=== PATIENT | female | born 1965 ===

== ENCOUNTER 2017-06-08 11:16 | Inpatient (IN) | payer OTHER ==
[2017-06-08 11:28] VITALS: BMI 42.2
[2017-06-08] MEDS ORDERED: Iohexol 240 (50 ml) PO STA ×2 (12:00→16:20)
[2017-06-08] MEDS ORDERED: Sodium Chloride 0.9% 1,000 ML IV STA (12:00)
--- NOTE | 2017-06-08 12:25 | C.PDOC ---
History Of Present Illness 51 year old female presents to the ED for evaluation of fever and left lower quadrant abdominal pain which began 5 days ago. Patient reports having one episode of vomiting and two episodes of diarrhea. Patient also has a history of pilonidal cyst and underwent repair by Dr. May. Patient states the area has not been healing well and reports discharge. Patient was advised by Dr. Sparrow to present to the ED for evaluation, admission under his service for surgical debridement to her saccral area and a workup for her abdominal pain. Patient denies back pain and dysuria at this time. Chief Complaint (Nursing): Abdominal Pain History Per: Patient History/Exam Limitations: no limitations Onset/Duration Of Symptoms: Days (5) Current Symptoms Are (Timing): Still Present Location Of Pain/Discomfort: LLQ Radiation Of Pain To:: None Quality Of Discomfort: "Pain" Associated Symptoms: Fever, Vomiting, Diarrhea. denies: Back Pain, Urinary Symptoms Additional History Per: Patient Abnormal Vaginal Bleeding: No Past Medical History Reviewed: Historical Data, Nursing Documentation, Vital Signs Vital Signs: Last Vital Signs Temp 98.6 F 06/08/17 13:05 Pulse 69 06/08/17 13:05 Resp 20 06/08/17 13:05 BP 152/87 H 06/08/17 13:05 Pulse Ox 95 06/08/17 13:18 - Medical History PMH: HTN Denies: Chronic Kidney Disease Surgical History: No Surg Hx - [facility] Procedures EXCISION OF BUTTOCK SKIN, EXTERNAL APPROACH (09/27/16) TRANSFER BACK SKIN, EXTERNAL APPROACH (09/27/16) Family History: States: Unknown Family Hx - Social History Hx Tobacco Use: No Hx Alcohol Use: No Hx Substance Use: No - Immunization History Hx Tetanus Toxoid Vaccination: No Hx Influenza Vaccination: Yes Hx Pneumococcal Vaccination: No Review Of Systems Constitutional: Positive for: Fever Gastrointestinal: Positive for: Vomiting, Abdominal Pain (left lower quadrant ) , Diarrhea Genitourinary: Negative for: Dysuria Musculoskeletal: Negative for: Back Pain Skin: Positive for: Other (nonhealing pilonidal cyst with discharge) Physical Exam - Physical Exam Appears: Non-toxic, No Acute Distress Skin: Normal Color, Warm, Dry Oral Mucosa: Moist Neck: Supple Chest: Symmetrical, No Deformity, No Tenderness Cardiovascular: Rhythm Regular, No Murmur Respiratory: Normal Breath Sounds, No Rales, No Rhonchi, No Wheezing Gastrointestinal/Abdominal: Soft, Tenderness (to left lower quadrant ), No Guarding, No Rebound Extremity: Normal ROM, Capillary Refill (less than 2 seconds ) Neurological/Psych: Oriented x3, Normal Speech, Normal Cognition Gait: Steady ED Course And Treatment - Laboratory Results Result Diagrams: 06/08/17 12:33 06/08/17 12:33 O2 Sat by Pulse Oximetry: 95 (on RA) Pulse Ox Interpretation: Normal Progress Note: Bloodwork, urinalysis, and CT A/P ordered. Toradol IVP, Zofran IVP, Cirpo IV, Flagyl IV, and IV Fluids administered. Case discussed with Dr. Sparrow who states he wishes for patient to go to operating room at this time and does not want CT A/P to be ordered. Dr. Sparrow states he will put in an order for CT after patient is seen in operating room. Also advises to order consult with Dr. Bustillos and Dr. Batista. Disposition - Disposition Disposition: HOSPITALIZED Disposition Time: 13:10 Condition: FAIR - Clinical Impression Clinical Impression: Abdominal pain, Pilonidal abscess - PA / DRAWING TRACER / Resident Statement MD/DO has reviewed & agrees with the documentation as recorded. - Scribe Statement The provider has reviewed the documentation as recorded by the Scribe (Chantelle Nolasco) All medical record entries made by the Scribe were at my direction and personally dictated by me. I have reviewed the chart and agree that the record accurately reflects my personal performance of the history, physical exam, medical decision making, and the department course for this patient. I have also personally directed, reviewed, and agree with the discharge instructions and disposition. Decision To Admit - Pt Status Changed To: Hospital Disposition Of: Inpatient - Admit Certification Admit to Inpatient:: After my assessment, the patient will require hospitalization for at least two midnights. This is because of the severity of symptoms shown, intensity of services needed, and/or the medical risk in this patient being treated as an outpatient. - InPatient: Physician Admission Certification:: Pt will neeed surgical treatment plus she needs to be worked up for abdominal pain. - . Bed Request Type: Regular Patient Diagnosis: Abdominal pain, Pilonidal abscess
[2017-06-08] MEDS ORDERED: Sodium Chloride 0.9% 1,000 ML ONE (12:35)
[2017-06-08 12:38] LABS: BASO # 0.1 K/uL (0.0-0.2); BASO % 0.8 % (0.0-2.0); EOS % 0.3 % (0.0-4.0); HEMOGLOBIN 10.8 g/dL (11.0-16.0); LYMPH # 1.7 K/uL (1.0-4.3); LYMPH % 11.5 % (20.0-40.0); MEAN CELL VOLUME 85.8 fL (81.0-99.0); MEAN CORPUSCULAR HEMOGLOBIN 30.2 pg (27.0-31.0); MEAN CORPUSCULAR HGB CONC 35.2 g/dL (33.0-37.0); MEAN PLATELET VOLUME 9.5 fL (7.2-11.7); MONO # 1.4 K/uL (0.0-0.8); MONO % 9.5 % (0.0-10.0); NEUT # 11.7 K/uL (1.8-7.0); NEUT % 77.9 % (50.0-75.0); RBC 3.57 Mil/uL (3.80-5.20); RED CELL DISTRIBUTION WIDTH 14.6 % (11.5-14.5)
[2017-06-08 12:45] LABS: INR 1.4; PROTHROMBIN TIME 15.6 SECONDS (9.7-12.2)
[2017-06-08 13:09] LABS: ALBUMIN 3.4 g/dL (3.5-5.0); ALT/SGPT 43 U/L (9-52); AST/SGOT 26 U/L (14-36); BLOOD UREA NITROGEN 13 mg/dL (7-17); CALCIUM 8.4 mg/dl (8.6-10.4); GFR AFRICAN-AMERICAN > 60; GFR NON-AFRICAN AMERICAN > 60; LIPASE 66 U/L (23-300)
[2017-06-08] MEDS ORDERED: Ciprofloxacin 400mg/200ml D5W 400 MG/200 ML BAG IV STA (13:10)
[2017-06-08] MEDS ORDERED: metroNIDAZOLE IV 500 mg/100 ml 500 MG/100 ML BAG IV STA (13:10)
[2017-06-08 13:20] LABS: SQUAMOUS EPITHIAL 7 /hpf (0-5); URINE BACTERIA RARE (<OCC); URINE BILIRUBIN NEGATIVE (NEGATIVE); URINE BLOOD 1+ (NEGATIVE); URINE CLARITY Clear (Clear); URINE COLOR Amber (YELLOW); URINE GLUCOSE (UA) NORMAL (Normal); URINE LEUKOCYTE ESTERASE TRACE Leu/uL (Negative); URINE NITRATE NEGATIVE (NEGATIVE); URINE PROTEIN 1+ mg/dL (NEGATIVE)
[2017-06-08 13:32] LABS: ALB/GLOB RATIO 0.9 (1.0-2.1)
[2017-06-08] MEDS ORDERED: Propofol 10 mg/ml Inj (20 ML) ONE (13:55)
[2017-06-08] MEDS ORDERED: Midazolam 2 MG/2 ML VIAL ONE (13:55)
[2017-06-08] MEDS ORDERED: metroNIDAZOLE IV 500 mg/100 ml 500 MG/100 ML BAG ONE (13:57)
[2017-06-08] MEDS ORDERED: Succinylcholine Chloride 20 mg/ml Syr (5 ml) IV ONE (13:57)
[2017-06-08] MEDS ORDERED: Bupivacaine HCl 0.5% PF (10 ml) Inj ONE ×2 (13:58)
[2017-06-08] MEDS ORDERED: Lidocaine 2% w Epi 1:100,000 Inj IJ ONE (13:58)
[2017-06-08] MEDS ORDERED: Lactated Ringer's 1,000 ML IV ONE (14:02)
[2017-06-08] MEDS ORDERED: Bupivacaine HCl 0.25% PF (10 ml) Inj ONE (14:16)
[2017-06-08] MEDS ORDERED: Lidocaine 1% Inj (20ml) ONE (14:16)
[2017-06-08] MEDS ORDERED: Ciprofloxacin 400mg/200ml D5W 400 MG/200 ML BAG IVPB ONE (14:23)
--- NOTE | 2017-06-08 17:03 | CP.PCM.CON ---
History of Present Illness - History of Present Illness History of Present Illness: 51 year old female presents to the ED for evaluation of fever and left lower quadrant abdominal pain which began 5 days ago. Patient reports having one episode of vomiting and two episodes of diarrhea. Patient also has a history of pilonidal cyst and underwent repair by Dr. May. Patient states the area has not been healing well and reports discharge. admitted for sacral wound/ r/o abscess and possible diverticultis cultures up and started antibiotics - Medical History PMH: HTN Denies: Chronic Kidney Disease Surgical History: No Surg Hx - [facility] Procedures EXCISION OF BUTTOCK SKIN, EXTERNAL APPROACH (09/27/16) TRANSFER BACK SKIN, EXTERNAL APPROACH (09/27/16) Review of Systems - Constitutional Constitutional: As Per HPI - EENT Eyes: absent: As Per HPI, Blind Spots, Blurred Vision, Change in Vision, Decreased Night Vision, Diplopia, Discharge, Dry Eye, Exophthalmos, Floaters, Irritation, Itchy Eyes, Loss of Peripheral Vision, Pain, Photophobia, Requires Corrective Lenses, Sees Flashes, Spots in Vision, Tunnel Vision, Other Visual Disturbances, Loss of Vision, Other Ears: absent: As Per HPI, Decreased Hearing, Ear Discharge, Ear Pain, Tinnitus, Abnormal Hearing, Disequilibrium, Dizziness, Other Nose/Mouth/Throat: absent: As Per HPI, Epistaxis, Nasal Congestion, Nasal Discharge, Nasal Obstruction, Nasal Trauma, Nose Pain, Post Nasal Drip, Sinus Pain, Sinus Pressure, Bleeding Gums, Change in Voice, Dental Pain, Dry Mouth, Dysphagia, Halitosis, Hoarsness, Lip Swelling, Mouth Lesions, Mouth Pain, Odynophagia, Sore Throat, Throat Swelling, Tongue Swelling, Facial Pain, Neck Pain, Neck Mass, Other - Breasts Breasts: absent: As Per HPI, Change in Shape, Mass, Pain, Nipple Discharge, Nipple Inversion, Skin Changes, Swelling, Other - Cardiovascular Cardiovascular: absent: As Per HPI, Acrocyanosis, Chest Pain, Chest Pain at Rest , Chest Pain with Activity, Claudication, Diaphoresis, Dyspnea, Dyspnea on Exertion, Edema, Irregular Heart Rhythm, Pain Radiating to Arm/Neck/Jaw, Leg Edema, Leg Ulcers, Lightheadedness, Orthopnea, Palpitations, Paroxysmal Nocturnal Dyspnea, Pedal Edema, Radiating Pain, Rapid Heart Rate, Slow Heart Rate, Syncope, Other - Respiratory Respiratory: absent: As Per HPI, Cough, Dyspnea, Hemoptysis, Dyspnea on Exertion , Wheezing, Snoring, Stridor, Pain on Inspiration, Chest Congestion, Excessive Mucous Production, Change in Mucous Color, Pain with Coughing, Other - Gastrointestinal Gastrointestinal: As Per HPI - Genitourinary Genitourinary: absent: As Per HPI, Change in Urinary Stream, Difficulty Urinating, Dysuria, Flank Pain, Hematuria, Pyuria, Nocturia, Urinary Incontinence, Urinary Frequency, Urinary Hesitance, Urinary Urgency, Voiding Freq/Small Amts, Freq UTI, Hx Renal/Bladder Calculi, Hx /Renal Surgery, Bladder Distension, Other - Reproductive: Female Reproductive:Female: absent: As Per HPI, Amenorrhea, Amenorrhea/ Control, Currently Menstual, Cycle <21 Days, Cycle >35 Days, Cycle Variable, Menses 1-7 Days, Menses >/= 8 Days, Menses Variable, Cycle > 4 Weeks Between, No Menses for 6 Months, Heavy Menses, Light Menses, Normal Menses, Spotting Between Cycles , S/P Hysterectomy, Menopausal, Post Menopausal, Premenarche, Abnormal Vaginal Bleeding, Dysmenorrhea, Dyspareunia, Genital Lesions, Genital Pruritis, Pelvic Pain, Prolapse Symptoms, Sexual Dysfunction, Vaginal Discharge, Vaginal Dryness , Vaginal Odor, Vaginal Pruritis, Other - Menstruation Menstruation: absent: As Per HPI, Amenorrhea, Amenorrhea/ Control, Currently Menstual, Cycle <21 Days, Cycle >35 Days, Cycle Variable, Menses 1-7 Days, Menses >/= 8 Days, Menses Variable, Cycle > 4 Weeks Between, No Menses for 6 Months, Heavy Menses, Light Menses, Normal Menses, Spotting Between Cycles , S/P Hysterectomy, Menopausal, Post Menopausal, Premenarche, Abnormal Vaginal Bleeding, Dysmenorrhea, Other - Musculoskeletal Musculoskeletal: As Per HPI - Integumentary Integumentary: As Per HPI, Skin Pain, Wounds - Neurological Neurological: absent: As Per HPI, Abnormal Gait, Abnormal Hearing, Abnormal Movements, Abnormal Speech, Behavioral Changes, Burning Sensations, Confusion, Convulsions, Disequilibrium, Dizziness, Numbness, Focal Weakness, Frequent Falls , Headaches, Lack of Coordination, Loss of Vision, Memory Loss, Paresthesias, Radicular Pain, Restless Legs, Sensory Deficit, Syncope, Tingling, Tremor, Vertigo, Weakness, Other Visual Disturbances, Other - Psychiatric Psychiatric: absent: As Per HPI, Abnormal Sleep Pattern, Anhedonia, Anxiety, Auditory Hallucinations, Behavioral Changes, Change in Appetite, Change in Libido, Confusion, Depression, Difficulty Concentrating, Hallucinations, Homicidal Ideation, Hopelessness, Irritability, Memory Loss, Mood Swings, Panic Attacks, Paranoia, Suicidal Ideation, Visual Hallucinations, Tactile Hallucinations, Other - Endocrine Endocrine: absent: As Per HPI, Change in Body Appearance, Change in Libido, Cold Intolorance, Deepening of Voice, Excessive Sweating, Fatigue, Flushing, Heat Intolorance, Increase in Ring/Shoe/Hat Size, Palpitations, Polydipsia, Polyphagia, Polyuria, Other - Hematologic/Lymphatic Hematologic: absent: As Per HPI, Easy Bleeding, Easy Bruising, Lymphadenopathy, Other Past Patient History - Past Medical History & Family History Past Medical History?: Yes - Past Social History Smoking Status: Never Smoked - CARDIAC Hx Hypertension: Yes - PULMONARY Hx Respiratory Disorders: No - NEUROLOGICAL Hx Neurological Disorder: No - HEENT Hx HEENT Problems: No - RENAL Hx Chronic Kidney Disease: No - ENDOCRINE/METABOLIC Hx Endocrine Disorders: No - MUSCULOSKELETAL/RHEUMATOLOGICAL Hx Falls: No - PSYCHIATRIC Hx Substance Use: No - SURGICAL HISTORY Hx Surgeries: Yes Hx Gastric Bypass Surgery: Yes (2011) Hx Hysterectomy: Yes (1998) Other/Comment: gallbladder Sx 4 -5 yrs ago - ANESTHESIA Hx Anesthesia: Yes Hx Anesthesia Reactions: No Hx Malignant Hyperthermia: No Meds Allergies/Adverse Reactions: Allergies Allergy/AdvReac Type Severity Reaction Status Date / Time No Known Allergies Allergy Verified 06/08/17 11:50 - Medications Medications: Current Medications Enoxaparin Sodium (Lovenox) 30 mg SC DAILY MICHELLE Oxycodone/Acetaminophen (Percocet 5/325 Mg Tab) 2 tab PO Q4H PRN PRN Reason: pain 5-10 Stop: 06/11/17 14:48 Physical Exam - Constitutional Appears: Chronically Ill - Head Exam Head Exam: NORMOCEPHALIC - Eye Exam Eye Exam: PERRL - ENT Exam ENT Exam: Mucous Membranes Dry - Neck Exam Neck exam: Negative for: Lymphadenopathy - Respiratory Exam Respiratory Exam: Decreased Breath Sounds, Clear to Auscultation Bilateral - Cardiovascular Exam Cardiovascular Exam: REGULAR RHYTHM - GI/Abdominal Exam GI & Abdominal Exam: Diminished Bowel Sounds, Soft. absent: Tenderness - Rectal Exam Rectal Exam: Deferred - Exam Exam: NORMAL INSPECTION - Extremities Exam Extremities exam: Negative for: pedal edema - Back Exam Back exam: absent: CVA tenderness (L), CVA tenderness (R) - Neurological Exam Neurological exam: Alert, CN II-XII Intact, Oriented x3 - Psychiatric Exam Psychiatric exam: Normal Mood - Skin Skin Exam: Dry Results - Vital Signs Recent Vital Signs: Last Vital Signs Temp 97.6 F 06/08/17 14:16 Pulse 57 L 06/08/17 15:15 Resp 14 06/08/17 15:15 BP 150/80 06/08/17 15:15 Pulse Ox 99 06/08/17 15:15 - Labs Result Diagrams: 06/08/17 12:33 06/08/17 12:33 Labs: Laboratory Results - last 24 hr 06/08/17 06/08/17 06/08/17 12:33 12:33 12:33 WBC 15.0 H D RBC 3.57 L Hgb 10.8 L Hct 30.6 L MCV 85.8 MCH 30.2 MCHC 35.2 RDW 14.6 H Plt Count 286 MPV 9.5 Neut % (Auto) 77.9 H Lymph % (Auto) 11.5 L [place] % (Auto) 9.5 Eos % (Auto) 0.3 Baso % (Auto) 0.8 Neut # 11.7 H Lymph # 1.7 [place] # 1.4 H Eos # 0.0 Baso # 0.1 PT INR APTT Sodium 137 Potassium 3.4 L Chloride 99 Carbon Dioxide 30 Anion Gap 13 BUN 13 Creatinine 0.7 Est GFR ( Amer) > 60 Est GFR (Non-Af Amer) > 60 Random Glucose 96 Calcium 8.4 L Total Bilirubin 1.2 AST 26 ALT 43 Alkaline Phosphatase 105 Total Protein 7.3 Albumin 3.4 L Globulin 3.8 Albumin/Globulin Ratio 0.9 L Lipase 66 Urine Color Nallely Urine Clarity Clear Urine pH 7.0 Ur Specific [place] 1.014 Urine Protein 1+ H Urine Glucose (UA) Normal Urine Ketones Trace Urine Blood 1+ H Urine Nitrate Negative Urine Bilirubin Negative Urine Urobilinogen 4.0 H Ur Leukocyte Esterase Trace Urine WBC (Auto) 3 Urine RBC (Auto) 1 Ur Squamous Epith Cells 7 H Urine Bacteria Rare Urine HCG, Qual 06/08/17 06/08/17 12:33 12:33 WBC RBC Hgb Hct MCV MCH MCHC RDW Plt Count MPV Neut % (Auto) Lymph % (Auto) [place] % (Auto) Eos % (Auto) Baso % (Auto) Neut # Lymph # [place] # Eos # Baso # PT 15.6 H INR 1.4 APTT 31 Sodium Potassium Chloride Carbon Dioxide Anion Gap BUN Creatinine Est GFR ( Amer) Est GFR (Non-Af Amer) Random Glucose Calcium Total Bilirubin AST ALT Alkaline Phosphatase Total Protein Albumin Globulin Albumin/Globulin Ratio Lipase Urine Color Urine Clarity Urine pH Ur Specific [place] Urine Protein Urine Glucose (UA) Urine Ketones Urine Blood Urine Nitrate Urine Bilirubin Urine Urobilinogen Ur Leukocyte Esterase Urine WBC (Auto) Urine RBC (Auto) Ur Squamous Epith Cells Urine Bacteria Urine HCG, Qual Negative Assessment & Plan (1) Abdominal pain Status: Acute (2) Pilonidal abscess Status: Acute - Assessment and Plan (Free Text) Assessment: r/o diverticulitis infected wound cultures IV antibiotics
[2017-06-08] MEDS ORDERED: Iohexol 240 (50 ml) ONE (17:18)
[2017-06-08] MEDS: Piperacill/Tazo 3.375gm in Dex 3.375 GM/50 ML BAG IVPB SCH (17:49)
[2017-06-08] MEDS ORDERED: Piperacill/Tazo 3.375gm in Dex 3.375 GM/50 ML BAG IVPB SCH (19:00)
[2017-06-08] MEDS ORDERED: Iodixanol 320 MG/ML 100 ML BOTTLE IV ONE (19:09)
--- NOTE | 2017-06-08 22:47 | OP ---
PROCEDURE DATE: 06/08/2017 PREOPERATIVE DIAGNOSIS: Infected sacral mass. POSTOPERATIVE DIAGNOSIS: Infected sacral mass with abscess. PROCEDURE PERFORMED: Excision of infected sacral mass with drainage of abscess and partial tissue transfer closure. SURGEON: Dr. Sparrow. ANESTHESIA: General. BLOOD LOSS: 40 mL. POSTOPERATIVE CONDITION: Stable. INDICATIONS FOR SURGERY: This is a 51-year-old female, presented with basically 2 problem, she has left lower quadrant pain consistent with diverticulitis. She also has infected sacral mass from a previous surgery 6 months ago. She now will undergo surgery for the sacral mass and a workup of a diverticulitis. DESCRIPTION OF PROCEDURE: The patient was taken to the operating room. IV sedation was administered. She was placed in a prone position. Local anesthesia was administered. An elliptical incision was made surrounding the mass in the sacral area, was dissected into the sacral fascia. Some inflammatory fluids or pus was drained and cultured. The wound was aggressively debrided and irrigated. Bleeding was controlled using the Bovie. Parasacral blood vessel was repaired. The wound was irrigated with saline and a partial tissue transfer closure was performed. The central portion of the wound was packed with saline gauze. The patient tolerated the procedure well. Returned to recovered room in stable condition. Andrey Sparrow MD
--- NOTE | 2017-06-08 23:53 | CP.PCM.HP ---
History of Present Illness - History of Present Illness History of Present Illness: CC: sacral wound/ perianal abscess HPI: 51 year old female with PMH of HTN, obesity denies any h/o diabetes presents to the ED for evaluation of fever and left lower quadrant abdominal pain which began 5 days ago. Patient reports having one episode of vomiting and two episodes of diarrhea. Patient also has a history of pilonidal cyst and underwent repair by Dr. May. Patient states the area has not been healing well and reports discharge. pt is post operative anesthesia unit, denies any chest pain, dizzniness, weakness admitted for sacral wound/ r/o abscess and possible diverticultis cultures up and started antibiotics Present on Admission - Present on Admission Any Indicators Present on Admission: Yes Review of Systems - Review of Systems Systems not reviewed;Unavailable: Acuity of Condition - Constitutional Constitutional: absent: As Per HPI, Anorexia, Chills, Daytime Sleepiness, Excessive Sweating, Fatigue, Fever, Frequent Falls, Headache, Increased Appetite , Lethargy, Malaise, Night Sweats, Snoring, Sleep Apnea, Weight Gain, Weight Loss, Weakness, Other - EENT Eyes: absent: As Per HPI, Blind Spots, Blurred Vision, Change in Vision, Decreased Night Vision, Diplopia, Discharge, Dry Eye, Exophthalmos, Floaters, Irritation, Itchy Eyes, Loss of Peripheral Vision, Pain, Photophobia, Requires Corrective Lenses, Sees Flashes, Spots in Vision, Tunnel Vision, Other Visual Disturbances, Loss of Vision, Other Nose/Mouth/Throat: absent: As Per HPI, Epistaxis, Nasal Congestion, Nasal Discharge, Nasal Obstruction, Nasal Trauma, Nose Pain, Post Nasal Drip, Sinus Pain, Sinus Pressure, Bleeding Gums, Change in Voice, Dental Pain, Dry Mouth, Dysphagia, Halitosis, Hoarsness, Lip Swelling, Mouth Lesions, Mouth Pain, Odynophagia, Sore Throat, Throat Swelling, Tongue Swelling, Facial Pain, Neck Pain, Neck Mass, Other - Cardiovascular Cardiovascular: absent: As Per HPI, Acrocyanosis, Chest Pain, Chest Pain at Rest , Chest Pain with Activity, Claudication, Diaphoresis, Dyspnea, Dyspnea on Exertion, Edema, Irregular Heart Rhythm, Pain Radiating to Arm/Neck/Jaw, Leg Edema, Leg Ulcers, Lightheadedness, Orthopnea, Palpitations, Paroxysmal Nocturnal Dyspnea, Pedal Edema, Radiating Pain, Rapid Heart Rate, Slow Heart Rate, Syncope, Other - Gastrointestinal Gastrointestinal: absent: As Per HPI, Abdominal Pain, Belching, Bloating, Change in Bowel Habits, Change in Stool Character, Coffee Ground Emesis, Constipation, Cramping, Diarrhea, Dyspepsia, Dysphagia, Early Satiety, Excessive Flatus, Fecal Incontinence, Heartburn, Hematemesis, Hematochezia, Loose Stools, Melena, Nausea, Odynophagia, Temesmus, Vomiting, Other Past Patient History - Past Medical History & Family History Past Medical History?: Yes - Past Social History Smoking Status: Never Smoked - CARDIAC Hx Hypertension: Yes - PULMONARY Hx Respiratory Disorders: No - NEUROLOGICAL Hx Neurological Disorder: No - HEENT Hx HEENT Problems: No - RENAL Hx Chronic Kidney Disease: No - ENDOCRINE/METABOLIC Hx Endocrine Disorders: No - MUSCULOSKELETAL/RHEUMATOLOGICAL Hx Falls: No - PSYCHIATRIC Hx Substance Use: No - SURGICAL HISTORY Hx Surgeries: Yes Hx Gastric Bypass Surgery: Yes (2011) Hx Hysterectomy: Yes (1998) Other/Comment: gallbladder Sx 4 -5 yrs ago - ANESTHESIA Hx Anesthesia: Yes Hx Anesthesia Reactions: No Hx Malignant Hyperthermia: No Meds Allergies/Adverse Reactions: Allergies Allergy/AdvReac Type Severity Reaction Status Date / Time No Known Allergies Allergy Verified 06/08/17 11:50 Physical Exam - Constitutional Appears: No Acute Distress - Head Exam Head Exam: ATRAUMATIC, NORMAL INSPECTION, NORMOCEPHALIC - Eye Exam Eye Exam: EOMI, Normal appearance, PERRL Pupil Exam: NORMAL ACCOMODATION, PERRL - Respiratory Exam Respiratory Exam: Clear to Auscultation Bilateral, NORMAL BREATHING PATTERN - GI/Abdominal Exam GI & Abdominal Exam: Normal Bowel Sounds, Soft. absent: Tenderness - Rectal Exam Additional comments: post op wound on sacral area dressing done Results - Vital Signs Recent Vital Signs: Last Vital Signs Temp 98.0 F 06/08/17 19:06 Pulse 67 06/08/17 19:06 Resp 20 06/08/17 19:06 BP 157/89 H 06/08/17 19:06 Pulse Ox 97 06/08/17 19:06 - Labs Result Diagrams: 06/08/17 12:33 06/08/17 12:33 Labs: Laboratory Results - last 24 hr 06/08/17 06/08/17 06/08/17 12:33 12:33 12:33 WBC 15.0 H D RBC 3.57 L Hgb 10.8 L Hct 30.6 L MCV 85.8 MCH 30.2 MCHC 35.2 RDW 14.6 H Plt Count 286 MPV 9.5 Neut % (Auto) 77.9 H Lymph % (Auto) 11.5 L [place] % (Auto) 9.5 Eos % (Auto) 0.3 Baso % (Auto) 0.8 Neut # 11.7 H Lymph # 1.7 [place] # 1.4 H Eos # 0.0 Baso # 0.1 PT INR APTT Sodium 137 Potassium 3.4 L Chloride 99 Carbon Dioxide 30 Anion Gap 13 BUN 13 Creatinine 0.7 Est GFR ( Amer) > 60 Est GFR (Non-Af Amer) > 60 Random Glucose 96 Calcium 8.4 L Total Bilirubin 1.2 AST 26 ALT 43 Alkaline Phosphatase 105 Total Protein 7.3 Albumin 3.4 L Globulin 3.8 Albumin/Globulin Ratio 0.9 L Lipase 66 Urine Color Nallely Urine Clarity Clear Urine pH 7.0 Ur Specific [place] 1.014 Urine Protein 1+ H Urine Glucose (UA) Normal Urine Ketones Trace Urine Blood 1+ H Urine Nitrate Negative Urine Bilirubin Negative Urine Urobilinogen 4.0 H Ur Leukocyte Esterase Trace Urine WBC (Auto) 3 Urine RBC (Auto) 1 Ur Squamous Epith Cells 7 H Urine Bacteria Rare Urine HCG, Qual 06/08/17 06/08/17 12:33 12:33 WBC RBC Hgb Hct MCV MCH MCHC RDW Plt Count MPV Neut % (Auto) Lymph % (Auto) [place] % (Auto) Eos % (Auto) Baso % (Auto) Neut # Lymph # [place] # Eos # Baso # PT 15.6 H INR 1.4 APTT 31 Sodium Potassium Chloride Carbon Dioxide Anion Gap BUN Creatinine Est GFR ( Amer) Est GFR (Non-Af Amer) Random Glucose Calcium Total Bilirubin AST ALT Alkaline Phosphatase Total Protein Albumin Globulin Albumin/Globulin Ratio Lipase Urine Color Urine Clarity Urine pH Ur Specific [place] Urine Protein Urine Glucose (UA) Urine Ketones Urine Blood Urine Nitrate Urine Bilirubin Urine Urobilinogen Ur Leukocyte Esterase Urine WBC (Auto) Urine RBC (Auto) Ur Squamous Epith Cells Urine Bacteria Urine HCG, Qual Negative Assessment & Plan (1) Morbid obesity Assessment and Plan: counseling for weight loss Status: Acute (2) Pilonidal abscess Status: Acute (3) Hypertension Assessment and Plan: resume B.P edicatuon less then 2gm sodium diet Status: Acute
[2017-06-09] MEDS: Piperacill/Tazo 3.375gm in Dex 3.375 GM/50 ML BAG IVPB SCH ×3 (01:09→18:50)
[2017-06-09] MEDS: Oxycodone/Acetaminophen 5/325 mg Tab PO PRN ×2 (05:22→20:46)
--- NOTE | 2017-06-09 08:21 | CT ---
PROCEDURE: CT Abdomen and Pelvis with contrast HISTORY: LLQ pain RO Diverticulitis COMPARISON: 01/07/2014 TECHNIQUE: Contrast dose: 100 cc Visipaque 320 Radiation dose: Total exam DLP = 1096.66 mGy-cm. This CT exam was performed using one or more of the following dose reduction techniques: Automated exposure control, adjustment of the mA and/or kV according to patient size, and/or use of iterative reconstruction technique. FINDINGS: LOWER THORAX: Unremarkable. LIVER: Unremarkable. No gross lesion or ductal dilatation. GALLBLADDER AND BILE DUCTS: Status post cholecystectomy. No abnormality is seen in the gallbladder fossa. PANCREAS: Unremarkable. No gross lesion or ductal dilatation. SPLEEN: Unremarkable. ADRENALS: Unremarkable. No mass. KIDNEYS AND URETERS: Unremarkable. No hydronephrosis. No solid mass. VASCULATURE: Unremarkable. No aortic aneurysm. BOWEL: Inflammatory changes adjacent to the sigmoid colon consistent with acute diverticulitis, it diverticular abscess. This multiloculated collection measures 4.1 x 7.1 cm. Air within the collection identified. Stable postoperative findings stomach likely gastric bypass. APPENDIX: Normal appendix. PERITONEUM: Unremarkable. No free fluid. No free air. LYMPH NODES: Unremarkable. No enlarged lymph nodes. BLADDER: Unremarkable. REPRODUCTIVE: Unremarkable. BONES: No acute fracture. OTHER FINDINGS: Cystic fluid collection interposed between the urinary bladder and sigmoid colon mean Hounsfield unit values 3.9 measuring 6.2 x 8.1 cm. This appears along mesenteric border of the sigmoid. IMPRESSION: Acute sigmoid diverticulitis with fluid collection/abscess anti mesenteric border. Cystic fluid collection interposed between the mesenteric aspect of the sigmoid and the urinary bladder. Additional benign and/or incidental findings described above. Concordant results (preliminary interpretation) provided by [employer]. Procedure Completed: 20:15 Preliminary ([facility]) Report: Dictated and Authenticated: 20:48 Final Interpretation: 08:19 .
[2017-06-09] MEDS: Enoxaparin 30 mg Syringe SC SCH (09:19)
[2017-06-09] MEDS ORDERED: Propofol 10 mg/ml Inj (20 ML) ONE (11:58)
[2017-06-09] MEDS ORDERED: Midazolam 2 MG/2 ML VIAL ONE (11:58)
[2017-06-09] MEDS ORDERED: Bupivacaine HCl 0.25% PF (10 ml) Inj ONE (11:58)
[2017-06-09] MEDS ORDERED: Lidocaine 1% Inj (20ml) ONE (11:58)
[2017-06-09] MEDS ORDERED: Lactated Ringer's 1,000 ML IV ONE (12:00)
[2017-06-09] MEDS: Potassium Ch 20mEq in D5W 1,000 ML IV SCH ×2 (14:40→23:45)
--- NOTE | 2017-06-09 21:58 | OP ---
PROCEDURE DATE: 06/09/2017 PREOPERATIVE DIAGNOSES: Infected sacral mass and abscess. POSTOPERATIVE DIAGNOSES: Infected sacral mass and abscess. PROCEDURE PERFORMED: Redrainage of sacral abscess with debridement, pulse irrigation, partial tissue flap closure. SURGEON: Andrey Sparrow MD. ANESTHESIA: General. ESTIMATED BLOOD LOSS: Less than 30 mL. POSTOPERATIVE CONDITION: Stable. DESCRIPTION OF PROCEDURE: The patient was taken back to the operating room today, placed in the prone position, IV sedation was administered. Local anesthesia was administered. The packing was removed and the wound was prepped and draped. The wound was again aggressively debrided, any remaining collections were drained and cultures were taken. Bleeding was controlled using the Bovie. Parasacral blood vessel was again repaired. Partial tissue flap closure was performed and the central portion of wound was packed open with saline gauze. The patient tolerated the procedure well. Returned to recovery room in stable condition. Andrey Sparrow MD
--- NOTE | 2017-06-09 23:05 | CP.PCM.PN ---
Subjective - Date & Time of Evaluation Date of Evaluation: 06/09/17 Time of Evaluation: 19:00 - Subjective Subjective: Pt seen and examined, is post op, sacral wound is being monitored,pt is afebrile , repeat labs tomorrow Objective - Vital Signs/Intake and Output Vital Signs (last 24 hours): Temp Pulse Resp BP Pulse Ox 99.8 F H 73 20 172/99 H 95 06/09/17 15:30 06/09/17 15:30 06/09/17 15:30 06/09/17 15:30 06/09/17 15:30 Intake and Output: 06/09/17 06/10/17 18:59 06:59 Intake Total 185 1100 Output Total 1000 Balance 185 100 - Medications Medications: Current Medications Enoxaparin Sodium (Lovenox) 30 mg SC DAILY [facility] Last Admin: 06/09/17 09:19 Dose: Not Given Piperacillin Sod/Tazobactam Sod (Zosyn 3.375 Gm Iv Premix) 3.375 gm in 50 mls @ 100 mls/hr IVPB Q8H [facility] Last Admin: 06/09/17 18:50 Dose: 100 mls/hr Potassium Chloride/Dextrose (Potassium Chl 20 Meq In D5w) 1,000 mls @ 100 mls/ hr IV .Q10H [facility] Last Admin: 06/09/17 14:40 Dose: 100 mls/hr Labetalol HCl (Trandate) 200 mg PO BID [facility] Last Admin: 06/09/17 18:20 Dose: 200 mg Oxycodone/Acetaminophen (Percocet 5/325 Mg Tab) 2 tab PO Q4H PRN PRN Reason: pain 5-10 Stop: 06/11/17 14:48 Last Admin: 06/09/17 20:46 Dose: 2 tab Pneumococcal Polyvalent Vaccine (Pneumovax 23 Vaccine) 0.5 ml IM .ONCE ONE Stop: 06/10/17 10:01 - Labs Labs: 06/08/17 12:33 06/08/17 12:33 PT 15.6 SECONDS (9.7-12.2) H 06/08/17 12:33 INR 1.4 06/08/17 12:33 APTT 31 SECONDS (21-34) 06/08/17 12:33 - Constitutional Appears: No Acute Distress - Head Exam Head Exam: ATRAUMATIC, NORMAL INSPECTION, NORMOCEPHALIC - Eye Exam Eye Exam: EOMI, Normal appearance, PERRL Pupil Exam: NORMAL ACCOMODATION, PERRL - Respiratory Exam Respiratory Exam: Clear to Ausculation Bilateral, NORMAL BREATHING PATTERN - Cardiovascular Exam Cardiovascular Exam: REGULAR RHYTHM - GI/Abdominal Exam GI & Abdominal Exam: Soft, Normal Bowel Sounds. absent: Tenderness Assessment and Plan (1) Morbid obesity Status: Acute (2) Pilonidal abscess Status: Acute (3) Hypertension Status: Acute
[2017-06-10] MEDS: Piperacill/Tazo 3.375gm in Dex 3.375 GM/50 ML BAG IVPB SCH ×3 (02:00→17:11)
[2017-06-10] MEDS: Oxycodone/Acetaminophen 5/325 mg Tab PO PRN ×2 (05:53→22:14)
--- NOTE | 2017-06-10 09:42 | PCM.IRP ---
Chief Complaint: IR consulted to evaluate for percutaneous drainage of reported sigmoid diverticular abscess. In careful review of the CT images, the left ovary is not discretely visualized, but based on anatomy (ascending gonadal vessels) and comparison CT, should be in the location of the reported multiloculated collection. While the collection may represent a diverticular abscess, ovarian pathology cannot be entirely excluded and as distinction cannot be reliably made between the collection and left ovarian tissue, safe percutaneous drainage cannot be performed at this time. Recommend empiric antibiotic treatment. Please call IR with any questions. Objective - Vital Signs/Intake and Output Vital Signs (last 24 hours): Vital Signs - 24 hr 06/09/17 06/09/17 06/09/17 11:21 12:26 12:45 Temperature 97.2 F L Pulse Rate 80 63 66 Respiratory 18 20 Rate Blood Pressure 149/76 143/90 149/76 O2 Sat by Pulse 94 L 99 99 Oximetry 06/09/17 06/09/17 06/09/17 13:00 13:15 13:30 Temperature Pulse Rate 62 62 59 L Respiratory 17 16 16 Rate Blood Pressure 153/74 H 151/85 H 156/74 H O2 Sat by Pulse 97 96 96 Oximetry 06/09/17 06/09/17 06/10/17 13:45 15:30 00:00 Temperature 97.5 F L 99.8 F H 98.9 F Pulse Rate 60 73 69 Respiratory 17 20 20 Rate Blood Pressure 143/71 172/99 H 149/84 O2 Sat by Pulse 95 95 94 L Oximetry 06/10/17 08:00 Temperature 98.4 F Pulse Rate 62 Respiratory 20 Rate Blood Pressure 137/83 O2 Sat by Pulse 94 L Oximetry Intake and Output (last 12 hours): Intake & Output 06/09/17 06/10/17 06/10/17 18:59 06:59 18:59 Intake Total 185 1920 Output Total 1000 Balance 185 920 Intake: Intake, IV Amount 100 1600 Right Hand 100 1600 Oral 85 320 Output: Urine 1000 Urine, Voided 1000 Other: # Voids Urine, Voided 2 2 # Bowel Movements 0 - Medications Medications: Current Medications Enoxaparin Sodium (Lovenox) 30 mg SC DAILY [facility] Last Admin: 06/09/17 09:19 Dose: Not Given Piperacillin Sod/Tazobactam Sod (Zosyn 3.375 Gm Iv Premix) 3.375 gm in 50 mls @ 100 mls/hr IVPB Q8H [facility] Last Admin: 06/10/17 02:00 Dose: 100 mls/hr Potassium Chloride/Dextrose (Potassium Chl 20 Meq In D5w) 1,000 mls @ 100 mls/ hr IV .Q10H [facility] Last Admin: 06/09/17 23:45 Dose: 100 mls/hr Labetalol HCl (Trandate) 200 mg PO BID [facility] Last Admin: 06/09/17 18:20 Dose: 200 mg Oxycodone/Acetaminophen (Percocet 5/325 Mg Tab) 2 tab PO Q4H PRN PRN Reason: pain 5-10 Stop: 06/11/17 14:48 Last Admin: 06/10/17 05:53 Dose: 2 tab Pneumococcal Polyvalent Vaccine (Pneumovax 23 Vaccine) 0.5 ml IM .ONCE ONE Stop: 06/10/17 10:01
[2017-06-10] MEDS ORDERED: Pneumococcal 23-Valent Vaccine IM ONE (10:00)
[2017-06-10] MEDS ORDERED: Influenza Vaccine 60 mcg/0.5 mL SYR (4YR UP) IM ONE (10:00)
[2017-06-10] MEDS: Potassium Ch 20mEq in D5W 1,000 ML IV SCH ×3 (10:19→22:12)
[2017-06-10] MEDS: Enoxaparin 30 mg Syringe SC SCH (10:19)
[2017-06-10] MEDS ORDERED: Lidocaine 1% Inj (20ml) ONE (13:22)
[2017-06-10] MEDS ORDERED: Bupivacaine HCl 0.25% PF (10 ml) Inj ONE (13:22)
[2017-06-10] MEDS ORDERED: Lactated Ringer's 1,000 ML IV ONE ×2 (13:36)
[2017-06-10] MEDS ORDERED: Propofol 10 mg/ml Inj (20 ML) ONE (13:57)
[2017-06-10] MEDS ORDERED: Midazolam 2 MG/2 ML VIAL ONE (13:57)
--- NOTE | 2017-06-10 18:22 | CP.PCM.PN ---
Subjective - Date & Time of Evaluation Date of Evaluation: 06/10/17 Time of Evaluation: 10:00 - Subjective Subjective: feels ok awaiting cultures Objective - Vital Signs/Intake and Output Vital Signs (last 24 hours): Temp Pulse Resp BP Pulse Ox 99.4 F 69 18 139/79 97 06/10/17 15:01 06/10/17 15:30 06/10/17 15:30 06/10/17 16:24 06/10/17 15:30 Intake and Output: 06/10/17 06/10/17 06:59 18:59 Intake Total 1920 Output Total 1000 200 Balance 920 -200 - Medications Medications: Current Medications Enoxaparin Sodium (Lovenox) 30 mg SC DAILY [facility] Last Admin: 06/10/17 10:19 Dose: 30 mg Piperacillin Sod/Tazobactam Sod (Zosyn 3.375 Gm Iv Premix) 3.375 gm in 50 mls @ 100 mls/hr IVPB Q8H [facility] Last Admin: 06/10/17 17:11 Dose: 100 mls/hr Potassium Chloride/Dextrose (Potassium Chl 20 Meq In D5w) 1,000 mls @ 100 mls/ hr IV .Q10H [facility] Last Admin: 06/10/17 10:19 Dose: 100 mls/hr Labetalol HCl (Trandate) 200 mg PO BID [facility] Last Admin: 06/10/17 17:11 Dose: 200 mg Oxycodone/Acetaminophen (Percocet 5/325 Mg Tab) 2 tab PO Q4H PRN PRN Reason: pain 5-10 Stop: 06/11/17 14:48 Last Admin: 06/10/17 05:53 Dose: 2 tab - Labs Labs: 06/08/17 12:33 06/08/17 12:33 PT 15.6 SECONDS (9.7-12.2) H 06/08/17 12:33 INR 1.4 06/08/17 12:33 APTT 31 SECONDS (21-34) 06/08/17 12:33 - Constitutional Appears: Non-toxic, Chronically Ill - Head Exam Head Exam: NORMOCEPHALIC - Eye Exam Eye Exam: PERRL - ENT Exam ENT Exam: Mucous Membranes Dry - Neck Exam Neck Exam: absent: Lymphadenopathy - Respiratory Exam Respiratory Exam: Decreased Breath Sounds - Cardiovascular Exam Cardiovascular Exam: REGULAR RHYTHM - GI/Abdominal Exam GI & Abdominal Exam: Distended, Soft - Rectal Exam Rectal Exam: Deferred - Exam Exam: NORMAL INSPECTION - Extremities Exam Extremities Exam: absent: Pedal Edema - Back Exam Back Exam: absent: CVA tenderness (L), CVA tenderness (R) - Neurological Exam Neurological Exam: Alert, Awake, Oriented x3 - Psychiatric Exam Psychiatric exam: Normal Affect, Normal Mood - Skin Skin Exam: Dry Assessment and Plan (1) Abdominal pain Status: Acute (2) Pilonidal abscess Status: Acute - Assessment and Plan (Free Text) Assessment: wound care in progress cultures noted possible PO rx upon discharge
--- NOTE | 2017-06-10 22:40 | CP.PCM.PN ---
Subjective - Date & Time of Evaluation Date of Evaluation: 06/10/17 Time of Evaluation: 18:50 - Subjective Subjective: pt is been seen by ID and she is on antibiotics, B.P is now under controll Objective - Vital Signs/Intake and Output Vital Signs (last 24 hours): Temp Pulse Resp BP Pulse Ox 99.4 F 69 18 139/79 97 06/10/17 15:01 06/10/17 15:30 06/10/17 15:30 06/10/17 16:24 06/10/17 15:30 Intake and Output: 06/10/17 06/11/17 18:59 06:59 Output Total 200 Balance -200 - Medications Medications: Current Medications Enoxaparin Sodium (Lovenox) 30 mg SC DAILY [facility] Last Admin: 06/10/17 10:19 Dose: 30 mg Piperacillin Sod/Tazobactam Sod (Zosyn 3.375 Gm Iv Premix) 3.375 gm in 50 mls @ 100 mls/hr IVPB Q8H [facility] Last Admin: 06/10/17 17:11 Dose: 100 mls/hr Potassium Chloride/Dextrose (Potassium Chl 20 Meq In D5w) 1,000 mls @ 100 mls/ hr IV .Q10H [facility] Last Admin: 06/10/17 22:12 Dose: 100 mls/hr Labetalol HCl (Trandate) 200 mg PO BID [facility] Last Admin: 06/10/17 17:11 Dose: 200 mg Oxycodone/Acetaminophen (Percocet 5/325 Mg Tab) 2 tab PO Q4H PRN PRN Reason: pain 5-10 Stop: 06/11/17 14:48 Last Admin: 06/10/17 22:14 Dose: 2 tab - Labs Labs: 06/08/17 12:33 06/08/17 12:33 PT 15.6 SECONDS (9.7-12.2) H 06/08/17 12:33 INR 1.4 06/08/17 12:33 APTT 31 SECONDS (21-34) 06/08/17 12:33 - Constitutional Appears: No Acute Distress - Head Exam Head Exam: ATRAUMATIC, NORMAL INSPECTION, NORMOCEPHALIC - Eye Exam Eye Exam: EOMI, Normal appearance, PERRL Pupil Exam: NORMAL ACCOMODATION, PERRL - Respiratory Exam Respiratory Exam: Clear to Ausculation Bilateral, NORMAL BREATHING PATTERN - Cardiovascular Exam Cardiovascular Exam: REGULAR RHYTHM, +S1, +S2. absent: Murmur - GI/Abdominal Exam GI & Abdominal Exam: Soft, Normal Bowel Sounds. absent: Tenderness Assessment and Plan (1) Morbid obesity Status: Acute (2) Pilonidal abscess Status: Acute (3) Hypertension Status: Acute
--- NOTE | 2017-06-11 00:37 | OP ---
PROCEDURE DATE: 06/10/2017 PREOPERATIVE DIAGNOSIS: Sacral abscess and open wound. POSTOPERATIVE DIAGNOSIS: Sacral abscess and open wound. PROCEDURE PERFORMED: Re-debridement of sacral wound with drainage of abscess and closure. SURGEON: Andrey Sparrow MD. ANESTHESIA: General. ESTIMATED BLOOD LOSS: 40 mL. POSTOPERATIVE CONDITION: Stable. INDICATIONS FOR SURGERY: This is a 51-year-old female with a history of a sacral abscess with status post I&D and debridement. She will now undergo debridement and closure. DESCRIPTION OF PROCEDURE: The patient was taken to the operating room, placed in the prone position, IV sedation was administered. The sacral area was prepped and draped. Local anesthesia was infiltrated. The wound was debrided and pulse irrigated. Bleeding was controlled using the Bovie. Parasacral bleeders were repaired. The wound was washed and partial tissue transfer closure was performed. The remainder of the wound was marsupialized using interrupted 0 Monocryl suture. The wound was packed and dressed sterilely. The patient tolerated the procedure well and returned to recovery in stable condition. Andrey Sparrow MD
[2017-06-11] MEDS: Piperacill/Tazo 3.375gm in Dex 3.375 GM/50 ML BAG IVPB SCH ×3 (01:31→17:46)
[2017-06-11] MEDS: Potassium Ch 20mEq in D5W 1,000 ML IV SCH ×3 (05:49→17:47)
[2017-06-11 07:21] LABS: BASO # 0.1 K/uL (0.0-0.2); BASO % 0.6 % (0.0-2.0); EOS # 0.1 K/uL (0.0-0.7); EOS % 0.6 % (0.0-4.0); HEMOGLOBIN 10.7 g/dL (11.0-16.0); LYMPH # 1.4 K/uL (1.0-4.3); LYMPH % 9.5 % (20.0-40.0); MEAN CELL VOLUME 85.8 fL (81.0-99.0); MEAN CORPUSCULAR HEMOGLOBIN 30.7 pg (27.0-31.0); MEAN CORPUSCULAR HGB CONC 35.8 g/dL (33.0-37.0); MEAN PLATELET VOLUME 9.4 fL (7.2-11.7); MONO # 1.4 K/uL (0.0-0.8); MONO % 9.3 % (0.0-10.0); NEUT # 11.8 K/uL (1.8-7.0); PLATELET COUNT 320 K/uL (130-400); RBC 3.48 Mil/uL (3.80-5.20); RED CELL DISTRIBUTION WIDTH 14.5 % (11.5-14.5); WHITE BLOOD COUNT 14.7 K/uL (4.8-10.8)
[2017-06-11 07:52] LABS: ALB/GLOB RATIO 0.9 (1.0-2.1); ALBUMIN 3.3 g/dL (3.5-5.0); ALT/SGPT 35 U/L (9-52); AST/SGOT 20 U/L (14-36); BLOOD UREA NITROGEN 8 mg/dL (7-17); CALCIUM 8.1 mg/dl (8.6-10.4); GFR AFRICAN-AMERICAN > 60; GFR NON-AFRICAN AMERICAN > 60
[2017-06-11 09:13] LABS: BANDS 2 % (0-2); LYMPHOCYTE 9 % (20-40); MONOCYTE 8 % (0-10); NEUTROPHIL 80 % (50-75); PLATELET ESTIMATE NORMAL (NORMAL); REACTIVE LYMPHOCYTES 1 % (0-0); TOTAL CELLS COUNTED 100
[2017-06-11 09:14] LABS: ANISOCYTOSIS SLIGHT; TARGET CELLS SLIGHT
[2017-06-11 09:15] LABS: MICROCYTOSIS SLIGHT
[2017-06-11 09:16] LABS: OVALOCYTES SLIGHT; SPHEROCYTES SLIGHT
[2017-06-11 09:17] LABS: LARGE PLATELETS PRESENT
[2017-06-11] MEDS: Enoxaparin 30 mg Syringe SC SCH (09:58)
[2017-06-11] MEDS: Oxycodone/Acetaminophen 5/325 mg Tab PO PRN (14:34)
--- NOTE | 2017-06-11 22:01 | CP.PCM.PN ---
Subjective - Date & Time of Evaluation Date of Evaluation: 06/11/17 Time of Evaluation: 19:00 - Subjective Subjective: pt is been seen by ID and she is on antibiotics, B.P is now under controll Objective - Vital Signs/Intake and Output Vital Signs (last 24 hours): Temp Pulse Resp BP Pulse Ox 99 F 69 20 148/87 96 06/11/17 15:00 06/11/17 15:00 06/11/17 15:00 06/11/17 15:00 06/11/17 15:00 Intake and Output: 06/11/17 06/12/17 18:59 06:59 Intake Total 1200 Balance 1200 - Medications Medications: Current Medications Enoxaparin Sodium (Lovenox) 30 mg SC DAILY [facility] Last Admin: 06/11/17 09:58 Dose: 30 mg Piperacillin Sod/Tazobactam Sod (Zosyn 3.375 Gm Iv Premix) 3.375 gm in 50 mls @ 100 mls/hr IVPB Q8H [facility] Last Admin: 06/11/17 17:46 Dose: 100 mls/hr Potassium Chloride/Dextrose (Potassium Chl 20 Meq In D5w) 1,000 mls @ 100 mls/ hr IV .Q10H [facility] Last Admin: 06/11/17 17:47 Dose: 100 mls/hr Labetalol HCl (Trandate) 200 mg PO BID [facility] Last Admin: 06/11/17 17:55 Dose: 200 mg - Labs Labs: 06/11/17 07:13 06/11/17 07:13 PT 15.6 SECONDS (9.7-12.2) H 06/08/17 12:33 INR 1.4 06/08/17 12:33 APTT 31 SECONDS (21-34) 06/08/17 12:33 - Constitutional Appears: No Acute Distress - Head Exam Head Exam: ATRAUMATIC, NORMAL INSPECTION, NORMOCEPHALIC - Eye Exam Eye Exam: EOMI, Normal appearance, PERRL Pupil Exam: NORMAL ACCOMODATION, PERRL - Respiratory Exam Respiratory Exam: Clear to Ausculation Bilateral, NORMAL BREATHING PATTERN - Cardiovascular Exam Cardiovascular Exam: REGULAR RHYTHM, +S1, +S2. absent: Murmur - GI/Abdominal Exam GI & Abdominal Exam: Soft, Normal Bowel Sounds. absent: Tenderness Assessment and Plan (1) Morbid obesity Status: Acute (2) Pilonidal abscess Status: Acute (3) Hypertension Status: Acute
[2017-06-12] MEDS ORDERED: Oxycodone/Acetaminophen 5/325 mg Tab PO ONE (00:50)
[2017-06-12] MEDS: Piperacill/Tazo 3.375gm in Dex 3.375 GM/50 ML BAG IVPB SCH ×3 (01:15→17:14)
[2017-06-12] MEDS: Potassium Ch 20mEq in D5W 1,000 ML IV SCH ×3 (01:45→12:35)
[2017-06-12] MEDS: Enoxaparin 30 mg Syringe SC SCH ×2 (10:30→10:34)
--- NOTE | 2017-06-12 13:20 | CP.PCM.PN ---
Subjective - Date & Time of Evaluation Date of Evaluation: 06/12/17 Time of Evaluation: 12:00 - Subjective Subjective: see dictated note Objective - Vital Signs/Intake and Output Vital Signs (last 24 hours): Temp Pulse Resp BP Pulse Ox 98.6 F 65 20 150/72 96 06/12/17 08:00 06/12/17 08:00 06/12/17 08:00 06/12/17 08:00 06/12/17 08:00 Intake and Output: 06/12/17 06/12/17 06:59 18:59 Intake Total 300 1100 Balance 300 1100 - Medications Medications: Current Medications Enoxaparin Sodium (Lovenox) 30 mg SC DAILY [facility] Last Admin: 06/12/17 10:34 Dose: Not Given Piperacillin Sod/Tazobactam Sod (Zosyn 3.375 Gm Iv Premix) 3.375 gm in 50 mls @ 100 mls/hr IVPB Q8H [facility] Last Admin: 06/12/17 10:30 Dose: 100 mls/hr Potassium Chloride/Dextrose (Potassium Chl 20 Meq In D5w) 1,000 mls @ 100 mls/ hr IV .Q10H [facility] Last Admin: 06/12/17 12:35 Dose: Not Given Labetalol HCl (Trandate) 200 mg PO BID [facility] Last Admin: 06/12/17 10:30 Dose: 200 mg - Labs Labs: 06/11/17 07:13 06/11/17 07:13 PT 15.6 SECONDS (9.7-12.2) H 06/08/17 12:33 INR 1.4 06/08/17 12:33 APTT 31 SECONDS (21-34) 06/08/17 12:33
[2017-06-12] MEDS ORDERED: Oxycodone/Acetaminophen 5/325 mg Tab PO PRN (13:56)
--- NOTE | 2017-06-12 16:00 | PN ---
DATE: 06/12/2017 SUBJECTIVE: The patient is seen resting comfortably in bed. She did not have an interventional radiology procedure despite this has been discussed with the interventional radiologist 3 days ago. I got a call yesterday stating that there was not appropriate consultation placed in the computer, but I had done this right after her last procedure. She is resting comfortably in bed today and says that her left lower quadrant pain is less. PHYSICAL EXAMINATION: VITAL SIGNS: The temperature is 99 and vital signs are stable. Pertinent physical findings include mild left lower quadrant tenderness, decreased in amount since last examination. Examination of her sacrum revealed the wound. The wound was re-opened, debrided, re-packed, and drained. IMPRESSION: 1. Acute diverticulitis, patient will undergo an interventional radiology, although delayed, tomorrow. 2. Status post excision of infected sacral wound with sacral abscess. The wound is healing and beginning to granulate. Andrey Sparrow MD Joanand Sparrow MD13:29:51
--- NOTE | 2017-06-12 17:46 | CP.PCM.PN ---
Subjective - Date & Time of Evaluation Date of Evaluation: 06/12/17 Time of Evaluation: 07:00 - Subjective Subjective: seen by dr marte cultures noted iv rx in progress Objective - Vital Signs/Intake and Output Vital Signs (last 24 hours): Temp Pulse Resp BP Pulse Ox 98.5 F 66 20 165/81 H 98 06/12/17 15:15 06/12/17 15:15 06/12/17 15:15 06/12/17 15:15 06/12/17 15:15 Intake and Output: 06/12/17 06/12/17 06:59 18:59 Intake Total 300 2250 Balance 300 2250 - Medications Medications: Current Medications Enoxaparin Sodium (Lovenox) 30 mg SC DAILY [facility] Last Admin: 06/12/17 10:34 Dose: Not Given Piperacillin Sod/Tazobactam Sod (Zosyn 3.375 Gm Iv Premix) 3.375 gm in 50 mls @ 100 mls/hr IVPB Q8H [facility] Last Admin: 06/12/17 17:14 Dose: 100 mls/hr Labetalol HCl (Trandate) 200 mg PO BID [facility] Last Admin: 06/12/17 17:13 Dose: 200 mg Oxycodone/Acetaminophen (Percocet 5/325 Mg Tab) 2 tab PO Q4H PRN PRN Reason: Pain 5-10 Stop: 06/15/17 13:57 - Labs Labs: 06/11/17 07:13 06/11/17 07:13 PT 15.6 SECONDS (9.7-12.2) H 06/08/17 12:33 INR 1.4 06/08/17 12:33 APTT 31 SECONDS (21-34) 06/08/17 12:33 - Constitutional Appears: Non-toxic, Chronically Ill - Head Exam Head Exam: NORMOCEPHALIC - Eye Exam Eye Exam: PERRL - ENT Exam ENT Exam: Mucous Membranes Dry - Neck Exam Neck Exam: absent: Lymphadenopathy - Respiratory Exam Respiratory Exam: Decreased Breath Sounds, Rhonchi - Cardiovascular Exam Cardiovascular Exam: REGULAR RHYTHM - GI/Abdominal Exam GI & Abdominal Exam: Distended Assessment and Plan (1) Abdominal pain Status: Acute (2) Pilonidal abscess Status: Acute
--- NOTE | 2017-06-12 22:51 | CP.PCM.PN ---
Subjective - Date & Time of Evaluation Date of Evaluation: 06/12/17 Time of Evaluation: 16:00 - Subjective Subjective: Pt seen and evalauted, she c/o pain in her right leg, ulcer present on right leg , she is on antibiotics, afebrile, denies any chest pain, nausea, vomittiing Objective - Vital Signs/Intake and Output Vital Signs (last 24 hours): Temp Pulse Resp BP Pulse Ox 98.5 F 66 20 165/81 H 98 06/12/17 15:15 06/12/17 15:15 06/12/17 15:15 06/12/17 15:15 06/12/17 15:15 Intake and Output: 06/12/17 06/13/17 18:59 06:59 Intake Total 2250 Balance 2250 - Medications Medications: Current Medications Enoxaparin Sodium (Lovenox) 30 mg SC DAILY [facility] Last Admin: 06/12/17 10:34 Dose: Not Given Piperacillin Sod/Tazobactam Sod (Zosyn 3.375 Gm Iv Premix) 3.375 gm in 50 mls @ 100 mls/hr IVPB Q8H [facility] Last Admin: 06/12/17 17:14 Dose: 100 mls/hr Labetalol HCl (Trandate) 200 mg PO BID [facility] Last Admin: 06/12/17 17:13 Dose: 200 mg Oxycodone/Acetaminophen (Percocet 5/325 Mg Tab) 2 tab PO Q4H PRN PRN Reason: Pain 5-10 Stop: 06/15/17 13:57 - Labs Labs: 06/11/17 07:13 06/11/17 07:13 PT 15.6 SECONDS (9.7-12.2) H 06/08/17 12:33 INR 1.4 06/08/17 12:33 APTT 31 SECONDS (21-34) 06/08/17 12:33 - Constitutional Appears: No Acute Distress - Head Exam Head Exam: ATRAUMATIC, NORMAL INSPECTION, NORMOCEPHALIC - Eye Exam Eye Exam: EOMI, Normal appearance, PERRL Pupil Exam: NORMAL ACCOMODATION, PERRL - Respiratory Exam Respiratory Exam: Clear to Ausculation Bilateral, NORMAL BREATHING PATTERN - Cardiovascular Exam Cardiovascular Exam: REGULAR RHYTHM, +S1, +S2. absent: Murmur - GI/Abdominal Exam GI & Abdominal Exam: Soft, Normal Bowel Sounds. absent: Tenderness Assessment and Plan (1) Morbid obesity Status: Acute (2) Pilonidal abscess Status: Acute (3) Hypertension Status: Acute
[2017-06-13] MEDS: Oxycodone/Acetaminophen 5/325 mg Tab PO PRN (00:05)
[2017-06-13] MEDS: Piperacill/Tazo 3.375gm in Dex 3.375 GM/50 ML BAG IVPB SCH ×3 (01:00→18:13)
[2017-06-13] MEDS: Enoxaparin 30 mg Syringe SC SCH (10:53)
--- NOTE | 2017-06-13 22:55 | CP.PCM.PN ---
Subjective - Date & Time of Evaluation Date of Evaluation: 06/13/17 Time of Evaluation: 19:00 - Subjective Subjective: Pt seen and evaluated at bedside, he is on antibiotics, she is afebrile, no SOB , for wound care and surgical follow up Objective - Vital Signs/Intake and Output Vital Signs (last 24 hours): Temp Pulse Resp BP Pulse Ox 97.7 F 60 20 156/84 H 97 06/13/17 07:45 06/13/17 15:58 06/13/17 07:45 06/13/17 15:58 06/13/17 15:58 Intake and Output: 06/13/17 06/14/17 18:59 06:59 Intake Total 1100 Balance 1100 - Medications Medications: Current Medications Enoxaparin Sodium (Lovenox) 30 mg SC DAILY [facility] Last Admin: 06/13/17 10:53 Dose: 30 mg Piperacillin Sod/Tazobactam Sod (Zosyn 3.375 Gm Iv Premix) 3.375 gm in 50 mls @ 100 mls/hr IVPB Q8H [facility] Last Admin: 06/13/17 18:13 Dose: 100 mls/hr Labetalol HCl (Trandate) 200 mg PO BID [facility] Last Admin: 06/13/17 18:13 Dose: 200 mg Oxycodone/Acetaminophen (Percocet 5/325 Mg Tab) 2 tab PO Q4H PRN PRN Reason: Pain, severe (8-10) Stop: 06/15/17 23:59 Last Admin: 06/13/17 00:05 Dose: 2 tab - Labs Labs: 06/11/17 07:13 06/11/17 07:13 PT 15.6 SECONDS (9.7-12.2) H 06/08/17 12:33 INR 1.4 06/08/17 12:33 APTT 31 SECONDS (21-34) 06/08/17 12:33 - Constitutional Appears: No Acute Distress - Head Exam Head Exam: ATRAUMATIC, NORMAL INSPECTION, NORMOCEPHALIC - Eye Exam Eye Exam: EOMI, Normal appearance, PERRL Pupil Exam: NORMAL ACCOMODATION, PERRL - Respiratory Exam Respiratory Exam: Clear to Ausculation Bilateral, NORMAL BREATHING PATTERN - Cardiovascular Exam Cardiovascular Exam: REGULAR RHYTHM, +S1, +S2. absent: Murmur - GI/Abdominal Exam GI & Abdominal Exam: Soft, Normal Bowel Sounds. absent: Tenderness Assessment and Plan (1) Morbid obesity Status: Acute (2) Pilonidal abscess Assessment & Plan: wound care and surgical follow up Status: Acute (3) Hypertension Status: Acute
[2017-06-14] MEDS: Piperacill/Tazo 3.375gm in Dex 3.375 GM/50 ML BAG IVPB SCH ×3 (02:17→17:14)
[2017-06-14] MEDS ORDERED: Iohexol 240 (50 ml) PO ONE (08:15)
[2017-06-14] MEDS: Enoxaparin 30 mg Syringe SC SCH (10:01)
[2017-06-14] MEDS ORDERED: Iodixanol 320 mg/ml 150 ml Bottle IV ONE (13:31)
[2017-06-14] MEDS: Oxycodone/Acetaminophen 5/325 mg Tab PO PRN (15:05)
[2017-06-14] MEDS: Labetalol Hydrochloride 300 mg Tab PO SCH (17:15)
--- NOTE | 2017-06-14 21:09 | CP.PCM.PN ---
Subjective - Date & Time of Evaluation Date of Evaluation: 06/14/17 Time of Evaluation: 18:00 - Subjective Subjective: Pt seen and evaluated at bedside, he is on antibiotics, she is afebrile, no SOB , for wound care and surgical follow up Objective - Vital Signs/Intake and Output Vital Signs (last 24 hours): Temp Pulse Resp BP Pulse Ox 98.3 F 61 20 182/89 H 95 06/14/17 16:00 06/14/17 16:00 06/14/17 16:00 06/14/17 16:00 06/14/17 16:00 Intake and Output: 06/14/17 06/15/17 18:59 06:59 Intake Total 52 Balance 52 - Medications Medications: Current Medications Enoxaparin Sodium (Lovenox) 30 mg SC DAILY [facility] Last Admin: 06/14/17 10:01 Dose: Not Given Piperacillin Sod/Tazobactam Sod (Zosyn 3.375 Gm Iv Premix) 3.375 gm in 50 mls @ 100 mls/hr IVPB Q8H [facility] Last Admin: 06/14/17 17:14 Dose: 100 mls/hr Labetalol HCl (Normodyne) 300 mg PO BID [facility] Last Admin: 06/14/17 17:15 Dose: 300 mg Oxycodone/Acetaminophen (Percocet 5/325 Mg Tab) 2 tab PO Q4H PRN PRN Reason: Pain, severe (8-10) Stop: 06/15/17 23:59 Last Admin: 06/14/17 15:05 Dose: 2 tab - Labs Labs: 06/11/17 07:13 06/11/17 07:13 PT 15.6 SECONDS (9.7-12.2) H 06/08/17 12:33 INR 1.4 06/08/17 12:33 APTT 31 SECONDS (21-34) 06/08/17 12:33 Assessment and Plan (1) Morbid obesity Status: Acute (2) Pilonidal abscess Status: Acute (3) Hypertension Status: Acute
[2017-06-15] MEDS: Piperacill/Tazo 3.375gm in Dex 3.375 GM/50 ML BAG IVPB SCH ×3 (01:44→18:17)
[2017-06-15] MEDS: Enoxaparin 30 mg Syringe SC SCH (09:08)
[2017-06-15] MEDS: Labetalol Hydrochloride 300 mg Tab PO SCH ×2 (09:08→18:16)
--- NOTE | 2017-06-15 10:48 | PN ---
DATE: LOCATION: [facility], bed A. SUBJECTIVE: This is a 51-year-old female seen and examined for GI consultation initially on 06/14/2017 as requested by the admitting medical team and by mainly Dr. Batista. Case was discussed at that time with the staff on the floor and the entire chart is reviewed including but not limited to the most recent lab and radiology study results, current and the previous medication list, current and the previous medical events, allergies to medication list as well as all the available current and the previous medical record and the most recent lab results done about 4 days ago showed leukocytosis of 14.7 with hemoglobin 10.7, hematocrit 29.9 with normal platelet count with blood glucose level 119, calcium 8.1 and albumin 3.3. The most recent CAT scan done on 06/14/2017, still pending report. The patient still has complaint of abdominal pain in the midepigastric and left lower quadrant area with less diarrhea as per her statement and through a retanner. No reported chest pain, palpitation or significant shortness of breath or reported active bleeding. PHYSICAL EXAMINATION: GENERAL: A 51-year-old female. VITAL SIGNS: Afebrile with pulse of 62, blood pressure 150/80 with respiratory rate 20 to 22. HEENT: Showed pale dry mucous membrane. Nonicteric sclerae. LUNGS: Scattered mild crepitation with decreased air entry bilaterally. LYMPH NODES: No lymphadenitis or lymphadenopathy. HEART: Positive S1 and S2. ABDOMEN: Soft with mild distention. Mildly obese with midepigastric as well as left lower quadrant tenderness. No mass or organomegaly. No rebound tenderness or guarding could be appreciated. RECTAL: The patient refused. EXTREMITIES: Without significant clubbing, cyanosis or edema. NEUROLOGIC: No reported new neurological deficits, sensory or motor. The patient still complains of pain at the sacral area postsurgically. IMPRESSION: 1. Infected sacral mass and abscess formation by recent history, treated surgically by Dr. Sparrow. 2. Reported acute diverticulitis by recent CAT scan of the abdomen and pelvis done on 06/08/2017, mainly at the sigmoid colon. 3. Anemia, most likely secondary to above. 4. Leukocytosis, most likely secondary to above. 5. Known history of hypertension as well as peptic ulcer disease. SUGGESTION: 1. Agree with your plan. 2. Add vancomycin p.o. 3. Complete stool workup including C. diff, ova and parasite. 4. No aggressive GI workup as the patient still has leukocytosis with left lower abdominal pain and tenderness indicative of ongoing diverticulitis. 5. It has to be mentioned that the patient never had endoscopic evaluation of the GI tract and the colonoscopy to be kept in mind only when the patient is more stable clinically. 6. Cancer markers. 7. Further evaluation to follow. Thank you for letting me participate in your patient's case management. Andrew Koroma MD
[2017-06-15] MEDS ORDERED: Influenza Vaccine 60 mcg/0.5 mL SYR (4YR UP) IM ONE (13:00)
[2017-06-15] MEDS: Vancomycin 125 MG/5 ML SOLN (ORAL/RECTAL) PO SCH ×2 (14:13→18:17)
--- NOTE | 2017-06-15 14:18 | CT ---
PROCEDURE: CT scan abdomen and pelvis dated 06/14/2017 HISTORY: Surveillance of diverticular abscess. COMPARISON: Comparison made with prior study 06/08/2017. TECHNIQUE: Contrast dose: 100 cc Visipaque 320 Radiation dose: Total exam DLP = 1113.94 mGy-cm. This CT exam was performed using one or more of the following dose reduction techniques: Automated exposure control, adjustment of the mA and/or kV according to patient size, and/or use of iterative reconstruction technique. . FINDINGS: LOWER THORAX: Small bilateral effusions left larger than right with associated minimal associated bibasilar atelectasis. Probable mild scarring changes in the left lingular region. There is a coarse cluster of calcifications seen in the right posterior breast that may represent a large calcified fibroadenoma. Tiny calcifications left breast present. Consider followup mammography if further evaluation is required. LIVER: Liver is enlarged measuring just over 20 cm in CC dimension. No obvious hepatic mass or collection. GALLBLADDER AND BILE DUCTS: Post cholecystectomy changes again seen. PANCREAS: The pancreas remains somewhat atrophic and fatty replaced. SPLEEN: The spleen exhibits normal size and attenuation pattern. ADRENALS: No adrenal lesions. KIDNEYS AND URETERS: punctate calcification anterior aspect mid to lower pole right kidney. No evidence of obstructive hydronephrosis. VASCULATURE: Unremarkable. No aortic aneurysm. BOWEL: Diverticulitis involving short segment of the distance attending/sigmoid colon junction again noted APPENDIX: Appendix not seen with complete certainty. PERITONEUM: Re- demonstrated is an elliptical shaped heterogeneous abscess collection in the left aspect of the pelvis located adjacent to the posterolateral border of the distal descending/sigmoid colon junction and psoas musculature. This collection measures approximately 8.2 cm trans x 4.9 cm AP x 6.1 cm cc. Small bubble of air is present within this abscess. Surrounding infiltration and stranding and probably a small amount of free fluid as well. Wall thickening of the adjacent distal descending/ sigmoid colon junction consistent with inflammatory process likely related to acute diverticulitis. Additionally, there is a somewhat bilobed shaped hypodense presumed fluid collection nonspecific which is slightly more inferior and anteriorly located abutting the left superolateral margin of the urinary bladder and sigmoid colon measures approximately 7 cm trans x 3.0 cm AP x 3.4 cm cc. . This focus is of uncertain etiology however was not present CT scan dated 09/23/2013. While this could represent a left-sided adnexal cystic lesion (provided that the ovaries have not been resected), the possibility of another loculated component of the aforementioned abscess cannot be completely excluded. Clinical correlation recommended. Small to medium-sized fat containing umbilical hernia. LYMPH NODES: Unremarkable. No enlarged lymph nodes. BLADDER: Urinary bladder is physiologically distended. No evidence of intraluminal urinary bladder calculi. REPRODUCTIVE: Apparent hysterectomy. BONES: Minor multilevel degenerative spondylosis of the lower thoracic and to a lesser degree lumbar spine. OTHER FINDINGS: None. IMPRESSION: Heterogeneous multiloculated diverticular abscess collection adjacent to the sigmoid colon/that measures approximately 8.2 x 4.9 x 6.1 cm with increased size of a internal air collection. Persistent wall thickening of the adjacent distal descending/sigmoid colon junction consistent with diverticulitis though the possibility of a perforated colon carcinoma cannot be excluded. There is an additional hypodense fluid collection located slightly more inferior and anterior with respect to the at aforementioned abscess this focus is of uncertain etiology however was not present CT scan dated 09/23/2013. While this could represent a left-sided adnexal cystic lesion (provided that the ovaries have not been resected), the possibility of another loculated component of the aforementioned abscess cannot be completely excluded. Clinical correlation recommended. Note these findings were discussed with Dr. Sparrow at approximately 2:10 p.m. with written down and read back verification.
[2017-06-15 14:32] LABS: BASO # 0.1 K/uL (0.0-0.2); BASO % 0.8 % (0.0-2.0); EOS # 0.1 K/uL (0.0-0.7); EOS % 0.8 % (0.0-4.0); HEMOGLOBIN 11.3 g/dL (11.0-16.0); LYMPH # 1.3 K/uL (1.0-4.3); LYMPH % 15.8 % (20.0-40.0); MEAN CELL VOLUME 85.5 fL (81.0-99.0); MEAN CORPUSCULAR HEMOGLOBIN 29.9 pg (27.0-31.0); MONO # 0.6 K/uL (0.0-0.8); MONO % 7.5 % (0.0-10.0); NEUT # 6.3 K/uL (1.8-7.0); NEUT % 75.1 % (50.0-75.0); NRBC % 0.1 % (0.0-2.0); RBC 3.78 Mil/uL (3.80-5.20); RED CELL DISTRIBUTION WIDTH 14.5 % (11.5-14.5); WHITE BLOOD COUNT 8.4 K/uL (4.8-10.8)
[2017-06-15 14:59] LABS: ALB/GLOB RATIO 0.8 (1.0-2.1); ALBUMIN 3.8 g/dL (3.5-5.0); ALT/SGPT 32 U/L (9-52); AST/SGOT 39 U/L (14-36); BLOOD UREA NITROGEN 10 mg/dL (7-17); CALCIUM 8.9 mg/dl (8.6-10.4); GFR AFRICAN-AMERICAN > 60; GFR NON-AFRICAN AMERICAN > 60
--- NOTE | 2017-06-15 16:25 | CP.PCM.PN ---
Subjective - Date & Time of Evaluation Date of Evaluation: 06/15/17 Time of Evaluation: 07:00 - Subjective Subjective: still has LLQ tend and CT shows abscess LLQ Objective - Vital Signs/Intake and Output Vital Signs (last 24 hours): Temp Pulse Resp BP Pulse Ox 97.7 F 60 20 153/85 H 95 06/15/17 07:43 06/15/17 07:43 06/15/17 07:43 06/15/17 07:43 06/15/17 07:43 Intake and Output: 06/15/17 06/15/17 06:59 18:59 Intake Total 690 650 Balance 690 650 - Medications Medications: Current Medications Enoxaparin Sodium (Lovenox) 30 mg SC DAILY ON LICENSE OF [facility] Last Admin: 06/15/17 09:08 Dose: 30 mg Piperacillin Sod/Tazobactam Sod (Zosyn 3.375 Gm Iv Premix) 3.375 gm in 50 mls @ 100 mls/hr IVPB Q8H ON LICENSE OF [facility] Last Admin: 06/15/17 11:20 Dose: 100 mls/hr Labetalol HCl (Normodyne) 300 mg PO BID ON LICENSE OF [facility] Last Admin: 06/15/17 09:08 Dose: 300 mg Oxycodone/Acetaminophen (Percocet 5/325 Mg Tab) 2 tab PO Q4H PRN PRN Reason: Pain, severe (8-10) Stop: 06/15/17 23:59 Last Admin: 06/14/17 15:05 Dose: 2 tab Vancomycin HCl (Vancocin (Oral Or Rectal Use)) 500 mg PO TID ON LICENSE OF [facility] Last Admin: 06/15/17 14:13 Dose: 500 mg - Labs Labs: 06/15/17 14:27 06/15/17 14:27 PT 15.6 SECONDS (9.7-12.2) H 06/08/17 12:33 INR 1.4 06/08/17 12:33 APTT 31 SECONDS (21-34) 06/08/17 12:33 - Constitutional Appears: Non-toxic, Chronically Ill - Head Exam Head Exam: NORMOCEPHALIC - Eye Exam Eye Exam: PERRL - ENT Exam ENT Exam: Mucous Membranes Dry - Neck Exam Neck Exam: absent: Lymphadenopathy - Respiratory Exam Respiratory Exam: Decreased Breath Sounds - Cardiovascular Exam Cardiovascular Exam: REGULAR RHYTHM - GI/Abdominal Exam GI & Abdominal Exam: Distended, Guarding, Tenderness - Rectal Exam Rectal Exam: Deferred - Exam Exam: NORMAL INSPECTION - Extremities Exam Extremities Exam: absent: Pedal Edema - Back Exam Back Exam: absent: CVA tenderness (L), CVA tenderness (R) Assessment and Plan (1) Abdominal pain Status: Acute (2) Pilonidal abscess Status: Acute (3) Diverticular disease of intestine with perforation and abscess Status: Acute (4) Diverticular disease of intestine with perforation and abscess Status: Acute (5) Colonic diverticular abscess Status: Acute (6) Colonic diverticular abscess Status: Acute - Assessment and Plan (Free Text) Assessment: for OR in am as per Dr Sparrow
[2017-06-16] MEDS ORDERED: DiphenhydrAMINE 50 mg/ml Inj IVP STA (00:22)
[2017-06-16] MEDS: Piperacill/Tazo 3.375gm in Dex 3.375 GM/50 ML BAG IVPB SCH (02:00)
[2017-06-16] MEDS: Enoxaparin 30 mg Syringe SC SCH (09:45)
[2017-06-16] MEDS: Aztreonam 1 GM in Sodium Chloride 0.9% 100 ML IVPB SCH ×2 (10:34→18:40)
[2017-06-16] MEDS: Labetalol Hydrochloride 300 mg Tab PO SCH (10:45)
[2017-06-16 10:53] LABS: BASO % 0.4 % (0.0-2.0); EOS # 0.1 K/uL (0.0-0.7); EOS % 1.2 % (0.0-4.0); HEMOGLOBIN 11.5 g/dL (11.0-16.0); LYMPH # 1.3 K/uL (1.0-4.3); MEAN CELL VOLUME 86.1 fL (81.0-99.0); MEAN CORPUSCULAR HEMOGLOBIN 29.4 pg (27.0-31.0); MEAN CORPUSCULAR HGB CONC 34.1 g/dL (33.0-37.0); MEAN PLATELET VOLUME 8.6 fL (7.2-11.7); MONO # 0.5 K/uL (0.0-0.8); NEUT # 6.9 K/uL (1.8-7.0); NEUT % 77.4 % (50.0-75.0); RBC 3.91 Mil/uL (3.80-5.20); RED CELL DISTRIBUTION WIDTH 14.7 % (11.5-14.5)
[2017-06-16 12:09] LABS: ALB/GLOB RATIO 0.8 (1.0-2.1); ALBUMIN 3.8 g/dL (3.5-5.0); ALT/SGPT 41 U/L (9-52); AST/SGOT 44 U/L (14-36); BLOOD UREA NITROGEN 12 mg/dL (7-17); CALCIUM 8.9 mg/dl (8.6-10.4); GFR AFRICAN-AMERICAN > 60; GFR NON-AFRICAN AMERICAN > 60
[2017-06-16] MEDS ORDERED: Propofol 10 mg/ml Inj (20 ML) ONE (12:44)
[2017-06-16] MEDS ORDERED: Midazolam 2 MG/2 ML VIAL ONE (12:44)
[2017-06-16] MEDS ORDERED: metroNIDAZOLE IV 500 mg/100 ml 500 MG/100 ML BAG ONE (13:29)
[2017-06-16] MEDS ORDERED: Lactated Ringer's 1,000 ML IV ONE ×6 (13:31→16:30)
[2017-06-16] MEDS: metroNIDAZOLE IV 500 mg/100 ml 500 MG/100 ML BAG IVPB SCH ×2 (13:55→21:00)
--- NOTE | 2017-06-16 14:53 | PN ---
DATE: LOCATION: [facility], bed A. SUBJECTIVE: This is a 52-year-old female seen and examined early at rounds today with a complaint of some generalized body rash with itching on and off, which could be anyhow drug induced, but still with slight left-sided abdominal pain. The entire chart is reviewed including, but not limited to most recent lab and radiology study results, current and the previous medication list, current and the previous medical events as well as allergies to medication list. Case discussed with the staff at length. Today's lab shows normal white blood cells of 9.0, with low hematocrit of 33.7, with thrombocytosis of 517. Rest of the lab results still pending and the patient's cancer marker results reported to be normal. Repeat abdominal and pelvic CAT scan done 2 days ago, her report seen with multi-lobulated diverticular abscess collection adjacent to the sigmoid colon with acute diverticulitis with questionable perforated colon. CA cannot be excluded. Rest of the reports as in the official sheet. PHYSICAL EXAMINATION: GENERAL: A 52-year-old female, awake, alert, oriented. VITAL SIGNS: Afebrile with pulse of 64, respiratory rate 20 to 22, blood pressure 150/72. HEENT: Showed mildly pale dry oral mucous membrane. Nonicteric sclerae. LUNGS: A few scattered crepitation, with decreased air entry at bases. HEART: Positive S1 and S2. ABDOMEN: Soft with mild generalized tenderness. No mass or organomegaly. No rebound tenderness or guarding. Left-sided tenderness still positive. EXTREMITIES: Without significant clubbing, cyanosis, but mild lower extremity edematous changes. SKIN: Body rash is noted. NEUROLOGIC: No reported new neurological deficits, sensory or motor. IMPRESSION: 1. Diverticulosis with acute diverticulitis with possible perforated viscus versus, as per the radiology study results, colon cancer. The patient's CEA level is normal, doubted if the patient has carcinoma of the colon based on the radiology study results only. 2. Infected sacral mass treated surgically and was drained. 3. Anemia, secondary to above, slightly improving. 4. Known history of peptic ulcer disease and hypertension. SUGGESTION: 1. Continue current management. 2. IV antibiotics in the meantime. 3. Surgical re-evaluation if there is no response to the above medical treatment. This case discussed with Dr. Bustillos at length, to be discussed with Dr. Keven Batista. Andrew Koroma MD
[2017-06-16] MEDS ORDERED: Neostigmine Methylsulfate 3mg/3ml Syringe IV ONE (15:27)
--- NOTE | 2017-06-16 17:33 | CP.PCM.CON ---
<TyrellNikki - Last Filed: 06/16/17 17:40> History of Present Illness - History of Present Illness History of Present Illness: Critical Care Consult note for Dr. Ramesh Nolasco CC: sacral wound/perianal abscess and possible diverticulitis. f/u cultures and antibiotics Patient came in for non-healing pilonidal cyst repair by Dr. Sparrow. HPI: 51 year old female with PMH of HTN, obesity denies any h/o diabetes presents to the ED for evaluation of fever and left lower quadrant abdominal pain x 5 days. Patient admitted to one episode of vomiting and two episodes of diarrhea. Patient admits to discharge from the incision. Patient brought to ICU for further care. PMH of HTN, obesity, pilonidal cyst underwent repair by Dr. Sparrow and has been reporting discharge. PSH: pilonidal cyst repair. Past Patient History - Past Medical History & Family History Past Medical History?: Yes - Past Social History Smoking Status: Never Smoked - CARDIAC Hx Hypertension: Yes - PULMONARY Hx Respiratory Disorders: No - NEUROLOGICAL Hx Neurological Disorder: No - HEENT Hx HEENT Problems: No - RENAL Hx Chronic Kidney Disease: No - ENDOCRINE/METABOLIC Hx Endocrine Disorders: No - MUSCULOSKELETAL/RHEUMATOLOGICAL Hx Falls: No - PSYCHIATRIC Hx Substance Use: No - SURGICAL HISTORY Hx Surgeries: Yes Hx Gastric Bypass Surgery: Yes (2011) Hx Hysterectomy: Yes (1998) Other/Comment: gallbladder Sx 4 -5 yrs ago - ANESTHESIA Hx Anesthesia: Yes Hx Anesthesia Reactions: No Hx Malignant Hyperthermia: No Meds Allergies/Adverse Reactions: Allergies Allergy/AdvReac Type Severity Reaction Status Date / Time piperacillin [From Zosyn] AdvReac RASH, Verified 06/16/17 12:36 ITCHINESS tazobactam [From Zosyn] AdvReac RASH, Verified 06/16/17 12:36 ITCHINESS vancomycin AdvReac RASH, Verified 06/16/17 12:37 ITCHINESS - Medications Medications: Current Medications Hydromorphone HCl (Dilaudid) 0.5 mg IVP Q10M PRN PRN Reason: Pain, moderate (4-7) Stop: 06/16/17 17:59 Hydromorphone HCl (Dilaudid) 0.5 mg IVP Q5M PRN PRN Reason: Pain, severe (8-10) Stop: 06/16/17 18:07 Last Admin: 06/16/17 16:16 Dose: 0.5 mg Aztreonam 1 gm/ Sodium (Chloride) 100 mls @ 200 mls/hr IVPB Q8H [facility] Last Admin: 06/16/17 10:34 Dose: 200 mls/hr Metronidazole (Flagyl) 500 mg in 100 mls @ 100 mls/hr IVPB Q8 [facility] Last Admin: 06/16/17 13:55 Dose: 100 mls Ketorolac Tromethamine (Toradol) 30 mg IVP Q6 PRN PRN Reason: pain Stop: 06/21/17 17:01 Labetalol HCl (Normodyne) 300 mg PO BID [facility] Last Admin: 06/16/17 10:45 Dose: 300 mg Losartan Potassium (Cozaar) 50 mg PO DAILY [facility] Last Admin: 06/16/17 12:33 Dose: 50 mg Pantoprazole Sodium (Protonix Inj) 40 mg IVP Q12H [facility] Physical Exam - Constitutional Appears: Well, Non-toxic - Head Exam Head Exam: ATRAUMATIC, NORMAL INSPECTION - Eye Exam Eye Exam: EOMI, Normal appearance - ENT Exam ENT Exam: Mucous Membranes Moist - Neck Exam Neck exam: Positive for: Full Rom. Negative for: Lymphadenopathy, Tenderness, Thyromegaly - Respiratory Exam Respiratory Exam: Clear to Auscultation Bilateral, NORMAL BREATHING PATTERN. absent: Accessory Muscle Use - Cardiovascular Exam Cardiovascular Exam: REGULAR RHYTHM, +S1, +S2. absent: Bradycardia, Tachycardia - GI/Abdominal Exam GI & Abdominal Exam: absent: Tenderness Additional comments: patient's bandages c/d/i ostomy bag in place Results - Vital Signs Recent Vital Signs: Last Vital Signs Temp 98.1 F 06/16/17 07:24 Pulse 62 06/16/17 10:15 Resp 20 06/16/17 07:24 BP 155/75 H 06/16/17 10:15 Pulse Ox 95 06/16/17 10:15 - Labs Result Diagrams: 06/16/17 10:49 06/16/17 10:49 Labs: Laboratory Results - last 24 hr 06/16/17 06/16/17 06/16/17 10:49 10:49 14:07 WBC 9.0 RBC 3.91 Hgb 11.5 Hct 33.7 L MCV 86.1 MCH 29.4 MCHC 34.1 RDW 14.7 H Plt Count 517 H MPV 8.6 Neut % (Auto) 77.4 H Lymph % (Auto) 15.0 L Talbot % (Auto) 6.0 Eos % (Auto) 1.2 Baso % (Auto) 0.4 Neut # 6.9 Lymph # 1.3 Talbot # 0.5 Eos # 0.1 Baso # 0.0 Sodium 137 Potassium 3.9 Chloride 99 Carbon Dioxide 30 Anion Gap 12 BUN 12 Creatinine 0.9 Est GFR ( Amer) > 60 Est GFR (Non-Af Amer) > 60 Random Glucose 97 Calcium 8.9 Total Bilirubin 0.9 AST 44 H ALT 41 Alkaline Phosphatase 113 Total Protein 8.7 H Albumin 3.8 Globulin 5.0 H Albumin/Globulin Ratio 0.8 L Blood Type A POSITIVE Antibody Screen Negative Assessment & Plan - Assessment and Plan (Free Text) Assessment: 52F presents with LLQ abdominal pain which began 5 days ago. She was found to have a diverticular abscess. s/p Woody Procedure 06/16/17 POD#0 Neuro: pain:Toradol 30mg IVP Q6H PRN Cardio: HTN monitor vitals Labetatol 300mg PO BID Losartan 50mg PO QD Nephro: monitor I/Os ID sigmoid diverticulitis with abscess s/p Woody procedure POD #0 06/16/2017 WBC leukocytosis, resolved f/u cultures and antibiotics 06/08 CT Abdomen/Pelvis PO & IV contrast: acute sigmoid diverticulitis with fluid collection/abscess anti-mesenteric border 06/14 CT Abdomen/pelvis PO & IV contrast: 8.2 x 4.9x 6.1 cm with increased size of an internal air collection. Persistent wall thickening of adjacent distal descending/sigmoid colon junction. consistent with diverticulitis. possible perforation. Aztreonam IVPB Q8H Prophylaxis: Protonix 40mg Q12H discussed with Dr. Ramesh Santillan DO PGY1 - Date & Time Date: 06/16/17 Time: 17:40 <Ramesh Nolasco - Last Filed: 06/17/17 13:24> Meds - Medications Medications: Current Medications Heparin Sodium (Porcine) (Heparin) 5,000 units SC Q8 [facility] Hydralazine HCl (Apresoline) 10 mg IVP Q6H [facility] Last Admin: 06/17/17 09:50 Dose: 10 mg Multivitamins/Vitamin C 10 ml/Amino Acids/Electrolytes/Dextrose 1,010 mls @ 40 mls/hr IV .Q24H ONE Stop: 06/18/17 17:59 Aztreonam 2 gm/ Sodium (Chloride) 100 mls @ 200 mls/hr IVPB Q8H [facility] Metronidazole (Flagyl) 500 mg in 100 mls @ 100 mls/hr IVPB Q8 [facility] Vancomycin HCl 1,000 mg/ (Sodium Chloride) 200 mls @ 166.6 mls/hr IVPB Q12H [facility] Ketorolac Tromethamine (Toradol) 30 mg IVP Q6 PRN PRN Reason: pain Stop: 06/21/17 17:01 Last Admin: 06/17/17 07:50 Dose: 30 mg Labetalol HCl (Trandate) 10 mg IV Q6H [facility] Last Admin: 06/17/17 12:40 Dose: 10 mg Losartan Potassium (Cozaar) 50 mg PO DAILY [facility] Last Admin: 06/17/17 09:44 Dose: Not Given Pantoprazole Sodium (Protonix Inj) 40 mg IVP Q12H [facility] Last Admin: 06/17/17 05:04 Dose: 40 mg Results - Vital Signs Recent Vital Signs: Last Vital Signs Temp 98.6 F 06/17/17 12:00 Pulse 70 06/17/17 12:00 Resp 16 06/17/17 12:00 BP 130/69 06/17/17 11:09 Pulse Ox 97 06/17/17 12:00 - Labs Result Diagrams: 06/17/17 06:11 06/17/17 06:11 Labs: Laboratory Results - last 24 hr 06/16/17 06/17/17 06/17/17 14:07 06:11 06:11 WBC 21.8 H D RBC 3.63 L Hgb 10.6 L Hct 30.8 L MCV 85.0 MCH 29.2 MCHC 34.3 RDW 14.6 H Plt Count 519 H MPV 8.7 Neut % (Auto) 91.0 H Lymph % (Auto) 4.0 L Talbot % (Auto) 4.9 Eos % (Auto) 0.0 Baso % (Auto) 0.1 Neut # 19.8 H Lymph # 0.9 L Talbot # 1.1 H Eos # 0.0 Baso # 0.0 Neutrophils % (Manual) 88 H Band Neutrophils % 1 Lymphocytes % (Manual) 5 L Monocytes % (Manual) 6 Platelet Estimate Increased H Polychromasia Slight Hypochromasia (manual) Slight Target Cells Moderate Sodium 134 Potassium 3.9 Chloride 102 Carbon Dioxide 25 Anion Gap 12 BUN 16 Creatinine 0.8 Est GFR ( Amer) > 60 Est GFR (Non-Af Amer) > 60 Random Glucose 121 H Calcium 8.3 L Phosphorus 3.8 Magnesium 1.9 Total Bilirubin 1.0 AST 32 ALT 42 Alkaline Phosphatase 85 Total Protein 7.3 Albumin 3.3 L Globulin 4.0 H Albumin/Globulin Ratio 0.8 L Blood Type A POSITIVE Antibody Screen Negative Assessment & Plan - Assessment and Plan (Free Text) Plan: Patient seen and examined at bedside. Patient remains hemodynamically stable.
[2017-06-16] MEDS ORDERED: Labetalol 300 MG in Sodium Chloride 0.9% 240 ML IV ONE ×2 (17:45→18:30)
[2017-06-16] MEDS ORDERED: Sodium Chloride 0.9% 1,000 ML IV ONE (18:30)
--- NOTE | 2017-06-16 19:19 | CP.PCM.PN ---
Subjective - Date & Time of Evaluation Date of Evaluation: 06/16/17 Time of Evaluation: 07:00 - Subjective Subjective: seen in PACU had reaction this am to ? Vanco switched to flagyl / azactam s/p Haartmans and debridement of sacral wound OR cultures pending awake/ alert c/o pain NAD BP 105 diastolic Objective - Vital Signs/Intake and Output Vital Signs (last 24 hours): Temp Pulse Resp BP Pulse Ox 97.7 F 74 16 155/85 H 100 06/16/17 16:01 06/16/17 16:01 06/16/17 16:01 06/16/17 16:01 06/16/17 16:01 Intake and Output: 06/16/17 06/17/17 18:59 06:59 Intake Total 125 Output Total 100 Balance 25 - Medications Medications: Current Medications Aztreonam 1 gm/ Sodium (Chloride) 100 mls @ 200 mls/hr IVPB Q8H REPLACED BY [facility] Last Admin: 06/16/17 10:34 Dose: 200 mls/hr Metronidazole (Flagyl) 500 mg in 100 mls @ 100 mls/hr IVPB Q8 REPLACED BY [facility] Last Admin: 06/16/17 13:55 Dose: 100 mls Labetalol HCl 300 mg/ Sodium (Chloride) 300 mls @ 120 mls/hr IV .Q2H30M ONE; 2 MG/MIN PRN Reason: Protocol Stop: 06/16/17 20:59 Ketorolac Tromethamine (Toradol) 30 mg IVP Q6 PRN PRN Reason: pain Stop: 06/21/17 17:01 Losartan Potassium (Cozaar) 50 mg PO DAILY REPLACED BY [facility] Last Admin: 06/16/17 12:33 Dose: 50 mg Pantoprazole Sodium (Protonix Inj) 40 mg IVP Q12H REPLACED BY [facility] - Labs Labs: 06/16/17 10:49 06/16/17 10:49 PT 15.6 SECONDS (9.7-12.2) H 06/08/17 12:33 INR 1.4 06/08/17 12:33 APTT 31 SECONDS (21-34) 06/08/17 12:33 - Constitutional Appears: Non-toxic, Chronically Ill - Head Exam Head Exam: NORMOCEPHALIC - Eye Exam Eye Exam: PERRL - ENT Exam ENT Exam: Mucous Membranes Dry - Neck Exam Neck Exam: absent: Lymphadenopathy - Respiratory Exam Respiratory Exam: Decreased Breath Sounds - Cardiovascular Exam Cardiovascular Exam: REGULAR RHYTHM - GI/Abdominal Exam GI & Abdominal Exam: Distended, Soft - Rectal Exam Rectal Exam: Deferred - Exam Exam: NORMAL INSPECTION - Extremities Exam Extremities Exam: absent: Pedal Edema - Back Exam Back Exam: absent: CVA tenderness (L), CVA tenderness (R) Assessment and Plan (1) Abdominal pain Status: Acute (2) Pilonidal abscess Status: Acute (3) Diverticular disease of intestine with perforation and abscess Status: Acute (4) Diverticular disease of intestine with perforation and abscess Status: Acute (5) Colonic diverticular abscess Status: Acute (6) Colonic diverticular abscess Status: Acute
--- NOTE | 2017-06-16 22:27 | OP ---
PROCEDURE DATE: 06/16/2017 PREOPERATIVE DIAGNOSIS: Acute diverticulitis with abscess. POSTOPERATIVE DIAGNOSIS: Acute diverticulitis with abscess. PROCEDURE PERFORMED: Woody procedure. SURGEON: Andrey Sparrow MD. ANESTHESIA: General. ESTIMATED BLOOD LOSS: 150 mL. POSTOPERATIVE CONDITION: Stable. INDICATIONS FOR SURGERY: This is a 51-year-old female admitted with diverticulitis and a sacral abscess 10 days ago. She has since undergone treatment of a sacral abscess in the operating room, which is healing; however, diverticulitis was treated with antibiotics. She underwent a CAT scan, which revealed an abscess see, it could not be drained via a CT-guided drainage and she underwent a repeat CT, which revealed a new abscess. It was felt that she was best treated with a Woody procedure given that she had not improved with IV antibiotic therapy. DESCRIPTION OF PROCEDURE: The patient was taken to the operating room, general anesthesia was administered. The abdomen was prepped and draped. A midline incision was made. The abdomen was entered through the midline and there were multiple adhesions noted. The patient had apparently undergone a previous hysterectomy. The adhesions were taken down sharply using Metzenbaum scissors. Serosal tears of both the small bowel and the transverse colon were repaired with silk. Next, the bowel was packed into the upper quadrants and the pelvis was exposed for dissection. The indurated bowel was noted and careful blunt and sharp dissection was carried out in order to mobilize the sigmoid colon. It was inflamed from the peritoneal reflection to nearly the descending colon. It involved all the sigmoid colon. There was no pus pockets noted, however, just inflammatory fluid. The collection in the pelvis was noted to be more cystic than infectious in nature. Once the sigmoid had been carefully mobilized, the proximal margin of resection was carried out using a ARMANI stapler. The mesentery was scored and it was divided using the LigaSure and also larger vessels between clamps with Vicryl ties. After it had been completely divided down to the peritoneal reflection, the uninvolved distal colon was cleansed of investing fat and divided using a TA-30 stapler and the specimen was delivered . A bleeding blood vessel was repaired. The wound was irrigated with copious amounts of saline solution and a colostomy was created through a colostomy incision in the left middle quadrant. The proximal colon was mobilized into the splenic flexure. Once this had been taken down, enough colon was noted because this woman was very large and had a large pannus to create a colostomy. It was brought through a colostomy incision to the skin and then the abdomen was re-irrigated with 8-10 liters of warm saline solution. All inflammatory fluid material was removed from the abdomen. The pelvis was cleaned and noted to be clean and at this point, a closure was done using a running PDS suture in the fascial layer. There was a large space due to the patient's size and the subcutaneous tissue was mobilized and advancement flap closure was performed in multiple layers to close the space. The skin was closed with clips. The colostomy was then matured using 3-0 Monocryl suture. The patient tolerated procedure well and returned to the recovery room in stable condition. Andrey Sparrow MD
--- NOTE | 2017-06-16 23:33 | CP.PCM.PN ---
Subjective - Date & Time of Evaluation Date of Evaluation: 06/15/17 Time of Evaluation: 19:00 - Subjective Subjective: pt seen and examined, still has LLQ tend and CT shows abscess LLQ Objective - Vital Signs/Intake and Output Vital Signs (last 24 hours): Temp Pulse Resp BP Pulse Ox 98.2 F 67 12 178/98 H 98 06/16/17 21:00 06/16/17 21:20 06/16/17 21:20 06/16/17 21:10 06/16/17 21:20 Intake and Output: 06/16/17 06/17/17 18:59 06:59 Intake Total 125 Output Total 900 600 Balance -775 -600 - Medications Medications: Current Medications Aztreonam 1 gm/ Sodium (Chloride) 100 mls @ 200 mls/hr IVPB Q8H [facility] Last Admin: 06/16/17 18:40 Dose: 100 mls Metronidazole (Flagyl) 500 mg in 100 mls @ 100 mls/hr IVPB Q8 [facility] Last Admin: 06/16/17 21:00 Dose: 100 mls/hr Ketorolac Tromethamine (Toradol) 30 mg IVP Q6 PRN PRN Reason: pain Stop: 06/21/17 17:01 Losartan Potassium (Cozaar) 50 mg PO DAILY [facility] Last Admin: 06/16/17 12:33 Dose: 50 mg Pantoprazole Sodium (Protonix Inj) 40 mg IVP Q12H [facility] - Labs Labs: 06/16/17 10:49 06/16/17 10:49 PT 15.6 SECONDS (9.7-12.2) H 06/08/17 12:33 INR 1.4 06/08/17 12:33 APTT 31 SECONDS (21-34) 06/08/17 12:33 Assessment and Plan (1) Morbid obesity Status: Acute (2) Pilonidal abscess Status: Acute (3) Hypertension Status: Acute
--- NOTE | 2017-06-16 23:34 | CP.PCM.PN ---
Subjective - Date & Time of Evaluation Date of Evaluation: 06/16/17 Time of Evaluation: 20:00 - Subjective Subjective: seen in PACU had reaction this am to ? Vanco switched to flagyl / azactam s/p Haartmans and debridement of sacral wound OR cultures pending awake/ alert c/o pain NAD BP 105 diastolic Objective - Vital Signs/Intake and Output Vital Signs (last 24 hours): Temp Pulse Resp BP Pulse Ox 98.2 F 67 12 178/98 H 98 06/16/17 21:00 06/16/17 21:20 06/16/17 21:20 06/16/17 21:10 06/16/17 21:20 Intake and Output: 06/16/17 06/17/17 18:59 06:59 Intake Total 125 Output Total 900 600 Balance -775 -600 - Medications Medications: Current Medications Aztreonam 1 gm/ Sodium (Chloride) 100 mls @ 200 mls/hr IVPB Q8H [facility] Last Admin: 06/16/17 18:40 Dose: 100 mls Metronidazole (Flagyl) 500 mg in 100 mls @ 100 mls/hr IVPB Q8 [facility] Last Admin: 06/16/17 21:00 Dose: 100 mls/hr Ketorolac Tromethamine (Toradol) 30 mg IVP Q6 PRN PRN Reason: pain Stop: 06/21/17 17:01 Losartan Potassium (Cozaar) 50 mg PO DAILY [facility] Last Admin: 06/16/17 12:33 Dose: 50 mg Pantoprazole Sodium (Protonix Inj) 40 mg IVP Q12H [facility] - Labs Labs: 06/16/17 10:49 06/16/17 10:49 PT 15.6 SECONDS (9.7-12.2) H 06/08/17 12:33 INR 1.4 06/08/17 12:33 APTT 31 SECONDS (21-34) 06/08/17 12:33 Assessment and Plan (1) Morbid obesity Status: Acute (2) Pilonidal abscess Status: Acute (3) Hypertension Status: Acute
[2017-06-17] MEDS: Aztreonam 1 GM in Sodium Chloride 0.9% 100 ML IVPB SCH (00:59)
[2017-06-17] MEDS: metroNIDAZOLE IV 500 mg/100 ml 500 MG/100 ML BAG IVPB SCH ×3 (05:00→21:00)
[2017-06-17 06:30] LABS: BASO % 0.1 % (0.0-2.0); HEMOGLOBIN 10.6 g/dL (11.0-16.0); LYMPH # 0.9 K/uL (1.0-4.3); MEAN CORPUSCULAR HEMOGLOBIN 29.2 pg (27.0-31.0); MEAN CORPUSCULAR HGB CONC 34.3 g/dL (33.0-37.0); MEAN PLATELET VOLUME 8.7 fL (7.2-11.7); MONO # 1.1 K/uL (0.0-0.8); MONO % 4.9 % (0.0-10.0); NEUT # 19.8 K/uL (1.8-7.0); PLATELET COUNT 519 K/uL (130-400); RBC 3.63 Mil/uL (3.80-5.20); RED CELL DISTRIBUTION WIDTH 14.6 % (11.5-14.5)
[2017-06-17 06:37] LABS: WHITE BLOOD COUNT 21.8 K/uL (4.8-10.8)
[2017-06-17 06:46] LABS: ALB/GLOB RATIO 0.8 (1.0-2.1); ALBUMIN 3.3 g/dL (3.5-5.0); ALT/SGPT 42 U/L (9-52); AST/SGOT 32 U/L (14-36); BLOOD UREA NITROGEN 16 mg/dL (7-17); CALCIUM 8.3 mg/dl (8.6-10.4); GFR AFRICAN-AMERICAN > 60; GFR NON-AFRICAN AMERICAN > 60; MAGNESIUM 1.9 mg/dL (1.6-2.3)
[2017-06-17 09:19] LABS: BANDS 1 % (0-2); HYPOCHROMIC SLIGHT; LYMPHOCYTE 5 % (20-40); MONOCYTE 6 % (0-10); NEUTROPHIL 88 % (50-75); PLATELET ESTIMATE INCREASED (NORMAL); POLYCHROMIC SLIGHT; TOTAL CELLS COUNTED 100
[2017-06-17 09:20] LABS: TARGET CELLS MODERATE
[2017-06-17] MEDS ORDERED: Labetalol 300 MG in Sodium Chloride 0.9% 240 ML IV SCH (09:30)
[2017-06-17] MEDS: Labetalol 25mg/5ml Syringe IV SCH ×2 (12:40→17:39)
--- NOTE | 2017-06-17 12:58 | RAD ---
HISTORY: verify right PICC COMPARISON: Comparison chest made with prior radiograph dated 09/27/2016. FINDINGS: Interval placement right-sided PICC line with tip in the SVC/RA junction. LUNGS: Mild bibasilar atelectasis. Tiny bilateral effusions left larger than right less well seen on this study as compared to high-resolution CT scan PLEURA: As above. No apparent Pneumothorax apparent. CARDIOVASCULAR: Heart remains enlarged. OSSEOUS STRUCTURES: Mild multilevel degenerative spondylosis of the thoracic. VISUALIZED UPPER ABDOMEN: Normal. OTHER FINDINGS: Granular on elliptical shaped calcification right breast likely representing a calcified fibroadenoma. IMPRESSION: In situ PICC line as above. Mild bibasilar atelectasis. . Tiny bilateral effusions left larger than right less well seen on this study as compared to high-resolution CT scan Cardiomegaly.
[2017-06-17] MEDS: Aztreonam 2 GM in Sodium Chloride 0.9% 100 ML IVPB SCH ×2 (13:33→20:30)
--- NOTE | 2017-06-17 14:48 | CP.CCUPN ---
<Viviana Robledo - Last Filed: 06/17/17 14:57> CCU Subjective - Physician Review Subjective (Free Text): 06/17/17 14:47 Patient seen and examined at bedside. No acute events overnight. Patient resting comfortably in bed with no new complaints at this time, other than 6/10 abdominal pain that is improved with the pain regimen she is on. Patient denies having a BM or passing flatus but says she is using her incentive spirometer. CCU Objective - Vital Signs / Intake & Output Vital Signs (Last 4 hours): Vital Signs Temp Pulse Resp BP Pulse Ox 06/17/17 14:10 70 25 H 141/73 97 06/17/17 14:00 79 15 95 06/17/17 13:10 64 22 144/74 97 06/17/17 13:00 69 18 97 06/17/17 12:10 66 17 139/75 97 06/17/17 12:00 98.6 F 70 16 97 06/17/17 11:09 72 16 130/69 97 06/17/17 11:00 79 20 97 Intake and Output (Last 8hrs): Intake & Output 06/16/17 06/17/17 06/17/17 22:59 06:59 14:59 Intake Total 100 200 100 Output Total 1628 512 289 Balance -1528 -312 -189 Intake: Intake, IV Amount 100 200 100 Left Hand 100 200 0 Right Proximal Port PICC 100 Oral 0 0 0 Output: Urine 1628 512 289 Urine, Voided 128 512 289 Stool 0 - Physical Exam Head: Positive for: Atraumatic, Normocephalic Pupils: Positive for: PERRL Extroacular Muscles: Positive for: EOMI Mouth: Positive for: Moist Mucous Membranes Respiratory/Chest: Positive for: Clear to Auscultation, Good Air Exchange. Negative for: Respiratory Distress, Accessory Muscle Use Cardiovascular: Positive for: Regular Rate and Rhythm, Normal S1, S2 Abdomen: Positive for: Tenderness (appropriate post-op tenderness). Negative for: Distention, Normal Bowel Sounds (hypoactive bowel sounds ), Peritoneal Signs Upper Extremity: Positive for: Normal Inspection Lower Extremity: Positive for: Normal Inspection Neurological: Positive for: GCS=15 Skin: Positive for: Warm, Dry, Normal Color Psychiatric: Positive for: Alert, Oriented x 3 - Medications Active Medications: Active Medications Generic Name Dose Route Start Last Admin Trade Name Rancho PRN Reason Stop Dose Admin Heparin Sodium (Porcine) 5,000 units 06/17/17 14:00 06/17/17 13:41 Heparin SC 5,000 units Q8 [facility] Administration Hydralazine HCl 10 mg 06/17/17 10:00 06/17/17 09:50 Apresoline IVP 10 mg Q6H [facility] Administration Multivitamins/Vitamin C 10 ml/ 1,010 mls @ 40 mls/hr 06/17/17 18:00 Amino Acids/Electrolytes/ IV 06/18/17 17:59 Dextrose .Q24H ONE Aztreonam 2 gm/ Sodium 100 mls @ 200 mls/hr 06/17/17 13:30 06/17/17 13:33 Chloride IVPB 200 mls/hr Q8H [facility] Administration Metronidazole 500 mg in 100 mls @ 100 mls/hr 06/17/17 14:00 06/17/17 14:36 Flagyl IVPB 100 mls/hr Q8 [facility] Administration Vancomycin HCl 1,000 mg/ 200 mls @ 166.6 mls/hr 06/17/17 16:00 Sodium Chloride IVPB Q12H [facility] Ketorolac Tromethamine 30 mg 06/16/17 17:00 06/17/17 14:40 Toradol IVP 06/21/17 17:01 30 mg Q6 PRN Administration pain Labetalol HCl 10 mg 06/17/17 12:00 06/17/17 12:40 Trandate IV 10 mg Q6H [facility] Administration Losartan Potassium 50 mg 06/16/17 12:15 06/17/17 09:44 Cozaar PO Not Given DAILY [facility] Pantoprazole Sodium 40 mg 06/16/17 17:30 06/17/17 05:04 Protonix Inj IVP 40 mg Q12H [facility] Administration Vitamin A 0.5 ea 06/17/17 14:10 Vitamin A & D Oint Ud Foilpak TOP Q4 PRN Dry lips - Patient Studies Lab Studies: Microbiology Studies 06/16/17 10:24 Gram Stain - Final Abscess - Diverticulum Lab Studies 06/17/17 06/17/17 06/16/17 Range/Units 06:11 06:11 14:07 WBC 21.8 H D (4.8-10.8) K/uL RBC 3.63 L (3.80-5.20) Mil/uL Hgb 10.6 L (11.0-16.0) g/dL Hct 30.8 L (34.0-47.0) % MCV 85.0 (81.0-99.0) fL MCH 29.2 (27.0-31.0) pg MCHC 34.3 (33.0-37.0) g/dL RDW 14.6 H (11.5-14.5) % Plt Count 519 H (130-400) K/uL MPV 8.7 (7.2-11.7) fL Neut % (Auto) 91.0 H (50.0-75.0) % Lymph % (Auto) 4.0 L (20.0-40.0) % Hardin % (Auto) 4.9 (0.0-10.0) % Eos % (Auto) 0.0 (0.0-4.0) % Baso % (Auto) 0.1 (0.0-2.0) % Neut # 19.8 H (1.8-7.0) K/uL Lymph # 0.9 L (1.0-4.3) K/uL Hardin # 1.1 H (0.0-0.8) K/uL Eos # 0.0 (0.0-0.7) K/uL Baso # 0.0 (0.0-0.2) K/uL Neutrophils % (Manual) 88 H (50-75) % Band Neutrophils % 1 (0-2) % Lymphocytes % (Manual) 5 L (20-40) % Monocytes % (Manual) 6 (0-10) % Platelet Estimate Increased H (NORMAL) Polychromasia Slight Hypochromasia (manual) Slight Target Cells Moderate Sodium 134 (132-148) mmol/L Potassium 3.9 (3.6-5.2) mmol/L Chloride 102 (98-107) mmol/L Carbon Dioxide 25 (22-30) mmol/L Anion Gap 12 (10-20) BUN 16 (7-17) mg/dL Creatinine 0.8 (0.7-1.2) mg/dL Est GFR ( Amer) > 60 Est GFR (Non-Af Amer) > 60 Random Glucose 121 H (65-105) mg/dL Calcium 8.3 L (8.6-10.4) mg/dl Phosphorus 3.8 (2.5-4.5) mg/dL Magnesium 1.9 (1.6-2.3) mg/dL Total Bilirubin 1.0 (0.2-1.3) mg/dL AST 32 (14-36) U/L ALT 42 (9-52) U/L Alkaline Phosphatase 85 (38-126) U/L Total Protein 7.3 (6.3-8.3) g/dL Albumin 3.3 L (3.5-5.0) g/dL Globulin 4.0 H (2.2-3.9) gm/dL Albumin/Globulin Ratio 0.8 L (1.0-2.1) Blood Type A POSITIVE Antibody Screen Negative Laboratory Results - last 24 hr 06/16/17 06/17/17 06/17/17 14:07 06:11 06:11 WBC 21.8 H D RBC 3.63 L Hgb 10.6 L Hct 30.8 L MCV 85.0 MCH 29.2 MCHC 34.3 RDW 14.6 H Plt Count 519 H MPV 8.7 Neut % (Auto) 91.0 H Lymph % (Auto) 4.0 L Hardin % (Auto) 4.9 Eos % (Auto) 0.0 Baso % (Auto) 0.1 Neut # 19.8 H Lymph # 0.9 L Hardin # 1.1 H Eos # 0.0 Baso # 0.0 Neutrophils % (Manual) 88 H Band Neutrophils % 1 Lymphocytes % (Manual) 5 L Monocytes % (Manual) 6 Platelet Estimate Increased H Polychromasia Slight Hypochromasia (manual) Slight Target Cells Moderate Sodium 134 Potassium 3.9 Chloride 102 Carbon Dioxide 25 Anion Gap 12 BUN 16 Creatinine 0.8 Est GFR ( Amer) > 60 Est GFR (Non-Af Amer) > 60 Random Glucose 121 H Calcium 8.3 L Phosphorus 3.8 Magnesium 1.9 Total Bilirubin 1.0 AST 32 ALT 42 Alkaline Phosphatase 85 Total Protein 7.3 Albumin 3.3 L Globulin 4.0 H Albumin/Globulin Ratio 0.8 L Blood Type A POSITIVE Antibody Screen Negative Review of Systems - Review of Systems All systems: reviewed and no additional remarkable complaints except (as per HPI ) Critical Care Progress Note - Nutrition Nutrition: Nutrition Category Date Time Status NPO Diet [DIET] Diets 06/16/17 Breakfast Active Assessment/Plan - Assessment and Plan (Free Text) Assessment: 52 year old female w/ LLQ abdominal pain which began 5 days ago. She was found to have a diverticular abscess s/p Woody Procedure 06/16/17 POD #1 Plan: Neuro: Pain: Toradol 30 mg IVP Q6H PRN Cardio: HTN Monitor vitals Labetalol 10 mg IV Q6H [facility] Hydralazine 10 mg IVP Q6H [facility] Losartan 50 mg PO QD Pulm: 1 CXR Mild bibasilar atelectasis. Tiny bilateral effusions left larger than right less well seen on this study as compared to high-resolution CT scan. Cardiomegaly. IS ordered GI: NPO TPN ordered Protonix 40 mg Q12H Nephro: Monitor I/Os Urine output: 640 over 24 hrs ID: ID consult: Dr. Bustillos Sigmoid diverticulitis with abscess s/p Woody procedure POD #1 06/17/2017 WBC leukocytosis f/u cultures and antibiotics 06/17 CXR Mild bibasilar atelectasis. Tiny bilateral effusions left larger than right less well seen on this study as compared to high-resolution CT scan. Cardiomegaly. 06/14 CT Abdomen/pelvis PO & IV contrast: 8.2 x 4.9 x 6.1 cm with increased size of an internal air collection. Persistent wall thickening of adjacent distal descending/sigmoid colon junction consistent with diverticulitis, possible perforation 06/08 CT Abdomen/Pelvis PO & IV contrast: acute sigmoid diverticulitis with fluid collection/abscess anti-mesenteric border 06/16 Abscess diverticulum gram stain: Moderate Polymorphonuclear WBCs, rare gram positive cocci in pairs 06/16 Abscess diverticulum wound culture: pending 06/10 Sacral Wound Gram Stain: No polymorphonuclear WBCs observed 06/10 Sacral Wound Culture: No growth 06/08 Urine Culture: Gram negative rods 06/08 Blood Culture: No growth after 5 days Patient with ?allergic reaction to vancomycin, appears to have had Red Man Syndrome secondary to elevated infusion rate Aztreonam 2 gm in 100 mls at 200 mls/hr IVP Q8H [facility] Vancomycin 1,000 mg in 200 mls/hr at 166.6 mls/hr IVP Q12H Metronidazole 500 mg in 100 mls at 100 mls/hr IVP Q8 [facility] Prophylaxis: GI: Protonix 40 mg Q12H DVT: 5,000 units SC Q8 [facility] Lines: PICC placed in R UE, CXR confirmed placement Discussed with Dr. Ramesh Nolasco <Ramesh Nolasco M - Last Filed: 06/17/17 17:26> CCU Objective - Vital Signs / Intake & Output Vital Signs (Last 4 hours): Vital Signs Temp Pulse Resp BP Pulse Ox 06/17/17 16:10 76 12 158/74 H 96 06/17/17 16:00 98.6 F 71 19 98 06/17/17 15:10 70 19 159/79 H 98 06/17/17 15:00 70 22 97 06/17/17 14:10 70 25 H 141/73 97 06/17/17 14:00 79 15 95 Intake and Output (Last 8hrs): Intake & Output 06/17/17 06/17/17 06/17/17 06:59 14:59 22:59 Intake Total 200 100 200 Output Total 512 289 60 Balance -312 -189 140 Intake: Intake, IV Amount 200 100 200 Left Hand 200 0 Right Proximal Port PICC 100 200 Oral 0 0 0 Output: Urine 512 289 60 Urine, Voided 512 289 60 Stool 0 0 - Medications Active Medications: Active Medications Generic Name Dose Route Start Last Admin Trade Name Freq PRN Reason Stop Dose Admin Heparin Sodium (Porcine) 5,000 units 06/17/17 14:00 06/17/17 13:41 Heparin SC 5,000 units Q8 [facility] Administration Hydralazine HCl 10 mg 06/17/17 10:00 06/17/17 09:50 Apresoline IVP 10 mg Q6H [facility] Administration Multivitamins/Vitamin C 10 ml/ 1,010 mls @ 40 mls/hr 06/17/17 18:00 Amino Acids/Electrolytes/ IV 06/18/17 17:59 Dextrose .Q24H ONE Aztreonam 2 gm/ Sodium 100 mls @ 200 mls/hr 06/17/17 13:30 06/17/17 13:33 Chloride IVPB 200 mls/hr Q8H [facility] Administration Metronidazole 500 mg in 100 mls @ 100 mls/hr 06/17/17 14:00 06/17/17 14:36 Flagyl IVPB 100 mls/hr Q8 [facility] Administration Vancomycin HCl 1,000 mg/ 200 mls @ 166.6 mls/hr 06/17/17 16:00 06/17/17 15:52 Sodium Chloride IVPB 166.6 mls/hr Q12H [facility] Administration Ketorolac Tromethamine 30 mg 06/16/17 17:00 06/17/17 14:40 Toradol IVP 06/21/17 17:01 30 mg Q6 PRN Administration pain Labetalol HCl 10 mg 06/17/17 12:00 06/17/17 12:40 Trandate IV 10 mg Q6H [facility] Administration Losartan Potassium 50 mg 06/16/17 12:15 06/17/17 09:44 Cozaar PO Not Given DAILY [facility] Pantoprazole Sodium 40 mg 06/16/17 17:30 06/17/17 05:04 Protonix Inj IVP 40 mg Q12H [facility] Administration Vitamin A 0.5 ea 06/17/17 14:10 Vitamin A & D Oint Ud Foilpak TOP Q4 PRN Dry lips - Patient Studies Lab Studies: Microbiology Studies 06/16/17 10:24 Gram Stain - Final Abscess - Diverticulum Lab Studies 06/17/17 06/17/17 Range/Units 06:11 06:11 WBC 21.8 H D (4.8-10.8) K/uL RBC 3.63 L (3.80-5.20) Mil/uL Hgb 10.6 L (11.0-16.0) g/dL Hct 30.8 L (34.0-47.0) % MCV 85.0 (81.0-99.0) fL MCH 29.2 (27.0-31.0) pg MCHC 34.3 (33.0-37.0) g/dL RDW 14.6 H (11.5-14.5) % Plt Count 519 H (130-400) K/uL MPV 8.7 (7.2-11.7) fL Neut % (Auto) 91.0 H (50.0-75.0) % Lymph % (Auto) 4.0 L (20.0-40.0) % Hardin % (Auto) 4.9 (0.0-10.0) % Eos % (Auto) 0.0 (0.0-4.0) % Baso % (Auto) 0.1 (0.0-2.0) % Neut # 19.8 H (1.8-7.0) K/uL Lymph # 0.9 L (1.0-4.3) K/uL Hardin # 1.1 H (0.0-0.8) K/uL Eos # 0.0 (0.0-0.7) K/uL Baso # 0.0 (0.0-0.2) K/uL Neutrophils % (Manual) 88 H (50-75) % Band Neutrophils % 1 (0-2) % Lymphocytes % (Manual) 5 L (20-40) % Monocytes % (Manual) 6 (0-10) % Platelet Estimate Increased H (NORMAL) Polychromasia Slight Hypochromasia (manual) Slight Target Cells Moderate Sodium 134 (132-148) mmol/L Potassium 3.9 (3.6-5.2) mmol/L Chloride 102 (98-107) mmol/L Carbon Dioxide 25 (22-30) mmol/L Anion Gap 12 (10-20) BUN 16 (7-17) mg/dL Creatinine 0.8 (0.7-1.2) mg/dL Est GFR ( Amer) > 60 Est GFR (Non-Af Amer) > 60 Random Glucose 121 H (65-105) mg/dL Calcium 8.3 L (8.6-10.4) mg/dl Phosphorus 3.8 (2.5-4.5) mg/dL Magnesium 1.9 (1.6-2.3) mg/dL Total Bilirubin 1.0 (0.2-1.3) mg/dL AST 32 (14-36) U/L ALT 42 (9-52) U/L Alkaline Phosphatase 85 (38-126) U/L Total Protein 7.3 (6.3-8.3) g/dL Albumin 3.3 L (3.5-5.0) g/dL Globulin 4.0 H (2.2-3.9) gm/dL Albumin/Globulin Ratio 0.8 L (1.0-2.1) Laboratory Results - last 24 hr 06/17/17 06/17/17 06:11 06:11 WBC 21.8 H D RBC 3.63 L Hgb 10.6 L Hct 30.8 L MCV 85.0 MCH 29.2 MCHC 34.3 RDW 14.6 H Plt Count 519 H MPV 8.7 Neut % (Auto) 91.0 H Lymph % (Auto) 4.0 L Hardin % (Auto) 4.9 Eos % (Auto) 0.0 Baso % (Auto) 0.1 Neut # 19.8 H Lymph # 0.9 L Hardin # 1.1 H Eos # 0.0 Baso # 0.0 Neutrophils % (Manual) 88 H Band Neutrophils % 1 Lymphocytes % (Manual) 5 L Monocytes % (Manual) 6 Platelet Estimate Increased H Polychromasia Slight Hypochromasia (manual) Slight Target Cells Moderate Sodium 134 Potassium 3.9 Chloride 102 Carbon Dioxide 25 Anion Gap 12 BUN 16 Creatinine 0.8 Est GFR ( Amer) > 60 Est GFR (Non-Af Amer) > 60 Random Glucose 121 H Calcium 8.3 L Phosphorus 3.8 Magnesium 1.9 Total Bilirubin 1.0 AST 32 ALT 42 Alkaline Phosphatase 85 Total Protein 7.3 Albumin 3.3 L Globulin 4.0 H Albumin/Globulin Ratio 0.8 L Critical Care Progress Note - Nutrition Nutrition: Nutrition Category Date Time Status NPO Diet [DIET] Diets 06/18/17 Dinner Active Assessment/Plan - Assessment and Plan (Free Text) Plan: Patient seen and examined at bedside. Patient s/p garvey's procedure. Patient was given IV vanco and developed a red rash yesterday, which ICU team believes was not an allrgic reaction, but rather red man syndrome 2nd rapid infusion. Patient tolerated the IV vanco today, continue IV vanco + aztreonam + flagyl. Patient remains hemodynamically stable. -OOB to chair -incentive spirometry -d/c larsen -advance diet as per surgery -check and replace all electrolyte -f/u cultures -Patient remains hemodynamically stable. - Date & Time Date: 06/17/17 Time: 17:26
[2017-06-17] MEDS ORDERED: HYDROmorphone 1 mg/ml ISec IVP ONE (15:55)
[2017-06-17] MEDS ORDERED: TPN #1 IV ONE (18:00)
--- NOTE | 2017-06-17 18:53 | CP.PCM.PN ---
Subjective - Date & Time of Evaluation Date of Evaluation: 06/17/17 Time of Evaluation: 09:00 - Subjective Subjective: afeb on iv rx s/p haartmans c/o pain nad Objective - Vital Signs/Intake and Output Vital Signs (last 24 hours): Temp Pulse Resp BP Pulse Ox 98.6 F 58 L 13 126/63 96 06/17/17 16:00 06/17/17 18:00 06/17/17 18:00 06/17/17 17:10 06/17/17 18:00 Intake and Output: 06/17/17 06/17/17 06:59 18:59 Intake Total 300 400 Output Total 1240 349 Balance -940 51 - Medications Medications: Current Medications Heparin Sodium (Porcine) (Heparin) 5,000 units SC Q8 [facility] Last Admin: 06/17/17 13:41 Dose: 5,000 units Hydralazine HCl (Apresoline) 10 mg IVP Q6H [facility] Last Admin: 06/17/17 16:20 Dose: 10 mg Multivitamins/Vitamin C 10 ml/Amino Acids/Electrolytes/Dextrose 1,010 mls @ 40 mls/hr IV .Q24H ONE Stop: 06/18/17 17:59 Last Admin: 06/17/17 17:40 Dose: 40 mls/hr Aztreonam 2 gm/ Sodium (Chloride) 100 mls @ 200 mls/hr IVPB Q8H [facility] Last Admin: 06/17/17 13:33 Dose: 200 mls/hr Metronidazole (Flagyl) 500 mg in 100 mls @ 100 mls/hr IVPB Q8 [facility] Last Admin: 06/17/17 14:36 Dose: 100 mls/hr Vancomycin HCl 1,000 mg/ (Sodium Chloride) 200 mls @ 166.6 mls/hr IVPB Q12H [facility] Last Admin: 06/17/17 15:52 Dose: 166.6 mls/hr Insulin Human Regular (Novolin R) 0 unit SC Q6H [facility] PRN Reason: Protocol Ketorolac Tromethamine (Toradol) 30 mg IVP Q6 PRN PRN Reason: pain Stop: 06/21/17 17:01 Last Admin: 06/17/17 14:40 Dose: 30 mg Labetalol HCl (Trandate) 10 mg IV Q6H [facility] Last Admin: 06/17/17 17:39 Dose: 10 mg Losartan Potassium (Cozaar) 50 mg PO DAILY [facility] Last Admin: 06/17/17 09:44 Dose: Not Given Pantoprazole Sodium (Protonix Inj) 40 mg IVP Q12H [facility] Last Admin: 06/17/17 18:00 Dose: 40 mg Vitamin A (Vitamin A & D Oint Ud Foilpak) 0.5 ea TOP Q4 PRN PRN Reason: Dry lips - Labs Labs: 06/17/17 06:11 06/17/17 06:11 PT 15.6 SECONDS (9.7-12.2) H 06/08/17 12:33 INR 1.4 06/08/17 12:33 APTT 31 SECONDS (21-34) 06/08/17 12:33 - Constitutional Appears: Non-toxic, Chronically Ill - Head Exam Head Exam: NORMOCEPHALIC - Eye Exam Eye Exam: PERRL - ENT Exam ENT Exam: Mucous Membranes Dry - Neck Exam Neck Exam: absent: Lymphadenopathy - Respiratory Exam Respiratory Exam: Decreased Breath Sounds - Cardiovascular Exam Cardiovascular Exam: REGULAR RHYTHM - GI/Abdominal Exam GI & Abdominal Exam: Distended, Soft - Rectal Exam Rectal Exam: Deferred - Exam Exam: NORMAL INSPECTION - Extremities Exam Extremities Exam: absent: Pedal Edema - Back Exam Back Exam: absent: CVA tenderness (L), CVA tenderness (R) Assessment and Plan (1) Abdominal pain Status: Acute (2) Pilonidal abscess Status: Acute (3) Diverticular disease of intestine with perforation and abscess Status: Acute (4) Diverticular disease of intestine with perforation and abscess Status: Acute (5) Colonic diverticular abscess Status: Acute (6) Colonic diverticular abscess Status: Acute
--- NOTE | 2017-06-17 21:37 | PN ---
DATE: LOCATION: ICU 10 SUBJECTIVE: This 52-year-old female was seen and examined in rounds, post surgery of Woody procedure due to diagnosis of diverticular abscess formation with drainage and repacking of sacral wound. The entire chart is reviewed including, but not limited to, most recent lab and radiology study results, current and the previous medication list, current and the previous medical events. Case discussed with the staff. LABORATORY DATA: Today's lab showed white blood cells elevated to 21.8 post surgically with low hemoglobin 10.6, low hematocrit 30.8, with thrombocytosis of 519, with blood glucose level 121, low calcium 8.3, low albumin 3.3. It has to be mentioned that the patient's cancer marker is reported to be normal. Most recent chest x-ray done today is indicative of mild bibasilar atelectasis with slight effusion, left side more than right. Patient still has intermittent periods of mild abdominal pain, post surgically. PHYSICAL EXAMINATION: VITAL SIGNS: A 52-year-old female, afebrile with pulse of 74, respiratory rate of 18 to 20, blood pressure of 154/72. HEENT: Pale, dry oral mucous membrane. Anicteric sclerae. LUNGS: Few scattered crepitation with decreased air entry at bases. HEART: Positive S1 and S2. ABDOMEN: Soft with mild to moderate distention, covered with clean dressing. No reported bowel movement and bowel sounds are zero. Generalized abdominal tenderness positive. EXTREMITIES: Lower extremity mild edematous changes. No clubbing or cyanosis. NEUROLOGIC: No reported new neurological deficits, sensory or motor. No focal deficit reported. Peripheral pulses are present bilaterally. IMPRESSION: 1. Diverticulosis with acute diverticulitis and diverticular abscess formation, treated surgically. 2. Sacral abscess formation, drained surgically, infected. 3. Anemia most likely secondary to above. 4. Leukocytosis post surgically due to most likely infected sacral mass lesion. 5. Known history of hypertension and peptic ulcer disease. SUGGESTION: 1. Continue current management. 2. Peripheral hyperalimentation. 3. Proton pump inhibitor. 4. Further recommendation to follow. Andrew Koroma MD
--- NOTE | 2017-06-17 23:32 | CP.PCM.PN ---
Subjective - Date & Time of Evaluation Date of Evaluation: 06/17/17 Time of Evaluation: 19:45 - Subjective Subjective: Pt seen and evaluated at bedside, pt has non healing sacral wound, B.P is stable denies any chest pain, afebrile, Objective - Vital Signs/Intake and Output Vital Signs (last 24 hours): Temp Pulse Resp BP Pulse Ox 98.6 F 82 20 142/74 97 06/17/17 16:00 06/17/17 23:10 06/17/17 23:10 06/17/17 23:10 06/17/17 23:10 Intake and Output: 06/17/17 06/18/17 18:59 06:59 Intake Total 400 90 Output Total 349 0 Balance 51 90 - Medications Medications: Current Medications Heparin Sodium (Porcine) (Heparin) 5,000 units SC Q8 [facility] Last Admin: 06/17/17 22:03 Dose: 5,000 units Hydralazine HCl (Apresoline) 10 mg IVP Q6H [facility] Last Admin: 06/17/17 22:03 Dose: 10 mg Hydromorphone HCl (Dilaudid) 0.5 mg IVP Q4H PRN PRN Reason: Pain, moderate (4-7) Multivitamins/Vitamin C 10 ml/Amino Acids/Electrolytes/Dextrose 1,010 mls @ 40 mls/hr IV .Q24H ONE Stop: 06/18/17 17:59 Last Admin: 06/17/17 17:40 Dose: 40 mls/hr Aztreonam 2 gm/ Sodium (Chloride) 100 mls @ 200 mls/hr IVPB Q8H [facility] Last Admin: 06/17/17 20:30 Dose: 200 mls/hr Metronidazole (Flagyl) 500 mg in 100 mls @ 100 mls/hr IVPB Q8 [facility] Last Admin: 06/17/17 21:00 Dose: 100 mls/hr Vancomycin HCl 1,000 mg/ (Sodium Chloride) 200 mls @ 166.6 mls/hr IVPB Q12H [facility] Last Admin: 06/17/17 15:52 Dose: 166.6 mls/hr Insulin Human Regular (Novolin R) 0 unit SC Q6H [facility] PRN Reason: Protocol Labetalol HCl (Trandate) 10 mg IV Q6H [facility] Last Admin: 06/17/17 17:39 Dose: 10 mg Losartan Potassium (Cozaar) 50 mg PO DAILY [facility] Last Admin: 06/17/17 09:44 Dose: Not Given Pantoprazole Sodium (Protonix Inj) 40 mg IVP Q12H [facility] Last Admin: 06/17/17 18:00 Dose: 40 mg Vitamin A (Vitamin A & D Oint Ud Foilpak) 0.5 ea TOP Q4 PRN PRN Reason: Dry lips - Labs Labs: 06/17/17 06:11 06/17/17 06:11 PT 15.6 SECONDS (9.7-12.2) H 06/08/17 12:33 INR 1.4 06/08/17 12:33 APTT 31 SECONDS (21-34) 06/08/17 12:33 - Constitutional Appears: No Acute Distress - Head Exam Head Exam: ATRAUMATIC, NORMAL INSPECTION, NORMOCEPHALIC - Eye Exam Eye Exam: EOMI, Normal appearance, PERRL Pupil Exam: NORMAL ACCOMODATION, PERRL - Cardiovascular Exam Cardiovascular Exam: REGULAR RHYTHM, +S1, +S2. absent: Murmur - GI/Abdominal Exam GI & Abdominal Exam: Soft, Normal Bowel Sounds. absent: Tenderness - Rectal Exam Rectal Exam: Deferred - Back Exam Additional comments: sacral wound/erythema Assessment and Plan (1) Morbid obesity Status: Acute (2) Pilonidal abscess Status: Acute (3) Hypertension Status: Acute
[2017-06-17] MEDS: (Novolin R) Insulin Human Regular 100 units/ml vial SC SCH (23:36)
[2017-06-18] MEDS: Aztreonam 2 GM in Sodium Chloride 0.9% 100 ML IVPB SCH ×3 (05:00→20:30)
[2017-06-18] MEDS: metroNIDAZOLE IV 500 mg/100 ml 500 MG/100 ML BAG IVPB SCH ×3 (05:30→21:00)
[2017-06-18] MEDS: Labetalol 25mg/5ml Syringe IV SCH ×4 (05:40→17:32)
[2017-06-18] MEDS: (Novolin R) Insulin Human Regular 100 units/ml vial SC SCH ×3 (06:15→18:18)
[2017-06-18 07:01] LABS: ALB/GLOB RATIO 0.8 (1.0-2.1); ALBUMIN 3.3 g/dL (3.5-5.0); ALT/SGPT 24 U/L (9-52); AST/SGOT 30 U/L (14-36); BLOOD UREA NITROGEN 23 mg/dL (7-17); CALCIUM 8.3 mg/dl (8.6-10.4); GFR AFRICAN-AMERICAN > 60; GFR NON-AFRICAN AMERICAN > 60; MAGNESIUM 2.1 mg/dL (1.6-2.3)
[2017-06-18 07:29] LABS: BASO # 0.1 K/uL (0.0-0.2); BASO % 0.4 % (0.0-2.0); EOS # 0.1 K/uL (0.0-0.7); EOS % 0.3 % (0.0-4.0); HEMOGLOBIN 10.3 g/dL (11.0-16.0); LYMPH # 1.5 K/uL (1.0-4.3); LYMPH % 7.6 % (20.0-40.0); MEAN CELL VOLUME 86.7 fL (81.0-99.0); MEAN CORPUSCULAR HEMOGLOBIN 29.9 pg (27.0-31.0); MEAN CORPUSCULAR HGB CONC 34.4 g/dL (33.0-37.0); MEAN PLATELET VOLUME 8.8 fL (7.2-11.7); MONO # 0.8 K/uL (0.0-0.8); MONO % 4.3 % (0.0-10.0); NEUT # 16.9 K/uL (1.8-7.0); NEUT % 87.4 % (50.0-75.0); PLATELET COUNT 541 K/uL (130-400); RBC 3.44 Mil/uL (3.80-5.20); RED CELL DISTRIBUTION WIDTH 14.6 % (11.5-14.5); WHITE BLOOD COUNT 19.3 K/uL (4.8-10.8)
[2017-06-18 08:56] LABS: ANISOCYTOSIS SLIGHT; LYMPHOCYTE 7 % (20-40); MONOCYTE 2 % (0-10); NEUTROPHIL 91 % (50-75); PLATELET ESTIMATE INCREASED (NORMAL); TOTAL CELLS COUNTED 100; TOXIC GRANULATION PRESENT
[2017-06-18 08:57] LABS: HYPOCHROMIC SLIGHT; LARGE PLATELETS PRESENT; POLYCHROMIC SLIGHT
--- NOTE | 2017-06-18 09:56 | CP.CCUPN ---
CCU Subjective - Physician Review Events Since Last Encounter (Free Text): 06/18/17 09:56 52-year-old female with history of hypertension admitted to the hospital with diverticulosis, diverticulitis, and abscess. Patient underwent laparotomy. Patient had a colostomy, and drainage. Patient now feeling okay, complaining of pain, low-grade fever noted. Multiple antibiotic is on. Patient is being seen by infectious disease. Patient is stable Vital signs stable. Chest good air entry. Heart sounds Abdomen tenderness noted. Labs reveal a Improving the bands noted. Otherwise stable. Patient is sitting up now Assessment and comminution: 51-year-old female with a history of hypertension status post colostomy. Localized cellulitis from the diverticulitis. On antibiotic. Regular stable. Patient can be transferred to the medical floor. But patient will need continuous monitoring. Currently on TPN. CCU Objective - Vital Signs / Intake & Output Vital Signs (Last 4 hours): Vital Signs Temp Pulse Resp BP Pulse Ox 06/18/17 09:03 89 14 159/81 H 06/18/17 09:00 81 13 06/18/17 08:09 84 19 177/90 H 98 06/18/17 08:00 100.8 F H 85 21 98 06/18/17 07:10 80 15 166/88 H 98 06/18/17 07:00 85 17 98 06/18/17 06:10 86 23 155/82 H 97 06/18/17 06:00 86 21 97 Intake and Output (Last 8hrs): Intake & Output 06/17/17 06/18/17 06/18/17 22:59 06:59 14:59 Intake Total 710 720 120 Output Total 60 750 Balance 650 720 -630 Intake: Intake, IV Amount 660 720 120 Right Distal Port PICC 200 400 0 Right Proximal Port PICC 460 320 120 Oral 50 0 Output: Urine 60 750 Urine, Voided 60 750 Stool 0 0 Other: # Voids Urine, Voided 0 0 - Physical Exam Head: Positive for: Atraumatic, Normocephalic Pupils: Positive for: PERRL Extroacular Muscles: Positive for: EOMI Mouth: Positive for: Moist Mucous Membranes Respiratory/Chest: Positive for: Clear to Auscultation, Good Air Exchange. Negative for: Respiratory Distress, Accessory Muscle Use Cardiovascular: Positive for: Regular Rate and Rhythm, Normal S1, S2 Abdomen: Positive for: Tenderness (appropriate post-op tenderness). Negative for: Distention, Normal Bowel Sounds (hypoactive bowel sounds ), Peritoneal Signs Upper Extremity: Positive for: Normal Inspection Lower Extremity: Positive for: Normal Inspection Neurological: Positive for: GCS=15 Skin: Positive for: Warm, Dry, Normal Color Psychiatric: Positive for: Alert, Oriented x 3 - Medications Active Medications: Active Medications Generic Name Dose Route Start Last Admin Trade Name Freq PRN Reason Stop Dose Admin Heparin Sodium (Porcine) 5,000 units 06/17/17 14:00 06/18/17 05:40 Heparin SC 5,000 units Q8 [facility] Administration Hydralazine HCl 10 mg 06/17/17 10:00 06/18/17 09:05 Apresoline IVP 10 mg Q6H [facility] Administration Hydromorphone HCl 0.5 mg 06/17/17 22:12 06/18/17 08:49 Dilaudid IVP 0.5 mg Q4H PRN Administration Pain, moderate (4-7) Multivitamins/Vitamin C 10 ml/ 1,010 mls @ 40 mls/hr 06/17/17 18:00 06/17/17 17:40 Amino Acids/Electrolytes/ IV 06/18/17 17:59 40 mls/hr Dextrose .Q24H ONE Administration Aztreonam 2 gm/ Sodium 100 mls @ 200 mls/hr 06/17/17 13:30 06/18/17 05:00 Chloride IVPB 200 mls/hr Q8H [facility] Administration Metronidazole 500 mg in 100 mls @ 100 mls/hr 06/17/17 14:00 06/18/17 05:30 Flagyl IVPB 100 mls/hr Q8 [facility] Administration Vancomycin HCl 1,000 mg/ 200 mls @ 166.6 mls/hr 06/17/17 16:00 06/18/17 03:00 Sodium Chloride IVPB 166.6 mls/hr Q12H [facility] Administration Insulin Human Regular 0 unit 06/18/17 00:00 06/18/17 06:15 Novolin R SC Not Given Q6H [facility] Protocol Labetalol HCl 10 mg 06/17/17 12:00 06/18/17 05:40 Trandate IV 10 mg Q6H [facility] Administration Losartan Potassium 50 mg 06/16/17 12:15 06/18/17 09:08 Cozaar PO Not Given DAILY [facility] Ondansetron HCl 4 mg 06/18/17 06:39 06/18/17 07:32 Zofran Inj IVP 4 mg Q6 PRN Administration Nausea/Vomiting Pantoprazole Sodium 40 mg 06/16/17 17:30 06/18/17 05:39 Protonix Inj IVP 40 mg Q12H [facility] Administration Vitamin A 0.5 ea 06/17/17 14:10 Vitamin A & D Oint Ud Foilpak TOP Q4 PRN Dry lips - Patient Studies Lab Studies: Microbiology Studies 06/16/17 10:24 Gram Stain - Final Abscess - Diverticulum Lab Studies 06/18/17 06/18/17 06/18/17 Range/Units 06:29 06:29 06:29 WBC 19.3 H (4.8-10.8) K/uL RBC 3.44 L (3.80-5.20) Mil/uL Hgb 10.3 L (11.0-16.0) g/dL Hct 29.8 L (34.0-47.0) % MCV 86.7 (81.0-99.0) fL MCH 29.9 (27.0-31.0) pg MCHC 34.4 (33.0-37.0) g/dL RDW 14.6 H (11.5-14.5) % Plt Count 541 H (130-400) K/uL MPV 8.8 (7.2-11.7) fL Neut % (Auto) 87.4 H (50.0-75.0) % Lymph % (Auto) 7.6 L (20.0-40.0) % [place] % (Auto) 4.3 (0.0-10.0) % Eos % (Auto) 0.3 (0.0-4.0) % Baso % (Auto) 0.4 (0.0-2.0) % Neut # 16.9 H (1.8-7.0) K/uL Lymph # 1.5 (1.0-4.3) K/uL [place] # 0.8 (0.0-0.8) K/uL Eos # 0.1 (0.0-0.7) K/uL Baso # 0.1 (0.0-0.2) K/uL Neutrophils % (Manual) 91 H (50-75) % Lymphocytes % (Manual) 7 L (20-40) % Monocytes % (Manual) 2 (0-10) % Toxic Granulation Present Platelet Estimate Increased H (NORMAL) Large Platelets Present Polychromasia Slight Hypochromasia (manual) Slight Anisocytosis (manual) Slight Sodium 135 (132-148) mmol/L Potassium 4.3 (3.6-5.2) mmol/L Chloride 103 (98-107) mmol/L Carbon Dioxide 25 (22-30) mmol/L Anion Gap 11 (10-20) BUN 23 H (7-17) mg/dL Creatinine 0.7 (0.7-1.2) mg/dL Est GFR ( Amer) > 60 Est GFR (Non-Af Amer) > 60 POC Glucose (mg/dL) (65-110) mg/dL Random Glucose 132 H (65-105) mg/dL Calcium 8.3 L (8.6-10.4) mg/dl Phosphorus 2.5 (2.5-4.5) mg/dL Magnesium 2.1 (1.6-2.3) mg/dL Total Bilirubin 0.9 (0.2-1.3) mg/dL AST 30 (14-36) U/L ALT 24 (9-52) U/L Alkaline Phosphatase 73 (38-126) U/L Total Protein 7.3 (6.3-8.3) g/dL Albumin 3.3 L (3.5-5.0) g/dL Globulin 4.0 H (2.2-3.9) gm/dL Albumin/Globulin Ratio 0.8 L (1.0-2.1) Vancomycin Trough 27.7 H (5.0-10.0) ug/mL 06/18/17 06/17/17 Range/Units 06:01 23:33 WBC (4.8-10.8) K/uL RBC (3.80-5.20) Mil/uL Hgb (11.0-16.0) g/dL Hct (34.0-47.0) % MCV (81.0-99.0) fL MCH (27.0-31.0) pg MCHC (33.0-37.0) g/dL RDW (11.5-14.5) % Plt Count (130-400) K/uL MPV (7.2-11.7) fL Neut % (Auto) (50.0-75.0) % Lymph % (Auto) (20.0-40.0) % [place] % (Auto) (0.0-10.0) % Eos % (Auto) (0.0-4.0) % Baso % (Auto) (0.0-2.0) % Neut # (1.8-7.0) K/uL Lymph # (1.0-4.3) K/uL [place] # (0.0-0.8) K/uL Eos # (0.0-0.7) K/uL Baso # (0.0-0.2) K/uL Neutrophils % (Manual) (50-75) % Lymphocytes % (Manual) (20-40) % Monocytes % (Manual) (0-10) % Toxic Granulation Platelet Estimate (NORMAL) Large Platelets Polychromasia Hypochromasia (manual) Anisocytosis (manual) Sodium (132-148) mmol/L Potassium (3.6-5.2) mmol/L Chloride (98-107) mmol/L Carbon Dioxide (22-30) mmol/L Anion Gap (10-20) BUN (7-17) mg/dL Creatinine (0.7-1.2) mg/dL Est GFR ( Amer) Est GFR (Non-Af Amer) POC Glucose (mg/dL) 129 H 152 H (65-110) mg/dL Random Glucose (65-105) mg/dL Calcium (8.6-10.4) mg/dl Phosphorus (2.5-4.5) mg/dL Magnesium (1.6-2.3) mg/dL Total Bilirubin (0.2-1.3) mg/dL AST (14-36) U/L ALT (9-52) U/L Alkaline Phosphatase (38-126) U/L Total Protein (6.3-8.3) g/dL Albumin (3.5-5.0) g/dL Globulin (2.2-3.9) gm/dL Albumin/Globulin Ratio (1.0-2.1) Vancomycin Trough (5.0-10.0) ug/mL Laboratory Results - last 24 hr 06/17/17 06/18/17 06/18/17 23:33 06:01 06:29 WBC 19.3 H RBC 3.44 L Hgb 10.3 L Hct 29.8 L MCV 86.7 MCH 29.9 MCHC 34.4 RDW 14.6 H Plt Count 541 H MPV 8.8 Neut % (Auto) 87.4 H Lymph % (Auto) 7.6 L [place] % (Auto) 4.3 Eos % (Auto) 0.3 Baso % (Auto) 0.4 Neut # 16.9 H Lymph # 1.5 [place] # 0.8 Eos # 0.1 Baso # 0.1 Neutrophils % (Manual) 91 H Lymphocytes % (Manual) 7 L Monocytes % (Manual) 2 Toxic Granulation Present Platelet Estimate Increased H Large Platelets Present Polychromasia Slight Hypochromasia (manual) Slight Anisocytosis (manual) Slight Sodium Potassium Chloride Carbon Dioxide Anion Gap BUN Creatinine Est GFR ( Amer) Est GFR (Non-Af Amer) POC Glucose (mg/dL) 152 H 129 H Random Glucose Calcium Phosphorus Magnesium Total Bilirubin AST ALT Alkaline Phosphatase Total Protein Albumin Globulin Albumin/Globulin Ratio Vancomycin Trough 06/18/17 06/18/17 06:29 06:29 WBC RBC Hgb Hct MCV MCH MCHC RDW Plt Count MPV Neut % (Auto) Lymph % (Auto) [place] % (Auto) Eos % (Auto) Baso % (Auto) Neut # Lymph # [place] # Eos # Baso # Neutrophils % (Manual) Lymphocytes % (Manual) Monocytes % (Manual) Toxic Granulation Platelet Estimate Large Platelets Polychromasia Hypochromasia (manual) Anisocytosis (manual) Sodium 135 Potassium 4.3 Chloride 103 Carbon Dioxide 25 Anion Gap 11 BUN 23 H Creatinine 0.7 Est GFR ( Amer) > 60 Est GFR (Non-Af Amer) > 60 POC Glucose (mg/dL) Random Glucose 132 H Calcium 8.3 L Phosphorus 2.5 Magnesium 2.1 Total Bilirubin 0.9 AST 30 ALT 24 Alkaline Phosphatase 73 Total Protein 7.3 Albumin 3.3 L Globulin 4.0 H Albumin/Globulin Ratio 0.8 L Vancomycin Trough 27.7 H Fingerstick Blood Sugar Results: 152 Critical Care Progress Note - Nutrition Nutrition: Nutrition Category Date Time Status NPO Diet [DIET] Diets 06/18/17 Dinner Active
--- NOTE | 2017-06-18 11:08 | RAD ---
HISTORY: R/o pneumonia COMPARISON: Chest x-ray performed 06/17/17 TECHNIQUE: Chest, one view. FINDINGS: Central venous catheter extends expected location of the right atrium, distal tip somewhat obscured by numerous external wires and leads. Examination limited by habitus. Coarse calcifications project over the soft tissues of the right breast, possibly related to calcified fibroadenoma. LUNGS: Moderate pulmonary venous congestion. Probable small left pleural effusion and/or consolidation. No definite pneumothorax. Please note that chest x-ray has limited sensitivity for the detection of pulmonary masses. CARDIOVASCULAR: Cardiomegaly. OSSEOUS STRUCTURES: Degenerative changes of the spine. VISUALIZED UPPER ABDOMEN: Unremarkable. OTHER FINDINGS: None. IMPRESSION: Examination limited by habitus. Central venous catheter extends to the expected location of the right atrium, distal tip somewhat obscured by numerous external wires and leads. Moderate pulmonary venous congestion. Probable small left pleural effusion and/or consolidation. Coarse calcifications project over the soft tissues of the right breast, possibly related to calcified fibroadenoma.
[2017-06-18] MEDS ORDERED: TPN #2 IV ONE (18:00)
--- NOTE | 2017-06-18 22:05 | PN ---
DATE: LOCATION: ICU 10. SUBJECTIVE: This 52-year-old female seen and examined in rounds without significant clinical changes, post surgically. Patient appear to be more awake, alert, and oriented with clean, intact abdominal dressing with left lower quadrant colostomy, draining maroon-colored liquid fecal material. The chart is reviewed including but not limited to the most recent lab and radiology study results, current and the previous medication list, current and the previous medical events. Case discussed with the staff. The most recent lab results showed white blood cells of 19.3 with low hemoglobin of 10.3, hematocrit 29.8 with thrombocytosis of 541 with mildly increased BUN 23, blood glucose level 185 with low albumin 3.3. Most recent chest x-ray done today as the patient also has low-grade fever on and off. Patient is reportedly seen with possible moderate pulmonary venous congestion and possible left pleural effusion or/and pneumonia. PHYSICAL EXAMINATION: GENERAL: The patient is 52-year-old female. VITAL SIGNS: Afebrile at the time she was seen by me with pulse of 74, respiratory rate 16 to 18, blood pressure 152/84. HEENT: Showed pale dry oral mucoid membrane. Nonicteric sclerae. LUNGS: Few scattered crepitation. Decreased air entry at bases. HEART: Positive S1 and S2 with increased rate with clean dressing. ABDOMEN: Colostomy tube is in place. . Bowel sounds are excessively hypoactive. EXTREMITIES: Without significant clubbing, cyanosis, or edema. SUGGESTION: 1. Continue current management. 2. Peripheral hyperalimentation in the meantime. Case is discussed with Dr. Bustillos and Oncology/Hematology integration consultant. Andrew Koroma MD
--- NOTE | 2017-06-18 23:45 | CP.PCM.PN ---
Subjective - Date & Time of Evaluation Date of Evaluation: 06/18/17 Time of Evaluation: 19:00 - Subjective Subjective: Pt has colostomy now for non healing wound in sacral area, continue of post op care Objective - Vital Signs/Intake and Output Vital Signs (last 24 hours): Temp Pulse Resp BP Pulse Ox 97.8 F 79 14 142/70 100 06/18/17 20:00 06/18/17 21:11 06/18/17 21:11 06/18/17 21:11 06/18/17 21:11 Intake and Output: 06/18/17 06/19/17 18:59 06:59 Intake Total 682 42 Output Total 950 0 Balance -268 42 - Medications Medications: Current Medications Heparin Sodium (Porcine) (Heparin) 5,000 units SC Q8 [facility] Last Admin: 06/18/17 21:02 Dose: 5,000 units Hydralazine HCl (Apresoline) 10 mg IVP Q6H [facility] Last Admin: 06/18/17 21:02 Dose: 10 mg Hydromorphone HCl (Dilaudid) 0.5 mg IVP Q4H PRN PRN Reason: Pain, moderate (4-7) Last Admin: 06/18/17 20:35 Dose: 0.5 mg Aztreonam 2 gm/ Sodium (Chloride) 100 mls @ 200 mls/hr IVPB Q8H [facility] Last Admin: 06/18/17 20:30 Dose: 200 mls/hr Metronidazole (Flagyl) 500 mg in 100 mls @ 100 mls/hr IVPB Q8 [facility] Last Admin: 06/18/17 21:00 Dose: 100 mls/hr Vancomycin HCl 1,000 mg/ (Sodium Chloride) 200 mls @ 166.6 mls/hr IVPB Q12H [facility] Last Admin: 06/18/17 16:17 Dose: Not Given Insulin Human Regular 10 unit/Heparin Sodium (Porcine) 1, 000 units/ Multivitamins/Vitamin C 10 ml/ Chromium/Copper/Manganese/Zinc 1 ml/Amino Acids/ Electrolytes/Dextrose 1,012.1 mls @ 42 mls/hr IV .Q24H ONE Stop: 06/19/17 17:59 Last Admin: 06/18/17 17:33 Dose: 42 mls/hr Insulin Human Regular (Novolin R) 0 unit SC Q6H [facility] PRN Reason: Protocol Last Admin: 06/18/17 18:18 Dose: 1 unit Labetalol HCl (Trandate) 10 mg IV Q6H [facility] Last Admin: 06/18/17 17:32 Dose: 10 mg Losartan Potassium (Cozaar) 50 mg PO DAILY [facility] Last Admin: 06/18/17 09:08 Dose: Not Given Ondansetron HCl (Zofran Inj) 4 mg IVP Q6 PRN PRN Reason: Nausea/Vomiting Last Admin: 06/18/17 07:32 Dose: 4 mg Pantoprazole Sodium (Protonix Inj) 40 mg IVP Q12H [facility] Last Admin: 06/18/17 17:32 Dose: 40 mg Vitamin A (Vitamin A & D Oint Ud Foilpak) 0.5 ea TOP Q4 PRN PRN Reason: Dry lips - Labs Labs: 06/18/17 06:29 06/18/17 06:29 PT 15.6 SECONDS (9.7-12.2) H 06/08/17 12:33 INR 1.4 06/08/17 12:33 APTT 31 SECONDS (21-34) 06/08/17 12:33 - Constitutional Appears: Chronically Ill - Head Exam Head Exam: ATRAUMATIC, NORMAL INSPECTION, NORMOCEPHALIC - Eye Exam Eye Exam: EOMI, Normal appearance, PERRL Pupil Exam: NORMAL ACCOMODATION, PERRL - Respiratory Exam Respiratory Exam: Decreased Breath Sounds - Cardiovascular Exam Cardiovascular Exam: REGULAR RHYTHM, +S1, +S2. absent: Murmur - GI/Abdominal Exam GI & Abdominal Exam: Soft, Normal Bowel Sounds. absent: Tenderness Assessment and Plan (1) Morbid obesity Status: Acute (2) Pilonidal abscess Status: Acute (3) Hypertension Status: Acute
[2017-06-19] MEDS: Labetalol 25mg/5ml Syringe IV SCH ×4 (00:15→18:08)
[2017-06-19] MEDS: (Novolin R) Insulin Human Regular 100 units/ml vial SC SCH ×4 (00:38→18:09)
[2017-06-19] MEDS: Aztreonam 2 GM in Sodium Chloride 0.9% 100 ML IVPB SCH ×3 (04:30→22:30)
[2017-06-19] MEDS: metroNIDAZOLE IV 500 mg/100 ml 500 MG/100 ML BAG IVPB SCH ×3 (05:00→23:00)
[2017-06-19 06:05] LABS: BASO # 0.1 K/uL (0.0-0.2); BASO % 0.3 % (0.0-2.0); EOS # 0.1 K/uL (0.0-0.7); EOS % 0.5 % (0.0-4.0); HEMOGLOBIN 10.7 g/dL (11.0-16.0); LYMPH # 1.7 K/uL (1.0-4.3); LYMPH % 10.1 % (20.0-40.0); MEAN CELL VOLUME 86.9 fL (81.0-99.0); MEAN CORPUSCULAR HEMOGLOBIN 29.8 pg (27.0-31.0); MEAN CORPUSCULAR HGB CONC 34.3 g/dL (33.0-37.0); MEAN PLATELET VOLUME 8.8 fL (7.2-11.7); MONO # 0.9 K/uL (0.0-0.8); MONO % 5.2 % (0.0-10.0); NEUT # 14.3 K/uL (1.8-7.0); NEUT % 83.9 % (50.0-75.0); RBC 3.6 Mil/uL (3.80-5.20); RED CELL DISTRIBUTION WIDTH 14.8 % (11.5-14.5); WHITE BLOOD COUNT 17.1 K/uL (4.8-10.8)
[2017-06-19 06:29] LABS: ALB/GLOB RATIO 0.9 (1.0-2.1); ALBUMIN 3.4 g/dL (3.5-5.0); ALT/SGPT 30 U/L (9-52); AST/SGOT 25 U/L (14-36); BLOOD UREA NITROGEN 21 mg/dL (7-17); CALCIUM 8.5 mg/dl (8.6-10.4); GFR AFRICAN-AMERICAN > 60; GFR NON-AFRICAN AMERICAN > 60
--- NOTE | 2017-06-19 11:15 | CON ---
DATE: 06/14/2017 I was called for GI consultation by Dr. Keven Batista. The patient is seen and fully examined on 06/14/2017 in the presence of the nursing staff in the floor, a short-hand writing consultation sheet left in the chart. The entire chart is reviewed, including but not limited to the most recent lab and radiology study results, current and previous medication lists, current and the previous medical events, allergy to medication list as well as all the available current and previous medical records. Case was discussed with the staff at length in the floor. HISTORY OF PRESENT ILLNESS: This is a 51-year-old female who was admitted to the hospital initially through the emergency room, with complaint of left lower quadrant abdominal pain for the last 4 to 5 days prior to the admission associated with episode of dyspepsia, nausea, and vomiting with diarrhea, generalized weakness, and malaise with subsequent loss of appetite. The patient recently had a history of cyst, treated surgically by Dr. Sparrow, was advised to be admitted through the ER for potential debridement of the infected sacral area postsurgically. No reported actual chest pain, palpitation, or shortness of breath. PAST MEDICAL HISTORY: Including mainly hypertension, peptic ulcer disease, as well as recent sacral area surgery. FAMILY HISTORY: Unknown. CURRENT MEDICATIONS: Medication lists were reviewed. SOCIAL HISTORY: Denied any recent history of cigarette smoking or alcohol intake. ALLERGY TO MEDICATION: LIST SEEN. LABORATORY DATA: After being admitted to the hospital, initial blood workup showed leukocytosis of 15.0 with low hemoglobin of 10.8, hematocrit with normal platelet count, but low potassium 3.4. PHYSICAL EXAMINATION: GENERAL: A 51-year-old female, awake, alert, oriented, complaining of severe left lower quadrant pain, afebrile. VITAL SIGNS: Pulse of 72, respiratory rate 20-22, and blood pressure 148/84. HEENT: Showed dry oral mucous membrane. Nonicteric sclerae. LYMPH NODES: No lymphadenitis or lymphadenopathy. LUNGS: Scattered mild crepitation with decreased air entry at bases. HEART: Positive S1 and S2. ABDOMEN: Soft, mildly obese with generalized tenderness, but mainly in the left lower quadrant area. Bowel sounds are hypoactive. No mass or organomegaly. No rebound tenderness or guarding. RECTAL: The patient refused. EXTREMITIES: Left lower extremity edematous changes. No clubbing or cyanosis. NEUROLOGIC: No reported neurological deficits, sensory or motor. No new focal neurological deficits reported. Peripheral pulses are present bilaterally and positive. It has to be mentioned that abdominal and pelvic scan done, reports seen, indicative of acute left-sided diverticulitis, with possible microperforation, please see official CAT scan report by the Radiology staff. IMPRESSION: 1. Diverticulosis with acute diverticulitis. 2. Rule out possible microperforation with abscess formation at the level of the left side of the colon. 3. Known history of hypertension. 4. Leukocytosis secondary to above. 5. History of status post recent sacral area surgery. SUGGESTIONS: 1. Agree with your plan. 2. Keep the patient n.p.o. in the meantime. 3. Complete stool analysis including C. diff toxin. 4. ID consultation including . 5. Surgical re-evaluation. 6. IV antibiotics, proton pump inhibitors. 7. Cancer markers including CEA. 8. Further recommendation to follow. 9. We will follow up closely with you. Thank you for letting me to participate in your patient's case management. Andrew Koroma MD
--- NOTE | 2017-06-19 13:07 | PN ---
DATE: LOCATION: ICU 10. SUBJECTIVE: This is a 51-year-old female seen early at rounds and examined without reported significant clinical changes with intermittent period of post-surgical abdominal pain with status post colostomy and healing wound, both cervical and sacral area. The entire chart is reviewed including, but not limited to most recent lab and radiology study results, current and the previous medication list, current and previous medical events. Today's lab showed white blood cell is still elevated at 17.1, hemoglobin 10.7, hematocrit 31.3 with thrombocytosis of 532. BUN of 21, but low creatinine. Blood glucose level 129, low calcium 8.5 and low albumin 3.4. The patient had no reported significant complaint of chest pain, palpitation, or significant shortness of breath. Most recent chest x-ray report is seen, showed evidence of moderate pulmonary venous congestion with possible left pleural effusion and/or pneumonia. PHYSICAL EXAMINATION: GENERAL: This is a 51-year-old female. VITAL SIGNS: Afebrile with pulse of 84, respiratory rate 16 to 18, and blood pressure of 170/88. HEENT: Showed mildly pale dry oral mucous membrane. Nonicteric sclerae. LUNGS: Few scattered crepitation with decreased air entry at bases. HEART: Positive S1 and S2. ABDOMEN: Covered with clean dressing. Colostomy tube is in place with a small amount of liquid fecal material. mild abdominal tenderness. EXTREMITIES: Mild lower extremity edematous changes. No clubbing or cyanosis. NEUROLOGIC: No reported new neurological deficits, sensory, motor or focal deficits. Peripheral pulses are present bilaterally. IMPRESSION: 1. Acute diverticulitis with reported micro-abscess formation, treated surgically. 2. Status post colostomy. 3. Exacerbation of peptic ulcer disease. 4. Sacral abscess formation with reported mass lesion, treated surgically. 5. Anemia secondary to above most likely. 6. Known history of peptic ulcer disease and hypertension. SUGGESTION: 1. Continue current management. 2. Follow up cancer markers. 3. Proton pump inhibitor. 4. Antireflux measure. 5. Further recommendation to follow. Andrew Koroma MD [facility] # [id number]
--- NOTE | 2017-06-19 14:39 | CP.PCM.PN ---
Subjective - Date & Time of Evaluation Date of Evaluation: 06/19/17 Time of Evaluation: 09:00 - Subjective Subjective: seen in ICU c/o lower abd pain afebrile Dr Sparrow to re-eval Objective - Vital Signs/Intake and Output Vital Signs (last 24 hours): Temp Pulse Resp BP Pulse Ox 98.4 F 78 14 161/77 H 100 06/19/17 04:00 06/19/17 09:10 06/19/17 09:10 06/19/17 09:10 06/19/17 09:10 Intake and Output: 06/19/17 06/19/17 06:59 18:59 Intake Total 1004 310 Output Total 0 950 Balance 1004 -640 - Medications Medications: Current Medications Heparin Sodium (Porcine) (Heparin) 5,000 units SC Q8 [facility] Last Admin: 06/19/17 05:15 Dose: 5,000 units Hydralazine HCl (Apresoline) 10 mg IVP Q6H [facility] Last Admin: 06/19/17 10:19 Dose: 10 mg Hydromorphone HCl (Dilaudid) 0.5 mg IVP Q4H PRN PRN Reason: Pain, moderate (4-7) Last Admin: 06/19/17 10:20 Dose: 0.5 mg Aztreonam 2 gm/ Sodium (Chloride) 100 mls @ 200 mls/hr IVPB Q8H [facility] Last Admin: 06/19/17 13:24 Dose: 200 mls/hr Metronidazole (Flagyl) 500 mg in 100 mls @ 100 mls/hr IVPB Q8 [facility] Last Admin: 06/19/17 05:00 Dose: 100 mls/hr Insulin Human Regular 10 unit/Heparin Sodium (Porcine) 1, 000 units/ Multivitamins/Vitamin C 10 ml/ Chromium/Copper/Manganese/Zinc 1 ml/Amino Acids/ Electrolytes/Dextrose 1,012.1 mls @ 42 mls/hr IV .Q24H ONE Stop: 06/19/17 17:59 Last Admin: 06/18/17 17:33 Dose: 42 mls/hr Insulin Human Regular 10 unit/Heparin Sodium (Porcine) 1, 000 units/ Chromium/ Copper/Manganese/Zinc 1 ml/ Amino Acids/Electrolytes/Dextrose 1,002.1 mls @ 42 mls/hr IV .[id number] ONE Stop: 06/20/17 17:51 Linezolid (Zyvox 600mg/300ml D5w) 600 mg in 300 mls @ 200 mls/hr IVPB Q12H [facility] Insulin Human Regular (Novolin R) 0 unit SC Q6H [facility]HELLE PRN Reason: Protocol Last Admin: 06/19/17 13:25 Dose: 1 unit Labetalol HCl (Trandate) 10 mg IV Q6H [facility] Last Admin: 06/19/17 13:28 Dose: 10 mg Losartan Potassium (Cozaar) 50 mg PO DAILY [facility] Last Admin: 06/19/17 10:12 Dose: Not Given Ondansetron HCl (Zofran Inj) 4 mg IVP Q6 PRN PRN Reason: Nausea/Vomiting Last Admin: 06/18/17 07:32 Dose: 4 mg Pantoprazole Sodium (Protonix Inj) 40 mg IVP Q12H [facility] Last Admin: 06/19/17 05:15 Dose: 40 mg Vitamin A (Vitamin A & D Oint Ud Foilpak) 0.5 ea TOP Q4 PRN PRN Reason: Dry lips - Labs Labs: 06/19/17 05:59 06/19/17 05:59 PT 15.6 SECONDS (9.7-12.2) H 06/08/17 12:33 INR 1.4 06/08/17 12:33 APTT 31 SECONDS (21-34) 06/08/17 12:33 - Constitutional Appears: Non-toxic, Chronically Ill - Head Exam Head Exam: NORMOCEPHALIC - Eye Exam Eye Exam: PERRL - ENT Exam ENT Exam: Mucous Membranes Dry - Neck Exam Neck Exam: absent: Lymphadenopathy - Respiratory Exam Respiratory Exam: Decreased Breath Sounds - Cardiovascular Exam Cardiovascular Exam: REGULAR RHYTHM - GI/Abdominal Exam GI & Abdominal Exam: Distended, Soft, Tenderness - Rectal Exam Rectal Exam: Deferred - Exam Exam: NORMAL INSPECTION - Extremities Exam Extremities Exam: absent: Pedal Edema - Back Exam Back Exam: absent: CVA tenderness (L), CVA tenderness (R) - Neurological Exam Neurological Exam: Alert, Awake, CN II-XII Intact, Oriented x3 Assessment and Plan (1) Abdominal pain Status: Acute (2) Pilonidal abscess Status: Acute (3) Diverticular disease of intestine with perforation and abscess Status: Acute (4) Diverticular disease of intestine with perforation and abscess Status: Acute (5) Colonic diverticular abscess Status: Acute (6) Colonic diverticular abscess Status: Acute - Assessment and Plan (Free Text) Assessment: add zyvox for VRE
--- NOTE | 2017-06-19 17:33 | CP.CCUPN ---
CCU Subjective - Physician Review Events Since Last Encounter (Free Text): 06/19/17 17:32 52-year-old female with history of hypertension admitted to the hospital with diverticulosis, diverticulitis, and abscess. Patient underwent laparotomy. Patient had a colostomy, and drainage. Patient now feeling okay, complaining of pain, low-grade fever noted. Multiple antibiotic is on. Patient is being seen by infectious disease. Patient is stable Vital signs stable. Chest good air entry. Heart sounds Abdomen tenderness noted. Labs reveal a Improving the bands noted. Otherwise stable. Patient is sitting up now Assessment and comminution: 51-year-old female with a history of hypertension status post colostomy. Localized cellulitis from the diverticulitis. On antibiotic. Regular stable. Patient can be transferred to the medical floor. But patient will need continuous monitoring. Currently on TPN. transfer to floor CCU Objective - Vital Signs / Intake & Output Vital Signs (Last 4 hours): Vital Signs Pulse Resp BP Pulse Ox 06/19/17 14:18 71 11 L 149/76 100 06/19/17 14:00 73 14 100 Intake and Output (Last 8hrs): Intake & Output 06/19/17 06/19/17 06/19/17 06:59 14:59 22:59 Intake Total 636 536 42 Output Total 1450 Balance 636 -914 42 Intake: Intake, IV Amount 636 436 42 Right Distal Port PICC 300 100 Right Proximal Port PICC 336 336 42 Oral 100 Output: Urine 1450 Urine, Voided 1450 - Physical Exam Head: Positive for: Atraumatic, Normocephalic Pupils: Positive for: PERRL Extroacular Muscles: Positive for: EOMI Mouth: Positive for: Moist Mucous Membranes Respiratory/Chest: Positive for: Clear to Auscultation, Good Air Exchange. Negative for: Respiratory Distress, Accessory Muscle Use Cardiovascular: Positive for: Regular Rate and Rhythm, Normal S1, S2 Abdomen: Positive for: Tenderness (appropriate post-op tenderness). Negative for: Distention, Normal Bowel Sounds (hypoactive bowel sounds ), Peritoneal Signs Upper Extremity: Positive for: Normal Inspection Lower Extremity: Positive for: Normal Inspection Neurological: Positive for: GCS=15 Skin: Positive for: Warm, Dry, Normal Color Psychiatric: Positive for: Alert, Oriented x 3 - Medications Active Medications: Active Medications Generic Name Dose Route Start Last Admin Trade Name Freq PRN Reason Stop Dose Admin Heparin Sodium (Porcine) 5,000 units 06/17/17 14:00 06/19/17 14:30 Heparin SC 5,000 units Q8 MICHELLE Administration Hydralazine HCl 10 mg 06/17/17 10:00 06/19/17 16:35 Apresoline IVP 10 mg Q6H [facility]HELLE Administration Hydromorphone HCl 0.5 mg 06/17/17 22:12 06/19/17 17:15 Dilaudid IVP 0.5 mg Q4H PRN Administration Pain, moderate (4-7) Aztreonam 2 gm/ Sodium 100 mls @ 200 mls/hr 06/17/17 13:30 06/19/17 13:24 Chloride IVPB 200 mls/hr Q8H MICHELLE Administration Metronidazole 500 mg in 100 mls @ 100 mls/hr 06/17/17 14:00 06/19/17 15:00 Flagyl IVPB 100 mls/hr Q8 [facility] Administration Insulin Human Regular 10 unit/ 1,012.1 mls @ 42 mls/hr 06/18/17 18:00 17:33 Heparin Sodium (Porcine) 1, IV 06/19/17 17:59 42 mls/hr 000 units/ Multivitamins/ .Q24H ONE Administration Vitamin C 10 ml/ Chromium/ Copper/Manganese/Zinc 1 ml/ Amino Acids/Electrolytes/ Dextrose Insulin Human Regular 10 unit/ 1,002.1 mls @ 42 mls/hr 06/19/17 18:00 Heparin Sodium (Porcine) 1, IV 06/20/17 17:51 000 units/ Chromium/Copper/ .[id number] ONE Manganese/Zinc 1 ml/ Amino Acids/Electrolytes/Dextrose Linezolid 600 mg in 300 mls @ 200 mls/hr 06/19/17 18:00 Zyvox 600mg/300ml D5w IVPB Q12H [facility] Insulin Human Regular 0 unit 06/18/17 00:00 06/19/17 13:25 Novolin R SC 1 unit Q6H MICHELLE Administration Protocol Labetalol HCl 10 mg 06/17/17 12:00 06/19/17 13:28 Trandate IV 10 mg Q6H MICHELLE Administration Losartan Potassium 50 mg 06/16/17 12:15 06/19/17 10:12 Cozaar PO Not Given DAILY [facility]HELLE Ondansetron HCl 4 mg 06/18/17 06:39 06/18/17 07:32 Zofran Inj IVP 4 mg Q6 PRN Administration Nausea/Vomiting Pantoprazole Sodium 40 mg 06/16/17 17:30 06/19/17 17:14 Protonix Inj IVP 40 mg Q12H [facility]HELLE Administration Vitamin A 0.5 ea 06/17/17 14:10 Vitamin A & D Oint Ud Foilpak TOP Q4 PRN Dry lips - Patient Studies Lab Studies: Microbiology Studies 06/16/17 10:24 Gram Stain - Final Abscess - Diverticulum Wound Culture - Final Escherichia Coli Vancomycin Resistant E.faecium 06/16/17 Unknown MRSA Culture (Admit) - Final Naris MRSA NOT DETECTED Lab Studies 06/19/17 06/19/17 06/19/17 Range/Units 11:34 05:59 05:59 WBC (4.8-10.8) K/uL RBC (3.80-5.20) Mil/uL Hgb (11.0-16.0) g/dL Hct (34.0-47.0) % MCV (81.0-99.0) fL MCH (27.0-31.0) pg MCHC (33.0-37.0) g/dL RDW (11.5-14.5) % Plt Count (130-400) K/uL MPV (7.2-11.7) fL Neut % (Auto) (50.0-75.0) % Lymph % (Auto) (20.0-40.0) % [place] % (Auto) (0.0-10.0) % Eos % (Auto) (0.0-4.0) % Baso % (Auto) (0.0-2.0) % Neut # (1.8-7.0) K/uL Lymph # (1.0-4.3) K/uL [place] # (0.0-0.8) K/uL Eos # (0.0-0.7) K/uL Baso # (0.0-0.2) K/uL Sodium 136 (132-148) mmol/L Potassium 4.0 (3.6-5.2) mmol/L Chloride 100 (98-107) mmol/L Carbon Dioxide 28 (22-30) mmol/L Anion Gap 12 (10-20) BUN 21 H (7-17) mg/dL Creatinine 0.6 L (0.7-1.2) mg/dL Est GFR ( Amer) > 60 Est GFR (Non-Af Amer) > 60 POC Glucose (mg/dL) 153 H (65-110) mg/dL Random Glucose 131 H (65-105) mg/dL Calcium 8.5 L (8.6-10.4) mg/dl Phosphorus 2.7 (2.5-4.5) mg/dL Magnesium 2.0 (1.6-2.3) mg/dL Total Bilirubin 0.6 (0.2-1.3) mg/dL AST 25 (14-36) U/L ALT 30 (9-52) U/L Alkaline Phosphatase 77 (38-126) U/L Total Protein 7.5 (6.3-8.3) g/dL Albumin 3.4 L (3.5-5.0) g/dL Globulin 4.0 H (2.2-3.9) gm/dL Albumin/Globulin Ratio 0.9 L (1.0-2.1) Vancomycin Trough < 5.0 L (5.0-10.0) ug/mL 06/19/17 06/19/17 06/19/17 Range/Units 05:59 05:28 00:13 WBC 17.1 H (4.8-10.8) K/uL RBC 3.60 L (3.80-5.20) Mil/uL Hgb 10.7 L (11.0-16.0) g/dL Hct 31.3 L (34.0-47.0) % MCV 86.9 (81.0-99.0) fL MCH 29.8 (27.0-31.0) pg MCHC 34.3 (33.0-37.0) g/dL RDW 14.8 H (11.5-14.5) % Plt Count 532 H (130-400) K/uL MPV 8.8 (7.2-11.7) fL Neut % (Auto) 83.9 H (50.0-75.0) % Lymph % (Auto) 10.1 L (20.0-40.0) % [place] % (Auto) 5.2 (0.0-10.0) % Eos % (Auto) 0.5 (0.0-4.0) % Baso % (Auto) 0.3 (0.0-2.0) % Neut # 14.3 H (1.8-7.0) K/uL Lymph # 1.7 (1.0-4.3) K/uL [place] # 0.9 H (0.0-0.8) K/uL Eos # 0.1 (0.0-0.7) K/uL Baso # 0.1 (0.0-0.2) K/uL Sodium (132-148) mmol/L Potassium (3.6-5.2) mmol/L Chloride (98-107) mmol/L Carbon Dioxide (22-30) mmol/L Anion Gap (10-20) BUN (7-17) mg/dL Creatinine (0.7-1.2) mg/dL Est GFR ( Amer) Est GFR (Non-Af Amer) POC Glucose (mg/dL) 129 H 158 H (65-110) mg/dL Random Glucose (65-105) mg/dL Calcium (8.6-10.4) mg/dl Phosphorus (2.5-4.5) mg/dL Magnesium (1.6-2.3) mg/dL Total Bilirubin (0.2-1.3) mg/dL AST (14-36) U/L ALT (9-52) U/L Alkaline Phosphatase (38-126) U/L Total Protein (6.3-8.3) g/dL Albumin (3.5-5.0) g/dL Globulin (2.2-3.9) gm/dL Albumin/Globulin Ratio (1.0-2.1) Vancomycin Trough (5.0-10.0) ug/mL 06/18/17 Range/Units 17:45 WBC (4.8-10.8) K/uL RBC (3.80-5.20) Mil/uL Hgb (11.0-16.0) g/dL Hct (34.0-47.0) % MCV (81.0-99.0) fL MCH (27.0-31.0) pg MCHC (33.0-37.0) g/dL RDW (11.5-14.5) % Plt Count (130-400) K/uL MPV (7.2-11.7) fL Neut % (Auto) (50.0-75.0) % Lymph % (Auto) (20.0-40.0) % [place] % (Auto) (0.0-10.0) % Eos % (Auto) (0.0-4.0) % Baso % (Auto) (0.0-2.0) % Neut # (1.8-7.0) K/uL Lymph # (1.0-4.3) K/uL [place] # (0.0-0.8) K/uL Eos # (0.0-0.7) K/uL Baso # (0.0-0.2) K/uL Sodium (132-148) mmol/L Potassium (3.6-5.2) mmol/L Chloride (98-107) mmol/L Carbon Dioxide (22-30) mmol/L Anion Gap (10-20) BUN (7-17) mg/dL Creatinine (0.7-1.2) mg/dL Est GFR ( Amer) Est GFR (Non-Af Amer) POC Glucose (mg/dL) 160 H (65-110) mg/dL Random Glucose (65-105) mg/dL Calcium (8.6-10.4) mg/dl Phosphorus (2.5-4.5) mg/dL Magnesium (1.6-2.3) mg/dL Total Bilirubin (0.2-1.3) mg/dL AST (14-36) U/L ALT (9-52) U/L Alkaline Phosphatase (38-126) U/L Total Protein (6.3-8.3) g/dL Albumin (3.5-5.0) g/dL Globulin (2.2-3.9) gm/dL Albumin/Globulin Ratio (1.0-2.1) Vancomycin Trough (5.0-10.0) ug/mL Laboratory Results - last 24 hr 06/18/17 06/19/17 06/19/17 17:45 00:13 05:28 WBC RBC Hgb Hct MCV MCH MCHC RDW Plt Count MPV Neut % (Auto) Lymph % (Auto) [place] % (Auto) Eos % (Auto) Baso % (Auto) Neut # Lymph # [place] # Eos # Baso # Sodium Potassium Chloride Carbon Dioxide Anion Gap BUN Creatinine Est GFR ( Amer) Est GFR (Non-Af Amer) POC Glucose (mg/dL) 160 H 158 H 129 H Random Glucose Calcium Phosphorus Magnesium Total Bilirubin AST ALT Alkaline Phosphatase Total Protein Albumin Globulin Albumin/Globulin Ratio Vancomycin Trough 06/19/17 06/19/17 06/19/17 05:59 05:59 05:59 WBC 17.1 H RBC 3.60 L Hgb 10.7 L Hct 31.3 L MCV 86.9 MCH 29.8 MCHC 34.3 RDW 14.8 H Plt Count 532 H MPV 8.8 Neut % (Auto) 83.9 H Lymph % (Auto) 10.1 L [place] % (Auto) 5.2 Eos % (Auto) 0.5 Baso % (Auto) 0.3 Neut # 14.3 H Lymph # 1.7 [place] # 0.9 H Eos # 0.1 Baso # 0.1 Sodium 136 Potassium 4.0 Chloride 100 Carbon Dioxide 28 Anion Gap 12 BUN 21 H Creatinine 0.6 L Est GFR ( Amer) > 60 Est GFR (Non-Af Amer) > 60 POC Glucose (mg/dL) Random Glucose 131 H Calcium 8.5 L Phosphorus 2.7 Magnesium 2.0 Total Bilirubin 0.6 AST 25 ALT 30 Alkaline Phosphatase 77 Total Protein 7.5 Albumin 3.4 L Globulin 4.0 H Albumin/Globulin Ratio 0.9 L Vancomycin Trough < 5.0 L 06/19/17 11:34 WBC RBC Hgb Hct MCV MCH MCHC RDW Plt Count MPV Neut % (Auto) Lymph % (Auto) [place] % (Auto) Eos % (Auto) Baso % (Auto) Neut # Lymph # [place] # Eos # Baso # Sodium Potassium Chloride Carbon Dioxide Anion Gap BUN Creatinine Est GFR ( Amer) Est GFR (Non-Af Amer) POC Glucose (mg/dL) 153 H Random Glucose Calcium Phosphorus Magnesium Total Bilirubin AST ALT Alkaline Phosphatase Total Protein Albumin Globulin Albumin/Globulin Ratio Vancomycin Trough Fingerstick Blood Sugar Results: 153 Critical Care Progress Note - Nutrition Nutrition: Nutrition Category Date Time Status NPO Diet [DIET] Diets 06/18/17 Dinner Active
[2017-06-19] MEDS ORDERED: TPN #3 IV ONE (18:00)
[2017-06-19] MEDS: Linezolid 600 mg in D5W 300 ml 600 MG/300 ML BAG IVPB SCH (18:06)
--- NOTE | 2017-06-19 21:32 | CP.PCM.PN ---
Subjective - Date & Time of Evaluation Date of Evaluation: 06/19/17 Time of Evaluation: 16:00 - Subjective Subjective: Pt seen and examined s/p OR laparotomy.,Patient had a colostomy, and drainage. feeling better now complaining of pain, low-grade fever noted. Multiple antibiotic is on. Patient is being seen by infectious disease. Objective - Vital Signs/Intake and Output Vital Signs (last 24 hours): Temp Pulse Resp BP Pulse Ox 98.3 F 76 20 140/77 100 06/19/17 20:00 06/19/17 20:00 06/19/17 20:00 06/19/17 20:00 06/19/17 20:00 Intake and Output: 06/19/17 06/20/17 18:59 06:59 Intake Total 804 42 Output Total 1800 Balance -996 42 - Medications Medications: Current Medications Heparin Sodium (Porcine) (Heparin) 5,000 units SC Q8 [facility] Last Admin: 06/19/17 14:30 Dose: 5,000 units Hydralazine HCl (Apresoline) 10 mg IVP Q6H [facility] Last Admin: 06/19/17 16:35 Dose: 10 mg Hydromorphone HCl (Dilaudid) 0.5 mg IVP Q4H PRN PRN Reason: Pain, moderate (4-7) Last Admin: 06/19/17 17:15 Dose: 0.5 mg Aztreonam 2 gm/ Sodium (Chloride) 100 mls @ 200 mls/hr IVPB Q8H [facility] Last Admin: 06/19/17 13:24 Dose: 200 mls/hr Metronidazole (Flagyl) 500 mg in 100 mls @ 100 mls/hr IVPB Q8 [facility] Last Admin: 06/19/17 15:00 Dose: 100 mls/hr Insulin Human Regular 10 unit/Heparin Sodium (Porcine) 1, 000 units/ Chromium/ Copper/Manganese/Zinc 1 ml/ Amino Acids/Electrolytes/Dextrose 1,002.1 mls @ 42 mls/hr IV .[id number] ONE Stop: 06/20/17 17:51 Last Admin: 06/19/17 18:10 Dose: 42 mls/hr Linezolid (Zyvox 600mg/300ml D5w) 600 mg in 300 mls @ 200 mls/hr IVPB Q12H [facility] Last Admin: 06/19/17 18:06 Dose: 200 mls/hr Insulin Human Regular (Novolin R) 0 unit SC Q6H MICHELLE PRN Reason: Protocol Last Admin: 06/19/17 18:09 Dose: 1 unit Labetalol HCl (Trandate) 10 mg IV Q6H [facility] Last Admin: 06/19/17 18:08 Dose: 10 mg Losartan Potassium (Cozaar) 50 mg PO DAILY [facility] Last Admin: 06/19/17 10:12 Dose: Not Given Ondansetron HCl (Zofran Inj) 4 mg IVP Q6 PRN PRN Reason: Nausea/Vomiting Last Admin: 06/18/17 07:32 Dose: 4 mg Pantoprazole Sodium (Protonix Inj) 40 mg IVP Q12H [facility] Last Admin: 06/19/17 18:09 Dose: 40 mg Vitamin A (Vitamin A & D Oint Ud Foilpak) 0.5 ea TOP Q4 PRN PRN Reason: Dry lips - Labs Labs: 06/19/17 05:59 06/19/17 05:59 PT 15.6 SECONDS (9.7-12.2) H 06/08/17 12:33 INR 1.4 06/08/17 12:33 APTT 31 SECONDS (21-34) 06/08/17 12:33 - Constitutional Appears: No Acute Distress - Eye Exam Eye Exam: EOMI, Normal appearance, PERRL Pupil Exam: NORMAL ACCOMODATION, PERRL - Respiratory Exam Respiratory Exam: Clear to Ausculation Bilateral, NORMAL BREATHING PATTERN - Cardiovascular Exam Cardiovascular Exam: REGULAR RHYTHM, +S1, +S2. absent: Murmur - GI/Abdominal Exam GI & Abdominal Exam: Soft, Normal Bowel Sounds. absent: Tenderness Additional comments: Abdomen tenderness noted. Assessment and Plan (1) Morbid obesity Status: Acute (2) Pilonidal abscess Status: Acute (3) Hypertension Status: Acute (4) Sacral decubitus ulcer Assessment & Plan: Patient is stable s/p OR Vital signs stable. Chest good air entry. Heart sounds Abdomen tenderness noted. Labs reveal a Improving the bands noted. Otherwise stable. Patient is sitting up now Status: Acute
[2017-06-20] MEDS: Labetalol 25mg/5ml Syringe IV SCH ×4 (01:00→17:27)
[2017-06-20] MEDS: Aztreonam 2 GM in Sodium Chloride 0.9% 100 ML IVPB SCH ×3 (04:30→21:12)
[2017-06-20] MEDS: metroNIDAZOLE IV 500 mg/100 ml 500 MG/100 ML BAG IVPB SCH ×3 (06:00→21:14)
[2017-06-20] MEDS: (Novolin R) Insulin Human Regular 100 units/ml vial SC SCH ×4 (06:00→17:38)
[2017-06-20] MEDS: Linezolid 600 mg in D5W 300 ml 600 MG/300 ML BAG IVPB SCH ×2 (07:00→17:39)
--- NOTE | 2017-06-20 12:05 | CP.PCM.PN ---
Subjective - Date & Time of Evaluation Date of Evaluation: 06/20/17 Time of Evaluation: 08:00 - Subjective Subjective: resting comfortably nad Objective - Vital Signs/Intake and Output Vital Signs (last 24 hours): Temp Pulse Resp BP Pulse Ox 99.1 F 82 20 151/88 H 99 06/20/17 08:00 06/20/17 08:00 06/20/17 08:00 06/20/17 08:00 06/20/17 08:00 Intake and Output: 06/20/17 06/20/17 06:59 18:59 Intake Total 862 300 Output Total 620 Balance 242 300 - Medications Medications: Current Medications Heparin Sodium (Porcine) (Heparin) 5,000 units SC Q8 [facility] Last Admin: 06/20/17 06:00 Dose: 5,000 units Hydralazine HCl (Apresoline) 10 mg IVP Q6H [facility] Last Admin: 06/20/17 09:18 Dose: 10 mg Hydromorphone HCl (Dilaudid) 0.5 mg IVP Q4H PRN PRN Reason: Pain, moderate (4-7) Last Admin: 06/20/17 09:17 Dose: 0.5 mg Aztreonam 2 gm/ Sodium (Chloride) 100 mls @ 200 mls/hr IVPB Q8H [facility] Last Admin: 06/20/17 04:30 Dose: 200 mls/hr Metronidazole (Flagyl) 500 mg in 100 mls @ 100 mls/hr IVPB Q8 [facility] Last Admin: 06/20/17 06:00 Dose: 100 mls/hr Insulin Human Regular 10 unit/Heparin Sodium (Porcine) 1, 000 units/ Chromium/ Copper/Manganese/Zinc 1 ml/ Amino Acids/Electrolytes/Dextrose 1,002.1 mls @ 42 mls/hr IV .[id number] ONE Stop: 06/20/17 17:51 Last Admin: 06/19/17 18:10 Dose: 42 mls/hr Linezolid (Zyvox 600mg/300ml D5w) 600 mg in 300 mls @ 200 mls/hr IVPB Q12H [facility] Last Admin: 06/20/17 07:00 Dose: 200 mls/hr Insulin Human Regular 10 unit/Heparin Sodium (Porcine) 1, 000 units/ Chromium/ Copper/Manganese/Zinc 1 ml/Multivitamins/Vitamin C 10 ml/Amino Acids/ Electrolytes/Dextrose 1,012.1 mls @ 42 mls/hr IV .Q24H ONE Stop: 06/21/17 17:59 Insulin Human Regular (Novolin R) 0 unit SC Q6H [facility] PRN Reason: Protocol Last Admin: 06/20/17 11:53 Dose: 1 unit Labetalol HCl (Trandate) 10 mg IV Q6H [facility] Last Admin: 06/20/17 07:00 Dose: 10 mg Losartan Potassium (Cozaar) 50 mg PO DAILY [facility] Last Admin: 06/20/17 10:00 Dose: Not Given Ondansetron HCl (Zofran Inj) 4 mg IVP Q6 PRN PRN Reason: Nausea/Vomiting Last Admin: 06/18/17 07:32 Dose: 4 mg Pantoprazole Sodium (Protonix Inj) 40 mg IVP Q12H [facility] Last Admin: 06/20/17 04:30 Dose: 40 mg Vitamin A (Vitamin A & D Oint Ud Foilpak) 0.5 ea TOP Q4 PRN PRN Reason: Dry lips - Labs Labs: 06/19/17 05:59 06/19/17 05:59 PT 15.6 SECONDS (9.7-12.2) H 06/08/17 12:33 INR 1.4 06/08/17 12:33 APTT 31 SECONDS (21-34) 06/08/17 12:33 - Constitutional Appears: Non-toxic, Chronically Ill - Head Exam Head Exam: NORMOCEPHALIC - Eye Exam Eye Exam: PERRL - ENT Exam ENT Exam: Mucous Membranes Dry - Neck Exam Neck Exam: absent: Lymphadenopathy - Respiratory Exam Respiratory Exam: Decreased Breath Sounds - Cardiovascular Exam Cardiovascular Exam: REGULAR RHYTHM - GI/Abdominal Exam GI & Abdominal Exam: Distended, Soft - Rectal Exam Rectal Exam: Deferred - Exam Exam: NORMAL INSPECTION - Extremities Exam Extremities Exam: absent: Pedal Edema - Back Exam Back Exam: absent: CVA tenderness (L), CVA tenderness (R) - Neurological Exam Neurological Exam: Alert, Awake Assessment and Plan (1) Abdominal pain Status: Acute (2) Pilonidal abscess Status: Acute (3) Diverticular disease of intestine with perforation and abscess Status: Acute (4) Diverticular disease of intestine with perforation and abscess Status: Acute (5) Colonic diverticular abscess Status: Acute (6) Colonic diverticular abscess Status: Acute
--- NOTE | 2017-06-20 14:42 | PN ---
DATE: 06/20/2017 LOCATION: ICU 10. SUBJECTIVE: This is a 52-year-old female seen and examined in the presence of her family members as well as the nursing staff, on the chair with steady gait and no reported nausea or vomiting, but post-surgical abdominal pain on and off. The entire chart is reviewed including, but not limited to the most recent lab and radiology study results, current and previous medication list, current and the previous medical events. Case discussed with the staff at length and today's lab show blood glucose level of 132. Rest of the lab results still pending. No reported palpitation or recent complaint of chills or fever. Colostomy tube reported to be in place. PHYSICAL EXAMINATION: GENERAL: A 52-year-old female. VITAL SIGNS: Temperature of 99.1, pulse of 80, respiratory rate 20 to 22, blood pressure of 144/84. HEENT: Showed pale, dry oral mucous membrane, nonicteric sclerae. LUNGS: Few scattered crepitation with decreased air entry at bases. HEART: Positive S1 and S2. ABDOMEN: Covered with clean dressing. Colostomy tube is in place drainage of some liquid thick brownish fecal material. EXTREMITIES: Without significant clubbing, cyanosis or edema. NEUROLOGIC: No reported new neurological deficits, sensory or motor. SKIN: Sacral area covered with clean dressing. IMPRESSION: 1. Acute diverticulitis with reported abscess formation, treated surgically with status post surgical [id number] abdominal pain. 2. Status post colostomy. 3. Peptic ulcer disease. 4. Sacral abscess formation with reported mass lesion before, treated surgically. 5. Known history of hypertension. 6. Anemia, most likely secondary to above. SUGGESTIONS: 1. Continue current management. 2. Patient on central hyperalimentation, when need, physical therapy also. Discussed with the staff at length. Andrew Koroma MD
[2017-06-20] MEDS ORDERED: TPN#4 IV ONE (18:00)
--- NOTE | 2017-06-20 23:08 | CP.PCM.PN ---
Subjective - Date & Time of Evaluation Date of Evaluation: 06/20/17 Time of Evaluation: 17:00 - Subjective Subjective: Pt seen and examined, she is post op, colostomy care, no distress Objective - Vital Signs/Intake and Output Vital Signs (last 24 hours): Temp Pulse Resp BP Pulse Ox 99.2 F 77 18 185/96 H 92 L 06/20/17 20:00 06/20/17 20:00 06/20/17 20:00 06/20/17 20:00 06/20/17 20:00 Intake and Output: 06/20/17 06/21/17 18:59 06:59 Intake Total 1620 226 Output Total 600 400 Balance 1020 -174 - Medications Medications: Current Medications Hydralazine HCl (Apresoline) 10 mg IVP Q6H [facility] Last Admin: 06/20/17 21:15 Dose: 10 mg Hydromorphone HCl (Dilaudid) 0.5 mg IVP Q4H PRN PRN Reason: Pain, moderate (4-7) Last Admin: 06/20/17 21:16 Dose: 0.5 mg Aztreonam 2 gm/ Sodium (Chloride) 100 mls @ 200 mls/hr IVPB Q8H [facility] Last Admin: 06/20/17 21:12 Dose: 200 mls/hr Metronidazole (Flagyl) 500 mg in 100 mls @ 100 mls/hr IVPB Q8 [facility] Last Admin: 06/20/17 21:14 Dose: 100 mls/hr Linezolid (Zyvox 600mg/300ml D5w) 600 mg in 300 mls @ 200 mls/hr IVPB Q12H [facility] Last Admin: 06/20/17 17:39 Dose: 200 mls/hr Insulin Human Regular 10 unit/Heparin Sodium (Porcine) 1, 000 units/ Chromium/ Copper/Manganese/Zinc 1 ml/Multivitamins/Vitamin C 10 ml/Amino Acids/ Electrolytes/Dextrose 1,012.1 mls @ 42 mls/hr IV .Q24H ONE Stop: 06/21/17 17:59 Last Admin: 06/20/17 17:20 Dose: 42 mls/hr Insulin Human Regular (Novolin R) 0 unit SC Q6H [facility] PRN Reason: Protocol Last Admin: 06/20/17 17:38 Dose: Not Given Labetalol HCl (Trandate) 10 mg IV Q6H [facility] Last Admin: 06/20/17 17:27 Dose: 10 mg Losartan Potassium (Cozaar) 50 mg PO DAILY [facility] Last Admin: 06/20/17 10:00 Dose: Not Given Ondansetron HCl (Zofran Inj) 4 mg IVP Q6 PRN PRN Reason: Nausea/Vomiting Last Admin: 06/18/17 07:32 Dose: 4 mg Pantoprazole Sodium (Protonix Inj) 40 mg IVP Q12H [facility] Last Admin: 06/20/17 17:30 Dose: 40 mg Vitamin A (Vitamin A & D Oint Ud Foilpak) 0.5 ea TOP Q4 PRN PRN Reason: Dry lips - Labs Labs: 06/19/17 05:59 06/19/17 05:59 PT 15.6 SECONDS (9.7-12.2) H 06/08/17 12:33 INR 1.4 06/08/17 12:33 APTT 31 SECONDS (21-34) 06/08/17 12:33 - Constitutional Appears: No Acute Distress, Chronically Ill - Head Exam Head Exam: ATRAUMATIC, NORMAL INSPECTION, NORMOCEPHALIC - Eye Exam Eye Exam: EOMI, Normal appearance, PERRL Pupil Exam: NORMAL ACCOMODATION, PERRL - Respiratory Exam Respiratory Exam: Clear to Ausculation Bilateral, NORMAL BREATHING PATTERN - Cardiovascular Exam Cardiovascular Exam: REGULAR RHYTHM, +S1, +S2. absent: Murmur - GI/Abdominal Exam GI & Abdominal Exam: Soft, Normal Bowel Sounds. absent: Tenderness Additional comments: colostomy site clean Assessment and Plan (1) Morbid obesity Status: Acute (2) Pilonidal abscess Status: Acute (3) Hypertension Status: Acute (4) Sacral decubitus ulcer Status: Acute
[2017-06-21] MEDS: (Novolin R) Insulin Human Regular 100 units/ml vial SC SCH ×4 (00:30→17:50)
[2017-06-21] MEDS: Labetalol 25mg/5ml Syringe IV SCH ×4 (00:44→17:52)
[2017-06-21] MEDS: Aztreonam 2 GM in Sodium Chloride 0.9% 100 ML IVPB SCH ×3 (04:00→20:57)
[2017-06-21] MEDS: metroNIDAZOLE IV 500 mg/100 ml 500 MG/100 ML BAG IVPB SCH ×3 (05:00→21:22)
[2017-06-21] MEDS: Linezolid 600 mg in D5W 300 ml 600 MG/300 ML BAG IVPB SCH ×2 (06:00→17:37)
--- NOTE | 2017-06-21 08:53 | CP.PCM.PN ---
Subjective - Date & Time of Evaluation Date of Evaluation: 06/21/17 Time of Evaluation: 19:00 - Subjective Subjective: Pt seen and examined, is post op, seen in ICU, recovering, afebrile, colostomy is left lower quadrant Objective - Vital Signs/Intake and Output Vital Signs (last 24 hours): Temp Pulse Resp BP Pulse Ox 97 F L 78 20 174/88 H 97 06/21/17 04:01 06/21/17 04:01 06/21/17 04:01 06/21/17 04:01 06/21/17 04:01 Intake and Output: 06/21/17 06/21/17 06:59 18:59 Intake Total 1204 42 Output Total 1100 Balance 104 42 - Medications Medications: Current Medications Hydralazine HCl (Apresoline) 10 mg IVP Q6H [facility] Last Admin: 06/21/17 03:44 Dose: 10 mg Hydromorphone HCl (Dilaudid) 0.5 mg IVP Q4H PRN PRN Reason: Pain, moderate (4-7) Last Admin: 06/21/17 05:44 Dose: 0.5 mg Aztreonam 2 gm/ Sodium (Chloride) 100 mls @ 200 mls/hr IVPB Q8H [facility] Last Admin: 06/21/17 04:00 Dose: 200 mls/hr Metronidazole (Flagyl) 500 mg in 100 mls @ 100 mls/hr IVPB Q8 [facility] Last Admin: 06/21/17 05:00 Dose: 100 mls/hr Linezolid (Zyvox 600mg/300ml D5w) 600 mg in 300 mls @ 200 mls/hr IVPB Q12H [facility] Last Admin: 06/21/17 06:00 Dose: 200 mls/hr Insulin Human Regular 10 unit/Heparin Sodium (Porcine) 1, 000 units/ Chromium/ Copper/Manganese/Zinc 1 ml/Multivitamins/Vitamin C 10 ml/Amino Acids/ Electrolytes/Dextrose 1,012.1 mls @ 42 mls/hr IV .Q24H ONE Stop: 06/21/17 17:59 Last Admin: 06/20/17 17:20 Dose: 42 mls/hr Insulin Human Regular (Novolin R) 0 unit SC Q6H [facility] PRN Reason: Protocol Last Admin: 06/21/17 06:55 Dose: Not Given Labetalol HCl (Trandate) 10 mg IV Q6H [facility] Last Admin: 06/21/17 05:37 Dose: 10 mg Losartan Potassium (Cozaar) 50 mg PO DAILY [facility] Last Admin: 06/20/17 10:00 Dose: Not Given Ondansetron HCl (Zofran Inj) 4 mg IVP Q6 PRN PRN Reason: Nausea/Vomiting Last Admin: 06/18/17 07:32 Dose: 4 mg Pantoprazole Sodium (Protonix Inj) 40 mg IVP Q12H [facility] Last Admin: 06/21/17 05:36 Dose: 40 mg Vitamin A (Vitamin A & D Oint Ud Foilpak) 0.5 ea TOP Q4 PRN PRN Reason: Dry lips - Labs Labs: 06/19/17 05:59 06/19/17 05:59 PT 15.6 SECONDS (9.7-12.2) H 06/08/17 12:33 INR 1.4 06/08/17 12:33 APTT 31 SECONDS (21-34) 06/08/17 12:33 - Constitutional Appears: No Acute Distress - Head Exam Head Exam: ATRAUMATIC, NORMAL INSPECTION, NORMOCEPHALIC - Eye Exam Eye Exam: EOMI, Normal appearance, PERRL Pupil Exam: NORMAL ACCOMODATION, PERRL - Respiratory Exam Respiratory Exam: Clear to Ausculation Bilateral, NORMAL BREATHING PATTERN - Cardiovascular Exam Cardiovascular Exam: REGULAR RHYTHM, +S1, +S2. absent: Murmur - GI/Abdominal Exam GI & Abdominal Exam: Soft, Normal Bowel Sounds. absent: Tenderness Assessment and Plan (1) Morbid obesity Status: Acute (2) Pilonidal abscess Status: Acute (3) Hypertension Status: Acute (4) Sacral decubitus ulcer Status: Acute
[2017-06-21] MEDS: Vitamins A & D Oint UD Foilpak TOP PRN (11:07)
--- NOTE | 2017-06-21 11:59 | CP.PCM.PN ---
Subjective - Date & Time of Evaluation Date of Evaluation: 06/21/17 Time of Evaluation: 08:00 - Subjective Subjective: less pain no fever alert NAD Objective - Vital Signs/Intake and Output Vital Signs (last 24 hours): Temp Pulse Resp BP Pulse Ox 97.9 F 76 20 166/90 H 98 06/21/17 08:00 06/21/17 08:00 06/21/17 08:00 06/21/17 08:00 06/21/17 08:00 Intake and Output: 06/21/17 06/21/17 06:59 18:59 Intake Total 1204 126 Output Total 1100 Balance 104 126 - Medications Medications: Current Medications Hydralazine HCl (Apresoline) 10 mg IVP Q6H [facility] Last Admin: 06/21/17 09:26 Dose: 10 mg Hydromorphone HCl (Dilaudid) 0.5 mg IVP Q4H PRN PRN Reason: Pain, moderate (4-7) Last Admin: 06/21/17 11:11 Dose: 0.5 mg Aztreonam 2 gm/ Sodium (Chloride) 100 mls @ 200 mls/hr IVPB Q8H [facility] Last Admin: 06/21/17 04:00 Dose: 200 mls/hr Metronidazole (Flagyl) 500 mg in 100 mls @ 100 mls/hr IVPB Q8 [facility] Last Admin: 06/21/17 05:00 Dose: 100 mls/hr Linezolid (Zyvox 600mg/300ml D5w) 600 mg in 300 mls @ 200 mls/hr IVPB Q12H [facility] Last Admin: 06/21/17 06:00 Dose: 200 mls/hr Insulin Human Regular 10 unit/Heparin Sodium (Porcine) 1, 000 units/ Chromium/ Copper/Manganese/Zinc 1 ml/Multivitamins/Vitamin C 10 ml/Amino Acids/ Electrolytes/Dextrose 1,012.1 mls @ 42 mls/hr IV .Q24H ONE Stop: 06/21/17 17:59 Last Admin: 06/20/17 17:20 Dose: 42 mls/hr Insulin Human Regular (Novolin R) 0 unit SC Q6H [facility] PRN Reason: Protocol Last Admin: 06/21/17 06:55 Dose: Not Given Labetalol HCl (Trandate) 10 mg IV Q6H [facility] Last Admin: 06/21/17 05:37 Dose: 10 mg Losartan Potassium (Cozaar) 50 mg PO DAILY [facility] Last Admin: 06/21/17 09:24 Dose: Not Given Ondansetron HCl (Zofran Inj) 4 mg IVP Q6 PRN PRN Reason: Nausea/Vomiting Last Admin: 06/21/17 11:08 Dose: 4 mg Pantoprazole Sodium (Protonix Inj) 40 mg IVP Q12H [facility] Last Admin: 06/21/17 05:36 Dose: 40 mg Vitamin A (Vitamin A & D Oint Ud Foilpak) 0.5 ea TOP Q4 PRN PRN Reason: Dry lips Last Admin: 06/21/17 11:07 Dose: 0.5 ea - Labs Labs: 06/19/17 05:59 06/19/17 05:59 PT 15.6 SECONDS (9.7-12.2) H 06/08/17 12:33 INR 1.4 06/08/17 12:33 APTT 31 SECONDS (21-34) 06/08/17 12:33 - Constitutional Appears: Non-toxic, Chronically Ill - Head Exam Head Exam: NORMOCEPHALIC - Eye Exam Eye Exam: PERRL - ENT Exam ENT Exam: Mucous Membranes Dry - Neck Exam Neck Exam: absent: Lymphadenopathy - Respiratory Exam Respiratory Exam: Decreased Breath Sounds - Cardiovascular Exam Cardiovascular Exam: REGULAR RHYTHM, +S1, +S2 - GI/Abdominal Exam GI & Abdominal Exam: Distended, Soft - Rectal Exam Rectal Exam: Deferred - Exam Exam: NORMAL INSPECTION - Extremities Exam Extremities Exam: absent: Pedal Edema - Back Exam Back Exam: absent: CVA tenderness (L), CVA tenderness (R) Assessment and Plan (1) Abdominal pain Status: Acute (2) Pilonidal abscess Status: Acute (3) Diverticular disease of intestine with perforation and abscess Status: Acute (4) Diverticular disease of intestine with perforation and abscess Status: Acute (5) Colonic diverticular abscess Status: Acute (6) Colonic diverticular abscess Status: Acute
[2017-06-21] MEDS ORDERED: TPN#5 IV ONE (18:00)
[2017-06-22] MEDS: Labetalol 25mg/5ml Syringe IV SCH ×4 (00:52→17:33)
[2017-06-22] MEDS: metroNIDAZOLE IV 500 mg/100 ml 500 MG/100 ML BAG IVPB SCH ×2 (05:36→13:48)
[2017-06-22] MEDS: Linezolid 600 mg in D5W 300 ml 600 MG/300 ML BAG IVPB SCH ×2 (05:37→17:34)
[2017-06-22] MEDS: Aztreonam 2 GM in Sodium Chloride 0.9% 100 ML IVPB SCH ×3 (05:40→21:30)
[2017-06-22] MEDS: (Novolin R) Insulin Human Regular 100 units/ml vial SC SCH ×4 (06:00→18:04)
--- NOTE | 2017-06-22 11:49 | PN ---
DATE: LOCATION: ICU 10. SUBJECTIVE: This 51 years old female seen and examined in rounds out of bed without any reported active bleeding with clean abdominal dressing. No reported nausea or vomiting this morning, but with complaint of generalized weakness and malaise. The entire chart is reviewed, including but not limited to the most recent lab and radiology study results, current and previous medication lists, current and the previous medical events. Today's lab showed blood glucose level of 138. The patient by recent history has low hemoglobin and hematocrit. PHYSICAL EXAMINATION: GENERAL: This 51 years old female appeared to awake, alert, oriented. VITAL SIGNS: Afebrile with pulse of 82, respiratory rate 20 to 24, blood pressure of 162/66. HEENT: Showed pale dry oral mucoid membrane, nonicteric sclerae. LUNGS: Few scattered crepitation. Decreased air entry at bases. HEART: Positive S1 and S2. ABDOMEN: Soft. Bowel sounds are present, but hypoactive with mild abdominal distention, covered also with clean dressing. EXTREMITIES: Mild lower extremity edematous changes. No clubbing or cyanosis. NEUROLOGIC: No reported neurological deficits, sensory or motor. IMPRESSION: 1. Diverticulosis with acute diverticulitis and reported abscess formation, status post partial colon resection with Woody procedure and colostomy formation. 2. Anemia most likely secondary to above. 3. Peptic ulcer disease. 4. Sacral abscess formation with mass lesion, treated surgically. 5. Known history of hypertension. 6. Anemia secondary to above. SUGGESTIONS: 1. Continue current management. 2. Antireflux measure. 3. Peripheral hyperalimentation. 4. Further recommendation to follow. Andrew Koroma MD
--- NOTE | 2017-06-22 16:27 | CP.PCM.PN ---
Subjective - Date & Time of Evaluation Date of Evaluation: 06/22/17 Time of Evaluation: 09:00 - Subjective Subjective: NO FEVER TOLERATING PO Objective - Vital Signs/Intake and Output Vital Signs (last 24 hours): Temp Pulse Resp BP Pulse Ox 98.2 F 85 21 159/62 H 97 06/22/17 16:00 06/22/17 04:00 06/22/17 04:00 06/22/17 04:00 06/22/17 16:00 Intake and Output: 06/22/17 06/22/17 06:59 18:59 Intake Total 704 544 Output Total 650 1100 Balance 54 -556 - Medications Medications: Current Medications Hydralazine HCl (Apresoline) 10 mg IVP Q6H [facility] Last Admin: 06/22/17 10:20 Dose: 10 mg Hydromorphone HCl (Dilaudid) 0.5 mg IVP Q4H PRN PRN Reason: Pain, moderate (4-7) Last Admin: 06/22/17 12:22 Dose: 0.5 mg Aztreonam 2 gm/ Sodium (Chloride) 100 mls @ 200 mls/hr IVPB Q8H [facility] Last Admin: 06/22/17 12:30 Dose: 200 mls/hr Linezolid (Zyvox 600mg/300ml D5w) 600 mg in 300 mls @ 200 mls/hr IVPB Q12H [facility] Last Admin: 06/22/17 05:37 Dose: 200 mls/hr Insulin Human Regular 10 unit/Heparin Sodium (Porcine) 1, 000 units/ Multivitamins/Vitamin C 10 ml/ Amino Acids/Electrolytes/Dextrose 1,011.1 mls @ 42 mls/hr IV .Q24H ONE Stop: 06/22/17 17:59 Last Admin: 06/21/17 17:27 Dose: 42 mls/hr Multivitamins/Vitamin C 10 ml/Heparin Sodium (Porcine) 1, 000 units/ Insulin Human Regular 10 unit/ Amino Acids/Electrolytes/Dextrose 1,011.1 mls @ 42 mls/ hr IV .Q24H ONE Stop: 06/23/17 17:59 Insulin Human Regular (Novolin R) 0 unit SC Q6H [facility] PRN Reason: Protocol Last Admin: 06/22/17 11:37 Dose: 1 unit Labetalol HCl (Trandate) 10 mg IV Q6H [facility] Last Admin: 06/22/17 12:03 Dose: 10 mg Losartan Potassium (Cozaar) 50 mg PO DAILY [facility] Ondansetron HCl (Zofran Inj) 4 mg IVP Q6 PRN PRN Reason: Nausea/Vomiting Last Admin: 06/21/17 11:08 Dose: 4 mg Pantoprazole Sodium (Protonix Inj) 40 mg IVP Q12H [facility] Last Admin: 06/22/17 05:48 Dose: 40 mg Vitamin A (Vitamin A & D Oint Ud Foilpak) 0.5 ea TOP Q4 PRN PRN Reason: Dry lips Last Admin: 06/21/17 11:07 Dose: 0.5 ea - Labs Labs: 06/19/17 05:59 06/19/17 05:59 PT 15.6 SECONDS (9.7-12.2) H 06/08/17 12:33 INR 1.4 06/08/17 12:33 APTT 31 SECONDS (21-34) 06/08/17 12:33 - Constitutional Appears: Non-toxic, Chronically Ill - Head Exam Head Exam: NORMOCEPHALIC - Eye Exam Eye Exam: PERRL - ENT Exam ENT Exam: Mucous Membranes Dry - Neck Exam Neck Exam: absent: Lymphadenopathy - Respiratory Exam Respiratory Exam: Decreased Breath Sounds - Cardiovascular Exam Cardiovascular Exam: REGULAR RHYTHM - GI/Abdominal Exam GI & Abdominal Exam: Distended, Soft - Rectal Exam Rectal Exam: Deferred - Exam Exam: NORMAL INSPECTION - Extremities Exam Extremities Exam: absent: Pedal Edema - Back Exam Back Exam: absent: CVA tenderness (L), CVA tenderness (R) Assessment and Plan (1) Abdominal pain Status: Acute (2) Pilonidal abscess Status: Acute (3) Diverticular disease of intestine with perforation and abscess Status: Acute (4) Diverticular disease of intestine with perforation and abscess Status: Acute (5) Colonic diverticular abscess Status: Acute (6) Colonic diverticular abscess Status: Acute
[2017-06-22] MEDS ORDERED: TPN #6 IV ONE (18:00)
[2017-06-22] MEDS ORDERED: Aztreonam 2 GM in Sodium Chloride 0.9% 100 ML IVPB SCH (22:15)
--- NOTE | 2017-06-22 22:46 | CP.PCM.PN ---
Subjective - Date & Time of Evaluation Date of Evaluation: 06/22/17 Time of Evaluation: 16:40 - Subjective Subjective: Pt seen and examined, is post op inICU, no nause/ vomitting, no fever, colostomy in place Objective - Vital Signs/Intake and Output Vital Signs (last 24 hours): Temp Pulse Resp BP Pulse Ox 98.2 F 81 22 146/87 96 06/22/17 20:00 06/22/17 20:00 06/22/17 20:00 06/22/17 20:00 06/22/17 20:00 Intake and Output: 06/22/17 06/23/17 18:59 06:59 Intake Total 864 380 Output Total 1450 350 Balance -586 30 - Medications Medications: Current Medications Hydralazine HCl (Apresoline) 10 mg IVP Q6H [facility] Last Admin: 06/22/17 22:00 Dose: 10 mg Hydromorphone HCl (Dilaudid) 0.5 mg IVP Q4H PRN PRN Reason: Pain, moderate (4-7) Last Admin: 06/22/17 22:39 Dose: 0.5 mg Aztreonam 2 gm/ Sodium (Chloride) 100 mls @ 200 mls/hr IVPB Q8H [facility] Last Admin: 06/22/17 21:30 Dose: 200 mls/hr Linezolid (Zyvox 600mg/300ml D5w) 600 mg in 300 mls @ 200 mls/hr IVPB Q12H [facility] Last Admin: 06/22/17 17:34 Dose: 200 mls/hr Insulin Human Regular (Novolin R) 0 unit SC Q6H [facility] PRN Reason: Protocol Last Admin: 06/22/17 18:04 Dose: Not Given Labetalol HCl (Trandate) 10 mg IV Q6H [facility] Last Admin: 06/22/17 17:33 Dose: 10 mg Losartan Potassium (Cozaar) 50 mg PO DAILY [facility] Ondansetron HCl (Zofran Inj) 4 mg IVP Q6 PRN PRN Reason: Nausea/Vomiting Last Admin: 06/21/17 11:08 Dose: 4 mg Pantoprazole Sodium (Protonix Inj) 40 mg IVP Q12H [facility] Last Admin: 06/22/17 17:33 Dose: 40 mg Vitamin A (Vitamin A & D Oint Ud Foilpak) 0.5 ea TOP Q4 PRN PRN Reason: Dry lips Last Admin: 06/21/17 11:07 Dose: 0.5 ea - Labs Labs: 06/19/17 05:59 06/19/17 05:59 PT 15.6 SECONDS (9.7-12.2) H 06/08/17 12:33 INR 1.4 06/08/17 12:33 APTT 31 SECONDS (21-34) 06/08/17 12:33 - Constitutional Appears: No Acute Distress - Head Exam Head Exam: ATRAUMATIC, NORMAL INSPECTION, NORMOCEPHALIC - Eye Exam Eye Exam: EOMI, Normal appearance, PERRL Pupil Exam: NORMAL ACCOMODATION, PERRL - Respiratory Exam Respiratory Exam: Clear to Ausculation Bilateral, NORMAL BREATHING PATTERN - Cardiovascular Exam Cardiovascular Exam: REGULAR RHYTHM, +S1, +S2. absent: Murmur - GI/Abdominal Exam GI & Abdominal Exam: Soft, Normal Bowel Sounds. absent: Tenderness Assessment and Plan (1) Morbid obesity Status: Acute (2) Pilonidal abscess Status: Acute (3) Hypertension Status: Acute (4) Sacral decubitus ulcer Status: Acute
[2017-06-23] MEDS: Aztreonam 2 GM in Sodium Chloride 0.9% 100 ML IVPB SCH ×3 (05:00→21:30)
[2017-06-23] MEDS: (Novolin R) Insulin Human Regular 100 units/ml vial SC SCH ×5 (06:00→21:23)
[2017-06-23] MEDS: Labetalol 25mg/5ml Syringe IV SCH ×4 (06:36→17:35)
[2017-06-23] MEDS: Linezolid 600 mg in D5W 300 ml 600 MG/300 ML BAG IVPB SCH ×2 (06:37→17:30)
[2017-06-23 09:14] LABS: ALB/GLOB RATIO 0.8 (1.0-2.1); ALT/SGPT 25 U/L (9-52); AST/SGOT 41 U/L (14-36); BLOOD UREA NITROGEN 16 mg/dL (7-17); CALCIUM 8.7 mg/dl (8.6-10.4); GFR AFRICAN-AMERICAN > 60; GFR NON-AFRICAN AMERICAN > 60
[2017-06-23 09:16] LABS: BASO # 0.2 K/uL (0.0-0.2); BASO % 1.3 % (0.0-2.0); EOS # 0.4 K/uL (0.0-0.7); EOS % 3.6 % (0.0-4.0); HEMOGLOBIN 10.4 g/dL (11.0-16.0); LYMPH # 1.9 K/uL (1.0-4.3); MEAN CORPUSCULAR HEMOGLOBIN 29.2 pg (27.0-31.0); MEAN CORPUSCULAR HGB CONC 34.4 g/dL (33.0-37.0); MEAN PLATELET VOLUME 8.3 fL (7.2-11.7); MONO # 1.2 K/uL (0.0-0.8); MONO % 10.2 % (0.0-10.0); NEUT # 8.3 K/uL (1.8-7.0); NEUT % 68.9 % (50.0-75.0); NRBC % 0.1 % (0.0-2.0); RBC 3.55 Mil/uL (3.80-5.20); RED CELL DISTRIBUTION WIDTH 14.5 % (11.5-14.5); WHITE BLOOD COUNT 12.1 K/uL (4.8-10.8)
--- NOTE | 2017-06-23 19:41 | CP.PCM.PN ---
Subjective - Date & Time of Evaluation Date of Evaluation: 06/23/17 Time of Evaluation: 09:00 - Subjective Subjective: afeb alert iv rx renewed Objective - Vital Signs/Intake and Output Vital Signs (last 24 hours): Temp Pulse Resp BP Pulse Ox 98.2 F 77 13 132/73 97 06/23/17 16:00 06/23/17 12:00 06/23/17 12:00 06/23/17 12:00 06/23/17 12:00 Intake and Output: 06/23/17 06/24/17 18:59 06:59 Intake Total 825 0 Output Total 1000 500 Balance -175 -500 - Medications Medications: Current Medications Hydralazine HCl (Apresoline) 10 mg IVP Q6H [facility] Last Admin: 06/23/17 16:27 Dose: 10 mg Hydromorphone HCl (Dilaudid) 0.5 mg IVP Q4H PRN PRN Reason: Pain, moderate (4-7) Last Admin: 06/23/17 12:52 Dose: 0.5 mg Aztreonam 2 gm/ Sodium (Chloride) 100 mls @ 200 mls/hr IVPB Q8H [facility] Last Admin: 06/23/17 12:53 Dose: 200 mls/hr Linezolid (Zyvox 600mg/300ml D5w) 600 mg in 300 mls @ 200 mls/hr IVPB Q12H [facility] Last Admin: 06/23/17 17:30 Dose: 200 mls/hr Insulin Human Regular (Novolin R) 0 unit SC ACHS [facility] PRN Reason: Protocol Last Admin: 06/23/17 16:22 Dose: Not Given Labetalol HCl (Trandate) 10 mg IV Q6H [facility] Last Admin: 06/23/17 17:35 Dose: 10 mg Losartan Potassium (Cozaar) 50 mg PO DAILY [facility] Last Admin: 06/23/17 09:35 Dose: 50 mg Ondansetron HCl (Zofran Inj) 4 mg IVP Q6 PRN PRN Reason: Nausea/Vomiting Last Admin: 06/23/17 08:56 Dose: 4 mg Pantoprazole Sodium (Protonix Inj) 40 mg IVP Q12H [facility] Last Admin: 06/23/17 16:30 Dose: 40 mg Vitamin A (Vitamin A & D Oint Ud Foilpak) 0.5 ea TOP Q4 PRN PRN Reason: Dry lips Last Admin: 06/21/17 11:07 Dose: 0.5 ea - Labs Labs: 06/23/17 08:47 06/23/17 08:47 PT 15.6 SECONDS (9.7-12.2) H 06/08/17 12:33 INR 1.4 06/08/17 12:33 APTT 31 SECONDS (21-34) 06/08/17 12:33 - Constitutional Appears: Non-toxic, Chronically Ill - Head Exam Head Exam: NORMOCEPHALIC - Eye Exam Eye Exam: PERRL - ENT Exam ENT Exam: Mucous Membranes Dry - Neck Exam Neck Exam: absent: Lymphadenopathy - Respiratory Exam Respiratory Exam: Decreased Breath Sounds - Cardiovascular Exam Cardiovascular Exam: REGULAR RHYTHM - GI/Abdominal Exam GI & Abdominal Exam: Distended, Soft Assessment and Plan (1) Abdominal pain Status: Acute (2) Pilonidal abscess Status: Acute (3) Diverticular disease of intestine with perforation and abscess Status: Acute (4) Diverticular disease of intestine with perforation and abscess Status: Acute (5) Colonic diverticular abscess Status: Acute (6) Colonic diverticular abscess Status: Acute
--- NOTE | 2017-06-23 21:19 | CP.PCM.PN ---
Subjective - Date & Time of Evaluation Date of Evaluation: 06/23/17 Time of Evaluation: 19:50 - Subjective Subjective: patient seen and evaluated at bedside , on IV antibiotics Objective - Vital Signs/Intake and Output Vital Signs (last 24 hours): Temp Pulse Resp BP Pulse Ox 98.2 F 77 13 132/73 97 06/23/17 16:00 06/23/17 12:00 06/23/17 12:00 06/23/17 12:00 06/23/17 12:00 Intake and Output: 06/23/17 06/24/17 18:59 06:59 Intake Total 825 0 Output Total 1000 500 Balance -175 -500 - Medications Medications: Current Medications Hydralazine HCl (Apresoline) 10 mg IVP Q6H [facility] Last Admin: 06/23/17 16:27 Dose: 10 mg Hydromorphone HCl (Dilaudid) 0.5 mg IVP Q4H PRN PRN Reason: Pain, moderate (4-7) Last Admin: 06/23/17 12:52 Dose: 0.5 mg Aztreonam 2 gm/ Sodium (Chloride) 100 mls @ 200 mls/hr IVPB Q8H [facility] Last Admin: 06/23/17 12:53 Dose: 200 mls/hr Linezolid (Zyvox 600mg/300ml D5w) 600 mg in 300 mls @ 200 mls/hr IVPB Q12H [facility] Last Admin: 06/23/17 17:30 Dose: 200 mls/hr Insulin Human Regular (Novolin R) 0 unit SC ACHS [facility] PRN Reason: Protocol Last Admin: 06/23/17 16:22 Dose: Not Given Labetalol HCl (Trandate) 10 mg IV Q6H [facility] Last Admin: 06/23/17 17:35 Dose: 10 mg Losartan Potassium (Cozaar) 50 mg PO DAILY [facility] Last Admin: 06/23/17 09:35 Dose: 50 mg Ondansetron HCl (Zofran Inj) 4 mg IVP Q6 PRN PRN Reason: Nausea/Vomiting Last Admin: 06/23/17 08:56 Dose: 4 mg Pantoprazole Sodium (Protonix Inj) 40 mg IVP Q12H [facility] Last Admin: 06/23/17 16:30 Dose: 40 mg Vitamin A (Vitamin A & D Oint Ud Foilpak) 0.5 ea TOP Q4 PRN PRN Reason: Dry lips Last Admin: 06/21/17 11:07 Dose: 0.5 ea - Labs Labs: 06/23/17 08:47 06/23/17 08:47 PT 15.6 SECONDS (9.7-12.2) H 06/08/17 12:33 INR 1.4 06/08/17 12:33 APTT 31 SECONDS (21-34) 06/08/17 12:33 Assessment and Plan (1) Morbid obesity Status: Acute (2) Pilonidal abscess Status: Acute (3) Hypertension Status: Acute (4) Sacral decubitus ulcer Status: Acute
--- NOTE | 2017-06-23 23:53 | PN ---
DATE: LOCATION: ICU 10 SUBJECTIVE: This is a 52-year-old female seen at bedside with some family members complaining of intermittent period of abdominal pain with intact colostomy opening as well as sacral dressing appears to be intact and dry without any significant discharge. Patient is still out of bed to cardiac chair without reported bleeding, chest pain, or significant shortness of breath. The entire chart is reviewed including, but not limited to, the most recent lab and radiology study results, current and previous medication lists, current and the previous medical events. Case discussed with the staff. Today's lab showed white blood cells of 12.1, hemoglobin 10.4, hematocrit 30.2 with thrombocytosis of 574 with CO2 content of 34, indicative of respiratory alkalosis. Blood glucose level 102 with mildly elevated AST to 41, but low albumin 3.0. PHYSICAL EXAMINATION: GENERAL: A 52-year-old female. VITAL SIGNS: Afebrile with pulse of 80, respiratory rate 16 to 18, blood pressure of 136/70. HEENT: Mildly pale dry oral mucous membrane, nonicteric sclerae. LUNGS: Few scattered crepitation. Decreased air entry at bases. HEART: Positive S1 and S2. ABDOMEN: Soft with slight distention. Bowel sounds excessively hypoactive to near zero. Abdomen is covered with clean dressing and colostomy opening is intact. EXTREMITIES: Lot of extensive mild edematous changes. No clubbing or cyanosis. NEUROLOGIC: No reported new neurological deficits, sensory or motor. IMPRESSION: 1. Diverticulosis with acute diverticulitis, with reported microperforation and abscess formation, treated surgically with status post partial colon resection with Woody procedure and colostomy formation. 2. Peptic ulcer disease. 3. Anemia secondary to above. 4. Sacral abscess, treating surgically. 5. Known history of hypertension. SUGGESTION: 1. Continue current management. 2. Correct underlying electrolyte imbalance. 3. Physical therapy. 4. Followup hemoglobin and hematocrit. 5. Case is to be discussed with the ID client experience consultant on the case. Andrew Koroma MD
[2017-06-24] MEDS: Labetalol 25mg/5ml Syringe IV SCH ×4 (01:00→18:01)
[2017-06-24] MEDS ORDERED: Simethicone 80 mg Chewtab PO STA (04:26)
[2017-06-24] MEDS: Aztreonam 2 GM in Sodium Chloride 0.9% 100 ML IVPB SCH ×3 (04:30→21:30)
[2017-06-24] MEDS: Linezolid 600 mg in D5W 300 ml 600 MG/300 ML BAG IVPB SCH ×2 (05:20→17:04)
[2017-06-24] MEDS: (Novolin R) Insulin Human Regular 100 units/ml vial SC SCH ×4 (07:30→22:04)
--- NOTE | 2017-06-24 11:34 | PN ---
DATE: LOCATION: ICU 10. SUBJECTIVE: This is a 52-year-old female, seen and examined early in rounds today without significant clinical changes or reported active bleeding, but with less abdominal pain. The patient is still in contact isolation, stay out of bed to the cardiac chair without any reported bleeding. Abdominal dressing is still in place. The entire chart is reviewed including but not limited to most recent lab and radiology study results, current and the previous medication list, current and the previous medical events and today's labs showed blood glucose level of 116. Rest of the lab is still pending. PHYSICAL EXAMINATION: GENERAL: A 52-year-old female. VITAL SIGNS: Afebrile with pulse of 72, respiratory rate 20 to 22, blood pressure 130/68. HEENT: Showed mildly pale dry oral mucous membrane. Nonicteric sclerae. LUNGS: Few scattered crepitation. Decreased air entry at bases. HEART: Positive S1 and S2. ABDOMEN: Soft with mild distention. Bowel sounds are hypoactive. No mass or organomegaly. No rebound tenderness or guarding. Sacral area covered with clean dressing as well as abdominal wound. EXTREMITIES: With slight lower extremity edematous changes. No clubbing or cyanosis. NEUROLOGIC: No reported new neurological deficits, sensory or motor. No focal neurological new deficits reported. The patient is somewhat tolerating some oral intake and the colostomy tube appeared to be intact. IMPRESSION: 1. Diverticulosis with acute diverticulitis and microabscess with perforation, treated surgically with status post partial colon resection with Woody procedure and colostomy. 2. Sacral abscess treating surgically. 3. Anemia secondary to above. 4. Reexacerbation of peptic ulcer disease. 5. Known history of hypertension, stable. SUGGESTION: 1. Continue current management. 2. The patient will need physical examination, bedside in the meantime. 3. Carafate liquid p.o. 4. Further recommendation to follow. Andrew Koroma MD
--- NOTE | 2017-06-24 13:48 | CP.PCM.PN ---
Subjective - Date & Time of Evaluation Date of Evaluation: 06/24/17 Time of Evaluation: 10:00 - Subjective Subjective: no fever or chills tolerating PO iv antibiotic s in progress for abscess s/p Haatmans for diverticular abscess / sepsis Objective - Vital Signs/Intake and Output Vital Signs (last 24 hours): Temp Pulse Resp BP Pulse Ox 98.3 F 67 20 136/65 97 06/24/17 04:00 06/24/17 04:00 06/24/17 04:00 06/24/17 04:00 06/24/17 04:00 Intake and Output: 06/24/17 06/24/17 06:59 18:59 Intake Total 350 0 Output Total 1600 0 Balance -1250 0 - Medications Medications: Current Medications Hydralazine HCl (Apresoline) 10 mg IVP Q6H [facility] Last Admin: 06/24/17 11:28 Dose: 10 mg Hydromorphone HCl (Dilaudid) 0.5 mg IVP Q4H PRN PRN Reason: Pain, moderate (4-7) Last Admin: 06/24/17 11:28 Dose: 0.5 mg Aztreonam 2 gm/ Sodium (Chloride) 100 mls @ 200 mls/hr IVPB Q8H [facility] Last Admin: 06/24/17 12:53 Dose: 200 mls/hr Linezolid (Zyvox 600mg/300ml D5w) 600 mg in 300 mls @ 200 mls/hr IVPB Q12H [facility] Last Admin: 06/24/17 05:20 Dose: 200 mls/hr Insulin Human Regular (Novolin R) 0 unit SC ACHS [facility] PRN Reason: Protocol Last Admin: 06/24/17 11:57 Dose: Not Given Labetalol HCl (Trandate) 10 mg IV Q6H [facility] Last Admin: 06/24/17 12:53 Dose: 10 mg Losartan Potassium (Cozaar) 50 mg PO DAILY [facility] Last Admin: 06/24/17 11:29 Dose: 50 mg Ondansetron HCl (Zofran Inj) 4 mg IVP Q6 PRN PRN Reason: Nausea/Vomiting Last Admin: 06/23/17 08:56 Dose: 4 mg Pantoprazole Sodium (Protonix Inj) 40 mg IVP Q12H [facility] Last Admin: 06/24/17 05:20 Dose: 40 mg Vitamin A (Vitamin A & D Oint Ud Foilpak) 0.5 ea TOP Q4 PRN PRN Reason: Dry lips Last Admin: 06/21/17 11:07 Dose: 0.5 ea - Labs Labs: 06/23/17 08:47 06/23/17 08:47 PT 15.6 SECONDS (9.7-12.2) H 06/08/17 12:33 INR 1.4 06/08/17 12:33 APTT 31 SECONDS (21-34) 06/08/17 12:33 - Constitutional Appears: Non-toxic, Chronically Ill - Head Exam Head Exam: NORMOCEPHALIC - Eye Exam Eye Exam: PERRL - ENT Exam ENT Exam: Mucous Membranes Dry - Neck Exam Neck Exam: absent: Lymphadenopathy - Respiratory Exam Respiratory Exam: Decreased Breath Sounds, Clear to Ausculation Bilateral - Cardiovascular Exam Cardiovascular Exam: REGULAR RHYTHM, +S1, +S2 - GI/Abdominal Exam GI & Abdominal Exam: Distended, Soft. absent: Tenderness - Rectal Exam Rectal Exam: Deferred - Exam Exam: NORMAL INSPECTION - Extremities Exam Extremities Exam: absent: Pedal Edema - Back Exam Back Exam: absent: CVA tenderness (L), CVA tenderness (R) - Neurological Exam Neurological Exam: Alert, Awake, CN II-XII Intact, Oriented x3 Neuro motor strength exam: Left Upper Extremity: 5, Right Upper Extremity: 5, Left Lower Extremity: 5, Right Lower Extremity: 5 - Psychiatric Exam Psychiatric exam: Normal Mood - Skin Skin Exam: Dry Assessment and Plan (1) Abdominal pain Status: Acute (2) Pilonidal abscess Status: Acute (3) Diverticular disease of intestine with perforation and abscess Status: Acute (4) Diverticular disease of intestine with perforation and abscess Status: Acute (5) Colonic diverticular abscess Status: Acute (6) Colonic diverticular abscess Status: Acute (7) VRE (vancomycin resistant enterococcus) culture positive Status: Acute (8) VRE (vancomycin-resistant Enterococci) infection Status: Acute (9) Sepsis Status: Acute (10) Status post Woody's procedure Status: Acute
--- NOTE | 2017-06-24 23:17 | CP.PCM.PN ---
Subjective - Date & Time of Evaluation Date of Evaluation: 06/24/17 Time of Evaluation: 18:35 - Subjective Subjective: Pt seen and evaluated she is recovering, no fever or chills tolerating PO , iv antibiotic s in progress for abscess s/p Haatmans for diverticular abscess / sepsis Objective - Vital Signs/Intake and Output Vital Signs (last 24 hours): Temp Pulse Resp BP Pulse Ox 98.7 F 85 18 162/83 H 97 06/24/17 20:00 06/24/17 20:00 06/24/17 20:00 06/24/17 20:00 06/24/17 20:00 Intake and Output: 06/24/17 06/25/17 18:59 06:59 Intake Total 645 500 Output Total 1200 600 Balance -555 -100 - Medications Medications: Current Medications Hydralazine HCl (Apresoline) 10 mg IVP Q6H [facility] Last Admin: 06/24/17 22:03 Dose: 10 mg Hydromorphone HCl (Dilaudid) 0.5 mg IVP Q4H PRN PRN Reason: Pain, moderate (4-7) Last Admin: 06/24/17 22:12 Dose: 0.5 mg Aztreonam 2 gm/ Sodium (Chloride) 100 mls @ 200 mls/hr IVPB Q8H [facility] Last Admin: 06/24/17 21:30 Dose: 200 mls/hr Linezolid (Zyvox 600mg/300ml D5w) 600 mg in 300 mls @ 200 mls/hr IVPB Q12H [facility] Last Admin: 06/24/17 17:04 Dose: 200 mls/hr Insulin Human Regular (Novolin R) 0 unit SC ACHS [facility] PRN Reason: Protocol Last Admin: 06/24/17 22:04 Dose: Not Given Labetalol HCl (Trandate) 10 mg IV Q6H [facility] Last Admin: 06/24/17 18:01 Dose: 10 mg Losartan Potassium (Cozaar) 50 mg PO DAILY [facility] Last Admin: 06/24/17 11:29 Dose: 50 mg Ondansetron HCl (Zofran Inj) 4 mg IVP Q6 PRN PRN Reason: Nausea/Vomiting Last Admin: 06/23/17 08:56 Dose: 4 mg Pantoprazole Sodium (Protonix Inj) 40 mg IVP Q12H [facility] Last Admin: 06/24/17 17:03 Dose: 40 mg Vitamin A (Vitamin A & D Oint Ud Foilpak) 0.5 ea TOP Q4 PRN PRN Reason: Dry lips Last Admin: 06/21/17 11:07 Dose: 0.5 ea - Labs Labs: 06/23/17 08:47 06/23/17 08:47 PT 15.6 SECONDS (9.7-12.2) H 06/08/17 12:33 INR 1.4 06/08/17 12:33 APTT 31 SECONDS (21-34) 06/08/17 12:33 - Constitutional Appears: No Acute Distress - Head Exam Head Exam: ATRAUMATIC, NORMAL INSPECTION, NORMOCEPHALIC - Eye Exam Eye Exam: EOMI, Normal appearance, PERRL Pupil Exam: NORMAL ACCOMODATION, PERRL - Respiratory Exam Respiratory Exam: Clear to Ausculation Bilateral, NORMAL BREATHING PATTERN - Cardiovascular Exam Cardiovascular Exam: REGULAR RHYTHM, +S1, +S2. absent: Murmur - GI/Abdominal Exam GI & Abdominal Exam: Soft, Normal Bowel Sounds. absent: Tenderness - Rectal Exam Rectal Exam: Deferred Assessment and Plan (1) Morbid obesity Status: Acute (2) Pilonidal abscess Status: Acute (3) Hypertension Status: Acute (4) Sacral decubitus ulcer Status: Acute
[2017-06-25] MEDS: Aztreonam 2 GM in Sodium Chloride 0.9% 100 ML IVPB SCH ×3 (05:30→20:39)
[2017-06-25] MEDS: Labetalol 25mg/5ml Syringe IV SCH ×4 (06:00→18:42)
[2017-06-25] MEDS: Linezolid 600 mg in D5W 300 ml 600 MG/300 ML BAG IVPB SCH ×2 (06:00→17:59)
[2017-06-25 06:51] LABS: BASO # 0.2 K/uL (0.0-0.2); BASO % 1.9 % (0.0-2.0); EOS # 0.3 K/uL (0.0-0.7); HEMOGLOBIN 10.2 g/dL (11.0-16.0); LYMPH # 1.5 K/uL (1.0-4.3); LYMPH % 16.7 % (20.0-40.0); MEAN CELL VOLUME 86.2 fL (81.0-99.0); MEAN CORPUSCULAR HEMOGLOBIN 29.9 pg (27.0-31.0); MEAN CORPUSCULAR HGB CONC 34.7 g/dL (33.0-37.0); MEAN PLATELET VOLUME 8.5 fL (7.2-11.7); MONO % 10.9 % (0.0-10.0); NEUT # 6.1 K/uL (1.8-7.0); NEUT % 67.5 % (50.0-75.0); RBC 3.42 Mil/uL (3.80-5.20); RED CELL DISTRIBUTION WIDTH 14.9 % (11.5-14.5)
[2017-06-25 07:11] LABS: ALB/GLOB RATIO 0.8 (1.0-2.1); ALT/SGPT 26 U/L (9-52); AST/SGOT 28 U/L (14-36); BLOOD UREA NITROGEN 15 mg/dL (7-17); CALCIUM 8.7 mg/dl (8.6-10.4); GFR AFRICAN-AMERICAN > 60; GFR NON-AFRICAN AMERICAN > 60; MAGNESIUM 1.7 mg/dL (1.6-2.3)
[2017-06-25] MEDS: (Novolin R) Insulin Human Regular 100 units/ml vial SC SCH ×4 (07:30→22:00)
[2017-06-25] MEDS: Vitamins A & D Oint UD Foilpak TOP PRN (20:39)
--- NOTE | 2017-06-25 23:54 | CP.PCM.PN ---
Subjective - Date & Time of Evaluation Date of Evaluation: 06/25/17 Time of Evaluation: 18:20 - Subjective Subjective: pt seen and examined, is on antibiotics, she is afberile no shortness of breath , nausea, vomiting Objective - Vital Signs/Intake and Output Vital Signs (last 24 hours): Temp Pulse Resp BP Pulse Ox 98.9 F 82 21 159/85 H 97 06/25/17 16:00 06/25/17 20:00 06/25/17 20:00 06/25/17 20:00 06/25/17 20:00 Intake and Output: 06/25/17 06/26/17 18:59 06:59 Intake Total 430 Output Total 300 Balance 130 - Medications Medications: Current Medications Hydralazine HCl (Apresoline) 10 mg IVP Q6H [facility] Last Admin: 06/25/17 21:01 Dose: 10 mg Hydromorphone HCl (Dilaudid) 0.5 mg IVP Q4H PRN PRN Reason: Pain, moderate (4-7) Last Admin: 06/25/17 15:46 Dose: 0.5 mg Aztreonam 2 gm/ Sodium (Chloride) 100 mls @ 200 mls/hr IVPB Q8H [facility] Last Admin: 06/25/17 20:39 Dose: 200 mls/hr Linezolid (Zyvox 600mg/300ml D5w) 600 mg in 300 mls @ 200 mls/hr IVPB Q12H [facility] Last Admin: 06/25/17 17:59 Dose: 200 mls/hr Insulin Human Regular (Novolin R) 0 unit SC ACHS [facility] PRN Reason: Protocol Last Admin: 06/25/17 22:00 Dose: Not Given Labetalol HCl (Trandate) 10 mg IV Q6H [facility] Last Admin: 06/25/17 18:42 Dose: 10 mg Losartan Potassium (Cozaar) 50 mg PO DAILY [facility] Last Admin: 06/25/17 10:21 Dose: 50 mg Ondansetron HCl (Zofran Inj) 4 mg IVP Q6 PRN PRN Reason: Nausea/Vomiting Last Admin: 06/23/17 08:56 Dose: 4 mg Pantoprazole Sodium (Protonix Inj) 40 mg IVP Q12H [facility] Last Admin: 06/25/17 17:58 Dose: 40 mg Vitamin A (Vitamin A & D Oint Ud Foilpak) 0.5 ea TOP Q4 PRN PRN Reason: Dry lips Last Admin: 06/25/17 20:39 Dose: 0.5 ea - Labs Labs: 06/25/17 06:39 06/25/17 06:39 PT 15.6 SECONDS (9.7-12.2) H 06/08/17 12:33 INR 1.4 06/08/17 12:33 APTT 31 SECONDS (21-34) 06/08/17 12:33 - Constitutional Appears: No Acute Distress - Head Exam Head Exam: ATRAUMATIC, NORMAL INSPECTION, NORMOCEPHALIC - Eye Exam Eye Exam: EOMI, Normal appearance, PERRL Pupil Exam: NORMAL ACCOMODATION, PERRL - Respiratory Exam Respiratory Exam: Clear to Ausculation Bilateral, NORMAL BREATHING PATTERN - Cardiovascular Exam Cardiovascular Exam: REGULAR RHYTHM, +S1, +S2. absent: Murmur - GI/Abdominal Exam GI & Abdominal Exam: Soft, Normal Bowel Sounds. absent: Tenderness Assessment and Plan (1) Morbid obesity Status: Acute (2) Pilonidal abscess Status: Acute (3) Hypertension Status: Acute (4) Sacral decubitus ulcer Status: Acute
[2017-06-26] MEDS: Labetalol 25mg/5ml Syringe IV SCH ×4 (00:36→17:53)
[2017-06-26] MEDS: Linezolid 600 mg in D5W 300 ml 600 MG/300 ML BAG IVPB SCH ×2 (06:00→17:41)
[2017-06-26] MEDS: Aztreonam 2 GM in Sodium Chloride 0.9% 100 ML IVPB SCH ×3 (06:26→21:29)
[2017-06-26] MEDS: (Novolin R) Insulin Human Regular 100 units/ml vial SC SCH ×4 (07:30→21:35)
[2017-06-26] MEDS: Vitamins A & D Oint UD Foilpak TOP PRN (09:07)
--- NOTE | 2017-06-26 14:59 | PN ---
DATE: LOCATION: ICU, 10. SUBJECTIVE: This is a 52-year-old female, seen early in rounds today, appeared to be more awake, alert, oriented with no reported main complaint of chest pain, palpitation, significant shortness of breath, or abdominal pain. Colostomy tube is in place, covered with clean dressing and appeared to be intact with brownish liquid fecal material. The entire chart is reviewed including but not limited to the most recent lab and radiology study results, current and the previous medication list, current and the previous medical events, and today's labs showed blood glucose level of132. Rest of the lab for today is still pending; however, yesterday's lab showed hemoglobin of 10.2, hematocrit 29.5 with thrombocytosis of 523 with low sodium 131 with low albumin 3.0. PHYSICAL EXAMINATION: GENERAL: A 52-year-old female, awake, alert, and oriented. VITAL SIGNS: Afebrile with pulse of 84, respiratory rate 20-22, blood pressure 138/74. HEENT: Showed mildly pale, dry oral mucous membrane. Nonicteric sclerae. LUNGS: Few scattered crepitation. Decreased air entry at bases. HEART: Positive S1 and S2. ABDOMEN: Soft with mild distention, covered with clean dressing. The colostomy tube is functioning. Bowel sounds are mildly hypoactive. No mass or organomegaly could be appreciated. No rebound tenderness or guarding. SKIN: Decubitus area covered with clean dressing. EXTREMITIES: Without significant edema, clubbing, or cyanosis. NEUROLOGIC: No reported new neurological deficits, sensory or motor. IMPRESSION: 1. Diverticulosis with acute diverticulitis. 2. Diverticular abscess formation, treated surgically with Woody procedure and creation of a colostomy. 3. Sacral abscess treated surgically. 4. Peptic ulcer disease. 5. Known history of hypertension. 6. Anemia secondary to above. SUGGESTION: 1. Continue current management. 2. Repeat stool for occult blood. 3. Further recommendations to follow. Andrew Koroma MD
--- NOTE | 2017-06-26 16:14 | CP.PCM.PN ---
Subjective - Date & Time of Evaluation Date of Evaluation: 06/26/17 Time of Evaluation: 09:00 - Subjective Subjective: slow progress iv rx reordered await surgical follow up possible repeat CT Objective - Vital Signs/Intake and Output Vital Signs (last 24 hours): Temp Pulse Resp BP Pulse Ox 98.6 F 81 19 132/76 98 06/26/17 12:00 06/26/17 03:26 06/26/17 03:26 06/26/17 03:26 06/26/17 03:26 Intake and Output: 06/26/17 06/26/17 06:59 18:59 Intake Total 180 Output Total 1 Balance 179 - Medications Medications: Current Medications Hydralazine HCl (Apresoline) 10 mg IVP Q6H [facility] Last Admin: 06/26/17 15:06 Dose: 10 mg Hydromorphone HCl (Dilaudid) 0.5 mg IVP Q4H PRN PRN Reason: Pain, moderate (4-7) Last Admin: 06/26/17 15:00 Dose: 0.5 mg Aztreonam 2 gm/ Sodium (Chloride) 100 mls @ 200 mls/hr IVPB Q8H [facility] Last Admin: 06/26/17 13:37 Dose: 200 mls/hr Linezolid (Zyvox 600mg/300ml D5w) 600 mg in 300 mls @ 200 mls/hr IVPB Q12H [facility] Last Admin: 06/26/17 06:00 Dose: 200 mls/hr Insulin Human Regular (Novolin R) 0 unit SC ACHS [facility] PRN Reason: Protocol Last Admin: 06/26/17 12:29 Dose: Not Given Labetalol HCl (Trandate) 10 mg IV Q6H [facility] Last Admin: 06/26/17 12:24 Dose: 10 mg Losartan Potassium (Cozaar) 50 mg PO DAILY [facility] Last Admin: 06/26/17 09:08 Dose: 50 mg Ondansetron HCl (Zofran Inj) 4 mg IVP Q6 PRN PRN Reason: Nausea/Vomiting Last Admin: 06/23/17 08:56 Dose: 4 mg Pantoprazole Sodium (Protonix Inj) 40 mg IVP Q12H [facility] Last Admin: 06/26/17 06:28 Dose: 40 mg Vitamin A (Vitamin A & D Oint Ud Foilpak) 0.5 ea TOP Q4 PRN PRN Reason: Dry lips Last Admin: 06/26/17 09:07 Dose: 0.5 ea - Labs Labs: 06/25/17 06:39 06/25/17 06:39 PT 15.6 SECONDS (9.7-12.2) H 06/08/17 12:33 INR 1.4 06/08/17 12:33 APTT 31 SECONDS (21-34) 06/08/17 12:33 - Constitutional Appears: Non-toxic, Chronically Ill - Head Exam Head Exam: NORMOCEPHALIC - Eye Exam Eye Exam: PERRL - ENT Exam ENT Exam: Normal External Ear Exam - Neck Exam Neck Exam: absent: Lymphadenopathy - Respiratory Exam Respiratory Exam: Decreased Breath Sounds - Cardiovascular Exam Cardiovascular Exam: REGULAR RHYTHM, +S1, +S2 - GI/Abdominal Exam GI & Abdominal Exam: Distended, Soft - Rectal Exam Rectal Exam: Deferred Assessment and Plan (1) Abdominal pain Status: Acute (2) Pilonidal abscess Status: Acute (3) Diverticular disease of intestine with perforation and abscess Status: Acute (4) Diverticular disease of intestine with perforation and abscess Status: Acute (5) Colonic diverticular abscess Status: Acute (6) Colonic diverticular abscess Status: Acute (7) VRE (vancomycin resistant enterococcus) culture positive Status: Acute (8) VRE (vancomycin-resistant Enterococci) infection Status: Acute (9) Sepsis Status: Acute (10) Status post Woody's procedure Status: Acute
--- NOTE | 2017-06-26 22:40 | CP.PCM.PN ---
Subjective - Date & Time of Evaluation Date of Evaluation: 06/26/17 Time of Evaluation: 18:00 - Subjective Subjective: Patient seeb and examined, wound care is going on for sacral decubitis , pain is controlled Objective - Vital Signs/Intake and Output Vital Signs (last 24 hours): Temp Pulse Resp BP Pulse Ox 99.3 F 84 16 148/92 H 98 06/26/17 20:00 06/26/17 20:00 06/26/17 20:00 06/26/17 20:00 06/26/17 03:26 Intake and Output: 06/26/17 06/27/17 18:59 06:59 Intake Total 180 Output Total 1 Balance 179 - Medications Medications: Current Medications Hydralazine HCl (Apresoline) 10 mg IVP Q6H [facility] Last Admin: 06/26/17 21:29 Dose: 10 mg Hydromorphone HCl (Dilaudid) 0.5 mg IVP Q4H PRN PRN Reason: Pain, moderate (4-7) Last Admin: 06/26/17 21:30 Dose: 0.5 mg Aztreonam 2 gm/ Sodium (Chloride) 100 mls @ 200 mls/hr IVPB Q8H [facility] Last Admin: 06/26/17 21:29 Dose: 200 mls/hr Linezolid (Zyvox 600mg/300ml D5w) 600 mg in 300 mls @ 200 mls/hr IVPB Q12H [facility] Last Admin: 06/26/17 17:41 Dose: 200 mls/hr Insulin Human Regular (Novolin R) 0 unit SC ACHS [facility] PRN Reason: Protocol Last Admin: 06/26/17 21:35 Dose: Not Given Labetalol HCl (Trandate) 10 mg IV Q6H [facility] Last Admin: 06/26/17 17:53 Dose: 10 mg Losartan Potassium (Cozaar) 50 mg PO DAILY [facility] Last Admin: 06/26/17 09:08 Dose: 50 mg Ondansetron HCl (Zofran Inj) 4 mg IVP Q6 PRN PRN Reason: Nausea/Vomiting Last Admin: 06/23/17 08:56 Dose: 4 mg Pantoprazole Sodium (Protonix Inj) 40 mg IVP Q12H [facility] Last Admin: 06/26/17 17:42 Dose: 40 mg Vitamin A (Vitamin A & D Oint Ud Foilpak) 0.5 ea TOP Q4 PRN PRN Reason: Dry lips Last Admin: 06/26/17 09:07 Dose: 0.5 ea - Labs Labs: 06/25/17 06:39 06/25/17 06:39 PT 15.6 SECONDS (9.7-12.2) H 06/08/17 12:33 INR 1.4 06/08/17 12:33 APTT 31 SECONDS (21-34) 06/08/17 12:33 Assessment and Plan (1) Morbid obesity Status: Acute (2) Pilonidal abscess Status: Acute (3) Hypertension Status: Acute (4) Sacral decubitus ulcer Status: Acute
[2017-06-27] MEDS: Labetalol 25mg/5ml Syringe IV SCH ×2 (00:44→05:08)
[2017-06-27] MEDS: Linezolid 600 mg in D5W 300 ml 600 MG/300 ML BAG IVPB SCH ×2 (05:08→19:02)
[2017-06-27] MEDS: Aztreonam 2 GM in Sodium Chloride 0.9% 100 ML IVPB SCH ×3 (05:08→21:35)
[2017-06-27] MEDS: (Novolin R) Insulin Human Regular 100 units/ml vial SC SCH ×4 (08:14→21:36)
--- NOTE | 2017-06-27 11:11 | CP.PCM.PN ---
Subjective - Date & Time of Evaluation Date of Evaluation: 06/27/17 Time of Evaluation: 09:00 - Subjective Subjective: awake alert OOB NAD Objective - Vital Signs/Intake and Output Vital Signs (last 24 hours): Temp Pulse Resp BP Pulse Ox 98.3 F 78 16 142/70 98 06/27/17 04:00 06/27/17 04:00 06/27/17 04:00 06/27/17 04:00 06/26/17 03:26 Intake and Output: 06/27/17 06/27/17 06:59 18:59 Intake Total 650 Output Total 250 Balance 400 - Medications Medications: Current Medications Hydralazine HCl (Apresoline) 25 mg PO Q6H [facility] Hydromorphone HCl (Dilaudid) 0.5 mg IVP Q4H PRN PRN Reason: Pain, moderate (4-7) Last Admin: 06/26/17 21:30 Dose: 0.5 mg Aztreonam 2 gm/ Sodium (Chloride) 100 mls @ 200 mls/hr IVPB Q8H [facility] Last Admin: 06/27/17 05:08 Dose: 200 mls/hr Linezolid (Zyvox 600mg/300ml D5w) 600 mg in 300 mls @ 200 mls/hr IVPB Q12H [facility] Last Admin: 06/27/17 05:08 Dose: 200 mls/hr Insulin Human Regular (Novolin R) 0 unit SC ACHS [facility] PRN Reason: Protocol Last Admin: 06/27/17 08:14 Dose: Not Given Labetalol HCl (Trandate) 100 mg PO BID [facility] Losartan Potassium (Cozaar) 50 mg PO DAILY [facility] Last Admin: 06/26/17 09:08 Dose: 50 mg Ondansetron HCl (Zofran Inj) 4 mg IVP Q6 PRN PRN Reason: Nausea/Vomiting Last Admin: 06/23/17 08:56 Dose: 4 mg Pantoprazole Sodium (Protonix Inj) 40 mg IVP Q12H [facility] Last Admin: 06/27/17 05:08 Dose: 40 mg Vitamin A (Vitamin A & D Oint Ud Foilpak) 0.5 ea TOP Q4 PRN PRN Reason: Dry lips Last Admin: 06/26/17 09:07 Dose: 0.5 ea - Labs Labs: 06/25/17 06:39 01/20/18 06:39 PT 15.6 SECONDS (9.7-12.2) H 06/08/17 12:33 INR 1.4 06/08/17 12:33 APTT 31 SECONDS (21-34) 06/08/17 12:33 - Constitutional Appears: Non-toxic, Cachectic, Chronically Ill - Head Exam Head Exam: NORMOCEPHALIC - Eye Exam Eye Exam: PERRL - ENT Exam ENT Exam: Mucous Membranes Dry - Neck Exam Neck Exam: absent: Lymphadenopathy - Respiratory Exam Respiratory Exam: Decreased Breath Sounds - Cardiovascular Exam Cardiovascular Exam: REGULAR RHYTHM - GI/Abdominal Exam GI & Abdominal Exam: Distended, Soft. absent: Tenderness - Rectal Exam Rectal Exam: Deferred - Exam Exam: NORMAL INSPECTION Assessment and Plan (1) Abdominal pain Status: Acute (2) Pilonidal abscess Status: Acute (3) Diverticular disease of intestine with perforation and abscess Status: Acute (4) Diverticular disease of intestine with perforation and abscess Status: Acute (5) Colonic diverticular abscess Status: Acute (6) Colonic diverticular abscess Status: Acute (7) VRE (vancomycin resistant enterococcus) culture positive Status: Acute (8) VRE (vancomycin-resistant Enterococci) infection Status: Acute (9) Sepsis Status: Acute (10) Status post Woody's procedure Status: Acute
--- NOTE | 2017-06-27 11:13 | PN ---
DATE: LOCATION: ICU 10. SUBJECTIVE: This is a 51-year-old female seen and examined in rounds without significant clinical changes, tolerating oral intake well, appears to be more awake, alert and oriented, with functioning colostomy tube covered with clean dressing. The lower back area also was covered with clean dressing and no reported discharge. The patient is still having intermittent period of mild abdominal pain, but no reported chest pain, palpitations, significant shortness of breath or active bleeding. The entire chart is reviewed including but not limited to the most recent lab and radiology study results, current and the previous medication list, current and the previous medical events, and the latest blood glucose level reported to be 120. PHYSICAL EXAMINATION: GENERAL: A 51-year-old female. VITAL SIGNS: Afebrile with pulse of 80, respiratory rate 16-18, blood pressure of 144/74. HEENT: Showed mildly pale dry oral mucous membrane. Nonicteric sclerae. LUNGS: Few scattered crepitation. Decreased air entry at bases. HEART: Positive S1 and S2. ABDOMEN: Soft. Bowel sounds are present. No mass or organomegaly. No rebound tenderness or guarding. Colostomy tube is in place with small amount of thick liquid fecal material, no bleeding. EXTREMITIES: Left lower extremity edematous changes. No clubbing or cyanosis. NEUROLOGIC: No reported new neurological deficits. IMPRESSION: 1. Diverticulosis with recent history of acute diverticulitis with microperforation and status post Mckeon procedure with colostomy formation. 2. Re-exacerbation of peptic ulcer disease. 3. Sacral abscess, treated surgically. 4. Known history of peptic ulcer disease, hypertension. 5. Anemia by recent history secondary to above. 6. Morbid obesity. SUGGESTIONS: 1. Agree with your plan. 2. Adjust oral intake. 3. Antireflux measure. 4. Continue proton pump inhibitors. 5. Further recommendations to follow and the patient will need colonoscopy before reversing her colostomy that to be kept in mind. Andrew Koroma MD
--- NOTE | 2017-06-27 22:53 | CP.PCM.PN ---
Subjective - Date & Time of Evaluation Date of Evaluation: 06/27/17 Time of Evaluation: 19:40 - Subjective Subjective: Pt seen and examined in ICU, clostomy in place, scaral wound non healing, she is afebrile, on wound care, post op Objective - Vital Signs/Intake and Output Vital Signs (last 24 hours): Temp Pulse Resp BP Pulse Ox 97.1 F L 63 21 166/90 H 100 06/27/17 15:00 06/27/17 15:00 06/27/17 15:00 06/27/17 15:00 06/27/17 15:00 Intake and Output: 06/27/17 06/28/17 18:59 06:59 Output Total 20 Balance -20 - Medications Medications: Current Medications Hydralazine HCl (Apresoline) 25 mg PO Q6H [facility] Last Admin: 06/27/17 21:59 Dose: 25 mg Hydromorphone HCl (Dilaudid) 0.5 mg IVP Q4H PRN PRN Reason: Pain, moderate (4-7) Last Admin: 06/27/17 21:52 Dose: 0.5 mg Aztreonam 2 gm/ Sodium (Chloride) 100 mls @ 200 mls/hr IVPB Q8H [facility] Last Admin: 06/27/17 21:35 Dose: 200 mls/hr Linezolid (Zyvox 600mg/300ml D5w) 600 mg in 300 mls @ 200 mls/hr IVPB Q12H [facility] Last Admin: 06/27/17 05:08 Dose: 200 mls/hr Insulin Human Regular (Novolin R) 0 unit SC ACHS [facility] PRN Reason: Protocol Last Admin: 06/27/17 21:36 Dose: Not Given Labetalol HCl (Trandate) 100 mg PO BID [facility] Last Admin: 06/27/17 18:45 Dose: 100 mg Losartan Potassium (Cozaar) 50 mg PO DAILY [facility] Last Admin: 06/27/17 10:15 Dose: 50 mg Ondansetron HCl (Zofran Inj) 4 mg IVP Q6 PRN PRN Reason: Nausea/Vomiting Last Admin: 06/23/17 08:56 Dose: 4 mg Pantoprazole Sodium (Protonix Inj) 40 mg IVP Q12H [facility] Last Admin: 01/22/18 17:01 Dose: 40 mg Vitamin A (Vitamin A & D Oint Ud Foilpak) 0.5 ea TOP Q4 PRN PRN Reason: Dry lips Last Admin: 06/26/17 09:07 Dose: 0.5 ea - Labs Labs: 06/25/17 06:39 06/25/17 06:39 PT 15.6 SECONDS (9.7-12.2) H 06/08/17 12:33 INR 1.4 06/08/17 12:33 APTT 31 SECONDS (21-34) 06/08/17 12:33 - Constitutional Appears: No Acute Distress - Head Exam Head Exam: ATRAUMATIC, NORMAL INSPECTION, NORMOCEPHALIC - Eye Exam Eye Exam: EOMI, Normal appearance, PERRL Pupil Exam: NORMAL ACCOMODATION, PERRL - ENT Exam ENT Exam: Mucous Membranes Moist, Normal Exam - Respiratory Exam Respiratory Exam: Decreased Breath Sounds, Rhonchi, Wheezes, NORMAL BREATHING PATTERN - Cardiovascular Exam Cardiovascular Exam: REGULAR RHYTHM, +S1, +S2. absent: Murmur - GI/Abdominal Exam GI & Abdominal Exam: Soft, Normal Bowel Sounds. absent: Tenderness - Neurological Exam Neurological Exam: Alert, Awake, CN II-XII Intact, Normal Gait, Oriented x3 - Psychiatric Exam Psychiatric exam: Normal Affect, Normal Mood Assessment and Plan (1) Morbid obesity Status: Acute (2) Pilonidal abscess Status: Acute (3) Hypertension Status: Acute (4) Sacral decubitus ulcer Status: Acute
[2017-06-28] MEDS: Aztreonam 2 GM in Sodium Chloride 0.9% 100 ML IVPB SCH ×3 (05:14→21:34)
[2017-06-28] MEDS: Linezolid 600 mg in D5W 300 ml 600 MG/300 ML BAG IVPB SCH ×2 (05:14→18:09)
[2017-06-28 06:45] LABS: BASO # 0.1 K/uL (0.0-0.2); BASO % 1.4 % (0.0-2.0); EOS # 0.4 K/uL (0.0-0.7); EOS % 4.1 % (0.0-4.0); HEMOGLOBIN 10.3 g/dL (11.0-16.0); LYMPH # 1.5 K/uL (1.0-4.3); LYMPH % 17.1 % (20.0-40.0); MEAN CELL VOLUME 85.7 fL (81.0-99.0); MEAN CORPUSCULAR HEMOGLOBIN 29.4 pg (27.0-31.0); MEAN CORPUSCULAR HGB CONC 34.3 g/dL (33.0-37.0); MEAN PLATELET VOLUME 8.7 fL (7.2-11.7); MONO # 1.3 K/uL (0.0-0.8); MONO % 14.1 % (0.0-10.0); NEUT # 5.6 K/uL (1.8-7.0); NEUT % 63.3 % (50.0-75.0); RBC 3.51 Mil/uL (3.80-5.20); RED CELL DISTRIBUTION WIDTH 15.2 % (11.5-14.5); WHITE BLOOD COUNT 8.9 K/uL (4.8-10.8)
[2017-06-28] MEDS: (Novolin R) Insulin Human Regular 100 units/ml vial SC SCH ×4 (07:51→21:37)
[2017-06-28 12:15] LABS: ALB/GLOB RATIO 0.8 (1.0-2.1); ALBUMIN 3.1 g/dL (3.5-5.0); ALT/SGPT 31 U/L (9-52); AST/SGOT 35 U/L (14-36); BLOOD UREA NITROGEN 14 mg/dL (7-17); CALCIUM 8.4 mg/dl (8.6-10.4); GFR AFRICAN-AMERICAN > 60; GFR NON-AFRICAN AMERICAN > 60
[2017-06-28] MEDS ORDERED: Potassium Chloride 20 mEq ER Tab PO ONE (15:30)
--- NOTE | 2017-06-28 23:28 | CP.PCM.PN ---
Subjective - Date & Time of Evaluation Date of Evaluation: 06/28/17 Time of Evaluation: 18:35 - Subjective Subjective: Pt seen and evaluated today, seen by ID and on wound care and antibiotics Objective - Vital Signs/Intake and Output Vital Signs (last 24 hours): Temp Pulse Resp BP Pulse Ox 98.2 F 81 20 175/114 H 96 06/28/17 16:50 06/28/17 16:50 06/28/17 16:50 06/28/17 14:45 06/28/17 16:50 Intake and Output: 06/28/17 06/29/17 18:59 06:59 Intake Total 640 500 Balance 640 500 - Medications Medications: Current Medications Hydralazine HCl (Apresoline) 25 mg PO Q6H [facility] Last Admin: 06/28/17 22:21 Dose: 25 mg Hydromorphone HCl (Dilaudid) 0.5 mg IVP Q4H PRN PRN Reason: Pain, moderate (4-7) Last Admin: 06/28/17 22:54 Dose: 0.5 mg Linezolid (Zyvox 600mg/300ml D5w) 600 mg in 300 mls @ 200 mls/hr IVPB Q12H [facility] Last Admin: 06/28/17 18:09 Dose: 200 mls/hr Aztreonam 2 gm/ Sodium (Chloride) 100 mls @ 200 mls/hr IVPB Q8H [facility] Last Admin: 06/28/17 21:34 Dose: 200 mls/hr Insulin Human Regular (Novolin R) 0 unit SC ACHS [facility] PRN Reason: Protocol Last Admin: 06/28/17 21:37 Dose: Not Given Labetalol HCl (Trandate) 200 mg PO BID [facility] Last Admin: 06/28/17 18:09 Dose: 200 mg Losartan Potassium (Cozaar) 50 mg PO DAILY [facility] Last Admin: 06/28/17 10:21 Dose: 50 mg Ondansetron HCl (Zofran Inj) 4 mg IVP Q6 PRN PRN Reason: Nausea/Vomiting Last Admin: 06/23/17 08:56 Dose: 4 mg Ondansetron HCl (Zofran Inj) 4 mg IVP Q6H PRN PRN Reason: Nausea/Vomiting Pantoprazole Sodium (Protonix Inj) 40 mg IVP Q12H [facility] Last Admin: 06/28/17 18:09 Dose: 40 mg Vitamin A (Vitamin A & D Oint Ud Foilpak) 0.5 ea TOP Q4 PRN PRN Reason: Dry lips Last Admin: 06/26/17 09:07 Dose: 0.5 ea - Labs Labs: 06/28/17 06:27 06/28/17 11:26 PT 15.6 SECONDS (9.7-12.2) H 06/08/17 12:33 INR 1.4 06/08/17 12:33 APTT 31 SECONDS (21-34) 06/08/17 12:33 Assessment and Plan (1) Morbid obesity Status: Acute (2) Pilonidal abscess Status: Acute (3) Hypertension Status: Acute (4) Sacral decubitus ulcer Status: Acute
[2017-06-29] MEDS: Aztreonam 2 GM in Sodium Chloride 0.9% 100 ML IVPB SCH ×3 (05:01→22:05)
[2017-06-29] MEDS: Linezolid 600 mg in D5W 300 ml 600 MG/300 ML BAG IVPB SCH ×2 (05:01→18:06)
[2017-06-29 07:47] LABS: ALB/GLOB RATIO 0.8 (1.0-2.1); ALT/SGPT 30 U/L (9-52); AST/SGOT 35 U/L (14-36); BLOOD UREA NITROGEN 13 mg/dL (7-17); CALCIUM 8.5 mg/dl (8.6-10.4); GFR AFRICAN-AMERICAN > 60; GFR NON-AFRICAN AMERICAN > 60
[2017-06-29] MEDS: (Novolin R) Insulin Human Regular 100 units/ml vial SC SCH ×4 (07:47→22:06)
[2017-06-29 09:39] LABS: BASO # 0.2 K/uL (0.0-0.2); BASO % 1.7 % (0.0-2.0); EOS # 0.3 K/uL (0.0-0.7); EOS % 2.8 % (0.0-4.0); HEMOGLOBIN 9.4 g/dL (11.0-16.0); LYMPH # 1.7 K/uL (1.0-4.3); LYMPH % 17.9 % (20.0-40.0); MEAN CORPUSCULAR HEMOGLOBIN 29.4 pg (27.0-31.0); MEAN CORPUSCULAR HGB CONC 34.2 g/dL (33.0-37.0); MEAN PLATELET VOLUME 8.6 fL (7.2-11.7); MONO # 0.8 K/uL (0.0-0.8); MONO % 9.1 % (0.0-10.0); NEUT # 6.4 K/uL (1.8-7.0); NEUT % 68.5 % (50.0-75.0); NRBC % 0.1 % (0.0-2.0); RBC 3.21 Mil/uL (3.80-5.20); WHITE BLOOD COUNT 9.3 K/uL (4.8-10.8)
--- NOTE | 2017-06-29 14:08 | PN ---
DATE: LOCATION: [facility], bed A. SUBJECTIVE: This is a 51-year-old female seen and examined in rounds with intermittent period of nausea and vomiting yesterday, none today, but dyspepsia, with only nausea. No reported chest pain or palpitations. No reported significant chills or fever. The entire chart is reviewed including, but not limited to the most recent lab and radiology study results, current and the previous medication list, current and the previous medical events. Case discussed with the staff at length. It has to be mentioned that there was subsequent drop of hemoglobin to 9.4, hematocrit 27.6 today, with low sodium 130, low calcium 8.5, with low albumin 3.0. PHYSICAL EXAMINATION: GENERAL: This 51-year-old female, appeared to be awake, alert and oriented. VITAL SIGNS: Afebrile, with pulse of 84, respiratory rate 20 to 22, blood pressure of 136/84. HEENT: Showed pale, dry oral mucous membranes. Nonicteric sclerae. LUNGS: A few scattered crepitations, decreased air entry at bases. HEART: Positive S1 and S2. ABDOMEN: Soft, bowel sounds are present, with hypoactive bowel sounds, covered with clean dressing, slightly obese, with generalized mild tenderness. No masses or organomegaly. No rebound tenderness or guarding. BACK: Lower back area, sacral decubiti covered with clean dressing. EXTREMITIES: Without significant clubbing, cyanosis or edema. NEUROLOGIC: No reported new neurological deficits, sensory or motor. It has to be mentioned that the colostomy tube with semi thick liquid fecal material covered with clean dressing. IMPRESSION: 1. Diverticulosis with recent history of acute diverticulitis, microperforation, abscess formation of the left side of the colon. 2. status post Mckeon procedure with colostomy formation. 3. Peptic ulcer disease with period of mild nausea and vomiting. 4. Sacral abscess, treated surgically. 5. Anemia, most likely secondary to above. 6. Known history of hypertension as well as morbid obesity. . Follow up serum lipase and amylase level could be secondary to drug induced nausea and vomiting with re-exacerbation of peptic ulcer disease. SUGGESTION: 1. Continue current management. 2. Antireflux measure. 3. Reglan 5 mg IV q. 6 hours. 4. Further recommendation to follow. Andrew Koroma MD [facility] # [id number]
--- NOTE | 2017-06-29 18:41 | CP.PCM.PN ---
Subjective - Date & Time of Evaluation Date of Evaluation: 06/29/17 Time of Evaluation: 09:00 - Subjective Subjective: denies fever / chills awake alert NAD Objective - Vital Signs/Intake and Output Vital Signs (last 24 hours): Temp Pulse Resp BP Pulse Ox 98.8 F 80 20 160/92 H 95 06/29/17 16:00 06/29/17 16:00 06/29/17 16:00 06/29/17 16:00 06/29/17 16:00 Intake and Output: 06/29/17 06/29/17 06:59 18:59 Intake Total 500 Balance 500 - Medications Medications: Current Medications Hydralazine HCl (Apresoline) 25 mg PO Q6H [facility] Last Admin: 06/29/17 18:06 Dose: 25 mg Linezolid (Zyvox 600mg/300ml D5w) 600 mg in 300 mls @ 200 mls/hr IVPB Q12H [facility] Last Admin: 06/29/17 18:06 Dose: 200 mls/hr Aztreonam 2 gm/ Sodium (Chloride) 100 mls @ 200 mls/hr IVPB Q8H [facility] Last Admin: 06/29/17 13:57 Dose: 200 mls/hr Insulin Human Regular (Novolin R) 0 unit SC ACHS [facility] PRN Reason: Protocol Last Admin: 06/29/17 16:41 Dose: Not Given Labetalol HCl (Trandate) 200 mg PO BID [facility] Last Admin: 06/29/17 18:06 Dose: 200 mg Losartan Potassium (Cozaar) 50 mg PO DAILY [facility] Last Admin: 06/29/17 10:21 Dose: 50 mg Ondansetron HCl (Zofran Inj) 4 mg IVP Q6 PRN PRN Reason: Nausea/Vomiting Last Admin: 06/29/17 13:57 Dose: 4 mg Ondansetron HCl (Zofran Inj) 4 mg IVP Q6H PRN PRN Reason: Nausea/Vomiting Oxycodone/Acetaminophen (Percocet 5/325 Mg Tab) 2 tab PO Q4H PRN PRN Reason: Pain, moderate (4-7) Stop: 07/02/17 18:37 Pantoprazole Sodium (Protonix Inj) 40 mg IVP Q12H [facility] Last Admin: 06/29/17 18:06 Dose: 40 mg Vitamin A (Vitamin A & D Oint Ud Foilpak) 0.5 ea TOP Q4 PRN PRN Reason: Dry lips Last Admin: 06/26/17 09:07 Dose: 0.5 ea - Labs Labs: 06/29/17 09:29 06/29/17 06:58 PT 15.6 SECONDS (9.7-12.2) H 06/08/17 12:33 INR 1.4 06/08/17 12:33 APTT 31 SECONDS (21-34) 06/08/17 12:33 - Constitutional Appears: Non-toxic, Chronically Ill - Head Exam Head Exam: NORMOCEPHALIC - Eye Exam Eye Exam: PERRL - ENT Exam ENT Exam: Mucous Membranes Dry - Neck Exam Neck Exam: absent: Lymphadenopathy - Respiratory Exam Respiratory Exam: Decreased Breath Sounds - Cardiovascular Exam Cardiovascular Exam: REGULAR RHYTHM - GI/Abdominal Exam GI & Abdominal Exam: Distended, Soft - Rectal Exam Rectal Exam: Deferred - Exam Exam: NORMAL INSPECTION Assessment and Plan (1) Abdominal pain Status: Acute (2) Pilonidal abscess Status: Acute (3) Diverticular disease of intestine with perforation and abscess Status: Acute (4) Diverticular disease of intestine with perforation and abscess Status: Acute (5) Colonic diverticular abscess Status: Acute (6) Colonic diverticular abscess Status: Acute (7) VRE (vancomycin resistant enterococcus) culture positive Status: Acute (8) VRE (vancomycin-resistant Enterococci) infection Status: Acute (9) Sepsis Status: Acute (10) Status post Woody's procedure Status: Acute
[2017-06-29] MEDS: Oxycodone/Acetaminophen 5/325 mg Tab PO PRN (22:05)
--- NOTE | 2017-06-29 23:06 | CP.PCM.PN ---
Subjective - Date & Time of Evaluation Date of Evaluation: 06/29/17 Time of Evaluation: 19:00 - Subjective Subjective: Pt seen and evaluated , denies fever / chills awake alert NAD pt wound is healing scaral decubitis on medical managmne , antibiotics Objective - Vital Signs/Intake and Output Vital Signs (last 24 hours): Temp Pulse Resp BP Pulse Ox 98.8 F 80 20 160/92 H 95 06/29/17 16:00 06/29/17 16:00 06/29/17 16:00 06/29/17 16:00 06/29/17 16:00 - Medications Medications: Current Medications Hydralazine HCl (Apresoline) 25 mg PO Q6H [facility] Last Admin: 06/29/17 22:05 Dose: 25 mg Linezolid (Zyvox 600mg/300ml D5w) 600 mg in 300 mls @ 200 mls/hr IVPB Q12H [facility] Last Admin: 06/29/17 18:06 Dose: 200 mls/hr Aztreonam 2 gm/ Sodium (Chloride) 100 mls @ 200 mls/hr IVPB Q8H [facility] Last Admin: 06/29/17 22:05 Dose: 200 mls/hr Insulin Human Regular (Novolin R) 0 unit SC ACHS [facility] PRN Reason: Protocol Last Admin: 06/29/17 22:06 Dose: Not Given Labetalol HCl (Trandate) 200 mg PO BID [facility] Last Admin: 06/29/17 18:06 Dose: 200 mg Losartan Potassium (Cozaar) 50 mg PO DAILY [facility] Last Admin: 06/29/17 10:21 Dose: 50 mg Ondansetron HCl (Zofran Inj) 4 mg IVP Q6 PRN PRN Reason: Nausea/Vomiting Last Admin: 06/29/17 13:57 Dose: 4 mg Ondansetron HCl (Zofran Inj) 4 mg IVP Q6H PRN PRN Reason: Nausea/Vomiting Oxycodone/Acetaminophen (Percocet 5/325 Mg Tab) 2 tab PO Q4H PRN PRN Reason: Pain, moderate (4-7) Stop: 07/02/17 18:37 Last Admin: 06/29/17 22:05 Dose: 2 tab Pantoprazole Sodium (Protonix Inj) 40 mg IVP Q12H [facility] Last Admin: 06/29/17 18:06 Dose: 40 mg Vitamin A (Vitamin A & D Oint Ud Foilpak) 0.5 ea TOP Q4 PRN PRN Reason: Dry lips Last Admin: 06/26/17 09:07 Dose: 0.5 ea - Labs Labs: 06/29/17 09:29 06/29/17 06:58 PT 15.6 SECONDS (9.7-12.2) H 06/08/17 12:33 INR 1.4 06/08/17 12:33 APTT 31 SECONDS (21-34) 06/08/17 12:33 Assessment and Plan (1) Morbid obesity Status: Acute (2) Pilonidal abscess Status: Acute (3) Hypertension Status: Acute (4) Sacral decubitus ulcer Status: Acute
[2017-06-30] MEDS: Aztreonam 2 GM in Sodium Chloride 0.9% 100 ML IVPB SCH ×3 (05:04→22:08)
[2017-06-30] MEDS: Linezolid 600 mg in D5W 300 ml 600 MG/300 ML BAG IVPB SCH ×2 (05:05→17:25)
[2017-06-30 05:38] LABS: BASO # 0.1 K/uL (0.0-0.2); BASO % 1.1 % (0.0-2.0); EOS # 0.3 K/uL (0.0-0.7); EOS % 2.9 % (0.0-4.0); HEMOGLOBIN 9.8 g/dL (11.0-16.0); LYMPH % 21.1 % (20.0-40.0); MEAN CORPUSCULAR HEMOGLOBIN 30.3 pg (27.0-31.0); MEAN CORPUSCULAR HGB CONC 35.6 g/dL (33.0-37.0); MEAN PLATELET VOLUME 8.4 fL (7.2-11.7); MONO # 1.1 K/uL (0.0-0.8); NEUT # 5.9 K/uL (1.8-7.0); NEUT % 62.9 % (50.0-75.0); RBC 3.22 Mil/uL (3.80-5.20); WHITE BLOOD COUNT 9.4 K/uL (4.8-10.8)
[2017-06-30 06:25] LABS: ALB/GLOB RATIO 0.9 (1.0-2.1); ALBUMIN 3.1 g/dL (3.5-5.0); ALT/SGPT 28 U/L (9-52); AMYLASE 53 U/L (30-110); AST/SGOT 25 U/L (14-36); BLOOD UREA NITROGEN 13 mg/dL (7-17); CALCIUM 8.7 mg/dl (8.6-10.4); GFR AFRICAN-AMERICAN > 60; GFR NON-AFRICAN AMERICAN > 60; LIPASE 163 U/L (23-300)
[2017-06-30] MEDS: (Novolin R) Insulin Human Regular 100 units/ml vial SC SCH ×4 (06:40→21:30)
[2017-06-30] MEDS: Oxycodone/Acetaminophen 5/325 mg Tab PO PRN ×3 (08:22→22:08)
[2017-06-30] MEDS ORDERED: Pantoprazole 40 mg EC Tab PO SCH (17:45)
--- NOTE | 2017-06-30 18:27 | PN ---
DATE: LOCATION: Room 560, bed A. SUBJECTIVE: This is a 52-year-old female seen early in rounds without new significant clinical changes with less abdominal pain, colostomy opening is in place and intact with traces of semiliquid, semisolid fecal material. No reported active bleeding, chest pain, significant shortness of breath, palpitation, chills, or fever. The patient tolerated oral intake well. The entire chart is reviewed including but not limited to the most recent lab and radiology study results, current and the previous medication list, current and the previous medical events, and allergy to medication list. Discussed with the staff at length. Today's labs showed normal white blood cells with hemoglobin increased mildly to 9.8, hematocrit 27.4 with normal platelet count, with normal blood glucose level 95, low albumin 3.1. PHYSICAL EXAMINATION: GENERAL: A 52-year-old female, awake, alert, oriented, ambulatory with clean dressing on the abdominal wall. VITAL SIGNS: Afebrile with pulse of 66, respiratory rate 20 to 22, blood pressure 120/82. HEENT: Mildly pale dry, oral mucous membrane, nonicteric sclera. LUNGS: Few scattered crepitation. Breathing sounds are present bilaterally. HEART: Positive S1 and S2. ABDOMEN: Soft. Bowel sounds are present, but hypoactive mildly. Colostomy opening is intact. No reported bleeding. No mass or organomegaly. Generalized abdominal mild distention and obesity noticed. EXTREMITIES: Without significant clubbing, cyanosis, or edema. NEUROLOGIC: No reported new significant neurological deficits, sensory or motor. IMPRESSION: 1. Diverticulosis, acute diverticulitis. 2. Diverticular abscess formation with microperforation, treated surgically. 3. Vancomycin-resistant enterococcus infection, on antibiotics. 4. Septicemia secondary to above. 5. Status post Woody procedure with intact colostomy. 6. Sacral abscess formation, treated surgically. 7. Anemia, most likely secondary to above with re-exacerbation of peptic ulcer disease. 8. Known history of morbid obesity as well as hypertension. SUGGESTIONS: 1. Continue current management. 2. Antireflux measure. 3. Follow up on H and H. 4. The patient may need in the near future endoscopic evaluation of the colon before any reversal colostomy to be scheduled. Andrew Koroma MD [facility] # [id number]
[2017-07-01] MEDS: Linezolid 600 mg in D5W 300 ml 600 MG/300 ML BAG IVPB SCH ×3 (05:58→18:10)
[2017-07-01] MEDS: Aztreonam 2 GM in Sodium Chloride 0.9% 100 ML IVPB SCH ×3 (05:58→22:30)
[2017-07-01] MEDS ORDERED: Pantoprazole 40 mg EC Tab PO SCH (06:00)
[2017-07-01] MEDS: (Novolin R) Insulin Human Regular 100 units/ml vial SC SCH ×4 (08:27→21:47)
[2017-07-01] MEDS: Pantoprazole 40 mg EC Tab PO SCH ×2 (10:34→22:29)
[2017-07-01] MEDS: Oxycodone/Acetaminophen 5/325 mg Tab PO PRN ×3 (10:34→22:29)
--- NOTE | 2017-07-01 12:19 | PN ---
DATE: LOCATION: [facility], bed A. SUBJECTIVE: This is a 51-year-old female, seen and examined in rounds early today with less abdominal pain with clean abdominal lower dressing as well as decubitus area dressing on the sacrum area. The entire chart is reviewed including but not limited to the most recent lab and radiology study results, current and the previous medication list, current and the previous medical events and the patient denied any actual chest pain, palpitation, significant shortness of breath, but mild nausea with postoperative mild abdominal pain. The entire chart is reviewed including but not limited to the most recent lab and radiology study results. Case discussed with the staff at length. PHYSICAL EXAMINATION: GENERAL: A 51-year-old female. VITAL SIGNS: Afebrile with pulse of 82, respiratory rate of 20 to 22 with blood pressure of 132/78. HEENT: Showed mildly pale dry oral mucous membrane. Nonicteric sclerae. LUNGS: Few scattered crepitation. Decreased air entry at bases. HEART: Positive S1 and S2. ABDOMEN: Soft, covered with clean dressing with generalized tenderness. No mass or organomegaly. No rebound tenderness or guarding. EXTREMITIES: Lower extremities, slight edematous changes. Again, the sacral area is covered with clean dressing. IMPRESSION: 1. Diverticulosis with recurrent diverticulitis. 2. Status post Woody procedure with clean colostomy opening. 3. Septicemia secondary to above. 4. Sacral abscess formation, treated surgically. 5. Vancomycin-resistant Enterococcus infection, on antibiotic. 6. Known history of hypertension with morbid obesity, by history. SUGGESTION: 1. Continue current management. 2. Physical therapy. 3. Proton pump inhibitors. 4. Further recommendation to follow. Andrew Koroma MD
--- NOTE | 2017-07-01 19:16 | CP.PCM.PN ---
Subjective - Date & Time of Evaluation Date of Evaluation: 07/01/17 Time of Evaluation: 07:00 - Subjective Subjective: events noted rx in progress Objective - Vital Signs/Intake and Output Vital Signs (last 24 hours): Temp Pulse Resp BP Pulse Ox 98.0 F 76 20 154/94 H 98 07/01/17 17:02 07/01/17 17:02 07/01/17 17:02 07/01/17 17:02 07/01/17 17:02 Intake and Output: 07/01/17 07/02/17 18:59 06:59 Intake Total 740 Balance 740 - Medications Medications: Current Medications Hydralazine HCl (Apresoline) 25 mg PO Q6H [facility] Last Admin: 07/01/17 17:55 Dose: 25 mg Linezolid (Zyvox 600mg/300ml D5w) 600 mg in 300 mls @ 200 mls/hr IVPB Q12H [facility] Last Admin: 07/01/17 18:10 Dose: 200 mls/hr Aztreonam 2 gm/ Sodium (Chloride) 100 mls @ 200 mls/hr IVPB Q8H [facility] Last Admin: 07/01/17 14:21 Dose: 200 mls/hr Insulin Human Regular (Novolin R) 0 unit SC ACHS [facility] PRN Reason: Protocol Last Admin: 07/01/17 17:01 Dose: Not Given Labetalol HCl (Trandate) 200 mg PO BID [facility] Last Admin: 07/01/17 17:55 Dose: 200 mg Losartan Potassium (Cozaar) 50 mg PO DAILY [facility] Last Admin: 07/01/17 10:34 Dose: 50 mg Ondansetron HCl (Zofran Inj) 4 mg IVP Q6H PRN PRN Reason: Nausea/Vomiting Last Admin: 07/01/17 10:39 Dose: 4 mg Oxycodone/Acetaminophen (Percocet 5/325 Mg Tab) 2 tab PO Q4H PRN PRN Reason: Pain, moderate (4-7) Stop: 07/02/17 18:37 Last Admin: 07/01/17 17:55 Dose: 2 tab Pantoprazole Sodium (Protonix Ec Tab) 40 mg PO Q12 [facility] Last Admin: 07/01/17 10:34 Dose: 40 mg Vitamin A (Vitamin A & D Oint Ud Foilpak) 0.5 ea TOP Q4 PRN PRN Reason: Dry lips Last Admin: 06/26/17 09:07 Dose: 0.5 ea - Labs Labs: 06/30/17 05:22 06/30/17 05:22 PT 15.6 SECONDS (9.7-12.2) H 06/08/17 12:33 INR 1.4 06/08/17 12:33 APTT 31 SECONDS (21-34) 06/08/17 12:33 Assessment and Plan (1) Abdominal pain Status: Acute (2) Pilonidal abscess Status: Acute (3) Diverticular disease of intestine with perforation and abscess Status: Acute (4) Diverticular disease of intestine with perforation and abscess Status: Acute (5) Colonic diverticular abscess Status: Acute (6) Colonic diverticular abscess Status: Acute (7) VRE (vancomycin resistant enterococcus) culture positive Status: Acute (8) VRE (vancomycin-resistant Enterococci) infection Status: Acute (9) Sepsis Status: Acute (10) Status post Woody's procedure Status: Acute
[2017-07-02] MEDS: Linezolid 600 mg in D5W 300 ml 600 MG/300 ML BAG IVPB SCH ×2 (05:54→17:24)
[2017-07-02] MEDS: Aztreonam 2 GM in Sodium Chloride 0.9% 100 ML IVPB SCH ×3 (05:55→21:22)
[2017-07-02 07:29] LABS: BASO # 0.1 K/uL (0.0-0.2); EOS # 0.2 K/uL (0.0-0.7)
[2017-07-02 08:03] LABS: LYMPH # 1.5 K/uL (1.0-4.3); LYMPH % 20.3 % (20.0-40.0); NEUT # 4.7 K/uL (1.8-7.0); RED CELL DISTRIBUTION WIDTH 15.4 % (11.5-14.5)
[2017-07-02 08:08] LABS: BASO % 1.9 % (0.0-2.0); EOS % 2.5 % (0.0-4.0); HEMOGLOBIN 9.6 g/dL (11.0-16.0); MEAN CELL VOLUME 86.4 fL (81.0-99.0); MEAN CORPUSCULAR HEMOGLOBIN 30.2 pg (27.0-31.0); MEAN CORPUSCULAR HGB CONC 34.9 g/dL (33.0-37.0); MEAN PLATELET VOLUME 8.7 fL (7.2-11.7); MONO # 0.8 K/uL (0.0-0.8); MONO % 11.3 % (0.0-10.0); RBC 3.18 Mil/uL (3.80-5.20); WHITE BLOOD COUNT 7.3 K/uL (4.8-10.8)
[2017-07-02] MEDS: (Novolin R) Insulin Human Regular 100 units/ml vial SC SCH ×4 (08:10→22:02)
--- NOTE | 2017-07-02 08:55 | PN ---
DATE: LOCATION: [facility], bed A. SUBJECTIVE: This is a 51-year-old female, seen and examined in rounds, appeared to be awake, alert, oriented with less complaint of abdominal pain with sacral dressing appeared to be clean and intact as well as the abdominal dressing with functioning colostomy tube. The patient denied any chest pain, palpitation, evidence of active bleeding, chills or fever this morning. The entire chart is reviewed including but not limited to the most recent lab and radiology study results, current and the previous medication list, current and the previous medical events as well as allergy to medication list. Case discussed with the staff at length. Today's labs showed low hemoglobin of 9.6 with hematocrit 27.4, but normal platelet count. The rest of the lab is still pending. However, recently the patient reported to have mildly elevated blood glucose level with low albumin. PHYSICAL EXAMINATION: GENERAL: A 51-year-old female. VITAL SIGNS: Afebrile with pulse of 72, respiratory rate 20 to 22 with blood pressure 136/76. HEENT: Showed mildly pale dry oral mucous membrane. Nonicteric sclerae. LUNGS: Mild scattered few crepitation with rhonchi. Breathing sounds are present. EXTREMITIES: With mild lower extremities edematous changes. No clubbing or cyanosis. NEUROLOGIC: No reported new neurological deficits, sensory or motor. ABDOMEN: Colostomy tube is functioning with trace of fecal material. IMPRESSION: 1. Diverticulosis, acute diverticulitis with microperforation and diverticular abscess. Treated surgically with status post Woody procedure and with clean colonoscopy opening. 2. Septicemia secondary to above. 3. Sacral abscess formation, treated surgically. 4. History of hypertension, morbid obesity by history. 5. Anemia secondary to above. 6. Vancomycin-resistant Enterococcus infection, still on antibiotic. SUGGESTION: 1. Continue current management. 2. Adjust oral intake. 3. Again, the patient will need sooner or later endoscopic evaluation of the GI tract only when she is more stable clinically, otherwise close observation to follow. Andrew Koroma MD
[2017-07-02] MEDS: Pantoprazole 40 mg EC Tab PO SCH ×2 (10:20→21:21)
[2017-07-02] MEDS: Oxycodone/Acetaminophen 5/325 mg Tab PO PRN ×2 (10:23→21:21)
[2017-07-02 11:42] LABS: ALB/GLOB RATIO 0.9 (1.0-2.1); ALBUMIN 3.2 g/dL (3.5-5.0); ALT/SGPT 19 U/L (9-52); AST/SGOT 51 U/L (14-36); BLOOD UREA NITROGEN 10 mg/dL (7-17); CALCIUM 8.9 mg/dl (8.6-10.4); GFR AFRICAN-AMERICAN > 60; GFR NON-AFRICAN AMERICAN > 60
--- NOTE | 2017-07-02 16:49 | CP.PCM.PN ---
Subjective - Date & Time of Evaluation Date of Evaluation: 07/02/17 Time of Evaluation: 18:40 - Subjective Subjective: Pt seen and examined, is feeling better c/o headache Objective - Vital Signs/Intake and Output Vital Signs (last 24 hours): Temp Pulse Resp BP Pulse Ox 98.3 F 80 18 127/81 80 L 07/02/17 08:05 07/02/17 08:05 07/02/17 08:05 07/02/17 08:05 07/02/17 08:05 Intake and Output: 07/02/17 07/02/17 06:59 18:59 Intake Total 400 Output Total 200 Balance 200 - Medications Medications: Current Medications Hydralazine HCl (Apresoline) 25 mg PO Q6H [facility] Last Admin: 07/02/17 16:33 Dose: 25 mg Linezolid (Zyvox 600mg/300ml D5w) 600 mg in 300 mls @ 200 mls/hr IVPB Q12H [facility] Last Admin: 07/02/17 05:54 Dose: 200 mls/hr Aztreonam 2 gm/ Sodium (Chloride) 100 mls @ 200 mls/hr IVPB Q8H [facility] Last Admin: 07/02/17 14:07 Dose: 200 mls/hr Insulin Human Regular (Novolin R) 0 unit SC ACHS [facility] PRN Reason: Protocol Last Admin: 07/02/17 11:41 Dose: Not Given Labetalol HCl (Trandate) 200 mg PO BID [facility] Last Admin: 07/02/17 10:20 Dose: 200 mg Losartan Potassium (Cozaar) 50 mg PO DAILY [facility] Last Admin: 07/02/17 10:20 Dose: 50 mg Ondansetron HCl (Zofran Inj) 4 mg IVP Q6H PRN PRN Reason: Nausea/Vomiting Last Admin: 07/02/17 16:33 Dose: 4 mg Oxycodone/Acetaminophen (Percocet 5/325 Mg Tab) 2 tab PO Q4H PRN PRN Reason: Pain, moderate (4-7) Stop: 07/02/17 18:37 Last Admin: 07/02/17 10:23 Dose: 2 tab Pantoprazole Sodium (Protonix Ec Tab) 40 mg PO Q12 [facility] Last Admin: 07/02/17 10:20 Dose: 40 mg - Labs Labs: 07/02/17 07:07 07/02/17 07:07 PT 15.6 SECONDS (9.7-12.2) H 06/08/17 12:33 INR 1.4 06/08/17 12:33 APTT 31 SECONDS (21-34) 06/08/17 12:33 - Constitutional Appears: No Acute Distress - Head Exam Head Exam: ATRAUMATIC, NORMAL INSPECTION, NORMOCEPHALIC - Eye Exam Eye Exam: EOMI, Normal appearance, PERRL Pupil Exam: NORMAL ACCOMODATION, PERRL - Respiratory Exam Respiratory Exam: Clear to Ausculation Bilateral, NORMAL BREATHING PATTERN - Cardiovascular Exam Cardiovascular Exam: REGULAR RHYTHM, +S1, +S2. absent: Murmur - GI/Abdominal Exam GI & Abdominal Exam: Soft, Normal Bowel Sounds. absent: Tenderness Assessment and Plan (1) Morbid obesity Status: Acute (2) Pilonidal abscess Status: Acute (3) Hypertension Status: Acute (4) Sacral decubitus ulcer Status: Acute
--- NOTE | 2017-07-02 16:49 | CP.PCM.PN ---
Subjective - Date & Time of Evaluation Date of Evaluation: 07/01/17 Time of Evaluation: 19:00 - Subjective Subjective: Pt seen and evaluated, pain in sacral area, on antibiotics and wound care Objective - Vital Signs/Intake and Output Vital Signs (last 24 hours): Temp Pulse Resp BP Pulse Ox 98.3 F 80 18 127/81 80 L 07/02/17 08:05 07/02/17 08:05 07/02/17 08:05 07/02/17 08:05 07/02/17 08:05 Intake and Output: 07/02/17 07/02/17 06:59 18:59 Intake Total 400 Output Total 200 Balance 200 - Medications Medications: Current Medications Hydralazine HCl (Apresoline) 25 mg PO Q6H [facility] Last Admin: 07/02/17 16:33 Dose: 25 mg Linezolid (Zyvox 600mg/300ml D5w) 600 mg in 300 mls @ 200 mls/hr IVPB Q12H [facility] Last Admin: 07/02/17 05:54 Dose: 200 mls/hr Aztreonam 2 gm/ Sodium (Chloride) 100 mls @ 200 mls/hr IVPB Q8H [facility] Last Admin: 07/02/17 14:07 Dose: 200 mls/hr Insulin Human Regular (Novolin R) 0 unit SC ACHS [facility] PRN Reason: Protocol Last Admin: 07/02/17 11:41 Dose: Not Given Labetalol HCl (Trandate) 200 mg PO BID [facility] Last Admin: 07/02/17 10:20 Dose: 200 mg Losartan Potassium (Cozaar) 50 mg PO DAILY [facility] Last Admin: 07/02/17 10:20 Dose: 50 mg Ondansetron HCl (Zofran Inj) 4 mg IVP Q6H PRN PRN Reason: Nausea/Vomiting Last Admin: 07/02/17 16:33 Dose: 4 mg Oxycodone/Acetaminophen (Percocet 5/325 Mg Tab) 2 tab PO Q4H PRN PRN Reason: Pain, moderate (4-7) Stop: 07/02/17 18:37 Last Admin: 07/02/17 10:23 Dose: 2 tab Pantoprazole Sodium (Protonix Ec Tab) 40 mg PO Q12 [facility] Last Admin: 07/02/17 10:20 Dose: 40 mg - Labs Labs: 07/02/17 07:07 07/02/17 07:07 PT 15.6 SECONDS (9.7-12.2) H 06/08/17 12:33 INR 1.4 06/08/17 12:33 APTT 31 SECONDS (21-34) 06/08/17 12:33 - Constitutional Appears: No Acute Distress - Head Exam Head Exam: ATRAUMATIC, NORMAL INSPECTION, NORMOCEPHALIC - Eye Exam Eye Exam: EOMI, Normal appearance, PERRL Pupil Exam: NORMAL ACCOMODATION, PERRL - Respiratory Exam Respiratory Exam: Clear to Ausculation Bilateral, NORMAL BREATHING PATTERN - Cardiovascular Exam Cardiovascular Exam: REGULAR RHYTHM, +S1, +S2. absent: Murmur - GI/Abdominal Exam GI & Abdominal Exam: Soft, Normal Bowel Sounds. absent: Tenderness Assessment and Plan (1) Morbid obesity Status: Acute (2) Pilonidal abscess Status: Acute (3) Hypertension Status: Acute (4) Sacral decubitus ulcer Status: Acute
[2017-07-03] MEDS: Linezolid 600 mg in D5W 300 ml 600 MG/300 ML BAG IVPB SCH ×2 (06:32→17:28)
[2017-07-03] MEDS: Aztreonam 2 GM in Sodium Chloride 0.9% 100 ML IVPB SCH ×3 (06:32→21:23)
[2017-07-03] MEDS: (Novolin R) Insulin Human Regular 100 units/ml vial SC SCH ×4 (07:22→22:08)
--- NOTE | 2017-07-03 08:43 | PN ---
DATE: LOCATION: [facility], bed A. SUBJECTIVE: This is a 51-year-old female, seen and examined in rounds, appears to be more awake, alert, oriented, ambulatory with intermittent period of abdominal pain, tolerating oral intake well. The entire chart is reviewed including but not limited to the most recent lab and radiology study results, current and the previous medication list, current and the previous medical events and today's blood glucose level reported to be 118; however, the rest of the labs for today is still pending and the patient yesterday had low sodium 129, increased AST to 51 with albumin low at 3.2 with low hemoglobin 9.6, low hematocrit 27.4, but thrombocytosis of 422. PHYSICAL EXAMINATION: GENERAL: A 51-year-old female. VITAL SIGNS: Afebrile with pulse of 84, respiratory rate 20 to 22, blood pressure 118/78. HEENT: Showed pale dry oral mucous membrane. Nonicteric sclerae. LUNGS: Few scattered crepitation. Decreased air entry at bases. HEART: Positive S1 and S2. ABDOMEN: Soft with mild distention. Covered with clean dressing as well as sacral area and appeared to be intact. EXTREMITIES: With lower extremities mild edematous changes. NEUROLOGIC: No reported new neurological deficits. It has to be mentioned that the colostomy tube at the colostomy opening appeared to be intact with semiliquid, semisolid fecal material. No bleeding and no purulent exudate. IMPRESSION: 1. Diverticulosis, acute diverticulitis with microabscess formation and viscus perforation, treated surgically by Woody procedure. 2. Status post colostomy formation. 3. Some septicemia secondary to above, improving. 4. History of hypertension and morbid obesity, anemia secondary to above. 5. Sacral abscess formation, treated surgically. 6. Vancomycin-resistant Enterococcus infection, again the patient is still on antibiotic. SUGGESTION: 1. Continue current management. 2. Guaiac all the stool daily. 3. Physical therapy as needed. 4. Again, the patient will need colonoscopy before reversing her colostomy. Further recommendation to follow. Andrew Koroma MD
[2017-07-03] MEDS: Pantoprazole 40 mg EC Tab PO SCH ×2 (10:03→21:23)
[2017-07-03] MEDS: Oxycodone/Acetaminophen 5/325 mg Tab PO PRN ×2 (10:05→22:13)
--- NOTE | 2017-07-03 16:10 | CP.PCM.PN ---
Subjective - Date & Time of Evaluation Date of Evaluation: 07/03/17 Time of Evaluation: 09:00 - Subjective Subjective: improving IV rx reordered Objective - Vital Signs/Intake and Output Vital Signs (last 24 hours): Temp Pulse Resp BP Pulse Ox 98.6 F 82 20 157/92 H 96 07/03/17 08:46 07/03/17 08:46 07/03/17 08:46 07/03/17 08:46 07/03/17 08:46 Intake and Output: 07/03/17 07/03/17 06:59 18:59 Intake Total 800 Balance 800 - Medications Medications: Current Medications Hydralazine HCl (Apresoline) 25 mg PO Q6H [facility] Last Admin: 07/03/17 10:03 Dose: 25 mg Linezolid (Zyvox 600mg/300ml D5w) 600 mg in 300 mls @ 200 mls/hr IVPB Q12H [facility] Last Admin: 07/03/17 06:32 Dose: 200 mls/hr Aztreonam 2 gm/ Sodium (Chloride) 100 mls @ 200 mls/hr IVPB Q8H [facility] Last Admin: 07/03/17 14:11 Dose: 200 mls/hr Insulin Human Regular (Novolin R) 0 unit SC ACHS [facility] PRN Reason: Protocol Last Admin: 07/03/17 12:15 Dose: Not Given Labetalol HCl (Trandate) 200 mg PO BID [facility] Last Admin: 07/03/17 10:03 Dose: 200 mg Losartan Potassium (Cozaar) 50 mg PO DAILY [facility] Last Admin: 07/03/17 10:03 Dose: 50 mg Ondansetron HCl (Zofran Inj) 4 mg IVP Q6H PRN PRN Reason: Nausea/Vomiting Last Admin: 07/02/17 16:33 Dose: 4 mg Oxycodone/Acetaminophen (Percocet 5/325 Mg Tab) 2 tab PO Q4H PRN PRN Reason: Pain, moderate (4-7) Stop: 07/05/17 21:01 Last Admin: 07/03/17 10:05 Dose: 2 tab Pantoprazole Sodium (Protonix Ec Tab) 40 mg PO Q12 [facility] Last Admin: 07/03/17 10:03 Dose: 40 mg - Labs Labs: 07/02/17 07:07 07/02/17 07:07 PT 15.6 SECONDS (9.7-12.2) H 06/08/17 12:33 INR 1.4 06/08/17 12:33 APTT 31 SECONDS (21-34) 06/08/17 12:33 - Constitutional Appears: Non-toxic, Chronically Ill - Head Exam Head Exam: NORMOCEPHALIC - Eye Exam Eye Exam: PERRL - ENT Exam ENT Exam: Mucous Membranes Dry - Neck Exam Neck Exam: absent: Lymphadenopathy - Respiratory Exam Respiratory Exam: Decreased Breath Sounds - Cardiovascular Exam Cardiovascular Exam: REGULAR RHYTHM - GI/Abdominal Exam GI & Abdominal Exam: Distended, Soft - Exam Exam: NORMAL INSPECTION - Extremities Exam Extremities Exam: absent: Pedal Edema Assessment and Plan (1) Abdominal pain Status: Acute (2) Pilonidal abscess Status: Acute (3) Diverticular disease of intestine with perforation and abscess Status: Acute (4) Diverticular disease of intestine with perforation and abscess Status: Acute (5) Colonic diverticular abscess Status: Acute (6) Colonic diverticular abscess Status: Acute (7) VRE (vancomycin resistant enterococcus) culture positive Status: Acute (8) VRE (vancomycin-resistant Enterococci) infection Status: Acute (9) Sepsis Status: Acute (10) Status post Woody's procedure Status: Acute
--- NOTE | 2017-07-03 21:02 | CP.PCM.PN ---
Subjective - Date & Time of Evaluation Date of Evaluation: 07/03/17 Time of Evaluation: 19:00 - Subjective Subjective: Pt seen and evaluated today, is doing better, on Iv antibiotics Objective - Vital Signs/Intake and Output Vital Signs (last 24 hours): Temp Pulse Resp BP Pulse Ox 98.4 F 98 H 20 114/79 95 07/03/17 16:00 07/03/17 16:00 07/03/17 16:00 07/03/17 16:00 07/03/17 16:00 - Medications Medications: Current Medications Hydralazine HCl (Apresoline) 25 mg PO Q6H [facility] Last Admin: 07/03/17 17:28 Dose: 25 mg Linezolid (Zyvox 600mg/300ml D5w) 600 mg in 300 mls @ 200 mls/hr IVPB Q12H [facility] Last Admin: 07/03/17 17:28 Dose: 200 mls/hr Aztreonam 2 gm/ Sodium (Chloride) 100 mls @ 200 mls/hr IVPB Q8H [facility] Last Admin: 07/03/17 14:11 Dose: 200 mls/hr Insulin Human Regular (Novolin R) 0 unit SC ACHS [facility] PRN Reason: Protocol Last Admin: 07/03/17 17:00 Dose: Not Given Labetalol HCl (Trandate) 200 mg PO BID [facility] Last Admin: 07/03/17 17:28 Dose: 200 mg Losartan Potassium (Cozaar) 50 mg PO DAILY [facility] Last Admin: 07/03/17 10:03 Dose: 50 mg Ondansetron HCl (Zofran Inj) 4 mg IVP Q6H PRN PRN Reason: Nausea/Vomiting Last Admin: 07/02/17 16:33 Dose: 4 mg Oxycodone/Acetaminophen (Percocet 5/325 Mg Tab) 2 tab PO Q4H PRN PRN Reason: Pain, moderate (4-7) Stop: 07/05/17 21:01 Last Admin: 07/03/17 10:05 Dose: 2 tab Pantoprazole Sodium (Protonix Ec Tab) 40 mg PO Q12 [facility] Last Admin: 07/03/17 10:03 Dose: 40 mg - Labs Labs: 07/02/17 07:07 07/02/17 07:07 PT 15.6 SECONDS (9.7-12.2) H 06/08/17 12:33 INR 1.4 06/08/17 12:33 APTT 31 SECONDS (21-34) 06/08/17 12:33 - Constitutional Appears: No Acute Distress - Head Exam Head Exam: ATRAUMATIC, NORMAL INSPECTION, NORMOCEPHALIC - Eye Exam Eye Exam: EOMI, Normal appearance, PERRL Pupil Exam: NORMAL ACCOMODATION, PERRL - Respiratory Exam Respiratory Exam: Clear to Ausculation Bilateral, NORMAL BREATHING PATTERN - Cardiovascular Exam Cardiovascular Exam: REGULAR RHYTHM, +S1, +S2. absent: Murmur - GI/Abdominal Exam GI & Abdominal Exam: Soft, Normal Bowel Sounds. absent: Tenderness - Neurological Exam Neurological Exam: Alert, Awake, CN II-XII Intact, Normal Gait, Oriented x3 Assessment and Plan (1) Morbid obesity Status: Acute (2) Pilonidal abscess Status: Acute (3) Hypertension Status: Acute (4) Sacral decubitus ulcer Status: Acute
[2017-07-04] MEDS: Aztreonam 2 GM in Sodium Chloride 0.9% 100 ML IVPB SCH ×3 (05:00→21:42)
[2017-07-04] MEDS: Linezolid 600 mg in D5W 300 ml 600 MG/300 ML BAG IVPB SCH ×2 (06:05→17:37)
[2017-07-04] MEDS: (Novolin R) Insulin Human Regular 100 units/ml vial SC SCH ×4 (07:29→21:43)
[2017-07-04] MEDS: Pantoprazole 40 mg EC Tab PO SCH ×2 (11:27→21:42)
[2017-07-04] MEDS: Oxycodone/Acetaminophen 5/325 mg Tab PO PRN ×2 (11:29→22:06)
--- NOTE | 2017-07-04 13:11 | CP.PCM.PN ---
Subjective - Date & Time of Evaluation Date of Evaluation: 07/04/17 Time of Evaluation: 09:00 - Subjective Subjective: events noted ok to d/c isolation Objective - Vital Signs/Intake and Output Vital Signs (last 24 hours): Temp Pulse Resp BP Pulse Ox 99.5 F 94 H 20 135/82 95 07/03/17 23:45 07/03/17 23:45 07/03/17 23:45 07/03/17 23:45 07/03/17 23:45 Intake and Output: 07/04/17 07/04/17 06:59 18:59 Intake Total 400 Balance 400 - Medications Medications: Current Medications Hydralazine HCl (Apresoline) 25 mg PO Q6H [facility] Last Admin: 07/04/17 11:27 Dose: 25 mg Linezolid (Zyvox 600mg/300ml D5w) 600 mg in 300 mls @ 200 mls/hr IVPB Q12H [facility] Last Admin: 07/04/17 06:05 Dose: 200 mls/hr Aztreonam 2 gm/ Sodium (Chloride) 100 mls @ 200 mls/hr IVPB Q8H [facility] Last Admin: 07/04/17 05:00 Dose: 200 mls/hr Insulin Human Regular (Novolin R) 0 unit SC ACHS [facility] PRN Reason: Protocol Last Admin: 07/04/17 12:33 Dose: Not Given Labetalol HCl (Trandate) 200 mg PO BID [facility] Last Admin: 07/04/17 11:27 Dose: 200 mg Losartan Potassium (Cozaar) 50 mg PO DAILY [facility] Last Admin: 07/04/17 11:27 Dose: 50 mg Ondansetron HCl (Zofran Inj) 4 mg IVP Q6H PRN PRN Reason: Nausea/Vomiting Last Admin: 07/04/17 11:28 Dose: 4 mg Oxycodone/Acetaminophen (Percocet 5/325 Mg Tab) 2 tab PO Q4H PRN PRN Reason: Pain, moderate (4-7) Stop: 07/05/17 21:01 Last Admin: 07/04/17 11:29 Dose: 2 tab Pantoprazole Sodium (Protonix Ec Tab) 40 mg PO Q12 [facility] Last Admin: 07/04/17 11:27 Dose: 40 mg - Labs Labs: 07/02/17 07:07 07/02/17 07:07 PT 15.6 SECONDS (9.7-12.2) H 06/08/17 12:33 INR 1.4 06/08/17 12:33 APTT 31 SECONDS (21-34) 06/08/17 12:33 Assessment and Plan (1) Abdominal pain Status: Acute (2) Pilonidal abscess Status: Acute (3) Diverticular disease of intestine with perforation and abscess Status: Acute (4) Diverticular disease of intestine with perforation and abscess Status: Acute (5) Colonic diverticular abscess Status: Acute (6) Colonic diverticular abscess Status: Acute (7) VRE (vancomycin resistant enterococcus) culture positive Status: Acute (8) VRE (vancomycin-resistant Enterococci) infection Status: Acute (9) Sepsis Status: Acute (10) Status post Woody's procedure Status: Acute
--- NOTE | 2017-07-04 15:19 | PN ---
DATE: LOCATION: Room 560, bed A. SUBJECTIVE: This is a 52-year-old female seen and examined early in rounds, without significant clinical changes, but reported traces of blood from the colostomy site, but not from the surgical abdominal site. The patient appears to be awake, alert, oriented and denies any hematemesis, hemoptysis, actual chest pain, palpitation, or significant shortness of breath. Today's lab show blood glucose level of 115. PHYSICAL EXAMINATION: GENERAL: A 52-year-old female, awake and alert. VITAL SIGNS: With low-grade temperature of 99.2 with heart rate of 93, respiratory rate 20 to 22, blood pressure 120/76. HEENT: Showed mildly pale, dry oral mucous membrane, nonicteric sclerae. LUNGS: Few scattered crepitation. Decreased air entry at bases. HEART: Positive S1 and S2. ABDOMEN: Soft with mild distention with traces of old fresh blood through the colostomy, not significant, covered with clean dressing. Bowel sounds are present with mild generalized abdominal tenderness. No mass or organomegaly. NEUROLOGIC: No reported new neurological deficits, sensory or motor. EXTREMITIES: Without edema, clubbing, or cyanosis. IMPRESSION: 1. Diverticulosis, acute diverticulitis. 2. Micro diverticular abscess formation with perforated viscus, treated surgically by Woody procedure with colostomy formation. 3. Septicemia by recent history. 4. Known history of morbid obesity, hypertension. 5. Sacral abscess formation, treated surgically. 6. Vancomycin-resistant Enterococcus infection, on antibiotics. SUGGESTIONS: 1. Continue current management. 2. Blood culture x2. 3. Again, patient will need colonoscopy before reverting her colostomy, that to be discussed further more with the surgical orderly on the case. Andrew Koroma MD
--- NOTE | 2017-07-04 22:17 | CP.PCM.PN ---
Subjective - Date & Time of Evaluation Date of Evaluation: 07/04/17 Time of Evaluation: 19:00 - Subjective Subjective: Pt seen and examined , is doing well, c/o headache though Objective - Vital Signs/Intake and Output Vital Signs (last 24 hours): Temp Pulse Resp BP Pulse Ox 98.4 F 79 20 120/77 96 07/04/17 15:59 07/04/17 15:59 07/04/17 15:59 07/04/17 15:59 07/04/17 15:59 Intake and Output: 07/04/17 07/05/17 18:59 06:59 Intake Total 740 400 Balance 740 400 - Medications Medications: Current Medications Hydralazine HCl (Apresoline) 25 mg PO Q6H [facility] Last Admin: 07/04/17 22:06 Dose: 25 mg Linezolid (Zyvox 600mg/300ml D5w) 600 mg in 300 mls @ 200 mls/hr IVPB Q12H [facility] Last Admin: 07/04/17 17:37 Dose: 200 mls/hr Aztreonam 2 gm/ Sodium (Chloride) 100 mls @ 200 mls/hr IVPB Q8H [facility] Last Admin: 07/04/17 21:42 Dose: 200 mls/hr Insulin Human Regular (Novolin R) 0 unit SC ACHS [facility] PRN Reason: Protocol Last Admin: 07/04/17 21:43 Dose: Not Given Labetalol HCl (Trandate) 200 mg PO BID [facility] Last Admin: 07/04/17 17:37 Dose: 200 mg Losartan Potassium (Cozaar) 50 mg PO DAILY [facility] Last Admin: 07/04/17 11:27 Dose: 50 mg Ondansetron HCl (Zofran Inj) 4 mg IVP Q6H PRN PRN Reason: Nausea/Vomiting Last Admin: 07/04/17 11:28 Dose: 4 mg Oxycodone/Acetaminophen (Percocet 5/325 Mg Tab) 2 tab PO Q4H PRN PRN Reason: Pain, moderate (4-7) Stop: 07/05/17 21:01 Last Admin: 07/04/17 22:06 Dose: 2 tab Pantoprazole Sodium (Protonix Ec Tab) 40 mg PO Q12 [facility] Last Admin: 07/04/17 21:42 Dose: 40 mg - Labs Labs: 07/02/17 07:07 07/02/17 07:07 PT 15.6 SECONDS (9.7-12.2) H 06/08/17 12:33 INR 1.4 06/08/17 12:33 APTT 31 SECONDS (21-34) 06/08/17 12:33 - Constitutional Appears: No Acute Distress - Head Exam Head Exam: ATRAUMATIC, NORMAL INSPECTION, NORMOCEPHALIC - Eye Exam Eye Exam: EOMI, Normal appearance, PERRL Pupil Exam: NORMAL ACCOMODATION, PERRL - ENT Exam ENT Exam: Mucous Membranes Moist, Normal Exam Assessment and Plan (1) Morbid obesity Status: Acute (2) Pilonidal abscess Status: Acute (3) Hypertension Status: Acute (4) Sacral decubitus ulcer Status: Acute
[2017-07-05] MEDS: Aztreonam 2 GM in Sodium Chloride 0.9% 100 ML IVPB SCH ×3 (05:27→21:57)
[2017-07-05] MEDS: Linezolid 600 mg in D5W 300 ml 600 MG/300 ML BAG IVPB SCH ×2 (06:25→17:21)
[2017-07-05] MEDS: (Novolin R) Insulin Human Regular 100 units/ml vial SC SCH ×4 (07:07→21:53)
[2017-07-05] MEDS: Oxycodone/Acetaminophen 5/325 mg Tab PO PRN ×2 (08:20→17:24)
[2017-07-05 08:40] LABS: EOS # 0.1 K/uL (0.0-0.7); MONO # 1.1 K/uL (0.0-0.8)
[2017-07-05 08:46] LABS: LYMPH # 1.5 K/uL (1.0-4.3); LYMPH % 20.8 % (20.0-40.0); NEUT # 4.5 K/uL (1.8-7.0)
[2017-07-05 08:50] LABS: BASO % 0.6 % (0.0-2.0); EOS % 1.1 % (0.0-4.0); MEAN CORPUSCULAR HEMOGLOBIN 30.4 pg (27.0-31.0); MONO % 15.2 % (0.0-10.0); NEUT % 62.3 % (50.0-75.0); RBC 2.96 Mil/uL (3.80-5.20); RED CELL DISTRIBUTION WIDTH 15.1 % (11.5-14.5); WHITE BLOOD COUNT 7.3 K/uL (4.8-10.8)
[2017-07-05 08:53] LABS: MEAN CELL VOLUME 84.4 fL (81.0-99.0)
[2017-07-05 08:54] LABS: ALB/GLOB RATIO 0.8 (1.0-2.1); ALT/SGPT 27 U/L (9-52); AST/SGOT 16 U/L (14-36); BLOOD UREA NITROGEN 10 mg/dL (7-17); CALCIUM 8.3 mg/dl (8.6-10.4); GFR AFRICAN-AMERICAN > 60; GFR NON-AFRICAN AMERICAN > 60
[2017-07-05] MEDS: Pantoprazole 40 mg EC Tab PO SCH ×2 (09:21→21:57)
--- NOTE | 2017-07-05 10:54 | PN ---
DATE: LOCATION: [facility], bed A. SUBJECTIVE: This is a 52-year-old female, seen early in rounds without significant clinical changes or reported active bleeding. Tolerating oral intake well with colostomy opening intact. No reported diarrhea this morning. No chest pain, palpitation or significant complaint of shortness of breath or chills or fever. The entire chart is reviewed including but not limited to most recent lab and radiology study results, current and the previous medication list, current and the previous medical events. Case discussed at length with the staff and the home planning consultant salesperson in the case. Today's labs showed normal white blood cells of 7.3, hemoglobin 9.9, hematocrit 25.0 with normal platelet count, but low sodium 131, increased blood glucose level 114 with low calcium 8.3 and low albumin 3.0. PHYSICAL EXAMINATION: GENERAL: A 52-year-old female. Awake, alert, oriented. VITAL SIGNS: Recently reported low-grade temperature of 99.4, pulse of 78, respiratory rate 20 to 22, blood pressure 128/82. HEENT: Showed mildly pale dry mucous membrane. Nonicteric sclerae. LUNGS: Few scattered crepitation. Decreased air entry at bases. HEART: Positive S1 and S2. ABDOMEN: Covered with clean dressing. Colostomy tube is in place and intact. Bowel sounds are present with slight abdominal distention. EXTREMITIES: Without significant clubbing, cyanosis or edema. NEUROLOGIC: No reported new neurological deficits, sensory or motor. No focal deficits newly reported. The patient still has intermittent complaint of headache associated with mild nausea. It has to be mentioned to the mentioned that the sacral area is covered with clean dressing without any discharge or bleeding. IMPRESSION: 1. Diverticulosis. 2. Acute diverticulitis with microperforation and abscess formation in the left side of the colon. 3. Status post Woody procedure with colostomy formation. 4. Recently reported septicemia, had been on antibiotics. 5. Known history of hypertension, peptic ulcer disease, morbid obesity. 6. Sacral abscess formation, treated surgically. 7. Vancomycin resistant Enterococcus infection, on antibiotics by ID home planning consultant salesperson. SUGGESTION: 1. Continue current management. 2. Guaiac all the stool daily x3. 3. Stool for C. diff. 4. Again, the patient would need colonoscopy before colostomy closure or reversal that to be discussed with the admitting medical staff. Andrew Koroma MD [facility] # [id number]
--- NOTE | 2017-07-05 23:47 | CP.PCM.PN ---
Subjective - Date & Time of Evaluation Date of Evaluation: 07/05/17 Time of Evaluation: 19:00 - Subjective Subjective: Pt seen and examined at bedside, pt has diverting colostomy, wounds are healing , less cough, less short of breath Objective - Vital Signs/Intake and Output Vital Signs (last 24 hours): Temp Pulse Resp BP Pulse Ox 98.4 F 73 20 129/78 98 07/05/17 15:49 07/05/17 15:49 07/05/17 15:49 07/05/17 15:49 07/05/17 15:49 Intake and Output: 07/05/17 07/06/17 18:59 06:59 Output Total 300 Balance -300 - Medications Medications: Current Medications Linezolid (Zyvox 600mg/300ml D5w) 600 mg in 300 mls @ 200 mls/hr IVPB Q12H [facility] Last Admin: 07/05/17 17:21 Dose: 200 mls/hr Aztreonam 2 gm/ Sodium (Chloride) 100 mls @ 200 mls/hr IVPB Q8H [facility] Last Admin: 07/05/17 21:57 Dose: 200 mls/hr Insulin Human Regular (Novolin R) 0 unit SC ACHS [facility] PRN Reason: Protocol Last Admin: 07/05/17 21:53 Dose: Not Given Labetalol HCl (Trandate) 200 mg PO BID [facility] Last Admin: 07/05/17 17:20 Dose: 200 mg Losartan Potassium (Cozaar) 50 mg PO DAILY [facility] Last Admin: 07/05/17 09:21 Dose: 50 mg Ondansetron HCl (Zofran Inj) 4 mg IVP Q6H PRN PRN Reason: Nausea/Vomiting Last Admin: 07/04/17 11:28 Dose: 4 mg Pantoprazole Sodium (Protonix Ec Tab) 40 mg PO Q12 [facility] Last Admin: 07/05/17 21:57 Dose: 40 mg - Labs Labs: 07/05/17 08:26 07/05/17 08:26 PT 15.6 SECONDS (9.7-12.2) H 06/08/17 12:33 INR 1.4 06/08/17 12:33 APTT 31 SECONDS (21-34) 06/08/17 12:33 Assessment and Plan (1) Morbid obesity Status: Acute (2) Pilonidal abscess Status: Acute (3) Hypertension Status: Acute (4) Sacral decubitus ulcer Status: Acute
[2017-07-06] MEDS: Aztreonam 2 GM in Sodium Chloride 0.9% 100 ML IVPB SCH ×3 (05:42→21:52)
[2017-07-06] MEDS: (Novolin R) Insulin Human Regular 100 units/ml vial SC SCH ×3 (07:15→16:52)
[2017-07-06] MEDS ORDERED: Oxycodone/Acetaminophen 5/325 mg Tab PO STA (07:57)
[2017-07-06 08:14] LABS: EOS # 0.1 K/uL (0.0-0.7); LYMPH # 1.2 K/uL (1.0-4.3)
[2017-07-06 08:22] VITALS: RESP 20
[2017-07-06 08:28] LABS: BASO # 0.1 K/uL (0.0-0.2); EOS % 1.9 % (0.0-4.0); HEMOGLOBIN 9.3 g/dL (11.0-16.0); LYMPH % 22.7 % (20.0-40.0); MEAN CELL VOLUME 85.2 fL (81.0-99.0); MEAN CORPUSCULAR HEMOGLOBIN 30.1 pg (27.0-31.0); MEAN CORPUSCULAR HGB CONC 35.3 g/dL (33.0-37.0); MONO # 0.8 K/uL (0.0-0.8); MONO % 15.4 % (0.0-10.0); NEUT # 3.2 K/uL (1.8-7.0); RBC 3.07 Mil/uL (3.80-5.20); WHITE BLOOD COUNT 5.5 K/uL (4.8-10.8)
[2017-07-06 09:01] LABS: ALB/GLOB RATIO 0.9 (1.0-2.1); ALT/SGPT 21 U/L (9-52); AST/SGOT 17 U/L (14-36); BLOOD UREA NITROGEN 9 mg/dL (7-17); CALCIUM 8.5 mg/dl (8.6-10.4); GFR AFRICAN-AMERICAN > 60; GFR NON-AFRICAN AMERICAN > 60
[2017-07-06] MEDS: Pantoprazole 40 mg EC Tab PO SCH ×2 (10:49→21:53)
--- NOTE | 2017-07-06 12:24 | CP.PCM.PN ---
Subjective - Date & Time of Evaluation Date of Evaluation: 07/06/17 Time of Evaluation: 20:50 - Subjective Subjective: Pt seen and evaluated at bedside, pt has diverting colostomy, wounds are healing , less cough, less short of breath Objective - Vital Signs/Intake and Output Vital Signs (last 24 hours): Temp Pulse Resp BP Pulse Ox 98.4 F 87 20 129/84 95 07/06/17 07:45 07/06/17 10:54 07/06/17 07:45 07/06/17 10:54 07/06/17 07:45 - Medications Medications: Current Medications Linezolid (Zyvox 600mg/300ml D5w) 600 mg in 300 mls @ 200 mls/hr IVPB Q12H [facility] Last Admin: 07/05/17 17:21 Dose: 200 mls/hr Aztreonam 2 gm/ Sodium (Chloride) 100 mls @ 200 mls/hr IVPB Q8H [facility] Last Admin: 07/06/17 05:42 Dose: 200 mls/hr Insulin Human Regular (Novolin R) 0 unit SC ACHS [facility] PRN Reason: Protocol Last Admin: 07/06/17 07:15 Dose: Not Given Labetalol HCl (Trandate) 200 mg PO BID [facility] Last Admin: 07/06/17 10:49 Dose: 200 mg Losartan Potassium (Cozaar) 50 mg PO DAILY [facility] Last Admin: 07/06/17 10:49 Dose: 50 mg Ondansetron HCl (Zofran Inj) 4 mg IVP Q6H PRN PRN Reason: Nausea/Vomiting Last Admin: 07/04/17 11:28 Dose: 4 mg Oxycodone/Acetaminophen (Percocet 5/325 Mg Tab) 2 tab PO Q4H PRN PRN Reason: Pain, moderate (4-7) Stop: 07/09/17 08:19 Pantoprazole Sodium (Protonix Ec Tab) 40 mg PO Q12 [facility] Last Admin: 07/06/17 10:49 Dose: 40 mg - Labs Labs: 07/06/17 08:09 07/06/17 08:09 PT 15.6 SECONDS (9.7-12.2) H 06/08/17 12:33 INR 1.4 06/08/17 12:33 APTT 31 SECONDS (21-34) 06/08/17 12:33 - Constitutional Appears: No Acute Distress - Head Exam Head Exam: ATRAUMATIC, NORMAL INSPECTION, NORMOCEPHALIC - Eye Exam Eye Exam: EOMI, Normal appearance, PERRL Pupil Exam: NORMAL ACCOMODATION, PERRL - Respiratory Exam Respiratory Exam: Decreased Breath Sounds, Rhonchi - Cardiovascular Exam Cardiovascular Exam: REGULAR RHYTHM, +S1, +S2, Murmur - GI/Abdominal Exam GI & Abdominal Exam: Soft, Normal Bowel Sounds. absent: Tenderness Assessment and Plan (1) Morbid obesity Status: Acute (2) Pilonidal abscess Status: Acute (3) Hypertension Status: Acute (4) Sacral decubitus ulcer Assessment & Plan: diverting colostomy care Status: Acute
[2017-07-06] MEDS: Potassium Chloride 20 mEq ER Tab PO SCH ×2 (14:02→17:11)
--- NOTE | 2017-07-06 15:55 | PN ---
DATE: LOCATION: [facility], bed A. SUBJECTIVE: This is a 52-year-old female seen and examined in rounds without reported significant change and no reported active bleeding with less abdominal pain and less sacral area pain, was tolerating somewhat oral intake well, mild dyspepsia and nausea. The entire chart is reviewed including, but not limited to the most recent lab and radiology study results, current and the previous medication list, current and the previous medical events. Case was discussed with the staff at length. LABORATORY DATA: Hemoglobin is 9.3, hematocrit 26.2 with thrombocytopenia of 403 with low sodium 131, low potassium 3.4, mildly increased blood glucose level 107 with calcium 8.5 with low albumin 3.0. PHYSICAL EXAMINATION: GENERAL: A 52-year-old female, appears to be awake, alert, oriented. VITAL SIGNS: Afebrile with pulse of 84, respiratory rate 20 to 22, blood pressure of 136/82. HEENT: Showed mildly pale dry oral mucous membrane, nonicteric sclerae. LUNGS: Few scattered crepitation. Decreased air entry at bases. HEART: Positive S1 and S2. ABDOMEN: Soft with mild distention, mildly obese, covered with clean dressing. Colostomy opening is in place without evidence of bleeding, but small amount of semi-liquid, semi-solid fecal material. Bowel sounds are present. Sacral area is covered with clean dressing. EXTREMITIES: Lower extremities edematous changes. No clubbing or cyanosis. NEUROLOGIC: No new reported neurological deficits, sensory or motor. IMPRESSION: 1. Diverticulosis, acute diverticulitis, micro-perforation, micro-abscess on the left side of the colon, treated surgically with Woody procedure. 2. Colostomy formation appeared to be intact, covered with clean dressing. 3. Peptic ulcer disease. 4. Anemia, most likely secondary to above. 5. Recently reported septicemia, on antibiotic. 6. Known history of, but not limited to morbid obesity, hypertension, peptic ulcer disease. 7. Sacral abscess formation, treated surgically. 8. resistant Enterococcus infection, on antibiotic. SUGGESTIONS: 1. Continue current management. 2. Physical therapy. 3. Repeat blood culture. 4. Patient may need endoscopic evaluation of the GI tract due to her Enterococcus infection only, which is more stable clinically and that to be discussed again with the admitting MD. Andrew Koroma MD [facility] # [id number]
[2017-07-06] MEDS ORDERED: Nitroglycerin 2% Ointment Foilpak UD TOP ONE (16:04)
[2017-07-06] MEDS: Oxycodone/Acetaminophen 5/325 mg Tab PO PRN ×2 (16:15→21:53)
[2017-07-06] MEDS: Linezolid 600 mg in D5W 300 ml 600 MG/300 ML BAG IVPB SCH (17:11)
[2017-07-07] MEDS: Aztreonam 2 GM in Sodium Chloride 0.9% 100 ML IVPB SCH ×2 (05:01→13:55)
[2017-07-07] MEDS: Linezolid 600 mg in D5W 300 ml 600 MG/300 ML BAG IVPB SCH (05:02)
[2017-07-07] MEDS: (Novolin R) Insulin Human Regular 100 units/ml vial SC SCH ×3 (08:03→17:34)
[2017-07-07] MEDS: Pantoprazole 40 mg EC Tab PO SCH (10:32)
[2017-07-07] MEDS: Oxycodone/Acetaminophen 5/325 mg Tab PO PRN ×2 (10:33→17:32)
--- NOTE | 2017-07-07 15:52 | CP.PCM.PN ---
Subjective - Date & Time of Evaluation Date of Evaluation: 07/07/17 Time of Evaluation: 15:52 - Subjective Subjective: PATIENT WAS ADMITTED FOR SACRAL MASS AND ABDOMINAL PAIN; SIT AT THE BEDSIDE WITH FAMILY MEMBER; COMPLAINING OF DISCOMFORT; DENIES CHEST PAIN; SOB OR ABDOMINAL PAIN DENIES NAUSEA OR VOMITING NO SIGN OF DISTRESS NOTED AT THIS TIME Objective - Vital Signs/Intake and Output Vital Signs (last 24 hours): Temp Pulse Resp BP Pulse Ox 98.6 F 91 H 20 137/86 95 07/07/17 07:00 07/07/17 10:31 07/07/17 07:00 07/07/17 10:31 07/07/17 07:00 Intake and Output: 07/07/17 07/07/17 06:59 18:59 Intake Total 580 Balance 580 - Medications Medications: Current Medications Linezolid (Zyvox 600mg/300ml D5w) 600 mg in 300 mls @ 200 mls/hr IVPB Q12H [facility] Last Admin: 07/07/17 05:02 Dose: 200 mls/hr Aztreonam 2 gm/ Sodium (Chloride) 100 mls @ 200 mls/hr IVPB Q8H [facility] Last Admin: 07/07/17 13:55 Dose: 200 mls/hr Insulin Human Regular (Novolin R) 0 unit SC ACHS [facility] PRN Reason: Protocol Last Admin: 07/07/17 12:22 Dose: Not Given Labetalol HCl (Trandate) 200 mg PO BID [facility] Last Admin: 07/07/17 10:33 Dose: 200 mg Ondansetron HCl (Zofran Inj) 4 mg IVP Q6H PRN PRN Reason: Nausea/Vomiting Last Admin: 07/04/17 11:28 Dose: 4 mg Oxycodone/Acetaminophen (Percocet 5/325 Mg Tab) 2 tab PO Q4H PRN PRN Reason: Pain, moderate (4-7) Stop: 07/09/17 08:19 Last Admin: 07/07/17 10:33 Dose: 2 tab Pantoprazole Sodium (Protonix Ec Tab) 40 mg PO Q12 [facility] Last Admin: 07/07/17 10:32 Dose: 40 mg - Labs Labs: 07/06/17 08:09 07/06/17 08:09 PT 15.6 SECONDS (9.7-12.2) H 06/08/17 12:33 INR 1.4 06/08/17 12:33 APTT 31 SECONDS (21-34) 06/08/17 12:33 Assessment and Plan - Assessment and Plan (Free Text) Assessment: PATIENT IS SEEN AND EXAMINED BY SERVICE ENGINE REPAIRER AFEBRILE; WBC IS 5.5 AND PATIENT ABDOMINAL WOUND IS CLEAN; JOANN IN PLACE AND SIGN OF DISCHARGE OR FOUL SMELL NOTED DISCUSS DR BADILLO AND DR RODRIGUEZ WHO CLEAR PATIENT FOR DC DISCUSS WITH DR FERNÁNDEZ WHO AGREE WITH THE FINDINGS PLACE UNDER DR ORTIZ AT THE [facility]---CALL DR FERNÁNDEZ FOR ADMITTED ORDER CONTINUE ALL YOUR HOME MEDICATION DIRECTED PER ID DR BADILLO DISCONTINUE CONTACT PRECAUTION PATIENT COMPLETE 15 DAYS OF ABX FOLLOW UP WITH DR RODRIGUEZ 2 WEEK AT HIS OFFICE ---CALL FOR APPOINTMENT ADDRESS ABOUT YOUR ABDOMINAL INCISION; POSSIBLE JOANN REMOVAL WOUND CARE PER FACILITY AND DR FERNÁNDEZ PROTOCOL COLOSTOMY CARE PER DR FERNÁNDEZ AND FACILITY PROTOCOL CALL DR FERNÁNDEZ FOR FURTHER ORDERS DISCUSS WITH PATIENT WHO AGREE AND VERBALIZED UNDERSTANDING
[2017-07-07 16:02] VITALS: BP 146/84; PULSE 67; TEMP 98.7; O2SAT 98
--- NOTE | 2017-07-07 22:32 | CP.PCM.DIS ---
Provider - Provider Date of Admission: 06/08/17 13:09 Attending physician: Andrey Sparrow MD Diagnosis - Discharge Diagnosis (1) Morbid obesity Status: Acute (2) Pilonidal abscess Status: Acute (3) Hypertension Status: Acute (4) Sacral decubitus ulcer Status: Acute Hospital Course - Lab Results Lab Results: Micro Results 06/16/17 10:24 Abscess - Diverticulum Gram Stain - Final 06/16/17 10:24 Abscess - Diverticulum Wound Culture - Final Escherichia Coli Vancomycin Resistant E.faecium 06/16/17 Unknown Naris MRSA Culture (Admit) - Final MRSA NOT DETECTED 06/10/17 16:08 Sacral Gram Stain - Final 06/10/17 16:08 Sacral Wound Culture - Final No growth. 06/08/17 18:15 Blood-Venous Blood Culture - Final NO GROWTH AFTER 5 DAYS 06/08/17 18:15 Blood-Venous Gram Stain - Final TEST NOT PERFORMED 06/08/17 14:34 Sacral Gram Stain - Final 06/08/17 14:34 Sacral Wound Culture - Final Coagulase Neg Staphylococcus 06/08/17 22:44 Urine Urine Culture - Final Gram Negative Isaac Most Recent Lab Values WBC 5.5 K/uL (4.8-10.8) 07/06/17 08:09 RBC 3.07 Mil/uL (3.80-5.20) L 07/06/17 08:09 Hgb 9.3 g/dL (11.0-16.0) L 07/06/17 08:09 Hct 26.2 % (34.0-47.0) L 07/06/17 08:09 MCV 85.2 fL (81.0-99.0) 07/06/17 08:09 MCH 30.1 pg (27.0-31.0) 07/06/17 08:09 MCHC 35.3 g/dL (33.0-37.0) 07/06/17 08:09 RDW 15.0 % (11.5-14.5) H 07/06/17 08:09 Plt Count 403 K/uL (130-400) H 07/06/17 08:09 MPV 8.0 fL (7.2-11.7) 07/06/17 08:09 Neut % (Auto) 59.0 % (50.0-75.0) 07/06/17 08:09 Lymph % (Auto) 22.7 % (20.0-40.0) 07/06/17 08:09 Preble % (Auto) 15.4 % (0.0-10.0) H 07/06/17 08:09 Eos % (Auto) 1.9 % (0.0-4.0) 07/06/17 08:09 Baso % (Auto) 1.0 % (0.0-2.0) 07/06/17 08:09 Neut # (Auto) 3.2 K/uL (1.8-7.0) 07/06/17 08:09 Lymph # (Auto) 1.2 K/uL (1.0-4.3) 07/06/17 08:09 Preble # (Auto) 0.8 K/uL (0.0-0.8) 07/06/17 08:09 Eos # (Auto) 0.1 K/uL (0.0-0.7) 07/06/17 08:09 Baso # (Auto) 0.1 K/uL (0.0-0.2) 07/06/17 08:09 Neutrophils % (Manual) 91 % (50-75) H 06/18/17 06:29 Band Neutrophils % 1 % (0-2) 06/17/17 06:11 Lymphocytes % (Manual) 7 % (20-40) L 06/18/17 06:29 Reactive Lymphs % 1 % (0-0) H 06/11/17 07:13 Monocytes % (Manual) 2 % (0-10) 06/18/17 06:29 Toxic Granulation Present 06/18/17 06:29 Platelet Estimate Increased (NORMAL) H 06/18/17 06:29 Large Platelets Present 06/18/17 06:29 Polychromasia Slight 06/18/17 06:29 Hypochromasia (manual) Slight 06/18/17 06:29 Anisocytosis (manual) Slight 06/18/17 06:29 Microcytosis (manual) Slight 06/11/17 07:13 Spherocytes Slight 06/11/17 07:13 Target Cells Moderate 06/17/17 06:11 Ovalocytes Slight 06/11/17 07:13 PT 15.6 SECONDS (9.7-12.2) H 06/08/17 12:33 INR 1.4 06/08/17 12:33 APTT 31 SECONDS (21-34) 06/08/17 12:33 Sodium 131 mmol/L (132-148) L 07/06/17 08:09 Potassium 3.4 mmol/L (3.6-5.2) L 07/06/17 08:09 Chloride 97 mmol/L (98-107) L 07/06/17 08:09 Carbon Dioxide 26 mmol/L (22-30) 07/06/17 08:09 Anion Gap 11 (10-20) 07/06/17 08:09 BUN 9 mg/dL (7-17) 07/06/17 08:09 Creatinine 0.6 mg/dL (0.7-1.2) L 07/06/17 08:09 Est GFR ( Amer) > 60 07/06/17 08:09 Est GFR (Non-Af Amer) > 60 07/06/17 08:09 POC Glucose (mg/dL) 110 mg/dL (65-110) 07/07/17 16:24 Random Glucose 107 mg/dL (65-105) H 07/06/17 08:09 Lactic Acid 0.8 mmol/L (0.7-2.1) 06/18/17 09:52 Calcium 8.5 mg/dl (8.6-10.4) L 07/06/17 08:09 Phosphorus 3.6 mg/dL (2.5-4.5) 06/25/17 06:39 Magnesium 1.7 mg/dL (1.6-2.3) 06/25/17 06:39 Total Bilirubin 0.5 mg/dL (0.2-1.3) 07/06/17 08:09 AST 17 U/L (14-36) 07/06/17 08:09 ALT 21 U/L (9-52) 07/06/17 08:09 Alkaline Phosphatase 72 U/L (38-126) 07/06/17 08:09 Total Protein 6.4 g/dL (6.3-8.3) 07/06/17 08:09 Albumin 3.0 g/dL (3.5-5.0) L 07/06/17 08:09 Globulin 3.4 gm/dL (2.2-3.9) 07/06/17 08:09 Albumin/Globulin Ratio 0.9 (1.0-2.1) L 07/06/17 08:09 Amylase 53 U/L (30-110) 06/30/17 05:22 Lipase 163 U/L (23-300) 06/30/17 05:22 Carcinoembryonic Ag < 0.3 ng/mL (0-3.0) 06/15/17 14:27 CA 125 Antigen 18.2 U/mL (0-35) 06/15/17 14:27 Urine Color Nallely (YELLOW) 06/08/17 12:33 Urine Clarity Clear (Clear) 06/08/17 12:33 Urine pH 7.0 (5.0-8.0) 06/08/17 12:33 Ur Specific Garner 1.014 (1.003-1.030) 06/08/17 12:33 Urine Protein 1+ mg/dL (NEGATIVE) H 06/08/17 12:33 Urine Glucose (UA) Normal mg/dL (Normal) 06/08/17 12:33 Urine Ketones Trace mg/dL (NEGATIVE) 06/08/17 12:33 Urine Blood 1+ (NEGATIVE) H 06/08/17 12:33 Urine Nitrate Negative (NEGATIVE) 06/08/17 12:33 Urine Bilirubin Negative (NEGATIVE) 06/08/17 12:33 Urine Urobilinogen 4.0 mg/dL (0.2-1.0) H 06/08/17 12:33 Ur Leukocyte Esterase Trace Annie/uL (Negative) 06/08/17 12:33 Urine WBC (Auto) 3 /hpf (0-5) 06/08/17 12:33 Urine RBC (Auto) 1 /hpf (0-3) 06/08/17 12:33 Ur Squamous Epith Cells 7 /hpf (0-5) H 06/08/17 12:33 Urine Bacteria Rare (<OCC) 06/08/17 12:33 Urine HCG, Qual Negative (NEGATIVE) 06/10/17 12:31 Vancomycin Trough < 5.0 ug/mL (5.0-10.0) L 06/19/17 05:59 Blood Type A POSITIVE 06/16/17 14:07 Antibody Screen Negative 06/16/17 14:07 - Hospital Course Hospital Course: PATIENT IS SEEN AND EXAMINED BY ME AFEBRILE; WBC IS 5.5 AND PATIENT ABDOMINAL WOUND IS CLEAN; JOANN IN PLACE AND SIGN OF DISCHARGE OR FOUL SMELL NOTED DISCUSS DR BUSTILLOS AND DR RODRIGUEZ WHO CLEAR PATIENT FOR DC I AGREE WITH THE FINDINGS PT IS BEING DISCHARGED TO [facility]---ILL FOLLOW THE PT THERE CONTINUE ALL YOUR HOME MEDICATION DIRECTED PER ID DR BUSTILLOS DISCONTINUE CONTACT PRECAUTION PATIENT COMPLETE 15 DAYS OF ABX FOLLOW UP WITH DR RODRIGUEZ 2 WEEK AT HIS OFFICE ---CALL FOR APPOINTMENT ADDRESS ABOUT YOUR ABDOMINAL INCISION; POSSIBLE JOANN REMOVAL WOUND CARE PER FACILITY AND PROTOCOL COLOSTOMY CARE PER FACILITY PROTOCOL DISCUSS WITH PATIENT WHO AGREE AND VERBALIZED UNDERSTANDING Discharge Exam - Head Exam Head Exam: ATRAUMATIC, NORMAL INSPECTION, NORMOCEPHALIC Discharge Plan - Follow Up Plan Condition: FAIR Disposition: TRANSF TO SNF Instructions: Diverticulitis (DC), Vancomycin Resistant Enterococcus Infection (DC), Sepsis (DC), Acute Abdominal Pain (DC), Obesity (DC), Abscess (GEN), Diverticulitis Diet (GEN) Additional Instructions: PLACE UNDER DR ORTIZ AT THE [facility]---CALL DR BATISTA FOR ADMITTED ORDER CONTINUE ALL YOUR HOME MEDICATION DIRECTED PER ID DR BUSTILLOS DISCONTINUE CONTACT PRECAUTION PATIENT COMPLETE 15 DAYS OF ABX FOLLOW UP WITH DR RODRIGUEZ 2 WEEK AT HIS OFFICE ---CALL FOR APPOINTMENT ADDRESS ABOUT YOUR ABDOMINAL INCISION; POSSIBLE JOANN REMOVAL WOUND CARE PER FACILITY AND DR BATISTA PROTOCOL COLOSTOMY CARE PER DR BATISTA AND FACILITY PROTOCOL CALL DR BATISTA FOR FURTHER ORDERS Referrals: Andrew Bansal [Staff Provider] - Keven Batista MD [Staff Provider] - Bao Bustillos MD [Staff Provider] - Andrey Sparrow MD [Staff Provider] -
--- NOTE | 2017-07-08 02:02 | PN ---
DATE: 07/07/2017 LOCATION: 560, bed A. SUBJECTIVE: This is a 51-year-old female, seen and examined in rounds without reported active bleeding, with reported low-grade temperature before, but no nausea or vomiting, somewhat tolerating oral intake well. Colostomy opening appeared to be intact. No chest pain, no palpitation or significant shortness of breath reported with less abdominal pain and less sacral area pain. The entire chart is reviewed including, but not limited to most recent lab and radiology study results, current and the previous medication list, current and the previous medical events. Today's lab show blood glucose level of 103; however, the patient is still having low albumin, low calcium with reported low hemoglobin and hematocrit before, but thrombocytosis of 403. PHYSICAL EXAMINATION: GENERAL: The patient is a 51-year-old female, awake, alert, and oriented. VITAL SIGNS: Afebrile at the time she was seen by me with pulse of 56, respiratory rate 20 to 22 with blood pressure of 134/84. HEENT: Mildly pale dry oral mucous membrane, nonicteric sclerae. LUNGS: Few scattered crepitation. Decreased air entry at bases. HEART: Positive S1 and S2. ABDOMEN: With slight distention, mildly obese. Colostomy tube is in place, intact and cleaned and covered with clean dressing. Bowel sounds are present. No other mass or organomegaly. EXTREMITIES: With right lower extremities edematous changes. No clubbing or cyanosis. NEUROLOGY: No reported new neurological deficits, sensory or motor. No reported new focal deficits. Peripheral pulses are present bilaterally. IMPRESSION: 1. Diverticulosis, acute diverticulitis, micro-perforation with abscess formation of the left side of the colon, treated surgically with Woody procedure. 2. Sacral abscess formation, treated surgically. 3. Peptic ulcer disease. 4. Anemia. 5. Recently reported septicemia secondary to above, most likely. 6. Known history of hypertension and morbid obesity. 7. Recently reported vancomycin resistant Enterococcus infection, still on antibiotics. SUGGESTION: 1. Continue current management. 2. Antireflux measure. 3. Again, the patient will need endoscopic evaluation of the GI tract when she is more stable clinically; otherwise, close observation to follow. Andrew Koroma MD
== END 2017-07-07 19:45 | DRG 856 ==
LOC: C.ER 11:16 → C.9E 13:09 → C.3T 18:28 → C.9I 06-16 16:33 → C.3T 06-16 17:34 → C.9I 06-16 19:32 → C.5S 06-28 07:39
PROVIDERS: ADMIT Surgery; ATTEND Surgery
PROC: 0J970ZX Drainage of Back Subcutaneous Tissue and Fascia, Open Approach, Diagnostic (ICD-10-PCS; 2017-06-08)
PROC: 0JB70ZZ Excision of Back Subcutaneous Tissue and Fascia, Open Approach (ICD-10-PCS; principal; 2017-06-08 13:45)
PROC: 0J970ZZ Drainage of Back Subcutaneous Tissue and Fascia, Open Approach (ICD-10-PCS; 2017-06-09)
PROC: 0JQ70ZZ Repair Back Subcutaneous Tissue and Fascia, Open Approach (ICD-10-PCS; 2017-06-09)
PROC: 0JD73ZZ Extraction of Back Subcutaneous Tissue and Fascia, Percutaneous Approach (ICD-10-PCS; 2017-06-09)
PROC: 0JQ70ZZ Repair Back Subcutaneous Tissue and Fascia, Open Approach (ICD-10-PCS; 2017-06-10)
PROC: 0JD73ZZ Extraction of Back Subcutaneous Tissue and Fascia, Percutaneous Approach (ICD-10-PCS; 2017-06-10)
PROC: 0D1M0Z4 Bypass Descending Colon to Cutaneous, Open Approach (ICD-10-PCS; 2017-06-16)
PROC: 0DTN0ZZ Resection of Sigmoid Colon, Open Approach (ICD-10-PCS; 2017-06-16)
DX: T81.4XXA Infection following a procedure, initial encounter (principal); L02.212 Cutaneous abscess of back [any part, except buttock and flank]; K57.20 Diverticulitis of large intestine with perforation and abscess without bleeding; L89.159 Pressure ulcer of sacral region, unspecified stage; A41.9 Sepsis, unspecified organism; E87.3 Alkalosis; L05.01 Pilonidal cyst with abscess; K61.0 Anal abscess; E66.01 Morbid (severe) obesity due to excess calories; Z16.21 Resistance to vancomycin; K27.9 Peptic ulcer, site unspecified, unspecified as acute or chronic, without hemorrhage or perforation; I10 Essential (primary) hypertension; D64.9 Anemia, unspecified; B95.2 Enterococcus as the cause of diseases classified elsewhere; B95.7 Other staphylococcus as the cause of diseases classified elsewhere; Z68.41 Body mass index [BMI] 40.0-44.9, adult; Z98.84 Bariatric surgery status; Z90.710 Acquired absence of both cervix and uterus

== ENCOUNTER 2017-07-11 20:52 | Inpatient (IN) | payer OTHER ==
[2017-07-11 20:52] VITALS: BMI 42.2
[2017-07-11] MEDS ORDERED: Sodium Chloride 0.9% 1,000 ML IV ONE (21:10)
[2017-07-11 21:51] LABS: BASO # 0.1 K/uL (0.0-0.2); HEMOGLOBIN 9.8 g/dL (11.0-16.0); RED CELL DISTRIBUTION WIDTH 15.6 % (11.5-14.5); WHITE BLOOD COUNT 14.5 K/uL (4.8-10.8)
[2017-07-11 21:56] LABS: BASO % 0.5 % (0.0-2.0); EOS % 0.2 % (0.0-4.0); LYMPH # 1.5 K/uL (1.0-4.3); LYMPH % 10.3 % (20.0-40.0); MEAN CELL VOLUME 84.1 fL (81.0-99.0); MEAN CORPUSCULAR HEMOGLOBIN 29.3 pg (27.0-31.0); MEAN CORPUSCULAR HGB CONC 34.8 g/dL (33.0-37.0); MEAN PLATELET VOLUME 7.8 fL (7.2-11.7); MONO # 1.5 K/uL (0.0-0.8); MONO % 10.1 % (0.0-10.0); NEUT # 11.5 K/uL (1.8-7.0); NEUT % 78.9 % (50.0-75.0); RBC 3.36 Mil/uL (3.80-5.20)
[2017-07-11 22:07] LABS: ALB/GLOB RATIO 0.8 (1.0-2.1); ALBUMIN 3.5 g/dL (3.5-5.0); ALT/SGPT 45 U/L (9-52); AST/SGOT 50 U/L (14-36); BLOOD UREA NITROGEN 16 mg/dL (7-17); GFR AFRICAN-AMERICAN > 60; GFR NON-AFRICAN AMERICAN > 60; LIPASE 79 U/L (23-300)
[2017-07-11 23:03] LABS: SQUAMOUS EPITHIAL 7 /hpf (0-5); URINE BACTERIA OCC (<OCC); URINE BILIRUBIN NEGATIVE (NEGATIVE); URINE BLOOD 1+ (NEGATIVE); URINE CLARITY Hazy (Clear); URINE COLOR Amber (YELLOW); URINE GLUCOSE (UA) NORMAL (Normal); URINE HYALINE CAST 0-2 /lpf (0-2); URINE LEUKOCYTE ESTERASE TRACE Leu/uL (Negative); URINE NITRATE NEGATIVE (NEGATIVE); URINE PROTEIN 2+ mg/dL (NEGATIVE)
[2017-07-11] MEDS ORDERED: Morphine 4 MG/ML VIAL ONE (23:36)
[2017-07-11] MEDS ORDERED: Sodium Chloride 0.9% 1,000 ML ONE (23:36)
--- NOTE | 2017-07-11 23:48 | C.PDOC ---
History Of Present Illness 52 year old female send from halfway for a complaint of fever and severe pain to the lower quadrants. Denies chest pain, SOB, nausea, or vomiting. Chief Complaint (Nursing): Fever History Per: Patient History/Exam Limitations: no limitations Onset/Duration Of Symptoms: Days Current Symptoms Are (Timing): Still Present Location Of Pain: None Sick Contacts (Context): None Associated Symptoms: Fever, Other (Abdominal pain). denies: Nausea, Vomiting Ear Symptoms: Bilateral: None Recent travel outside of the [place]: No Past Medical History Reviewed: Historical Data, Nursing Documentation, Vital Signs Vital Signs: Last Vital Signs Temp 101.9 F H 07/12/17 02:48 Pulse 103 H 07/12/17 02:45 Resp 20 07/12/17 02:45 BP 156/83 H 07/12/17 02:45 Pulse Ox 98 07/12/17 04:13 - Medical History PMH: Arthritis, Diverticulitis, HTN - [facility] Procedures BYPASS DESCENDING COLON TO CUTANEOUS, OPEN APPROACH (06/08/17) DRAINAGE OF BACK SUBCU/FASCIA, OPEN APPROACH (06/08/17) DRAINAGE OF BACK SUBCU/FASCIA, OPEN APPROACH, DIAGN (06/08/17) EXCISION OF BACK SUBCU/FASCIA, OPEN APPROACH (06/08/17) EXCISION OF BUTTOCK SKIN, EXTERNAL APPROACH (09/27/16) EXTRACTION OF BACK SUBCU/FASCIA, PERC APPROACH (06/08/17) REPAIR BACK SUBCUTANEOUS TISSUE AND FASCIA, OPEN APPROACH (06/08/17) RESECTION OF SIGMOID COLON, OPEN APPROACH (06/08/17) TRANSFER BACK SKIN, EXTERNAL APPROACH (09/27/16) Family History: States: Unknown Family Hx - Social History Hx Tobacco Use: No Hx Alcohol Use: No Hx Substance Use: No - Immunization History Hx Tetanus Toxoid Vaccination: No Hx Influenza Vaccination: Yes Hx Pneumococcal Vaccination: No Review Of Systems Constitutional: Positive for: Fever Respiratory: Positive for: Shortness of Breath Gastrointestinal: Positive for: Abdominal Pain. Negative for: Nausea, Vomiting Physical Exam - Physical Exam Appears: Other (Severe distress from pain, Alert, Conscious) Skin: Warm, Dry Head: Atraumatic, Normacephalic Eye(s): bilateral: Normal Inspection Oral Mucosa: Moist Chest: Symmetrical, No Tenderness Cardiovascular: Rhythm Regular Respiratory: Normal Breath Sounds, No Rales, No Rhonchi, No Wheezing Gastrointestinal/Abdominal: Soft, Tenderness (LLQ), No Guarding, No Rebound, Other (Colostomy to right upper side with skip, swelling and tenderness around the area.) Neurological/Psych: Oriented x3, Normal Speech ED Course And Treatment - Laboratory Results Result Diagrams: 07/11/17 21:48 07/11/17 21:48 O2 Sat by Pulse Oximetry: 98 (Room air) Pulse Ox Interpretation: Normal Progress Note: CT abd/pel, blood work, CXR, and urinalysis ordered. Morphine, zofran, and IV fluids administered. Disposition Discussed With : Keven Batista Doctor Will See Patient In The: Hospital Counseled Patient/Family Regarding: Diagnosis - Disposition Disposition: HOSPITALIZED Disposition Time: 04:11 Condition: STABLE Forms: [facility] (Welsh) - POA Present On Arrival: None - Clinical Impression Clinical Impression: Fever, Abscess of multiple sites, Perforation bowel, Abdominal pain, UTI ( lower urinary tract infection) - Scribe Statement The provider has reviewed the documentation as recorded by the Scribnoel Llamas All medical record entries made by the Scribnoel were at my direction and personally dictated by me. I have reviewed the chart and agree that the record accurately reflects my personal performance of the history, physical exam, medical decision making, and the department course for this patient. I have also personally directed, reviewed, and agree with the discharge instructions and disposition.
[2017-07-11 23:49] LABS: INR 1.7; PROTHROMBIN TIME 18.9 SECONDS (9.7-12.2)
[2017-07-12] MEDS ORDERED: Iohexol 240 (50 ml) ONE (00:27)
[2017-07-12] MEDS ORDERED: Iodixanol 320 MG/ML 100 ML BOTTLE IV ONE (02:05)
--- NOTE | 2017-07-12 03:44 | CT ---
EXAM: CT Abdomen and Pelvis With Intravenous Contrast EXAM DATE/TIME: 07/11/2017 9:10 PM CLINICAL HISTORY: 52 years old, female; Pain; Abdominal pain; Prior surgery; Surgery type: Perforation and sepsis abd surgery, colostomy; Patient HX: 06-14-17; Additional info: Abd pain TECHNIQUE: Axial computed tomography images of the abdomen and pelvis with intravenous contrast. All CT scans at this facility use one or more dose reduction techniques, viz.: automated exposure control; ma/kV adjustment per patient size (including targeted exams where dose is matched to indication; i.e. head); or iterative reconstruction technique. Coronal and sagittal reformatted images were created and reviewed. CONTRAST: 100 mL of [id number] administered intravenously. COMPARISON: Prior CT abdomen and pelvis of 2017-06-14 FINDINGS: LOWER THORAX: Again seen is a 2.6 cm ovoid lesion in the right breast, which contains multiple calcifications. 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 Recommend further evaluation with mammography and/or breast ultrasound, unless otherwise clinically indicated. Gastroesophageal reflux. Mild dilatation of the distal esophagus. Mild cardiomegaly. ABDOMEN: LIVER: Fatty infiltration of the liver. GALLBLADDER AND BILE DUCTS: Cholecystectomy clips. PANCREAS: No CT evidence of acute pancreatitis. SPLEEN: No acute abnormality of the spleen identified. ADRENALS: No acute abnormality of the adrenal glands identified. KIDNEYS AND URETERS: Low density lesion in the left kidney, most likely a cyst. This measures 1.2 cm. STOMACH AND BOWEL: Post operative changes, and likely related to a recent colostomy. There is a sigmoid colostomy in the left anterior pelvic wall, and a rectal pouch in the posterior pelvis, which is oversewn. The colon is filled with fluid and fecal material, and is normal to top normal in caliber, without evidence of a transition point. Post operative changes involving the stomach, most likely secondary to prior gastric sleeve surgery. No evidence of small bowel obstruction. APPENDIX: Normal appendix is not seen, however, there are no significant inflammatory changes visualized in the expected location of the appendix to suggest appendicitis. Recommend clinical correlation. PELVIS: BLADDER: No acute abnormality of the bladder identified. REPRODUCTIVE: Patient appears to be post partial hysterectomy. ABDOMEN and PELVIS: INTRAPERITONEAL SPACE: Free intraperitoneal air, moderate in amount. This is most likely a combination of residual postoperative air and air secondary to the suspected colonic perforation. Previously seen left pelvic abscess, in the left adnexal region, abutting the sigmoid colon, is significantly decreased in size. There is a suspected small residual fluid collection seen, measuring 3.7 cm, with adjacent inflammation. No associated gas. BONES/JOINTS: No acute fractures or other acute bony abnormality noted. SOFT TISSUES: Multiple fluid collections of varying sizes, and containing fluid, debris and air, are seen in the left anterior pelvic wall soft tissues, at the ostomy site, abutting the exiting left colon and. These are suspicious for multiple abscesses. The largest collection seen measures 9 x 2 cm, image 51/series 604. Findings are suspicious for a focal perforation of the colon at the ostomy site. There is extensive stranding of the adjacent subcutaneous fat, suspicious for inflammation, and there is edema of the nearby left anterior pelvic wall musculature. Significant amount of air and some fluid seen the left anterior abdominal and pelvic wall soft tissues, most likely a combination of air secondary to the suspected colonic perforation and residual postoperative air. Midline skin skip are noted. VASCULATURE: No evidence of abdominal aortic aneurysm. No evidence of periaortic hemorrhage. LYMPH NODES: No evidence of diffuse lymphadenopathy. IMPRESSION: - MULTIPLE FLUID COLLECTIONS, HIGHLY SUSPICIOUS FOR ABSCESSES, IN THE LEFT ANTERIOR PELVIC WALL SOFT TISSUES, AT THE OSTOMY SITE, SURROUNDING THE EXITING LEFT COLON. FINDINGS ARE SUSPICIOUS FOR A FOCAL COLONIC PERFORATION, AT THE OSTOMY SITE. - Free intraperitoneal air. - Extensive air in the left anterior pelvic wall soft tissues. - Incidental right breast lesion. See recommendations above. - See above for remaining findings.
[2017-07-12] MEDS ORDERED: Ciprofloxacin 400mg/200ml D5W 400 MG/200 ML BAG IVPB STA (03:59)
[2017-07-12] MEDS ORDERED: metroNIDAZOLE IV 500 mg/100 ml 500 MG/100 ML BAG IVPB SCH (04:00)
[2017-07-12] MEDS ORDERED: Oxycodone/Acetaminophen 5/325 mg Tab PO PRN (04:30)
[2017-07-12] MEDS ORDERED: Ciprofloxacin 400mg/200ml D5W 400 MG/200 ML BAG IVPB ONE (05:16)
[2017-07-12] MEDS ORDERED: metroNIDAZOLE IV 500 mg/100 ml 500 MG/100 ML BAG ONE ×2 (05:27→14:37)
[2017-07-12] MEDS: Dextrose 5%/0.45% NS 1,000 ML IV SCH ×2 (05:30→23:00)
[2017-07-12] MEDS: metroNIDAZOLE IV 500 mg/100 ml 500 MG/100 ML BAG IVPB SCH ×2 (06:50→22:00)
--- NOTE | 2017-07-12 08:29 | RAD ---
Chest x-ray single frontal view History: Abdominal pain and fever. Comparison: 09/27/2016 Findings: Left basilar airspace opacity with a suggestion of a small left pleural effusion. Right hilar prominence. Cardiomegaly. Degenerative changes in the spine and shoulders. Upper lobe granulomatous changes. Impression: Left basilar airspace opacity with a suggestion of a small left pleural effusion. Right hilar prominence. Cardiomegaly.
[2017-07-12] MEDS ORDERED: Pantoprazole 40 mg EC Tab PO SCH (10:00)
[2017-07-12] MEDS ORDERED: cefTRIAXone IV 1 gm in Dextros 1 GM in Dextrose 5% In Water 50 ML IVPB SCH (10:00)
[2017-07-12] MEDS ORDERED: Vancomycin 1 gm/NS 200 ml 1 GM/200 ML BAG IVPB STA (12:06)
[2017-07-12] MEDS ORDERED: Piperacill/Tazo 3.375gm in Dex 3.375 GM/50 ML BAG IVPB SCH (12:15)
[2017-07-12] MEDS ORDERED: Ciprofloxacin 400mg/200ml D5W 400 MG/200 ML BAG IVPB SCH (12:15)
[2017-07-12] MEDS ORDERED: Propofol 10 mg/ml Inj (20 ML) ONE (14:46)
[2017-07-12] MEDS ORDERED: Aztreonam 2 GM in Sodium Chloride 0.9% 100 ML IVPB ONE (15:46)
[2017-07-12] MEDS ORDERED: Rocuronium 10 mg/ml (5 ml) ONE (16:38)
[2017-07-12 18:38] LABS: ABG ALLEN TEST POS; ARTERIAL BLOOD GAS HCO3 23.6 mmol/L (21-28); ARTERIAL BLOOD GAS O2 SAT 99.8 % (95-98); ARTERIAL BLOOD GAS PCO2 42 mm/Hg (35-45); ARTERIAL BLOOD GAS PH 7.36 (7.35-7.45); ARTERIAL BLOOD GAS PO2 336 mm/Hg (80-100)
[2017-07-12 18:42] LABS: RBC 2.46 Mil/uL (3.80-5.20); WHITE BLOOD COUNT 8.9 K/uL (4.8-10.8)
[2017-07-12 18:43] LABS: LYMPH % 11.8 % (20.0-40.0); MEAN CELL VOLUME 84.8 fL (81.0-99.0); MEAN CORPUSCULAR HEMOGLOBIN 29.8 pg (27.0-31.0); MEAN CORPUSCULAR HGB CONC 35.2 g/dL (33.0-37.0); MEAN PLATELET VOLUME 7.8 fL (7.2-11.7); NEUT % 80.7 % (50.0-75.0); RED CELL DISTRIBUTION WIDTH 15.7 % (11.5-14.5)
[2017-07-12 18:44] LABS: BASO % 0.4 % (0.0-2.0); LYMPH # 1.1 K/uL (1.0-4.3); MONO # 0.6 K/uL (0.0-0.8); MONO % 7.1 % (0.0-10.0); NEUT # 7.2 K/uL (1.8-7.0)
[2017-07-12 18:52] LABS: HEMOGLOBIN 7.3 g/dL (11.0-16.0)
[2017-07-12] MEDS ORDERED: Sodium Chloride 0.9% 1,000 ML IV ONE (19:22)
--- NOTE | 2017-07-12 19:24 | CP.PCM.CON ---
History of Present Illness - History of Present Illness History of Present Illness: INFECTIOUS DISEASE CONSULT; 52 year old female send from alf for a complaint of fever and severe pain to the lower quadrants. Denies chest pain, SOB, nausea, or vomiting. CT abdomen and pelvis noted; HX. of HTN,DIVERTICULITIS, ARTHRITIS. INFECTIOUS DISEASE CONSULT REQUESTED BY DR FERNÁNDEZ FOR FEVER AND PERFORATED VISCUS. EVENTS NOTED. PERFORATED VISCUS/INTRA-ABDOMINAL SEPSIS Multiple air-fluid levels consistent with abscesses. PATIENT ON MULTIPLE ANTIBIOTICS IV CIPRO,IV VANCOMYCIN, iv fLAGYL FOR EMERGENCY OR TODAY. Review of Systems - Constitutional Constitutional: Chills, Fever - EENT Nose/Mouth/Throat: Dry Mouth - Cardiovascular Cardiovascular: absent: Chest Pain, Dyspnea - Respiratory Respiratory: absent: Cough, Hemoptysis - Gastrointestinal Gastrointestinal: Abdominal Pain (GENERALIZED.). absent: Nausea, Vomiting - Genitourinary Genitourinary: Freq UTI. absent: Dysuria, Hematuria - Neurological Neurological: absent: Dizziness, Headaches - Psychiatric Psychiatric: Anxiety - Hematologic/Lymphatic Hematologic: As Per HPI. absent: Easy Bleeding, Easy Bruising Past Patient History - Past Medical History & Family History Past Medical History?: Yes - Past Social History Smoking Status: Never Smoked - CARDIAC Hx Hypertension: Yes - PULMONARY Hx Respiratory Disorders: No - NEUROLOGICAL Hx Neurological Disorder: No - HEENT Hx HEENT Problems: No - RENAL Hx Chronic Kidney Disease: No - ENDOCRINE/METABOLIC Hx Endocrine Disorders: No - MUSCULOSKELETAL/RHEUMATOLOGICAL Hx Arthritis: Yes - GASTROINTESTINAL Hx Diverticulitis: Yes - PSYCHIATRIC Hx Substance Use: No - SURGICAL HISTORY Hx Surgeries: Yes Hx Gastric Bypass Surgery: Yes (2011) Hx Hysterectomy: Yes (1998) Other/Comment: gallbladder Sx 4 -5 yrs ago - ANESTHESIA Hx Anesthesia: Yes Hx Anesthesia Reactions: No Hx Malignant Hyperthermia: No Meds Allergies/Adverse Reactions: Allergies Allergy/AdvReac Type Severity Reaction Status Date / Time piperacillin [From Zosyn] AdvReac RASH, Verified 07/11/17 20:59 ITCHINESS tazobactam [From Zosyn] AdvReac RASH, Verified 07/11/17 20:59 ITCHINESS - Medications Medications: Current Medications Acetaminophen (Tylenol 325mg Tab) 650 mg PO Q6 PRN PRN Reason: Fever >100.4 F Last Admin: 07/12/17 11:25 Dose: 650 mg Enoxaparin Sodium (Lovenox) 40 mg SC DAILY [facility] Hydralazine HCl (Apresoline) 25 mg PO BID [facility] Last Admin: 07/12/17 11:12 Dose: 25 mg Dextrose/Sodium Chloride (Dextrose 5%/0.45% Ns 1000 Ml) 1,000 mls @ 100 mls/hr IV .Q10H [facility] Last Admin: 07/12/17 05:30 Dose: 100 mls/hr Metronidazole (Flagyl) 500 mg in 100 mls @ 100 mls/hr IVPB Q8 [facility] Last Admin: 07/12/17 06:50 Dose: 100 mls/hr Vancomycin HCl 1 gm/ Sodium (Chloride) 250 mls @ 166.667 mls/hr IVPB Q12H [facility] Stop: 07/18/17 00:16 Ciprofloxacin (Cipro 400mg/200ml Dsw) 400 mg in 200 mls @ 133 mls/hr IVPB Q12H [facility] Last Admin: 07/12/17 13:28 Dose: 133 mls/hr Labetalol HCl (Trandate) 200 mg PO BID [facility] Last Admin: 07/12/17 11:13 Dose: 200 mg Ondansetron HCl (Zofran Inj) 4 mg IVP Q6H PRN PRN Reason: Nausea/Vomiting Oxycodone/Acetaminophen (Percocet 5/325 Mg Tab) 2 tab PO Q4H PRN PRN Reason: Pain, severe (8-10) Stop: 07/15/17 04:31 Pantoprazole Sodium (Protonix Ec Tab) 40 mg PO DAILY [facility] Last Admin: 07/12/17 11:11 Dose: 40 mg Physical Exam - Head Exam Head Exam: NORMAL INSPECTION - Eye Exam Eye Exam: EOMI, PERRL - ENT Exam ENT Exam: Mucous Membranes Dry - Neck Exam Neck exam: Positive for: Normal Inspection - Respiratory Exam Respiratory Exam: Decreased Breath Sounds - Cardiovascular Exam Cardiovascular Exam: Tachycardia, REGULAR RHYTHM, +S1, +S2 - GI/Abdominal Exam GI & Abdominal Exam: Distended, Guarding, Tenderness Additional comments: +VE COLOSTOMY. - Extremities Exam Extremities exam: Positive for: pedal pulses present. Negative for: calf tenderness, pedal edema - Neurological Exam Neurological exam: Alert, CN II-XII Intact - Skin Skin Exam: Diaphoretic Results - Vital Signs Recent Vital Signs: Last Vital Signs Temp 99.1 F 07/12/17 13:56 Pulse 89 07/12/17 13:56 Resp 20 07/12/17 13:56 BP 130/69 07/12/17 13:56 Pulse Ox 95 07/12/17 13:56 - Labs Result Diagrams: 07/13/17 06:40 07/13/17 06:29 Labs: Laboratory Results - last 24 hr 07/11/17 07/11/17 07/11/17 21:48 21:48 22:53 WBC 14.5 H D RBC 3.36 L Hgb 9.8 L Hct 28.2 L MCV 84.1 MCH 29.3 MCHC 34.8 RDW 15.6 H Plt Count 526 H D MPV 7.8 Neut % (Auto) 78.9 H Lymph % (Auto) 10.3 L Davis % (Auto) 10.1 H Eos % (Auto) 0.2 Baso % (Auto) 0.5 Neut # (Auto) 11.5 H Lymph # (Auto) 1.5 Davis # (Auto) 1.5 H Eos # (Auto) 0.0 Baso # (Auto) 0.1 PT INR APTT Puncture Site pCO2 pO2 HCO3 ABG pH ABG Total CO2 ABG O2 Saturation ABG Base Excess [place] Test ABG Potassium A-a O2 Difference Respiratory Index Glucose Lactate FiO2 Sodium 133 Potassium 4.3 Chloride 97 L Carbon Dioxide 25 Anion Gap 17 BUN 16 Creatinine 0.7 Est GFR ( Amer) > 60 Est GFR (Non-Af Amer) > 60 Random Glucose 95 Lactic Acid Calcium 9.0 Total Bilirubin 1.2 AST 50 H D ALT 45 Alkaline Phosphatase 122 Total Protein 8.0 Albumin 3.5 Globulin 4.5 H Albumin/Globulin Ratio 0.8 L Lipase 79 Arterial Blood Potassium Urine Color Nallely Urine Clarity Hazy Urine pH 5.0 Ur Specific Carson 1.028 Urine Protein 2+ H Urine Glucose (UA) Normal Urine Ketones 1+ H Urine Blood 1+ H Urine Nitrate Negative Urine Bilirubin Negative Urine Urobilinogen 2.0 H Ur Leukocyte Esterase Trace Urine WBC (Auto) 7 H Urine RBC (Auto) 8 H Ur Squamous Epith Cells 7 H Ur Transition Epith Cell < 1 Urine Bacteria Occ H Hyaline Casts 0-2 Blood Type Antibody Screen 07/11/17 07/11/17 07/12/17 23:33 23:33 15:19 WBC RBC Hgb Hct MCV MCH MCHC RDW Plt Count MPV Neut % (Auto) Lymph % (Auto) Davis % (Auto) Eos % (Auto) Baso % (Auto) Neut # (Auto) Lymph # (Auto) Davis # (Auto) Eos # (Auto) Baso # (Auto) PT 18.9 H INR 1.7 APTT 29 Puncture Site pCO2 pO2 HCO3 ABG pH ABG Total CO2 ABG O2 Saturation ABG Base Excess Jayson Test ABG Potassium A-a O2 Difference Respiratory Index Glucose Lactate FiO2 Sodium Potassium Chloride Carbon Dioxide Anion Gap BUN Creatinine Est GFR ( Amer) Est GFR (Non-Af Amer) Random Glucose Lactic Acid 1.3 Calcium Total Bilirubin AST ALT Alkaline Phosphatase Total Protein Albumin Globulin Albumin/Globulin Ratio Lipase Arterial Blood Potassium Urine Color Urine Clarity Urine pH Ur Specific Carson Urine Protein Urine Glucose (UA) Urine Ketones Urine Blood Urine Nitrate Urine Bilirubin Urine Urobilinogen Ur Leukocyte Esterase Urine WBC (Auto) Urine RBC (Auto) Ur Squamous Epith Cells Ur Transition Epith Cell Urine Bacteria Hyaline Casts Blood Type A POSITIVE Antibody Screen Negative 07/12/17 07/12/17 18:28 18:35 WBC 8.9 RBC 2.46 L Hgb 7.3 L D Hct 20.8 L MCV 84.8 MCH 29.8 MCHC 35.2 RDW 15.7 H Plt Count 407 H D MPV 7.8 Neut % (Auto) 80.7 H Lymph % (Auto) 11.8 L Davis % (Auto) 7.1 Eos % (Auto) 0.0 Baso % (Auto) 0.4 Neut # (Auto) 7.2 H Lymph # (Auto) 1.1 Davis # (Auto) 0.6 Eos # (Auto) 0.0 Baso # (Auto) 0.0 PT INR APTT Puncture Site Rra pCO2 42 pO2 336 H HCO3 23.6 ABG pH 7.36 ABG Total CO2 25.0 ABG O2 Saturation 99.8 H ABG Base Excess -1.8 Jayson Test Pos ABG Potassium 3.8 A-a O2 Difference 325.0 Respiratory Index 1.0 Glucose 155 H Lactate 2.5 H FiO2 100.0 Sodium 132.0 Potassium Chloride 105.0 Carbon Dioxide Anion Gap BUN Creatinine Est GFR ( Amer) Est GFR (Non-Af Amer) Random Glucose Lactic Acid Calcium Total Bilirubin AST ALT Alkaline Phosphatase Total Protein Albumin Globulin Albumin/Globulin Ratio Lipase Arterial Blood Potassium 3.8 Urine Color Urine Clarity Urine pH Ur Specific Carson Urine Protein Urine Glucose (UA) Urine Ketones Urine Blood Urine Nitrate Urine Bilirubin Urine Urobilinogen Ur Leukocyte Esterase Urine WBC (Auto) Urine RBC (Auto) Ur Squamous Epith Cells Ur Transition Epith Cell Urine Bacteria Hyaline Casts Blood Type Antibody Screen - Imaging and Cardiology CT scan - abdomen Status: Report reviewed by me (PERFORATED COLON AT OSTOMY SITE WITH AIR-FLUID LEVELS. fREE INTRAPERITONEAL AIR.) Assessment & Plan (1) Abscess of multiple sites Status: Acute (2) Perforation bowel Status: Acute (3) Colonic diverticular abscess Status: Acute (4) Hypertension Status: Acute - Assessment and Plan (Free Text) Plan: PLAN; PATIENT FOR EMERGENCY SURGERY PER DR. OLVERA. CONTINUE iv ANTIBIOTICS. pATIENT ON iv VANCOMYCIN 1 G EVERY 12 HOURLY. IV CIPRO 400 EVERY 12 HOURLY. IV fLAGYL 500 EVERY 8 HOURLY. WILL FOLLOW POSTOP AND MAKE ADJUSTMENTS IN ANTIBIOTICS. CASE DISCUSSED WITH STAFF OF ER..
[2017-07-12] MEDS ORDERED: Lactated Ringer's 1,000 ML IV SCH (19:30)
[2017-07-12] MEDS: HYDROmorphone 0.5 mg/0.5 ml ISec IVP PRN ×3 (19:36→21:47)
[2017-07-12] MEDS ORDERED: HYDROmorphone 0.5 mg/0.5 ml ISec IVP PRN (20:38)
--- NOTE | 2017-07-12 22:24 | CP.PCM.CON ---
History of Present Illness - History of Present Illness History of Present Illness: 52 year old female from [place] with h/o Arthritis, Diverticulitis, HTN,colostomy admitted with fever and severe pain to the lower quadrants.Patient had Colostomy revision,partial colectomy,SB resection,application of mesh and I&D of abscesses done today .Patient c/o severe pain at site of surgery Hemoglobin dropped from 9.8 preop to 7.3 post op ,receiving 2 units PRBC Review of Systems - Constitutional Constitutional: Fever, Weakness. absent: Chills - EENT Eyes: absent: Blurred Vision, Loss of Vision Nose/Mouth/Throat: absent: Nasal Congestion, Sore Throat, Neck Pain - Cardiovascular Cardiovascular: absent: Chest Pain, Edema - Respiratory Respiratory: absent: Cough, Dyspnea - Gastrointestinal Gastrointestinal: Abdominal Pain Past Patient History - Past Medical History & Family History Past Medical History?: Yes - Past Social History Smoking Status: Never Smoked - CARDIAC Hx Hypertension: Yes - PULMONARY Hx Respiratory Disorders: No - NEUROLOGICAL Hx Neurological Disorder: No - HEENT Hx HEENT Problems: No - RENAL Hx Chronic Kidney Disease: No - ENDOCRINE/METABOLIC Hx Endocrine Disorders: No - MUSCULOSKELETAL/RHEUMATOLOGICAL Hx Arthritis: Yes - GASTROINTESTINAL Hx Diverticulitis: Yes - PSYCHIATRIC Hx Substance Use: No - SURGICAL HISTORY Hx Surgeries: Yes Hx Gastric Bypass Surgery: Yes (2011) Hx Hysterectomy: Yes (1998) Other/Comment: gallbladder Sx 4 -5 yrs ago - ANESTHESIA Hx Anesthesia: Yes Hx Anesthesia Reactions: No Hx Malignant Hyperthermia: No Meds Allergies/Adverse Reactions: Allergies Allergy/AdvReac Type Severity Reaction Status Date / Time piperacillin [From Zosyn] AdvReac RASH, Verified 07/11/17 20:59 ITCHINESS tazobactam [From Zosyn] AdvReac RASH, Verified 07/11/17 20:59 ITCHINESS - Medications Medications: Current Medications Acetaminophen (Tylenol 325mg Tab) 650 mg PO Q6 PRN PRN Reason: Fever >100.4 F Last Admin: 07/12/17 11:25 Dose: 650 mg Enoxaparin Sodium (Lovenox) 40 mg SC DAILY [facility] Hydralazine HCl (Apresoline) 25 mg PO BID [facility] Last Admin: 07/12/17 11:12 Dose: 25 mg Hydromorphone/Sodium Chloride (Dilaudid Manufacturer'S Representative) 6 mg IV Q4H PRN; Protocol PRN Reason: Pain, moderate (4-7) Dextrose/Sodium Chloride (Dextrose 5%/0.45% Ns 1000 Ml) 1,000 mls @ 100 mls/hr IV .Q10H [facility] Last Admin: 07/12/17 05:30 Dose: 100 mls/hr Metronidazole (Flagyl) 500 mg in 100 mls @ 100 mls/hr IVPB Q8 [facility] Last Admin: 07/12/17 06:50 Dose: 100 mls/hr Vancomycin HCl 1 gm/ Sodium (Chloride) 250 mls @ 166.667 mls/hr IVPB Q12H [facility] Stop: 07/18/17 00:16 Lactated Ringer's (Lactated Ringer's) 1,000 mls @ 120 mls/hr IV .Q8H20M [facility] Aztreonam 1 gm/ Sodium (Chloride) 100 mls @ 200 mls/hr IVPB Q8H [facility] Labetalol HCl (Trandate) 200 mg PO BID [facility] Last Admin: 07/12/17 11:13 Dose: 200 mg Ondansetron HCl (Zofran Inj) 4 mg IVP Q6H PRN PRN Reason: Nausea/Vomiting Oxycodone/Acetaminophen (Percocet 5/325 Mg Tab) 2 tab PO Q4H PRN PRN Reason: Pain, severe (8-10) Stop: 07/15/17 04:31 Pantoprazole Sodium (Protonix Ec Tab) 40 mg PO DAILY [facility] Last Admin: 07/12/17 11:11 Dose: 40 mg Physical Exam - Constitutional Appears: No Acute Distress - Head Exam Head Exam: ATRAUMATIC, NORMAL INSPECTION, NORMOCEPHALIC - Eye Exam Eye Exam: EOMI, Normal appearance, PERRL Pupil Exam: NORMAL ACCOMODATION - ENT Exam ENT Exam: Mucous Membranes Dry - Neck Exam Neck exam: Positive for: Normal Inspection. Negative for: Lymphadenopathy - Respiratory Exam Respiratory Exam: NORMAL BREATHING PATTERN (decreased air entry in bases) - Cardiovascular Exam Cardiovascular Exam: REGULAR RHYTHM. absent: JVD - GI/Abdominal Exam GI & Abdominal Exam: Diminished Bowel Sounds Additional comments: colostomy + dressing in place - Rectal Exam Rectal Exam: Deferred - Extremities Exam Extremities exam: Positive for: normal inspection. Negative for: pedal edema, pedal pulses present - Neurological Exam Neurological exam: Oriented x3 - Skin Skin Exam: Pallor, Warm Results - Vital Signs Recent Vital Signs: Last Vital Signs Temp 97.5 F L 07/12/17 19:22 Pulse 66 07/12/17 19:22 Resp 28 H 07/12/17 19:22 BP 149/84 07/12/17 19:22 Pulse Ox 100 07/12/17 19:22 - Labs Result Diagrams: 07/12/17 18:28 07/11/17 21:48 Labs: Laboratory Results - last 24 hr 07/11/17 07/11/17 07/11/17 22:53 23:33 23:33 WBC RBC Hgb Hct MCV MCH MCHC RDW Plt Count MPV Neut % (Auto) Lymph % (Auto) [place] % (Auto) Eos % (Auto) Baso % (Auto) Neut # (Auto) Lymph # (Auto) [place] # (Auto) Eos # (Auto) Baso # (Auto) PT 18.9 H INR 1.7 APTT 29 Puncture Site pCO2 pO2 HCO3 ABG pH ABG Total CO2 ABG O2 Saturation ABG Base Excess Jayson Test ABG Potassium A-a O2 Difference Respiratory Index Sodium Chloride Glucose Lactate FiO2 Lactic Acid 1.3 Arterial Blood Potassium Urine Color Nallely Urine Clarity Hazy Urine pH 5.0 Ur Specific Model 1.028 Urine Protein 2+ H Urine Glucose (UA) Normal Urine Ketones 1+ H Urine Blood 1+ H Urine Nitrate Negative Urine Bilirubin Negative Urine Urobilinogen 2.0 H Ur Leukocyte Esterase Trace Urine WBC (Auto) 7 H Urine RBC (Auto) 8 H Ur Squamous Epith Cells 7 H Ur Transition Epith Cell < 1 Urine Bacteria Occ H Hyaline Casts 0-2 Blood Type Antibody Screen 07/12/17 07/12/17 07/12/17 15:19 18:28 18:35 WBC 8.9 RBC 2.46 L Hgb 7.3 L D Hct 20.8 L MCV 84.8 MCH 29.8 MCHC 35.2 RDW 15.7 H Plt Count 407 H D MPV 7.8 Neut % (Auto) 80.7 H Lymph % (Auto) 11.8 L [place] % (Auto) 7.1 Eos % (Auto) 0.0 Baso % (Auto) 0.4 Neut # (Auto) 7.2 H Lymph # (Auto) 1.1 [place] # (Auto) 0.6 Eos # (Auto) 0.0 Baso # (Auto) 0.0 PT INR APTT Puncture Site Rra pCO2 42 pO2 336 H HCO3 23.6 ABG pH 7.36 ABG Total CO2 25.0 ABG O2 Saturation 99.8 H ABG Base Excess -1.8 Jayson Test Pos ABG Potassium 3.8 A-a O2 Difference 325.0 Respiratory Index 1.0 Sodium 132.0 Chloride 105.0 Glucose 155 H Lactate 2.5 H FiO2 100.0 Lactic Acid Arterial Blood Potassium 3.8 Urine Color Urine Clarity Urine pH Ur Specific Model Urine Protein Urine Glucose (UA) Urine Ketones Urine Blood Urine Nitrate Urine Bilirubin Urine Urobilinogen Ur Leukocyte Esterase Urine WBC (Auto) Urine RBC (Auto) Ur Squamous Epith Cells Ur Transition Epith Cell Urine Bacteria Hyaline Casts Blood Type A POSITIVE Antibody Screen Negative - Imaging and Cardiology Chest x-ray Status: Image reviewed by me, Report reviewed by me CT scan - abdomen Status: Image reviewed by me, Report reviewed by me Assessment & Plan - Assessment and Plan (Free Text) Assessment: 1.Colostomy revision,partial colectomy,SB resection,application of mesh and I&D of abscesses On IV antibiotics,analgesics 2.Anemia-rpt Hb after transfusion 3.HTN continue meds 4.Diverticulosis 5.Pneumonia-Chest xray with left basilar opacity and small effusion on antibiotics.
--- NOTE | 2017-07-12 23:14 | CP.PCM.HP ---
History of Present Illness - History of Present Illness History of Present Illness: 52 year old female from [place] with h/o Arthritis, Diverticulitis, HTN,colostomy admitted with fever and severe pain to the lower quadrants.Patient had Colostomy revision,partial colectomy,SB resection,application of mesh and I&D of abscesses done today .Patient c/o severe pain at site of surgery Hemoglobin dropped from 9.8 preop to 7.3 post op ,receiving 2 units PRBC INFECTIOUS DISEASE CONSULT REQUESTED BY ME FOR FEVER AND PERFORATED VISCUS. EVENTS NOTED. PERFORATED VISCUS/INTRA-ABDOMINAL SEPSIS Multiple air-fluid levels consistent with abscesses. PATIENT ON MULTIPLE ANTIBIOTICS IV CIPRO,IV VANCOMYCIN, iv fLAGYL Present on Admission - Present on Admission Any Indicators Present on Admission: Yes Past Patient History - Past Medical History & Family History Past Medical History?: Yes - Past Social History Smoking Status: Never Smoked - CARDIAC Hx Hypertension: Yes - PULMONARY Hx Respiratory Disorders: No - NEUROLOGICAL Hx Neurological Disorder: No - HEENT Hx HEENT Problems: No - RENAL Hx Chronic Kidney Disease: No - ENDOCRINE/METABOLIC Hx Endocrine Disorders: No - MUSCULOSKELETAL/RHEUMATOLOGICAL Hx Arthritis: Yes - GASTROINTESTINAL Hx Diverticulitis: Yes - PSYCHIATRIC Hx Substance Use: No - SURGICAL HISTORY Hx Surgeries: Yes Hx Gastric Bypass Surgery: Yes (2011) Hx Hysterectomy: Yes (1998) Other/Comment: gallbladder Sx 4 -5 yrs ago - ANESTHESIA Hx Anesthesia: Yes Hx Anesthesia Reactions: No Hx Malignant Hyperthermia: No Meds Allergies/Adverse Reactions: Allergies Allergy/AdvReac Type Severity Reaction Status Date / Time piperacillin [From Zosyn] AdvReac RASH, Verified 07/11/17 20:59 ITCHINESS tazobactam [From Zosyn] AdvReac RASH, Verified 07/11/17 20:59 ITCHINESS Physical Exam - Constitutional Appears: Chronically Ill - Eye Exam Eye Exam: EOMI, Normal appearance, PERRL Pupil Exam: NORMAL ACCOMODATION, PERRL - Respiratory Exam Respiratory Exam: Decreased Breath Sounds, Rales - GI/Abdominal Exam GI & Abdominal Exam: Normal Bowel Sounds, Soft. absent: Tenderness Results - Vital Signs Recent Vital Signs: Last Vital Signs Temp 97.4 F L 07/12/17 20:51 Pulse 71 07/12/17 21:06 Resp 22 07/12/17 21:06 BP 142/81 07/12/17 21:06 Pulse Ox 100 07/12/17 21:06 - Labs Result Diagrams: 07/22/17 07:50 07/22/17 07:50 Labs: Laboratory Results - last 24 hr 07/11/17 07/11/17 07/12/17 23:33 23:33 15:19 WBC RBC Hgb Hct MCV MCH MCHC RDW Plt Count MPV Neut % (Auto) Lymph % (Auto) [place] % (Auto) Eos % (Auto) Baso % (Auto) Neut # (Auto) Lymph # (Auto) [place] # (Auto) Eos # (Auto) Baso # (Auto) PT 18.9 H INR 1.7 APTT 29 Puncture Site pCO2 pO2 HCO3 ABG pH ABG Total CO2 ABG O2 Saturation ABG Base Excess Jayson Test ABG Potassium A-a O2 Difference Respiratory Index Sodium Chloride Glucose Lactate FiO2 Lactic Acid 1.3 Arterial Blood Potassium Blood Type A POSITIVE Antibody Screen Negative 07/12/17 07/12/17 18:28 18:35 WBC 8.9 RBC 2.46 L Hgb 7.3 L D Hct 20.8 L MCV 84.8 MCH 29.8 MCHC 35.2 RDW 15.7 H Plt Count 407 H D MPV 7.8 Neut % (Auto) 80.7 H Lymph % (Auto) 11.[address] [place] % (Auto) 7.1 Eos % (Auto) 0.0 Baso % (Auto) 0.4 Neut # (Auto) 7.2 H Lymph # (Auto) 1.1 [place] # (Auto) 0.6 Eos # (Auto) 0.0 Baso # (Auto) 0.0 PT INR APTT Puncture Site Rra pCO2 42 pO2 336 H HCO3 23.6 ABG pH 7.36 ABG Total CO2 25.0 ABG O2 Saturation 99.8 H ABG Base Excess -1.8 Jayson Test Pos ABG Potassium 3.8 A-a O2 Difference 325.0 Respiratory Index 1.0 Sodium 132.0 Chloride 105.0 Glucose 155 H Lactate 2.5 H FiO2 100.0 Lactic Acid Arterial Blood Potassium 3.8 Blood Type Antibody Screen Assessment & Plan (1) Wound dehiscence Assessment and Plan: patient seen and examined in the intensive care unit. s/p Colostomy revision, partial colectomy, SB resection,mesh and I&D of abscesses Continue IV antibiotics as per infectious disease Fluid resuscitation Follow-up intake and output Status: Acute (2) Diabetes Status: Acute (3) HTN (hypertension) Status: Acute (4) Sacral wound Status: Acute (5) Hypertension Status: Acute (6) Morbid obesity Status: Acute (7) Sacral decubitus ulcer Status: Acute
[2017-07-12] MEDS: Aztreonam 1 GM in Sodium Chloride 0.9% 100 ML IVPB SCH (23:46)
[2017-07-13] MEDS ORDERED: Nitroglycerin 2% Ointment Foilpak UD TOP STA (00:02)
[2017-07-13] MEDS: HYDROmorphone 0.5 mg/0.5 ml ISec IVP PRN ×4 (00:55→13:01)
[2017-07-13] MEDS: Dextrose 5%/0.45% NS 1,000 ML IV SCH ×4 (01:36→20:30)
[2017-07-13 01:55] LABS: BASO % 0.1 % (0.0-2.0); EOS % 0.1 % (0.0-4.0); HEMOGLOBIN 10.9 g/dL (11.0-16.0); LYMPH # 1.4 K/uL (1.0-4.3); LYMPH % 10.9 % (20.0-40.0); MEAN CORPUSCULAR HEMOGLOBIN 29.6 pg (27.0-31.0); MEAN CORPUSCULAR HGB CONC 34.4 g/dL (33.0-37.0); MEAN PLATELET VOLUME 7.9 fL (7.2-11.7); MONO # 0.5 K/uL (0.0-0.8); MONO % 4.1 % (0.0-10.0); NEUT # 10.9 K/uL (1.8-7.0); NEUT % 84.8 % (50.0-75.0); RBC 3.69 Mil/uL (3.80-5.20); RED CELL DISTRIBUTION WIDTH 15.1 % (11.5-14.5); WHITE BLOOD COUNT 12.9 K/uL (4.8-10.8)
[2017-07-13] MEDS: metroNIDAZOLE IV 500 mg/100 ml 500 MG/100 ML BAG IVPB SCH ×3 (05:00→22:00)
[2017-07-13] MEDS: Aztreonam 1 GM in Sodium Chloride 0.9% 100 ML IVPB SCH ×3 (06:00→21:00)
--- NOTE | 2017-07-13 06:05 | OP ---
PROCEDURE DATE: 07/12/2017 PREOPERATIVE DIAGNOSIS: Dehiscence of colostomy with abdominal abscess. POSTOPERATIVE DIAGNOSIS: Dehiscence of colostomy with abdominal abscess. PROCEDURE PERFORMED: Reopening of laparotomy incision with drainage of abdominal abscess, partial colectomy, closure of both colonic and small bowel enterotomies, small bowel resection, repair of abdominal blood vessel __01:08__ and closure with absorbable mesh. SURGEON: Andrey Sparrow MD ANESTHESIA: General. BLOOD LOSS: 350 mL. POSTOP CONDITION: Stable. INDICATIONS FOR SURGERY: This is a 52-year-old female, one month status post Woody's procedure. The patient was morbidly obese, had a large abdominal wall in which colostomy through. She did well postoperatively, was transferred to rehab last week. She was noted to have a fever in rehab and sent to the emergency room for evaluation. A CAT scan examination revealed dehiscence of the colostomy with an intraabdominal and subcutaneous abscess. She was taken to the OR now for revision of the colostomy and any other necessary procedures. GROSS FINDINGS: The colostomy had dehisced and was penitentiary back into the abdomen. Stool had leaked back into the abdomen and there was an abscess within the abdominal wall, which also was extended into the intraperitoneal area of the abdomen. There were extensive small bowel colonic adhesions, which made the procedure lengthy. Lysis of adhesions portion of the procedure took approximately 2 to 3 hours. Essentially, the previous portion of the colon, which was a part of the colostomy and intraabdominal was resected and a new colostomy with the basically the splenic flexure mobilized was performed in the left upper quadrant. The intraabdominal abscess was drained and the abdominal wall underwent extensive debridement due to abscess in the abdomen and necrotizing fasciitis. Closure was difficult and a biologic mesh was requested; however, only the 7 x 10 cm mesh was available, so we have to use this judiciously in the mid portion of the closure where most of the abdominal debridement took place, I would like to have had a larger mesh to close with, but we may do with what was available. DESCRIPTION OF PROCEDURE: The patient was taken to the operating room and general anesthesia was administered. The colostomy area was explored and then a full suction device was placed in it and a large amount of abscess material was cleaned and cultured. Next, the abdomen was prepped and draped and the abdomen was opened through the previous incision. There were multiple adhesions, so the incision was extended cephalad and abdomen was entered. Through careful dissection, the remainder of the abdomen was opened. Enterotomies were made as there were very dense adhesions of the small bowel. Lysis of adhesions was carried out first. This maneuver took approximately 2 hours. Once the small bowel adhesions have all been taken down, the small bowel was taken out of the pelvis, resection of the distal jejunum, proximal ileum involved in the enterotomies was removed in one single piece using GIAs and a stapled anastomosis was performed using GIAs and TA-60. Prior to this, TA-60 was placed across the colon and has entered into the abdomen in order to stop of the spillage of colonic material; however, prior to this maneuver, fair amount of colonic material did spill. The colon was debrided out of the colostomy incision and partial colon resection was accomplished. Both small bowel and colonic serosal injuries were repaired with silk. Next, the abdomen was then irrigated with 8 liters of warm saline solution and then next the IrriSept irrigation system was used for the final stage of the irrigation and cleansing of the abdomen. The colostomy incision was made in the left upper quadrant and the splenic flexure, which had been previously mobilized off the transverse colon was then brought up into the colostomy. The abdominal wall was then further debrided of any remaining necrotic wall. The closure was performed primarily proximally and distally using the running double-stranded PDS retention. The central portion of wounds have been mostly debrided, was then closed with a biologic 7 x 10 abdominal wall mesh. Heavy Vicryl was used in an interrupted fashion. The subcutaneous space was closed very loosely and then left open. It was irrigated vigorously with saline and packed with wet saline gauze after the retention sutures were tied. The colostomy was matured with interrupted 0 Monocryl suture and a colostomy appliance was placed. The patient tolerated the procedure well and returned to the recovery room in stable condition. Andrey Sparrow MD
[2017-07-13 06:48] LABS: LYMPH # 1.2 K/uL (1.0-4.3); LYMPH % 6.7 % (20.0-40.0); MEAN CELL VOLUME 85.9 fL (81.0-99.0); MEAN CORPUSCULAR HEMOGLOBIN 29.9 pg (27.0-31.0); MEAN CORPUSCULAR HGB CONC 34.8 g/dL (33.0-37.0); MEAN PLATELET VOLUME 8.2 fL (7.2-11.7); MONO # 0.8 K/uL (0.0-0.8); MONO % 4.8 % (0.0-10.0); NEUT # 15.5 K/uL (1.8-7.0); NEUT % 88.5 % (50.0-75.0); PLATELET COUNT 443 K/uL (130-400); RBC 3.34 Mil/uL (3.80-5.20); RED CELL DISTRIBUTION WIDTH 15.3 % (11.5-14.5); WHITE BLOOD COUNT 17.5 K/uL (4.8-10.8)
[2017-07-13 07:11] LABS: ALB/GLOB RATIO 0.8 (1.0-2.1); ALBUMIN 2.4 g/dL (3.5-5.0); ALT/SGPT 35 U/L (9-52); AST/SGOT 26 U/L (14-36); BLOOD UREA NITROGEN 13 mg/dL (7-17); CALCIUM 8.1 mg/dl (8.6-10.4); GFR AFRICAN-AMERICAN > 60; GFR NON-AFRICAN AMERICAN > 60; MAGNESIUM 1.3 mg/dL (1.6-2.3)
[2017-07-13 08:00] LABS: BANDS 51 % (0-2); LYMPHOCYTE 3 % (20-40); MONOCYTE 7 % (0-10); NEUTROPHIL 39 % (50-75); PLATELET ESTIMATE SLIGHTLY INCREASED (NORMAL); TOTAL CELLS COUNTED 100
[2017-07-13 08:01] LABS: ANISOCYTOSIS SLIGHT; HYPOCHROMIC SLIGHT; POLYCHROMIC SLIGHT; TARGET CELLS SLIGHT
[2017-07-13] MEDS: Magnesium Sulfate 1 gm in D5W 1 GM/100 ML BAG IVPB SCH ×2 (09:02→10:17)
--- NOTE | 2017-07-13 09:32 | RAD ---
HISTORY: pneumonia COMPARISON: 07/11/2017. FINDINGS: LUNGS: There is interval development of consolidation in the right lower lobe. There is also left retrocardiac opacity. PLEURA: The right costophrenic angle is clear. The left costophrenic angle is blunted which may be related to small pleural effusion or could be projectional. CARDIOVASCULAR: Again seen is moderate cardiomegaly. OSSEOUS STRUCTURES: No significant abnormalities. VISUALIZED UPPER ABDOMEN: Normal. OTHER FINDINGS: The nasogastric tube terminates in the stomach. . IMPRESSION: Interval development of right lower lobe pneumonia. Follow-up is advised. Nasogastric tube terminates in the stomach.
[2017-07-13] MEDS ORDERED: cefTRIAXone IV 1 gm in Dextros 1 GM in Dextrose 5% In Water 50 ML IVPB SCH (10:00)
[2017-07-13] MEDS: Enoxaparin 40 mg Syringe SC SCH (10:17)
--- NOTE | 2017-07-13 10:30 | CP.CCUPN ---
<Lb Alford - Last Filed: 07/13/17 10:55> CCU Subjective - Physician Review Events Since Last Encounter (Free Text): 07/13/17 10:30 patient seen and examined at bedside OOB to chair pain controlled at this time s/p Colostomy revision, partial colectomy, SB resection,mesh and I&D of abscesses Bandemia on IV rx CCU Objective - Vital Signs / Intake & Output Vital Signs (Last 4 hours): Vital Signs Pulse Resp BP Pulse Ox 07/13/17 07:50 110 H 30 H 97 07/13/17 07:40 112 H 33 H 97 07/13/17 07:30 116 H 21 96 07/13/17 07:20 118 H 25 H 96 07/13/17 07:10 111 H 30 H 97 07/13/17 07:05 112 H 29 H 163/93 H 96 07/13/17 07:00 110 H 30 H 97 07/13/17 06:50 112 H 31 H 98 07/13/17 06:40 116 H 29 H 96 Intake and Output (Last 8hrs): Intake & Output 07/12/17 07/13/17 07/13/17 22:59 06:59 14:59 Intake Total 1440 1450 100 Output Total 570 380 35 Balance 870 1070 65 Weight 207 lb 3.752 oz Intake: IV 800 100 Intake, IV Amount 1350 100 Left Forearm 0 0 Left Hand 550 Left Wrist 800 100 Right Hand 0 0 Blood Product 640 Output: Gastric Drainage 50 Gastric Amount 100 Right Nares 100 Drainage 70 30 Abdomen 30 Urine 450 250 35 Urethral (Hunt) 250 35 Other: Voiding Method Indwelling Catheter - Physical Exam Head: Positive for: Atraumatic, Normocephalic Pupils: Positive for: PERRL Extroacular Muscles: Positive for: EOMI Conjunctiva: Positive for: Normal Mouth: Positive for: Moist Mucous Membranes Respiratory/Chest: Positive for: Clear to Auscultation, Good Air Exchange. Negative for: Accessory Muscle Use Cardiovascular: Positive for: Regular Rate and Rhythm Abdomen: Positive for: Tenderness (around incision). Negative for: Distention Psychiatric: Positive for: Alert, Oriented x 3 - Medications Active Medications: Active Medications Generic Name Dose Route Start Last Admin Trade Name Freq PRN Reason Stop Dose Admin Acetaminophen 650 mg 07/12/17 11:16 07/12/17 11:25 Tylenol 325mg Tab PO 650 mg Q6 PRN Administration Fever >100.4 F Enoxaparin Sodium 40 mg 07/13/17 10:00 07/13/17 10:17 Lovenox SC 40 mg DAILY MICHELLE Administration Hydralazine HCl 25 mg 07/12/17 10:00 07/12/17 11:12 Apresoline PO 25 mg BID MICHELLE Administration Hydromorphone HCl 0.5 mg 07/13/17 00:04 07/13/17 08:55 Dilaudid IVP 0.5 mg Q4H PRN Administration Pain, moderate (4-7) Hydromorphone/Sodium Chloride 6 mg 07/12/17 19:24 Dilaudid Optical Fabricator IV Q4H PRN Pain, moderate (4-7) Protocol Dextrose/Sodium Chloride 1,000 mls @ 100 mls/hr 07/12/17 04:30 07/13/17 01:36 Dextrose 5%/0.45% Ns 1000 Ml IV Not Given .Q10H MICHELLE Metronidazole 500 mg in 100 mls @ 100 mls/hr 07/12/17 06:00 07/13/17 05:00 Flagyl IVPB 100 mls/hr Q8 MICHELLE Administration Vancomycin HCl 1 gm/ Sodium 250 mls @ 166.667 mls/hr 07/13/17 00:15 07/13/17 01:15 Chloride IVPB 07/18/17 00:16 166.667 mls/hr Q12H MICHELLE Administration Lactated Ringer's 1,000 mls @ 120 mls/hr 07/12/17 19:30 Lactated Ringer's IV .Q8H20M MICHELLE Aztreonam 1 gm/ Sodium 100 mls @ 200 mls/hr 07/12/17 22:00 07/13/17 06:00 Chloride IVPB 200 mls/hr Q8H MICHELLE Administration Labetalol HCl 200 mg 07/12/17 10:00 07/12/17 11:13 Trandate PO 200 mg BID MICHELLE Administration Ondansetron HCl 4 mg 07/12/17 04:45 Zofran Inj IVP Q6H PRN Nausea/Vomiting Oxycodone/Acetaminophen 2 tab 07/12/17 04:30 Percocet 5/325 Mg Tab PO 02/09/18 04:31 Q4H PRN Pain, severe (8-10) Pantoprazole Sodium 40 mg 07/12/17 10:00 07/12/17 11:11 Protonix Ec Tab PO 40 mg DAILY MICHELLE Administration - Patient Studies Lab Studies: Microbiology Studies 07/11/17 23:10 Blood Culture - Preliminary Blood NO GROWTH AFTER 24 HOURS 07/11/17 21:40 Blood Culture - Preliminary Blood NO GROWTH AFTER 24 HOURS Lab Studies 07/13/17 07/13/17 07/13/17 Range/Units 06:40 06:29 01:52 WBC 17.5 H 12.9 H (4.8-10.8) K/uL RBC 3.34 L 3.69 L (3.80-5.20) Mil/uL Hgb 10.0 L 10.9 L D (11.0-16.0) g/dL Hct 28.7 L 31.7 L (34.0-47.0) % MCV 85.9 86.0 (81.0-99.0) fL MCH 29.9 29.6 (27.0-31.0) pg MCHC 34.8 34.4 (33.0-37.0) g/dL RDW 15.3 H 15.1 H (11.5-14.5) % Plt Count 443 H 396 (130-400) K/uL MPV 8.2 7.9 (7.2-11.7) fL Neut % (Auto) 88.5 H 84.8 H (50.0-75.0) % Lymph % (Auto) 6.7 L 10.9 L (20.0-40.0) % Barren % (Auto) 4.8 4.1 (0.0-10.0) % Eos % (Auto) 0.0 0.1 (0.0-4.0) % Baso % (Auto) 0.0 0.1 (0.0-2.0) % Neut # (Auto) 15.5 H 10.9 H (1.8-7.0) K/uL Lymph # (Auto) 1.2 1.4 (1.0-4.3) K/uL Barren # (Auto) 0.8 0.5 (0.0-0.8) K/uL Eos # (Auto) 0.0 0.0 (0.0-0.7) K/uL Baso # (Auto) 0.0 0.0 (0.0-0.2) K/uL Neutrophils % (Manual) 39 L (50-75) % Band Neutrophils % 51 H* (0-2) % Lymphocytes % (Manual) 3 L (20-40) % Monocytes % (Manual) 7 (0-10) % Platelet Estimate Slightly increased H (NORMAL) Polychromasia Slight Hypochromasia (manual) Slight Anisocytosis (manual) Slight Target Cells Slight Puncture Site pCO2 (35-45) mm/Hg pO2 (80-100) mm/Hg HCO3 (21-28) mmol/L ABG pH (7.35-7.45) ABG Total CO2 (22-28) mmol/L ABG O2 Saturation (95-98) % ABG Base Excess (-2.0-3.0) mmol/L Jayson Test ABG Potassium (3.6-5.2) mmol/L A-a O2 Difference mm/Hg Respiratory Index Sodium 133 (132-148) mmol/l Chloride 103 (98-107) mmol/L Glucose (65-105) mg/dl Lactate (0.7-2.1) mmol/L FiO2 % Potassium 3.8 (3.6-5.2) mmol/L Carbon Dioxide 22 (22-30) mmol/L Anion Gap 13 (10-20) BUN 13 (7-17) mg/dL Creatinine 0.7 (0.7-1.2) mg/dL Est GFR ( Amer) > 60 Est GFR (Non-Af Amer) > 60 Random Glucose 135 H (65-105) mg/dL Calcium 8.1 L (8.6-10.4) mg/dl Phosphorus 3.6 (2.5-4.5) mg/dL Magnesium 1.3 L (1.6-2.3) mg/dL Total Bilirubin 1.8 H (0.2-1.3) mg/dL AST 26 (14-36) U/L ALT 35 (9-52) U/L Alkaline Phosphatase 76 (38-126) U/L Total Protein 5.5 L (6.3-8.3) g/dL Albumin 2.4 L D (3.5-5.0) g/dL Globulin 3.1 (2.2-3.9) gm/dL Albumin/Globulin Ratio 0.8 L (1.0-2.1) Arterial Blood Potassium (3.6-5.2) mmol/L Blood Type Antibody Screen 07/12/17 07/12/17 07/12/17 Range/Units 18:35 18:28 15:19 WBC 8.9 (4.8-10.8) K/uL RBC 2.46 L (3.80-5.20) Mil/uL Hgb 7.3 L D (11.0-16.0) g/dL Hct 20.8 L (34.0-47.0) % MCV 84.8 (81.0-99.0) fL MCH 29.8 (27.0-31.0) pg MCHC 35.2 (33.0-37.0) g/dL RDW 15.7 H (11.5-14.5) % Plt Count 407 H D (130-400) K/uL MPV 7.8 (7.2-11.7) fL Neut % (Auto) 80.7 H (50.0-75.0) % Lymph % (Auto) 11.8 L (20.0-40.0) % Barren % (Auto) 7.1 (0.0-10.0) % Eos % (Auto) 0.0 (0.0-4.0) % Baso % (Auto) 0.4 (0.0-2.0) % Neut # (Auto) 7.2 H (1.8-7.0) K/uL Lymph # (Auto) 1.1 (1.0-4.3) K/uL Barren # (Auto) 0.6 (0.0-0.8) K/uL Eos # (Auto) 0.0 (0.0-0.7) K/uL Baso # (Auto) 0.0 (0.0-0.2) K/uL Neutrophils % (Manual) (50-75) % Band Neutrophils % (0-2) % Lymphocytes % (Manual) (20-40) % Monocytes % (Manual) (0-10) % Platelet Estimate (NORMAL) Polychromasia Hypochromasia (manual) Anisocytosis (manual) Target Cells Puncture Site Rra pCO2 42 (35-45) mm/Hg pO2 336 H (80-100) mm/Hg HCO3 23.6 (21-28) mmol/L ABG pH 7.36 (7.35-7.45) ABG Total CO2 25.0 (22-28) mmol/L ABG O2 Saturation 99.8 H (95-98) % ABG Base Excess -1.8 (-2.0-3.0) mmol/L Jayson Test Pos ABG Potassium 3.8 (3.6-5.2) mmol/L A-a O2 Difference 325.0 mm/Hg Respiratory Index 1.0 Sodium 132.0 (132-148) mmol/l Chloride 105.0 (98-107) mmol/L Glucose 155 H (65-105) mg/dl Lactate 2.5 H (0.7-2.1) mmol/L FiO2 100.0 % Potassium (3.6-5.2) mmol/L Carbon Dioxide (22-30) mmol/L Anion Gap (10-20) BUN (7-17) mg/dL Creatinine (0.7-1.2) mg/dL Est GFR ( Amer) Est GFR (Non-Af Amer) Random Glucose (65-105) mg/dL Calcium (8.6-10.4) mg/dl Phosphorus (2.5-4.5) mg/dL Magnesium (1.6-2.3) mg/dL Total Bilirubin (0.2-1.3) mg/dL AST (14-36) U/L ALT (9-52) U/L Alkaline Phosphatase (38-126) U/L Total Protein (6.3-8.3) g/dL Albumin (3.5-5.0) g/dL Globulin (2.2-3.9) gm/dL Albumin/Globulin Ratio (1.0-2.1) Arterial Blood Potassium 3.8 (3.6-5.2) mmol/L Blood Type A POSITIVE Antibody Screen Negative Laboratory Results - last 24 hr 07/12/17 07/12/17 07/12/17 15:19 18:28 18:35 WBC 8.9 RBC 2.46 L Hgb 7.3 L D Hct 20.8 L MCV 84.8 MCH 29.8 MCHC 35.2 RDW 15.7 H Plt Count 407 H D MPV 7.8 Neut % (Auto) 80.7 H Lymph % (Auto) 11.8 L Barren % (Auto) 7.1 Eos % (Auto) 0.0 Baso % (Auto) 0.4 Neut # (Auto) 7.2 H Lymph # (Auto) 1.1 Barren # (Auto) 0.6 Eos # (Auto) 0.0 Baso # (Auto) 0.0 Neutrophils % (Manual) Band Neutrophils % Lymphocytes % (Manual) Monocytes % (Manual) Platelet Estimate Polychromasia Hypochromasia (manual) Anisocytosis (manual) Target Cells Puncture Site Rra pCO2 42 pO2 336 H HCO3 23.6 ABG pH 7.36 ABG Total CO2 25.0 ABG O2 Saturation 99.8 H ABG Base Excess -1.8 Jayson Test Pos ABG Potassium 3.8 A-a O2 Difference 325.0 Respiratory Index 1.0 Sodium 132.0 Chloride 105.0 Glucose 155 H Lactate 2.5 H FiO2 100.0 Potassium Carbon Dioxide Anion Gap BUN Creatinine Est GFR ( Amer) Est GFR (Non-Af Amer) Random Glucose Calcium Phosphorus Magnesium Total Bilirubin AST ALT Alkaline Phosphatase Total Protein Albumin Globulin Albumin/Globulin Ratio Arterial Blood Potassium 3.8 Blood Type A POSITIVE Antibody Screen Negative 07/13/17 07/13/17 07/13/17 01:52 06:29 06:40 WBC 12.9 H 17.5 H RBC 3.69 L 3.34 L Hgb 10.9 L D 10.0 L Hct 31.7 L 28.7 L MCV 86.0 85.9 MCH 29.6 29.9 MCHC 34.4 34.8 RDW 15.1 H 15.3 H Plt Count 396 443 H MPV 7.9 8.2 Neut % (Auto) 84.8 H 88.5 H Lymph % (Auto) 10.9 L 6.7 L Barren % (Auto) 4.1 4.8 Eos % (Auto) 0.1 0.0 Baso % (Auto) 0.1 0.0 Neut # (Auto) 10.9 H 15.5 H Lymph # (Auto) 1.4 1.2 Barren # (Auto) 0.5 0.8 Eos # (Auto) 0.0 0.0 Baso # (Auto) 0.0 0.0 Neutrophils % (Manual) 39 L Band Neutrophils % 51 H* Lymphocytes % (Manual) 3 L Monocytes % (Manual) 7 Platelet Estimate Slightly increased H Polychromasia Slight Hypochromasia (manual) Slight Anisocytosis (manual) Slight Target Cells Slight Puncture Site pCO2 pO2 HCO3 ABG pH ABG Total CO2 ABG O2 Saturation ABG Base Excess Jayson Test ABG Potassium A-a O2 Difference Respiratory Index Sodium 133 Chloride 103 Glucose Lactate FiO2 Potassium 3.8 Carbon Dioxide 22 Anion Gap 13 BUN 13 Creatinine 0.7 Est GFR ( Amer) > 60 Est GFR (Non-Af Amer) > 60 Random Glucose 135 H Calcium 8.1 L Phosphorus 3.6 Magnesium 1.3 L Total Bilirubin 1.8 H AST 26 ALT 35 Alkaline Phosphatase 76 Total Protein 5.5 L Albumin 2.4 L D Globulin 3.1 Albumin/Globulin Ratio 0.8 L Arterial Blood Potassium Blood Type Antibody Screen Critical Care Progress Note - Nutrition Nutrition: Nutrition Category Date Time Status NPO Diet [DIET] Diets 07/12/17 Breakfast Active Assessment/Plan - Assessment and Plan (Free Text) Assessment: 52F s/p Colostomy revision, partial colectomy, SB resection,mesh and I&D of abscesses Plan: GI: colostomy revision, partial colectomy, small bowel resection with mesh, I&D of abscesses - remain NPO; convert all PO meds to IV - f/u wound cx Heme: anemia - trend Hb s/p transfusion - follow WBCs and bands; repeat CBC with diff. - lovenox 40mg SC qd Pulm: PNA - CXR from 07/12 showed small left pleural effusion and basilar opacity - continue 2L NC Cards: HTN - hydralazine 25mg PO BID, convert to IV - labetalol 200mg PO BID, convert to IV ID: sepsis; abx for abscess and ?URI - Flagyl 500mg @ 100ml/hr IVPD q8 - Azactam 1g @ 200ml/hr IVPB q8 - Vancomycin 1g @ 166.667 ml/hr IVPB q12 - f/u with cultures for stool, urine, MRSA, CDiff - blood cx negative PPx: - Protonix EC Tab 40mg PO qd, convert to IV - APAP 650mg PO qs PRN, convert to IV - Albumin 25% - LR @ 120ml/hr IV q8h20m - Dilaudid 0.5mg IVP q4h PRN - MgSO4 1g/100ml D5W @ 200ml/hr IVPB q30m <Yuan Siu S - Last Filed: 07/13/17 18:06> CCU Objective - Vital Signs / Intake & Output Vital Signs (Last 4 hours): Vital Signs Temp Pulse Resp BP Pulse Ox 07/13/17 17:10 107 H 20 98 07/13/17 17:05 107 H 20 127/77 97 07/13/17 17:01 112 H 22 153/81 H 97 07/13/17 17:00 109 H 16 98 07/13/17 16:05 107 H 21 158/90 H 95 07/13/17 16:00 98.3 F 109 H 29 H 98 07/13/17 15:50 106 H 29 H 98 07/13/17 15:40 105 H 26 H 98 07/13/17 15:30 107 H 27 H 98 07/13/17 15:20 104 H 27 H 98 07/13/17 15:10 108 H 30 H 98 07/13/17 15:05 107 H 32 H 158/97 H 98 07/13/17 15:00 110 H 32 H 98 07/13/17 14:50 102 H 27 H 99 07/13/17 14:05 103 H 23 137/86 98 Intake and Output (Last 8hrs): Intake & Output 07/13/17 07/13/17 07/13/17 06:59 14:59 22:59 Intake Total 1450 2300 300 Output Total 380 215 110 Balance 1070 2085 190 Weight 207 lb 3.752 oz Intake: IV 100 Intake, IV Amount 1350 2300 300 Left Forearm 0 0 Left Hand 550 Left Wrist 800 1500 300 Right Hand 0 800 Output: Gastric Amount 100 Right Nares 100 Drainage 30 Abdomen 30 Urine 250 215 110 Urethral (Hunt) 250 215 110 - Medications Active Medications: Active Medications Generic Name Dose Route Start Last Admin Trade Name Freq PRN Reason Stop Dose Admin Acetaminophen 650 mg 07/12/17 11:16 07/12/17 11:25 Tylenol 325mg Tab PO 650 mg Q6 PRN Administration Fever >100.4 F Enoxaparin Sodium 40 mg 07/13/17 10:00 07/13/17 10:17 Lovenox SC 40 mg DAILY MICHELLE Administration Hydralazine HCl 10 mg 07/13/17 12:00 07/13/17 17:11 Apresoline IVP 10 mg Q6H MICHELLE Administration Hydromorphone HCl 1 mg 07/13/17 15:33 07/13/17 15:52 Dilaudid IVP 1 mg Q4H PRN Administration Pain, moderate (4-7) Hydromorphone/Sodium Chloride 6 mg 07/12/17 19:24 Dilaudid Optical Fabricator IV Q4H PRN Pain, moderate (4-7) Protocol Dextrose/Sodium Chloride 1,000 mls @ 100 mls/hr 07/12/17 04:30 07/13/17 13:19 Dextrose 5%/0.45% Ns 1000 Ml IV Not Given .Q10H MICHELLE Metronidazole 500 mg in 100 mls @ 100 mls/hr 07/12/17 06:00 07/13/17 13:04 Flagyl IVPB 100 mls/hr Q8 MICHELLE Administration Aztreonam 1 gm/ Sodium 100 mls @ 200 mls/hr 07/12/17 22:00 07/13/17 13:08 Chloride IVPB 200 mls/hr Q8H MICHELLE Administration Linezolid 600 mg in 300 mls @ 200 mls/hr 07/13/17 22:00 Zyvox 600mg/300ml D5w IVPB Q12 MICHELLE Fluconazole 100 mls @ 100 mls/hr 07/14/17 10:00 Diflucan Iv 200 Mg/100 Ml Ns IVPB DAILY MICHELLE Labetalol HCl 200 mg 07/13/17 13:15 07/13/17 17:11 Trandate PO 200 mg BID MICHELLE Administration Ondansetron HCl 4 mg 07/12/17 04:45 Zofran Inj IVP Q6H PRN Nausea/Vomiting Oxycodone/Acetaminophen 2 tab 07/12/17 04:30 Percocet 5/325 Mg Tab PO 07/15/17 04:31 Q4H PRN Pain, severe (8-10) Pantoprazole Sodium 40 mg 07/13/17 12:00 07/13/17 13:00 Protonix Inj IVP 40 mg DAILY MICHELLE Administration - Patient Studies Lab Studies: Microbiology Studies 07/11/17 21:10 Urine Culture - Final Urine No Growth (<1,000 CFU/ML) 07/11/17 23:10 Blood Culture - Preliminary Blood NO GROWTH AFTER 24 HOURS 07/11/17 21:40 Blood Culture - Preliminary Blood NO GROWTH AFTER 24 HOURS Lab Studies 07/13/17 07/13/17 07/13/17 Range/Units 06:40 06:29 01:52 WBC 17.5 H 12.9 H (4.8-10.8) K/uL RBC 3.34 L 3.69 L (3.80-5.20) Mil/uL Hgb 10.0 L 10.9 L D (11.0-16.0) g/dL Hct 28.7 L 31.7 L (34.0-47.0) % MCV 85.9 86.0 (81.0-99.0) fL MCH 29.9 29.6 (27.0-31.0) pg MCHC 34.8 34.4 (33.0-37.0) g/dL RDW 15.3 H 15.1 H (11.5-14.5) % Plt Count 443 H 396 (130-400) K/uL MPV 8.2 7.9 (7.2-11.7) fL Neut % (Auto) 88.5 H 84.8 H (50.0-75.0) % Lymph % (Auto) 6.7 L 10.9 L (20.0-40.0) % Barren % (Auto) 4.8 4.1 (0.0-10.0) % Eos % (Auto) 0.0 0.1 (0.0-4.0) % Baso % (Auto) 0.0 0.1 (0.0-2.0) % Neut # (Auto) 15.5 H 10.9 H (1.8-7.0) K/uL Lymph # (Auto) 1.2 1.4 (1.0-4.3) K/uL Barren # (Auto) 0.8 0.5 (0.0-0.8) K/uL Eos # (Auto) 0.0 0.0 (0.0-0.7) K/uL Baso # (Auto) 0.0 0.0 (0.0-0.2) K/uL Neutrophils % (Manual) 39 L (50-75) % Band Neutrophils % 51 H* (0-2) % Lymphocytes % (Manual) 3 L (20-40) % Monocytes % (Manual) 7 (0-10) % Platelet Estimate Slightly increased H (NORMAL) Polychromasia Slight Hypochromasia (manual) Slight Anisocytosis (manual) Slight Target Cells Slight Puncture Site pCO2 (35-45) mm/Hg pO2 (80-100) mm/Hg HCO3 (21-28) mmol/L ABG pH (7.35-7.45) ABG Total CO2 (22-28) mmol/L ABG O2 Saturation (95-98) % ABG Base Excess (-2.0-3.0) mmol/L Jayson Test ABG Potassium (3.6-5.2) mmol/L A-a O2 Difference mm/Hg Respiratory Index Sodium 133 (132-148) mmol/l Chloride 103 (98-107) mmol/L Glucose (65-105) mg/dl Lactate (0.7-2.1) mmol/L FiO2 % Potassium 3.8 (3.6-5.2) mmol/L Carbon Dioxide 22 (22-30) mmol/L Anion Gap 13 (10-20) BUN 13 (7-17) mg/dL Creatinine 0.7 (0.7-1.2) mg/dL Est GFR ( Amer) > 60 Est GFR (Non-Af Amer) > 60 Random Glucose 135 H (65-105) mg/dL Calcium 8.1 L (8.6-10.4) mg/dl Phosphorus 3.6 (2.5-4.5) mg/dL Magnesium 1.3 L (1.6-2.3) mg/dL Total Bilirubin 1.8 H (0.2-1.3) mg/dL AST 26 (14-36) U/L ALT 35 (9-52) U/L Alkaline Phosphatase 76 (38-126) U/L Total Protein 5.5 L (6.3-8.3) g/dL Albumin 2.4 L D (3.5-5.0) g/dL Globulin 3.1 (2.2-3.9) gm/dL Albumin/Globulin Ratio 0.8 L (1.0-2.1) Arterial Blood Potassium (3.6-5.2) mmol/L Blood Type Antibody Screen 07/12/17 07/12/17 07/12/17 Range/Units 18:35 18:28 15:19 WBC 8.9 (4.8-10.8) K/uL RBC 2.46 L (3.80-5.20) Mil/uL Hgb 7.3 L D (11.0-16.0) g/dL Hct 20.8 L (34.0-47.0) % MCV 84.8 (81.0-99.0) fL MCH 29.8 (27.0-31.0) pg MCHC 35.2 (33.0-37.0) g/dL RDW 15.7 H (11.5-14.5) % Plt Count 407 H D (130-400) K/uL MPV 7.8 (7.2-11.7) fL Neut % (Auto) 80.7 H (50.0-75.0) % Lymph % (Auto) 11.8 L (20.0-40.0) % Barren % (Auto) 7.1 (0.0-10.0) % Eos % (Auto) 0.0 (0.0-4.0) % Baso % (Auto) 0.4 (0.0-2.0) % Neut # (Auto) 7.2 H (1.8-7.0) K/uL Lymph # (Auto) 1.1 (1.0-4.3) K/uL Barren # (Auto) 0.6 (0.0-0.8) K/uL Eos # (Auto) 0.0 (0.0-0.7) K/uL Baso # (Auto) 0.0 (0.0-0.2) K/uL Neutrophils % (Manual) (50-75) % Band Neutrophils % (0-2) % Lymphocytes % (Manual) (20-40) % Monocytes % (Manual) (0-10) % Platelet Estimate (NORMAL) Polychromasia Hypochromasia (manual) Anisocytosis (manual) Target Cells Puncture Site Rra pCO2 42 (35-45) mm/Hg pO2 336 H (80-100) mm/Hg HCO3 23.6 (21-28) mmol/L ABG pH 7.36 (7.35-7.45) ABG Total CO2 25.0 (22-28) mmol/L ABG O2 Saturation 99.8 H (95-98) % ABG Base Excess -1.8 (-2.0-3.0) mmol/L Jayson Test Pos ABG Potassium 3.8 (3.6-5.2) mmol/L A-a O2 Difference 325.0 mm/Hg Respiratory Index 1.0 Sodium 132.0 (132-148) mmol/l Chloride 105.0 (98-107) mmol/L Glucose 155 H (65-105) mg/dl Lactate 2.5 H (0.7-2.1) mmol/L FiO2 100.0 % Potassium (3.6-5.2) mmol/L Carbon Dioxide (22-30) mmol/L Anion Gap (10-20) BUN (7-17) mg/dL Creatinine (0.7-1.2) mg/dL Est GFR ( Amer) Est GFR (Non-Af Amer) Random Glucose (65-105) mg/dL Calcium (8.6-10.4) mg/dl Phosphorus (2.5-4.5) mg/dL Magnesium (1.6-2.3) mg/dL Total Bilirubin (0.2-1.3) mg/dL AST (14-36) U/L ALT (9-52) U/L Alkaline Phosphatase (38-126) U/L Total Protein (6.3-8.3) g/dL Albumin (3.5-5.0) g/dL Globulin (2.2-3.9) gm/dL Albumin/Globulin Ratio (1.0-2.1) Arterial Blood Potassium 3.8 (3.6-5.2) mmol/L Blood Type A POSITIVE Antibody Screen Negative Laboratory Results - last 24 hr 07/12/17 07/12/17 07/12/17 15:19 18:28 18:35 WBC 8.9 RBC 2.46 L Hgb 7.3 L D Hct 20.8 L MCV 84.8 MCH 29.8 MCHC 35.2 RDW 15.7 H Plt Count 407 H D MPV 7.8 Neut % (Auto) 80.7 H Lymph % (Auto) 11.8 L Barren % (Auto) 7.1 Eos % (Auto) 0.0 Baso % (Auto) 0.4 Neut # (Auto) 7.2 H Lymph # (Auto) 1.1 Barren # (Auto) 0.6 Eos # (Auto) 0.0 Baso # (Auto) 0.0 Neutrophils % (Manual) Band Neutrophils % Lymphocytes % (Manual) Monocytes % (Manual) Platelet Estimate Polychromasia Hypochromasia (manual) Anisocytosis (manual) Target Cells Puncture Site Rra pCO2 42 pO2 336 H HCO3 23.6 ABG pH 7.36 ABG Total CO2 25.0 ABG O2 Saturation 99.8 H ABG Base Excess -1.8 Jayson Test Pos ABG Potassium 3.8 A-a O2 Difference 325.0 Respiratory Index 1.0 Sodium 132.0 Chloride 105.0 Glucose 155 H Lactate 2.5 H FiO2 100.0 Potassium Carbon Dioxide Anion Gap BUN Creatinine Est GFR ( Amer) Est GFR (Non-Af Amer) Random Glucose Calcium Phosphorus Magnesium Total Bilirubin AST ALT Alkaline Phosphatase Total Protein Albumin Globulin Albumin/Globulin Ratio Arterial Blood Potassium 3.8 Blood Type A POSITIVE Antibody Screen Negative 07/13/17 07/13/17 07/13/17 01:52 06:29 06:40 WBC 12.9 H 17.5 H RBC 3.69 L 3.34 L Hgb 10.9 L D 10.0 L Hct 31.7 L 28.7 L MCV 86.0 85.9 MCH 29.6 29.9 MCHC 34.4 34.8 RDW 15.1 H 15.3 H Plt Count 396 443 H MPV 7.9 8.2 Neut % (Auto) 84.8 H 88.5 H Lymph % (Auto) 10.9 L 6.7 L Barren % (Auto) 4.1 4.8 Eos % (Auto) 0.1 0.0 Baso % (Auto) 0.1 0.0 Neut # (Auto) 10.9 H 15.5 H Lymph # (Auto) 1.4 1.2 Barren # (Auto) 0.5 0.8 Eos # (Auto) 0.0 0.0 Baso # (Auto) 0.0 0.0 Neutrophils % (Manual) 39 L Band Neutrophils % 51 H* Lymphocytes % (Manual) 3 L Monocytes % (Manual) 7 Platelet Estimate Slightly increased H Polychromasia Slight Hypochromasia (manual) Slight Anisocytosis (manual) Slight Target Cells Slight Puncture Site pCO2 pO2 HCO3 ABG pH ABG Total CO2 ABG O2 Saturation ABG Base Excess [place] Test ABG Potassium A-a O2 Difference Respiratory Index Sodium 133 Chloride 103 Glucose Lactate FiO2 Potassium 3.8 Carbon Dioxide 22 Anion Gap 13 BUN 13 Creatinine 0.7 Est GFR ( Amer) > 60 Est GFR (Non-Af Amer) > 60 Random Glucose 135 H Calcium 8.1 L Phosphorus 3.6 Magnesium 1.3 L Total Bilirubin 1.8 H AST 26 ALT 35 Alkaline Phosphatase 76 Total Protein 5.5 L Albumin 2.4 L D Globulin 3.1 Albumin/Globulin Ratio 0.8 L Arterial Blood Potassium Blood Type Antibody Screen Critical Care Progress Note - Nutrition Nutrition: Nutrition Category Date Time Status NPO Diet [DIET] Diets 07/12/17 Breakfast Active Attending/Attestation - Attestation I have personally seen and examined this patient.: Yes I have fully participated in the care of the patient.: Yes I have reviewed all pertinent clinical information: Yes Notes (Text): 07/13/17 18:03 patient seen and examined in the intensive care unit. s/p Colostomy revision, partial colectomy, SB resection,mesh and I&D of abscesses Continue IV antibiotics as per infectious disease Fluid resuscitation Follow-up intake and output
[2017-07-13] MEDS ORDERED: Sodium Chloride 0.9% 500 ML IV ONE (14:01)
[2017-07-13] MEDS ORDERED: Sodium Chloride 0.9% 1,000 ML IV ONE (14:03)
--- NOTE | 2017-07-13 16:18 | PN ---
DATE: 07/13/2017 SUBJECTIVE: The patient is resting comfortably in a chair. She is status post revision of an ischemic colostomy with abdominal abscess and underwent extensive laparotomy, lysis of adhesions, small-bowel resection, colon resection with end colostomy yesterday. Overnight, she was stable. Her urine output averaged approximately 30 mL an hour and the rest of her vital signs remained stable. PHYSICAL EXAMINATION: GENERAL: Today, she is resting comfortably in bed. VITAL SIGNS: Her temperature is 99, her pulse rate is 112, respiration rate is 25 and regular, and O2 saturation is 97%. LUNGS: Clear. ABDOMEN: Revealed a clean dry dressing. The remainder of the physical exam is unremarkable. The colostomy has no output. There were no bowel sounds. ASSESSMENT AND PLAN: She is status post extensive laparotomy, lysis of adhesions, small bowel and colon resection for an abdominal abscess secondary to ischemic colostomy, which became disrupted at the shelter, resulting in intra-abdominal and subcutaneous abscess. She has been stable. She will continue on IV antibiotics, IV fluids postoperatively. Andrey Sparrow MD
--- NOTE | 2017-07-13 17:04 | CP.PCM.PN ---
Subjective - Date & Time of Evaluation Date of Evaluation: 07/13/17 Time of Evaluation: 17:04 - Subjective Subjective: CHIEF COMPLAINTS TODAY : #POD 1. PT SEEN CHART REVIEWED. OR NOTED. AFEBRILE, AWAKE +VE NGT- GREENISH ASPIRATE C/O GENERALIZED ABDOMINAL PAIN ROS. HEENT : N. Resp : No SOB wheezing, cough Cardio : No CP, PND orthopnea GI : +VE ABDOMINAL PAIN / POST OPERATIVE KIDNEY TRIMMER : No headache , focal deficit. Musculoskel : N Ext. : Pedal pulses intact, no edema or calf pain Derm : N Psych : N. PE. Pt. is alert awake in no distress. V.S As noted in the chart Head ,ear nose,throat and eyes : Normal. Neck : Supple with normal carotids. Lungs: Clear air entry. Heart : S1 & S2 normal . . No murmur. S4 + Abd : .+VE ABDOMINAL PAIN / POST OPERATIVE +VE COLOSTOMY. Neuro : Moves all ext. with no localized deficit. Ext : No edema with intact pulses. Neg. calf tenderness Derm : No rashes or decubitus ulcer. Radiology/Labs . LABS REVIEWED BLOOD CULTURES 07/11/17 -VE GROWTH URINE CULTURE -VE GROWTH WBC17.5 CREAT O.8/BUN 13 Objective - Vital Signs/Intake and Output Vital Signs (last 24 hours): Temp Pulse Resp BP Pulse Ox 98.3 F 107 H 21 158/90 H 95 07/13/17 16:00 07/13/17 16:05 07/13/17 16:05 07/13/17 16:05 07/13/17 16:05 Intake and Output: 07/13/17 07/13/17 06:59 18:59 Intake Total 2490 2500 Output Total 750 265 Balance 1740 2235 - Medications Medications: Current Medications Acetaminophen (Tylenol 325mg Tab) 650 mg PO Q6 PRN PRN Reason: Fever >100.4 F Last Admin: 07/12/17 11:25 Dose: 650 mg Enoxaparin Sodium (Lovenox) 40 mg SC DAILY [facility] Last Admin: 07/13/17 10:17 Dose: 40 mg Hydralazine HCl (Apresoline) 10 mg IVP Q6H [facility] Last Admin: 07/13/17 13:08 Dose: 10 mg Hydromorphone HCl (Dilaudid) 1 mg IVP Q4H PRN PRN Reason: Pain, moderate (4-7) Last Admin: 07/13/17 15:52 Dose: 1 mg Hydromorphone/Sodium Chloride (Dilaudid [employer]) 6 mg IV Q4H PRN; Protocol PRN Reason: Pain, moderate (4-7) Dextrose/Sodium Chloride (Dextrose 5%/0.45% Ns 1000 Ml) 1,000 mls @ 100 mls/hr IV .Q10H [facility] Last Admin: 07/13/17 13:19 Dose: Not Given Metronidazole (Flagyl) 500 mg in 100 mls @ 100 mls/hr IVPB Q8 [facility] Last Admin: 07/13/17 13:04 Dose: 100 mls/hr Aztreonam 1 gm/ Sodium (Chloride) 100 mls @ 200 mls/hr IVPB Q8H [facility] Last Admin: 07/13/17 13:08 Dose: 200 mls/hr Vancomycin/Sodium Chloride (Vancomycin 1 Gm/Ns 200 Ml) 1 gm in 200 mls @ 133.333 mls/hr IVPB Q12H [facility] Stop: 07/18/17 00:16 Labetalol HCl (Trandate) 200 mg PO BID [facility] Last Admin: 07/13/17 13:13 Dose: 200 mg Ondansetron HCl (Zofran Inj) 4 mg IVP Q6H PRN PRN Reason: Nausea/Vomiting Oxycodone/Acetaminophen (Percocet 5/325 Mg Tab) 2 tab PO Q4H PRN PRN Reason: Pain, severe (8-10) Stop: 07/15/17 04:31 Pantoprazole Sodium (Protonix Inj) 40 mg IVP DAILY [facility] Last Admin: 07/13/17 13:00 Dose: 40 mg - Labs Labs: 07/13/17 06:40 07/13/17 06:29 PT 18.9 SECONDS (9.7-12.2) H 07/11/17 23:33 INR 1.7 07/11/17 23:33 APTT 29 SECONDS (21-34) 07/11/17 23:33 Assessment and Plan (1) Abdominal pain Status: Acute (2) Diverticular disease of intestine with perforation and abscess Status: Acute (3) Abscess of multiple sites Status: Acute (4) Hypertension Status: Acute - Assessment and Plan (Free Text) Plan: PLAN; PANCULTURES CONTINUE IV ANTIBIOTICS IV AZACTAM ,IV VANCOMYCIN ,IV FLAGYL. WATCH H/H ANALGESICS AND POST OPERATIVE CARE PER DR OLVERA F/U CULTURES TO ADJUST ABX . CASE DISCUSSED W STAFF/ RN KRISTIAN. WILL FOLLOW ALONG WITH YOU .
--- NOTE | 2017-07-13 17:58 | CP.PCM.CON ---
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 - diverticultitis with abscess formation s/p revision of colostomy discussed at length with dr sparrow Review of Systems - Review of Systems All systems: reviewed and no additional remarkable complaints except - Constitutional Constitutional: As Per HPI - EENT Eyes: absent: As Per HPI, Blind Spots, Blurred Vision, Change in Vision, Decreased Night Vision, Diplopia, Discharge, Dry Eye, Exophthalmos, Floaters, Irritation, Itchy Eyes, Loss of Peripheral Vision, Pain, Photophobia, Requires Corrective Lenses, Sees Flashes, Spots in Vision, Tunnel Vision, Other Visual Disturbances, Loss of Vision, Other Ears: absent: As Per HPI, Decreased Hearing, Ear Discharge, Ear Pain, Tinnitus, Abnormal Hearing, Disequilibrium, Dizziness, Other Nose/Mouth/Throat: absent: As Per HPI, Epistaxis, Nasal Congestion, Nasal Discharge, Nasal Obstruction, Nasal Trauma, Nose Pain, Post Nasal Drip, Sinus Pain, Sinus Pressure, Bleeding Gums, Change in Voice, Dental Pain, Dry Mouth, Dysphagia, Halitosis, Hoarsness, Lip Swelling, Mouth Lesions, Mouth Pain, Odynophagia, Sore Throat, Throat Swelling, Tongue Swelling, Facial Pain, Neck Pain, Neck Mass, Other - Cardiovascular Cardiovascular: absent: As Per HPI, Acrocyanosis, Chest Pain, Chest Pain at Rest , Chest Pain with Activity, Claudication, Diaphoresis, Dyspnea, Dyspnea on Exertion, Edema, Irregular Heart Rhythm, Pain Radiating to Arm/Neck/Jaw, Leg Edema, Leg Ulcers, Lightheadedness, Orthopnea, Palpitations, Paroxysmal Nocturnal Dyspnea, Pedal Edema, Radiating Pain, Rapid Heart Rate, Slow Heart Rate, Syncope, Other - Respiratory Respiratory: absent: As Per HPI, Cough, Dyspnea, Hemoptysis, Dyspnea on Exertion , Wheezing, Snoring, Stridor, Pain on Inspiration, Chest Congestion, Excessive Mucous Production, Change in Mucous Color, Pain with Coughing, Other - Gastrointestinal Gastrointestinal: As Per HPI - Genitourinary Genitourinary: absent: As Per HPI, Change in Urinary Stream, Difficulty Urinating, Dysuria, Flank Pain, Hematuria, Pyuria, Nocturia, Urinary Incontinence, Urinary Frequency, Urinary Hesitance, Urinary Urgency, Voiding Freq/Small Amts, Freq UTI, Hx Renal/Bladder Calculi, Hx /Renal Surgery, Bladder Distension, Other - Reproductive: Female Reproductive:Female: absent: As Per HPI, Amenorrhea, Amenorrhea/ Control, Currently Menstual, Cycle <21 Days, Cycle >35 Days, Cycle Variable, Menses 1-7 Days, Menses >/= 8 Days, Menses Variable, Cycle > 4 Weeks Between, No Menses for 6 Months, Heavy Menses, Light Menses, Normal Menses, Spotting Between Cycles , S/P Hysterectomy, Menopausal, Post Menopausal, Premenarche, Abnormal Vaginal Bleeding, Dysmenorrhea, Dyspareunia, Genital Lesions, Genital Pruritis, Pelvic Pain, Prolapse Symptoms, Sexual Dysfunction, Vaginal Discharge, Vaginal Dryness , Vaginal Odor, Vaginal Pruritis, Other - Menstruation Menstruation: absent: As Per HPI, Amenorrhea, Amenorrhea/ Control, Currently Menstual, Cycle <21 Days, Cycle >35 Days, Cycle Variable, Menses 1-7 Days, Menses >/= 8 Days, Menses Variable, Cycle > 4 Weeks Between, No Menses for 6 Months, Heavy Menses, Light Menses, Normal Menses, Spotting Between Cycles , S/P Hysterectomy, Menopausal, Post Menopausal, Premenarche, Abnormal Vaginal Bleeding, Dysmenorrhea, Other - Musculoskeletal Musculoskeletal: absent: As Per HPI, Abnormal Gait, Arthralgias, Atrophy, Back Pain, Deformity, Joint Swelling, Limited Range of Motion, Loss of Height, Muscle Cramps, Muscle Weakness, Myalgias, Neck Pain, Numbness, Radiating Pain into Limb, Stiffness, Tingling, Other - Integumentary Integumentary: absent: As Per HPI, Acne, Alopecia, Bleeding Lesions, Change in Hair, Change in Nails, Change in Pigmentation, Changing Lesions, Dry Skin, Erythema, Furuncle, Hirsutism, Lesions, New Lesions, Non-Healing Lesions, Photosensitivity, Pruritus, Rash, Skin Pain, Skin Ulcer, Sores, Striae, Swelling , Unusual Bruising, Wounds, Jaundice, Other - Neurological Neurological: absent: As Per HPI, Abnormal Gait, Abnormal Hearing, Abnormal Movements, Abnormal Speech, Behavioral Changes, Burning Sensations, Confusion, Convulsions, Disequilibrium, Dizziness, Numbness, Focal Weakness, Frequent Falls , Headaches, Lack of Coordination, Loss of Vision, Memory Loss, Paresthesias, Radicular Pain, Restless Legs, Sensory Deficit, Syncope, Tingling, Tremor, Vertigo, Weakness, Other Visual Disturbances, Other - Psychiatric Psychiatric: absent: As Per HPI, Abnormal Sleep Pattern, Anhedonia, Anxiety, Auditory Hallucinations, Behavioral Changes, Change in Appetite, Change in Libido, Confusion, Depression, Difficulty Concentrating, Hallucinations, Homicidal Ideation, Hopelessness, Irritability, Memory Loss, Mood Swings, Panic Attacks, Paranoia, Suicidal Ideation, Visual Hallucinations, Tactile Hallucinations, Other - Endocrine Endocrine: absent: As Per HPI, Change in Body Appearance, Change in Libido, Cold Intolorance, Deepening of Voice, Excessive Sweating, Fatigue, Flushing, Heat Intolorance, Increase in Ring/Shoe/Hat Size, Palpitations, Polydipsia, Polyphagia, Polyuria, Other - Hematologic/Lymphatic Hematologic: absent: As Per HPI, Easy Bleeding, Easy Bruising, Lymphadenopathy, Other Past Patient History - Past Medical History & Family History Past Medical History?: Yes - Past Social History Smoking Status: Never Smoked - CARDIAC Hx Hypertension: Yes - PULMONARY Hx Respiratory Disorders: No - NEUROLOGICAL Hx Neurological Disorder: No - HEENT Hx HEENT Problems: No - RENAL Hx Chronic Kidney Disease: No - ENDOCRINE/METABOLIC Hx Endocrine Disorders: No - HEMATOLOGICAL/ONCOLOGICAL Hx Blood Disorders: No - INTEGUMENTARY Hx Dermatological Problems: No - MUSCULOSKELETAL/RHEUMATOLOGICAL Hx Arthritis: Yes - GASTROINTESTINAL Hx Diverticulitis: Yes - GENITOURINARY/GYNECOLOGICAL Hx Genitourinary Disorders: No - PSYCHIATRIC Hx Substance Use: No - SURGICAL HISTORY Hx Surgeries: Yes Hx Gastric Bypass Surgery: Yes (2011) Hx Hysterectomy: Yes (1998) Other/Comment: gallbladder Sx 4 -5 yrs ago - ANESTHESIA Hx Anesthesia: Yes Hx Anesthesia Reactions: No Hx Malignant Hyperthermia: No Meds Allergies/Adverse Reactions: Allergies Allergy/AdvReac Type Severity Reaction Status Date / Time piperacillin [From Zosyn] AdvReac RASH, Verified 07/11/17 20:59 ITCHINESS tazobactam [From Zosyn] AdvReac RASH, Verified 07/11/17 20:59 ITCHINESS - Medications Medications: Current Medications Acetaminophen (Tylenol 325mg Tab) 650 mg PO Q6 PRN PRN Reason: Fever >100.4 F Last Admin: 07/12/17 11:25 Dose: 650 mg Enoxaparin Sodium (Lovenox) 40 mg SC DAILY [facility] Last Admin: 07/13/17 10:17 Dose: 40 mg Hydralazine HCl (Apresoline) 10 mg IVP Q6H [facility] Last Admin: 07/13/17 17:11 Dose: 10 mg Hydromorphone HCl (Dilaudid) 1 mg IVP Q4H PRN PRN Reason: Pain, moderate (4-7) Last Admin: 07/13/17 15:52 Dose: 1 mg Hydromorphone/Sodium Chloride (Dilaudid Hearing Care Practitioner) 6 mg IV Q4H PRN; Protocol PRN Reason: Pain, moderate (4-7) Dextrose/Sodium Chloride (Dextrose 5%/0.45% Ns 1000 Ml) 1,000 mls @ 100 mls/hr IV .Q10H [facility] Last Admin: 07/13/17 13:19 Dose: Not Given Metronidazole (Flagyl) 500 mg in 100 mls @ 100 mls/hr IVPB Q8 [facility] Last Admin: 07/13/17 13:04 Dose: 100 mls/hr Aztreonam 1 gm/ Sodium (Chloride) 100 mls @ 200 mls/hr IVPB Q8H [facility] Last Admin: 07/13/17 13:08 Dose: 200 mls/hr Vancomycin/Sodium Chloride (Vancomycin 1 Gm/Ns 200 Ml) 1 gm in 200 mls @ 133.333 mls/hr IVPB Q12H [facility] Stop: 07/18/17 00:16 Labetalol HCl (Trandate) 200 mg PO BID [facility] Last Admin: 07/13/17 17:11 Dose: 200 mg Ondansetron HCl (Zofran Inj) 4 mg IVP Q6H PRN PRN Reason: Nausea/Vomiting Oxycodone/Acetaminophen (Percocet 5/325 Mg Tab) 2 tab PO Q4H PRN PRN Reason: Pain, severe (8-10) Stop: 07/15/17 04:31 Pantoprazole Sodium (Protonix Inj) 40 mg IVP DAILY [facility] Last Admin: 07/13/17 13:00 Dose: 40 mg Physical Exam - Constitutional Appears: Non-toxic, Chronically Ill - Head Exam Head Exam: NORMOCEPHALIC - Eye Exam Eye Exam: PERRL - ENT Exam ENT Exam: Mucous Membranes Dry - Neck Exam Neck exam: Negative for: Lymphadenopathy - Respiratory Exam Respiratory Exam: Decreased Breath Sounds, Clear to Auscultation Bilateral - Cardiovascular Exam Cardiovascular Exam: REGULAR RHYTHM, +S1, +S2 - GI/Abdominal Exam GI & Abdominal Exam: Diminished Bowel Sounds, Distended, Guarding, Soft, Tenderness Additional comments: LLQ colostomy + - Rectal Exam Rectal Exam: Deferred - Exam Exam: NORMAL INSPECTION - Extremities Exam Extremities exam: Positive for: pedal pulses present. Negative for: calf tenderness, pedal edema, tenderness - Back Exam Back exam: absent: CVA tenderness (L), CVA tenderness (R) - Neurological Exam Neurological exam: Alert, CN II-XII Intact, Oriented x3, Reflexes Normal - Psychiatric Exam Psychiatric exam: Depressed - Skin Skin Exam: Dry Results - Vital Signs Recent Vital Signs: Last Vital Signs Temp 98.3 F 07/13/17 16:00 Pulse 107 H 07/13/17 17:10 Resp 20 07/13/17 17:10 BP 127/77 07/13/17 17:05 Pulse Ox 98 07/13/17 17:10 - Labs Result Diagrams: 07/13/17 06:40 07/13/17 06:29 Labs: Laboratory Results - last 24 hr 07/12/17 07/12/17 07/12/17 15:19 18:28 18:35 WBC 8.9 RBC 2.46 L Hgb 7.3 L D Hct 20.8 L MCV 84.8 MCH 29.8 MCHC 35.2 RDW 15.7 H Plt Count 407 H D MPV 7.8 Neut % (Auto) 80.7 H Lymph % (Auto) 11.8 L [place] % (Auto) 7.1 Eos % (Auto) 0.0 Baso % (Auto) 0.4 Neut # (Auto) 7.2 H Lymph # (Auto) 1.1 [place] # (Auto) 0.6 Eos # (Auto) 0.0 Baso # (Auto) 0.0 Neutrophils % (Manual) Band Neutrophils % Lymphocytes % (Manual) Monocytes % (Manual) Platelet Estimate Polychromasia Hypochromasia (manual) Anisocytosis (manual) Target Cells Puncture Site Rra pCO2 42 pO2 336 H HCO3 23.6 ABG pH 7.36 ABG Total CO2 25.0 ABG O2 Saturation 99.8 H ABG Base Excess -1.8 Jayson Test Pos ABG Potassium 3.8 A-a O2 Difference 325.0 Respiratory Index 1.0 Sodium 132.0 Chloride 105.0 Glucose 155 H Lactate 2.5 H FiO2 100.0 Potassium Carbon Dioxide Anion Gap BUN Creatinine Est GFR ( Amer) Est GFR (Non-Af Amer) Random Glucose Calcium Phosphorus Magnesium Total Bilirubin AST ALT Alkaline Phosphatase Total Protein Albumin Globulin Albumin/Globulin Ratio Arterial Blood Potassium 3.8 Blood Type A POSITIVE Antibody Screen Negative 07/13/17 07/13/17 07/13/17 01:52 06:29 06:40 WBC 12.9 H 17.5 H RBC 3.69 L 3.34 L Hgb 10.9 L D 10.0 L Hct 31.7 L 28.7 L MCV 86.0 85.9 MCH 29.6 29.9 MCHC 34.4 34.8 RDW 15.1 H 15.3 H Plt Count 396 443 H MPV 7.9 8.2 Neut % (Auto) 84.8 H 88.5 H Lymph % (Auto) 10.9 L 6.7 L [place] % (Auto) 4.1 4.8 Eos % (Auto) 0.1 0.0 Baso % (Auto) 0.1 0.0 Neut # (Auto) 10.9 H 15.5 H Lymph # (Auto) 1.4 1.2 [place] # (Auto) 0.5 0.8 Eos # (Auto) 0.0 0.0 Baso # (Auto) 0.0 0.0 Neutrophils % (Manual) 39 L Band Neutrophils % 51 H* Lymphocytes % (Manual) 3 L Monocytes % (Manual) 7 Platelet Estimate Slightly increased H Polychromasia Slight Hypochromasia (manual) Slight Anisocytosis (manual) Slight Target Cells Slight Puncture Site pCO2 pO2 HCO3 ABG pH ABG Total CO2 ABG O2 Saturation ABG Base Excess [place] Test ABG Potassium A-a O2 Difference Respiratory Index Sodium 133 Chloride 103 Glucose Lactate FiO2 Potassium 3.8 Carbon Dioxide 22 Anion Gap 13 BUN 13 Creatinine 0.7 Est GFR ( Amer) > 60 Est GFR (Non-Af Amer) > 60 Random Glucose 135 H Calcium 8.1 L Phosphorus 3.6 Magnesium 1.3 L Total Bilirubin 1.8 H AST 26 ALT 35 Alkaline Phosphatase 76 Total Protein 5.5 L Albumin 2.4 L D Globulin 3.1 Albumin/Globulin Ratio 0.8 L Arterial Blood Potassium Blood Type Antibody Screen Assessment & Plan (1) Abdominal pain Status: Acute (2) Abscess of multiple sites Status: Acute (3) Fever Status: Acute (4) Colonic diverticular abscess Status: Acute - Assessment and Plan (Free Text) Assessment: add zyvox - hx VRE abscess 3 weeks ago d/c vanco cont azactam zyvox flagyl diflucan
[2017-07-13] MEDS: Linezolid 600 mg in D5W 300 ml 600 MG/300 ML BAG IVPB SCH (23:00)
--- NOTE | 2017-07-13 23:47 | CP.PCM.PN ---
Subjective - Date & Time of Evaluation Date of Evaluation: 07/13/17 Time of Evaluation: 18:00 - Subjective Subjective: Pt seen and examined, is anxious and having hard time sleeping, afebrile, no shortness of breath, post op pain in abdomen Objective - Vital Signs/Intake and Output Vital Signs (last 24 hours): Temp Pulse Resp BP Pulse Ox 98 F 102 H 26 H 153/88 H 98 07/13/17 20:00 07/13/17 20:00 07/13/17 20:00 07/13/17 20:00 07/13/17 20:00 Intake and Output: 07/13/17 07/14/17 18:59 06:59 Intake Total 2700 200 Output Total 355 205 Balance 2345 -5 - Medications Medications: Current Medications Acetaminophen (Tylenol 325mg Tab) 650 mg PO Q6 PRN PRN Reason: Fever >100.4 F Last Admin: 07/12/17 11:25 Dose: 650 mg Enoxaparin Sodium (Lovenox) 40 mg SC DAILY [facility] Last Admin: 07/13/17 10:17 Dose: 40 mg Hydralazine HCl (Apresoline) 10 mg IVP Q6H [facility] Last Admin: 07/13/17 17:11 Dose: 10 mg Hydromorphone HCl (Dilaudid) 1 mg IVP Q4H PRN PRN Reason: Pain, moderate (4-7) Last Admin: 07/13/17 20:55 Dose: 1 mg Hydromorphone/Sodium Chloride (Dilaudid Surface Lay Out Technician) 6 mg IV Q4H PRN; Protocol PRN Reason: Pain, moderate (4-7) Dextrose/Sodium Chloride (Dextrose 5%/0.45% Ns 1000 Ml) 1,000 mls @ 100 mls/hr IV .Q10H [facility] Last Admin: 07/13/17 13:19 Dose: Not Given Metronidazole (Flagyl) 500 mg in 100 mls @ 100 mls/hr IVPB Q8 [facility] Last Admin: 07/13/17 22:00 Dose: 100 mls/hr Aztreonam 1 gm/ Sodium (Chloride) 100 mls @ 200 mls/hr IVPB Q8H [facility] Last Admin: 07/13/17 21:00 Dose: 200 mls/hr Linezolid (Zyvox 600mg/300ml D5w) 600 mg in 300 mls @ 200 mls/hr IVPB Q12 [facility] Fluconazole (Diflucan Iv 200 Mg/100 Ml Ns) 100 mls @ 100 mls/hr IVPB DAILY [facility] Labetalol HCl (Trandate) 200 mg PO BID [facility] Last Admin: 07/13/17 17:11 Dose: 200 mg Ondansetron HCl (Zofran Inj) 4 mg IVP Q6H PRN PRN Reason: Nausea/Vomiting Oxycodone/Acetaminophen (Percocet 5/325 Mg Tab) 2 tab PO Q4H PRN PRN Reason: Pain, severe (8-10) Stop: 07/15/17 04:31 Pantoprazole Sodium (Protonix Inj) 40 mg IVP DAILY [facility] Last Admin: 07/13/17 13:00 Dose: 40 mg - Labs Labs: 07/13/17 06:40 07/13/17 06:29 PT 18.9 SECONDS (9.7-12.2) H 07/11/17 23:33 INR 1.7 07/11/17 23:33 APTT 29 SECONDS (21-34) 07/11/17 23:33 - Constitutional Appears: No Acute Distress - Head Exam Head Exam: ATRAUMATIC, NORMAL INSPECTION, NORMOCEPHALIC - Eye Exam Eye Exam: EOMI, Normal appearance, PERRL Pupil Exam: NORMAL ACCOMODATION, PERRL - Respiratory Exam Respiratory Exam: Clear to Ausculation Bilateral, NORMAL BREATHING PATTERN - Cardiovascular Exam Cardiovascular Exam: REGULAR RHYTHM, +S1, +S2. absent: Murmur - GI/Abdominal Exam GI & Abdominal Exam: Soft, Normal Bowel Sounds. absent: Tenderness - Neurological Exam Neurological Exam: Alert, Awake, CN II-XII Intact, Normal Gait, Oriented x3 - Psychiatric Exam Psychiatric exam: Anxious Assessment and Plan (1) Wound dehiscence Assessment & Plan: on antibiotics wound care Status: Acute (2) Morbid obesity Status: Acute
[2017-07-14] MEDS ORDERED: Vancomycin 1 gm/NS 200 ml 1 GM/200 ML BAG IVPB SCH (00:15)
[2017-07-14] MEDS: Dextrose 5%/0.45% NS 1,000 ML IV SCH ×2 (05:30→16:30)
[2017-07-14] MEDS: Aztreonam 1 GM in Sodium Chloride 0.9% 100 ML IVPB SCH ×3 (05:30→22:00)
[2017-07-14] MEDS: metroNIDAZOLE IV 500 mg/100 ml 500 MG/100 ML BAG IVPB SCH ×3 (06:30→21:00)
[2017-07-14 06:38] LABS: BASO % 0.1 % (0.0-2.0); EOS % 0.1 % (0.0-4.0); HEMOGLOBIN 8.6 g/dL (11.0-16.0); LYMPH # 2.1 K/uL (1.0-4.3); LYMPH % 7.6 % (20.0-40.0); MEAN CELL VOLUME 86.3 fL (81.0-99.0); MEAN CORPUSCULAR HEMOGLOBIN 29.9 pg (27.0-31.0); MEAN CORPUSCULAR HGB CONC 34.7 g/dL (33.0-37.0); MEAN PLATELET VOLUME 8.2 fL (7.2-11.7); MONO # 2.1 K/uL (0.0-0.8); MONO % 7.7 % (0.0-10.0); NEUT % 84.5 % (50.0-75.0); PLATELET COUNT 456 K/uL (130-400); RBC 2.88 Mil/uL (3.80-5.20); RED CELL DISTRIBUTION WIDTH 15.4 % (11.5-14.5); WHITE BLOOD COUNT 27.3 K/uL (4.8-10.8)
[2017-07-14 07:08] LABS: ALB/GLOB RATIO 0.8 (1.0-2.1); ALBUMIN 2.3 g/dL (3.5-5.0); ALT/SGPT 32 U/L (9-52); AST/SGOT 19 U/L (14-36); BLOOD UREA NITROGEN 18 mg/dL (7-17); CALCIUM 8.2 mg/dl (8.6-10.4); GFR AFRICAN-AMERICAN > 60; GFR NON-AFRICAN AMERICAN > 60; MAGNESIUM 2.2 mg/dL (1.6-2.3)
--- NOTE | 2017-07-14 07:33 | PN ---
DATE: LOCATION: ICU 15. SUBJECTIVE: This is a 52-year-old female seen for GI consultation recently, seen again in rounds. Post surgery due to retained diverticular abscess formation as diagnosed by recent CAT scan of the abdomen and the pelvis, in emergency room. The patient had colostomy revision, status post partial colectomy, status post small bowel resection with application of a mesh, as well as incision and drainage of an abscess formation . The entire chart is reviewed including, but not limited to the most recent lab and radiology study results, current and the previous medication list, current and the previous medical events. Case discussed with the staff at length. Today's lab showed leukocytosis of 17.5 with low hemoglobin 10.0, low hematocrit 28.7, with platelet count of 443. The patient has elevated PT to 18.9, as reported previously with blood glucose level 135, low calcium 8.1, low magnesium 1.3, with total bilirubin elevated to 1.8, with low albumin 2.4, low total protein 5.5. PHYSICAL EXAMINATION: GENERAL: A 52-year-old female. VITAL SIGNS: Afebrile with pulse of 108, blood pressure of 158/94. HEENT: Showed pale dry oral mucoid membrane, nonicteric sclerae. LUNGS: Revealed scattered crepitation with decreased air entry at bases. HEART: Positive S1 and S2 with increased rate. ABDOMEN: Covered with a clean dressing. Bowel sounds are absent with generalized tenderness. No mass or organomegaly. No rebound tenderness or guarding. The patient is out of bed to the chair already. EXTREMITIES: Lower extremity edematous changes. NEUROLOGIC: No reported new neurological deficits, sensory or motor. IMPRESSION: 1. Recurrent diverticular abscess formation treated surgically again with status post colostomy revision, partial colectomy, with status post partial small bowel resection and mesh insertion as well as incision and drainage for new abscess formation. 2. Anemia secondary to above. 3. Septicemia with leukocytosis secondary to above. 4. Known history of peptic ulcer disease. 5. Hypertension with osteoarthritis. SUGGESTIONS: 1. Agree with your plan. 2. Continue current management with proton pump inhibitors. 3. Further recommendations to follow. Andrew Koroma MD [facility] # [id number]
[2017-07-14] MEDS ORDERED: Potassium Chloride 20 mEq ER Tab PO SCH (07:45)
[2017-07-14 08:56] LABS: BANDS 11 % (0-2); BASOPHIL 1 % (0-2); LYMPHOCYTE 9 % (20-40); MONOCYTE 5 % (0-10); NEUTROPHIL 74 % (50-75); TOTAL CELLS COUNTED 100
[2017-07-14 08:57] LABS: ANISOCYTOSIS SLIGHT; BURR CELLS SLIGHT; GIANT PLATELETS PRESENT; HYPOCHROMIC SLIGHT; LARGE PLATELETS PRESENT; PLATELET ESTIMATE SLIGHTLY INCREASED (NORMAL); POIKILOCYTOSIS SLIGHT
[2017-07-14 08:58] LABS: MICROCYTOSIS SLIGHT; TOXIC GRANULATION PRESENT
[2017-07-14] MEDS: Linezolid 600 mg in D5W 300 ml 600 MG/300 ML BAG IVPB SCH ×2 (09:10→23:00)
[2017-07-14] MEDS: Enoxaparin 40 mg Syringe SC SCH (09:10)
[2017-07-14] MEDS: Fluconazole IV 200mg/100 ml NS 100 ML IVPB SCH (10:55)
--- NOTE | 2017-07-14 17:06 | PN ---
DATE: 07/14/2017 SUBJECTIVE: Brennon Neely is resting comfortably. She is in today in a chair. She has been stable throughout her ICU course and shows no signs of sepsis. Her blood pressure, pulse rate, and urine output have all been stable. Today, she has no complaints. PHYSICAL EXAMINATION VITAL SIGNS: Temperature is 98.6, pulse is 93, BP is 141/87, respiratory rate is 23. GENERAL: She is a well-developed female. There is an NG tube in place. ABDOMEN: The abdominal dressing has just been changed by the Wound Care nurse and I am told that it is starting to heal. LACY drain has put out 100 mL of serosanguineous drainage overnight. Colostomy is not functioning. Bowel sounds are decreased. LABORATORY DATA: Her white count today is 27.3, that has increased from yesterday 17.5. However, yesterday, the patient has 51 bands and today that has decreased down to 11. The remainder of her labs are unremarkable. ASSESSMENT AND PLAN: My impression is that she has been stable postop because of the amount of fecal contamination. We were very worried she would develop sepsis postoperatively, but she was aggressively irrigated and cleansed and debrided and this does not seem to be happening. Her white count today is elevated at 27. However, her vital signs and the remainder of her physical exam are not consistent with sepsis. Also, her bands have decreased from 50 to 11. We will continue her ICU management. Saw her in Physical Therapy. Once she passes gas into her colostomy bag, we will discontinued the NG tube and start feeding her. Andrey Sparrow MD
--- NOTE | 2017-07-14 22:45 | PN ---
DATE: LOCATION: ICU 15. SUBJECTIVE: This is a 52-year-old female, seen and examined in rounds, with much less abdominal pain post-surgically with a clean abdominal dressing without reported active bleeding or discharge. The entire chart is reviewed including, but not limited to the most recent lab and radiology study results, current and the previous medication list, current and the previous medical events. Case discussed at length with the staff. It has to be mentioned that the patient has no reported chest pain, palpitation or significant of shortness of breath. No chills or fever reported. Most recent lab results today showed leukocytosis of 27.3 with low hemoglobin of 8.6, low hematocrit of 24.8 with thrombocytosis of 456 with BUN of 18 with creatinine of 0.7, calcium 8.2 with low albumin of 2.3, low total protein of 5.2. PHYSICAL EXAMINATION: GENERAL: A 52-year-old female, appears to be awake, alert and oriented. VITAL SIGNS: Afebrile with pulse of 104, respiratory rate 18 to 20, blood pressure 130/84. HEENT: Shows mildly pale dry oral mucous membrane. Nonicteric sclerae. LUNGS: Few scattered crepitation. Decreased air entry at bases. HEART: Positive S1 and S2 with increased rate. ABDOMEN: Soft. Bowel sounds are absent. Clean abdominal dressing seen. EXTREMITIES: With lower extremity edematous changes. No clubbing or cyanosis. NEUROLOGIC: No reported neurological deficits, sensory or motor. IMPRESSION: 1. Recurrent diverticular abscess formation, treated surgically. 2. Reversal of colostomy. 3. Diverticulosis with recurrent episode of diverticulitis. 4. Anemia, most likely secondary to above. 5. Status post partial colostomy as well as partial small bowel resection with mesh insertion with drainage of a new abscess formation. 6. Septicemia secondary to above. 7. Known history of osteoarthritis, hypertension and peptic ulcer disease. SUGGESTION: 1. Continue current management. 2. Again, the patient will need peripheral versus central hyperalimentation. 3. Continue current IV antibiotics, to be discussed with the ID operations consultant on the case. Andrew Koroma MD
--- NOTE | 2017-07-14 23:56 | CP.PCM.PN ---
Subjective - Date & Time of Evaluation Date of Evaluation: 07/14/17 Time of Evaluation: 19:10 - Subjective Subjective: Pt seen & examined at bedside, pt is post op, afebrile, B.P is under control, NPO, no nausea, vomitting Objective - Vital Signs/Intake and Output Vital Signs (last 24 hours): Temp Pulse Resp BP Pulse Ox 98.2 F 90 16 132/86 99 07/14/17 20:00 07/14/17 22:00 07/14/17 22:00 07/14/17 20:09 07/14/17 22:00 Intake and Output: 07/14/17 07/15/17 18:59 06:59 Intake Total 600 Output Total 890 Balance -290 - Medications Medications: Current Medications Acetaminophen (Tylenol 325mg Tab) 650 mg PO Q6 PRN PRN Reason: Fever >100.4 F Last Admin: 07/12/17 11:25 Dose: 650 mg Enoxaparin Sodium (Lovenox) 40 mg SC DAILY [facility] Last Admin: 07/14/17 09:10 Dose: 40 mg Hydralazine HCl (Apresoline) 10 mg IVP Q6H [facility] Last Admin: 07/14/17 18:29 Dose: 10 mg Dextrose/Sodium Chloride (Dextrose 5%/0.45% Ns 1000 Ml) 1,000 mls @ 100 mls/hr IV .Q10H [facility] Last Admin: 07/14/17 16:30 Dose: Not Given Metronidazole (Flagyl) 500 mg in 100 mls @ 100 mls/hr IVPB Q8 [facility] Last Admin: 07/14/17 21:00 Dose: 100 mls/hr Aztreonam 1 gm/ Sodium (Chloride) 100 mls @ 200 mls/hr IVPB Q8H [facility] Last Admin: 07/14/17 22:00 Dose: 200 mls/hr Linezolid (Zyvox 600mg/300ml D5w) 600 mg in 300 mls @ 200 mls/hr IVPB Q12 [facility] Last Admin: 07/14/17 09:10 Dose: 200 mls/hr Fluconazole (Diflucan Iv 200 Mg/100 Ml Ns) 100 mls @ 100 mls/hr IVPB DAILY [facility] Last Admin: 07/14/17 10:55 Dose: 100 mls/hr Morphine Sulfate (Morphine) 2 mg IVP Q3 PRN PRN Reason: Pain, moderate (4-7) Last Admin: 07/14/17 22:37 Dose: 2 mg Ondansetron HCl (Zofran Inj) 4 mg IVP Q6H PRN PRN Reason: Nausea/Vomiting Pantoprazole Sodium (Protonix Inj) 40 mg IVP DAILY [facility] Last Admin: 07/14/17 09:10 Dose: 40 mg - Labs Labs: 07/14/17 06:30 07/14/17 06:30 PT 18.9 SECONDS (9.7-12.2) H 07/11/17 23:33 INR 1.7 07/11/17 23:33 APTT 29 SECONDS (21-34) 07/11/17 23:33 - Constitutional Appears: No Acute Distress, Chronically Ill - Head Exam Head Exam: ATRAUMATIC, NORMAL INSPECTION, NORMOCEPHALIC - Eye Exam Eye Exam: EOMI, Normal appearance, PERRL Pupil Exam: NORMAL ACCOMODATION, PERRL - Respiratory Exam Respiratory Exam: Clear to Ausculation Bilateral, NORMAL BREATHING PATTERN - Cardiovascular Exam Cardiovascular Exam: REGULAR RHYTHM, +S1, +S2. absent: Murmur - GI/Abdominal Exam GI & Abdominal Exam: Soft, Tenderness Additional comments: abdomen post op wound dehiscence Assessment and Plan (1) Wound dehiscence Status: Acute (2) Morbid obesity Status: Acute - Assessment and Plan (Free Text) Plan: hold beta torey for now
[2017-07-15] MEDS: Dextrose 5%/0.45% NS 1,000 ML IV SCH (04:16)
[2017-07-15] MEDS: metroNIDAZOLE IV 500 mg/100 ml 500 MG/100 ML BAG IVPB SCH ×3 (05:00→23:40)
[2017-07-15] MEDS: Aztreonam 1 GM in Sodium Chloride 0.9% 100 ML IVPB SCH ×3 (05:50→22:40)
[2017-07-15 06:34] LABS: HEMOGLOBIN 8.1 g/dL (11.0-16.0); MEAN CELL VOLUME 85.5 fL (81.0-99.0); MEAN CORPUSCULAR HEMOGLOBIN 28.5 pg (27.0-31.0); MEAN CORPUSCULAR HGB CONC 33.3 g/dL (33.0-37.0); MEAN PLATELET VOLUME 7.9 fL (7.2-11.7); RBC 2.83 Mil/uL (3.80-5.20); RED CELL DISTRIBUTION WIDTH 15.7 % (11.5-14.5); WHITE BLOOD COUNT 23.6 K/uL (4.8-10.8)
[2017-07-15 06:55] LABS: ALB/GLOB RATIO 0.7 (1.0-2.1); ALBUMIN 2.3 g/dL (3.5-5.0); ALT/SGPT 32 U/L (9-52); AST/SGOT 13 U/L (14-36); BLOOD UREA NITROGEN 13 mg/dL (7-17); CALCIUM 7.8 mg/dl (8.6-10.4); GFR AFRICAN-AMERICAN > 60; GFR NON-AFRICAN AMERICAN > 60
[2017-07-15] MEDS: Linezolid 600 mg in D5W 300 ml 600 MG/300 ML BAG IVPB SCH (09:44)
[2017-07-15] MEDS: Fluconazole IV 200mg/100 ml NS 100 ML IVPB SCH (09:44)
[2017-07-15] MEDS: Enoxaparin 40 mg Syringe SC SCH (09:45)
[2017-07-15] MEDS ORDERED: Potassium Chloride 20 mEq/15 ml LIQ UD PO ONE (11:30)
[2017-07-15] MEDS ORDERED: Dextrose 5%/0.45% NS 1,000 ML IV SCH (11:30)
--- NOTE | 2017-07-15 14:39 | PN ---
DATE: LOCATION: ICU 15. SUBJECTIVE: This is a 52-year-old female seen and examined in rounds with reported significant clinical changes postsurgically. No reported active bleeding, appeared to be more awake, alert with less postsurgical abdominal pain. The entire chart is reviewed including, but not limited to, the most recent lab and radiology study results, current and the previous medication list, current and the previous medical events. Today's lab showed white blood cell 23.6 with low hemoglobin 8.1, low hematocrit 24.2 with low potassium 3.1, low creatinine of 0.6, with blood glucose level elevated to 249, low calcium 7.8 with low total protein 5.3, low albumin 2.3. The patient is still n.p.o., no reported bowel movement or bowel sounds. Case discussed at length with the staff in the intensive care unit. PHYSICAL EXAMINATION: GENERAL: A 52-year-old female. VITAL SIGNS: Afebrile with pulse of 98, respiratory rate 20 to 22, blood pressure 160/82. HEENT: Showed mildly pale dry oral mucous membranes. Nonicteric sclerae. LUNGS: Few scattered crepitation, decreased air entry at bases. HEART: Positive S1 and S2 with increased rate. ABDOMEN: Covered with clean dressing. Bowel sounds are absent with generalized mild tenderness. No masses or organomegaly. No rebound tenderness or guarding. EXTREMITIES: With lower extremities mild edematous changes. NEUROLOGIC: No reported new neurological deficits, sensory or motor. IMPRESSION: 1. Recurrent diverticular abscess formation with pelvic intraabdominal abscess, treated surgically. 2. Colostomy reversal. 3. Anemia most likely secondary to above. 4. Diverticulosis with diverticulitis and recent history of microabscess and diverticular fibrosis, treated surgically. 5. Status post partial colon resection as well as partial small bowel resection with mesh insertion and drainage of a newly developed abscess formation. 6. Septicemia. 7. Known history of hypertension with osteoarthritis. SUGGESTIONS: 1. Continue current management. 2. Peripheral hyperalimentation. 3. The patient will need endoscopic evaluation of the GI tract only when she is more stable clinically; otherwise, close observation to follow. Andrew Koroma MD [facility] # [id number]
[2017-07-15] MEDS: Potassium Ch 20mEq in D5-1/2NS 1,000 ML IV SCH (22:41)
--- NOTE | 2017-07-15 22:54 | CP.PCM.PN ---
Subjective - Date & Time of Evaluation Date of Evaluation: 07/15/17 Time of Evaluation: 20:10 - Subjective Subjective: Pt is seen and evaluated at bedside , transferred to floor, still NPO, no flastus, colostomy sites looks clean and intact Objective - Vital Signs/Intake and Output Vital Signs (last 24 hours): Temp Pulse Resp BP Pulse Ox 97.2 F L 99 H 20 151/88 H 96 07/15/17 18:37 07/15/17 18:37 07/15/17 18:37 07/15/17 18:37 07/15/17 18:37 Intake and Output: 07/15/17 07/16/17 18:59 06:59 Intake Total 1180 Output Total 1030 Balance 150 - Medications Medications: Current Medications Acetaminophen (Tylenol 325mg Tab) 650 mg PO Q6 PRN PRN Reason: Fever >100.4 F Last Admin: 07/12/17 11:25 Dose: 650 mg Enoxaparin Sodium (Lovenox) 40 mg SC DAILY [facility] Last Admin: 07/15/17 09:45 Dose: 40 mg Hydralazine HCl (Apresoline) 10 mg IVP Q6H [facility] Last Admin: 07/15/17 20:07 Dose: 10 mg Metronidazole (Flagyl) 500 mg in 100 mls @ 100 mls/hr IVPB Q8 [facility] Last Admin: 07/15/17 13:21 Dose: 100 mls/hr Aztreonam 1 gm/ Sodium (Chloride) 100 mls @ 200 mls/hr IVPB Q8H [facility] Last Admin: 07/15/17 22:40 Dose: 200 mls/hr Linezolid (Zyvox 600mg/300ml D5w) 600 mg in 300 mls @ 200 mls/hr IVPB Q12 [facility] Last Admin: 07/15/17 09:44 Dose: 200 mls/hr Fluconazole (Diflucan Iv 200 Mg/100 Ml Ns) 100 mls @ 100 mls/hr IVPB DAILY [facility] Last Admin: 07/15/17 09:44 Dose: 100 mls/hr Potassium Chloride/Dextrose/Sod Cl (Potassium Chl 20 Meq In D5-1/2ns) 1,000 mls @ 125 mls/hr IV .Q8H [facility] Last Admin: 07/15/17 22:41 Dose: 125 mls/hr Morphine Sulfate (Morphine) 2 mg IVP Q3 PRN PRN Reason: Pain, moderate (4-7) Last Admin: 07/15/17 22:52 Dose: 2 mg Ondansetron HCl (Zofran Inj) 4 mg IVP Q6H PRN PRN Reason: Nausea/Vomiting Pantoprazole Sodium (Protonix Inj) 40 mg IVP DAILY [facility] Last Admin: 07/15/17 09:45 Dose: 40 mg - Labs Labs: 07/15/17 06:29 07/15/17 06:29 PT 18.9 SECONDS (9.7-12.2) H 07/11/17 23:33 INR 1.7 07/11/17 23:33 APTT 29 SECONDS (21-34) 07/11/17 23:33 - Constitutional Appears: No Acute Distress - Head Exam Head Exam: ATRAUMATIC, NORMAL INSPECTION, NORMOCEPHALIC - Eye Exam Eye Exam: EOMI, Normal appearance, PERRL Pupil Exam: NORMAL ACCOMODATION, PERRL - Respiratory Exam Respiratory Exam: Clear to Ausculation Bilateral, NORMAL BREATHING PATTERN - Cardiovascular Exam Cardiovascular Exam: REGULAR RHYTHM, +S1, +S2. absent: Murmur - GI/Abdominal Exam GI & Abdominal Exam: Hypoactive Bowel Sounds - Rectal Exam Rectal Exam: Deferred Assessment and Plan (1) Wound dehiscence Assessment & Plan: s/p repair of dehiscence of colostomy potasium supplementation ID follow up NPO Status: Acute (2) Morbid obesity Status: Acute
[2017-07-16] MEDS: Linezolid 600 mg in D5W 300 ml 600 MG/300 ML BAG IVPB SCH ×3 (00:45→21:09)
--- NOTE | 2017-07-16 05:07 | CON ---
DATE: 07/12/2017 REASON FOR CONSULTATION: I was called for GI consultation by the admitting MD, as well as ER staff. The patient is seen and fully examined on 07/12/2017 as requested by the admitting MD. The entire chart is reviewed including, but not limited to the most recent lab and the radiological results, current and the previous medication list, current and the previous medical events, allergies to medication list, as well as all the available current and previous medical records. Case discussed with the admitting medical staff on 07/12/2017 post my GI consultation. HISTORY: This is a 52-year-old female, a known case for me from very recent admission, who was readmitted again through the emergency room with complaints of severe lower abdominal pain, chills and fever, generalized weakness, and malaise with loss of appetite since she was discharged to home recently with nausea but no vomiting, with mild dyspepsia. No chest pain, palpitation, shortness of breath, or evidence of active bleeding. PAST MEDICAL HISTORY: Including but not limited to: 1. Hypertension. 2. Osteoarthritis. 3. Diverticulosis, diverticulitis, diverticular abscess formation with perforation, treated surgically, the patient has colostomy. 4. Sacral abscess formation, treated surgically recently. 5. Status post partial sigmoid colon and distal descending colon resection by recent history. FAMILY HISTORY: Unknown. SOCIAL HISTORY: No known recent history of cigarette smoking or alcohol intake. CURRENT MEDICATIONS: Medication lists are reviewed. ALLERGIES TO MEDICATIONS: UNCLEAR. LABORATORY DATA: Initial blood work post admission immediately showed white blood cells elevated to 14.5, low hemoglobin 9.8, low hematocrit 28.2 with thrombocytosis of 526, but normal SMA-7. Abdomen and pelvic CAT scan was performed, official report evaluated and seen. PHYSICAL EXAMINATION: GENERAL/VITAL SIGNS: This is a 52-year-old female, appears to be awake, alert, oriented complaining of severe abdominal pain with low-grade temperature of about 102, pulse of 100, respiratory rate of 20 to 22, blood pressure of 150/80. HEENT: Shows pale dry oral mucosal membrane, nonicteric sclerae. LYMPH NODES: No lymphadenitis or lymphadenopathy. LUNGS: Mild scattered crepitation with few rhonchi bilaterally, breathing sounds are present bilaterally. HEART: Positive S1 and S2 with increased rate. ABDOMEN: With diffuse tenderness severe with [id number] distention. Bowel sounds are hypoactive. No mass or organomegaly. No rebound tenderness or guarding. Colostomy tube is in place. EXTREMITIES: With mild lower extremity edematous changes. No clubbing or cyanosis. NEUROLOGIC: No reported new neurological deficits, sensory or motor. No focal new reported neurological deficits. Peripheral pulses are present bilaterally. IMPRESSION: 1. Reformation of intrapelvic abscess formation. 2. Diverticulosis with recurrent diverticulitis by history, status post partial colon resection with colostomy tube in place. 3. Known history of hypertension and osteoarthritis. 4. Known history of peptic ulcer disease. SUGGESTIONS: 1. Agree with your plan. 2. Proton pump inhibitors. 3. Complete stool analysis. 4. Repeat blood cultures x2. 5. Surgical re-evaluation for possible abscess aspiration. 6. Cancer markers including CEA. 7. Keep the patient n.p.o. for now with proton pump inhibitors as well as Reglan IV. 8. No aggressive GI workup in the meantime due to the patient's clinical presentation. Further recommendation to follow. Thank you for letting me to participate in your patient's case management. Andrew Koroma MD
[2017-07-16] MEDS: Aztreonam 1 GM in Sodium Chloride 0.9% 100 ML IVPB SCH ×3 (05:17→21:05)
[2017-07-16] MEDS: metroNIDAZOLE IV 500 mg/100 ml 500 MG/100 ML BAG IVPB SCH ×3 (06:22→21:04)
[2017-07-16 07:00] LABS: BASO % 0.1 % (0.0-2.0); EOS # 0.1 K/uL (0.0-0.7); EOS % 0.4 % (0.0-4.0); HEMOGLOBIN 8.7 g/dL (11.0-16.0); LYMPH # 1.4 K/uL (1.0-4.3); LYMPH % 7.5 % (20.0-40.0); MEAN CELL VOLUME 84.9 fL (81.0-99.0); MEAN CORPUSCULAR HEMOGLOBIN 29.4 pg (27.0-31.0); MEAN CORPUSCULAR HGB CONC 34.6 g/dL (33.0-37.0); MEAN PLATELET VOLUME 7.9 fL (7.2-11.7); MONO # 1.7 K/uL (0.0-0.8); MONO % 9.6 % (0.0-10.0); NEUT # 14.9 K/uL (1.8-7.0); NEUT % 82.4 % (50.0-75.0); NRBC % 0.1 % (0.0-2.0); PLATELET COUNT 602 K/uL (130-400); RBC 2.98 Mil/uL (3.80-5.20); RED CELL DISTRIBUTION WIDTH 15.4 % (11.5-14.5); WHITE BLOOD COUNT 18.1 K/uL (4.8-10.8)
[2017-07-16 07:13] LABS: BLOOD UREA NITROGEN 6 mg/dL (7-17); CALCIUM 8.2 mg/dl (8.6-10.4); GFR AFRICAN-AMERICAN > 60; GFR NON-AFRICAN AMERICAN > 60
[2017-07-16] MEDS: Fluconazole IV 200mg/100 ml NS 100 ML IVPB SCH (09:00)
[2017-07-16 09:48] LABS: EOSINOPHIL 2 % (0-4); LYMPHOCYTE 4 % (20-40); MONOCYTE 3 % (0-10); NEUTROPHIL 91 % (50-75); TOTAL CELLS COUNTED 100
[2017-07-16 09:50] LABS: ANISOCYTOSIS SLIGHT; HYPOCHROMIC SLIGHT; PLATELET ESTIMATE INCREASED (NORMAL); POLYCHROMIC SLIGHT; TARGET CELLS SLIGHT
[2017-07-16] MEDS: Potassium Ch 20mEq in D5-1/2NS 1,000 ML IV SCH ×2 (10:00→20:10)
[2017-07-16] MEDS: Enoxaparin 40 mg Syringe SC SCH (10:00)
[2017-07-16 10:14] LABS: MAGNESIUM 1.8 mg/dL (1.6-2.3)
--- NOTE | 2017-07-16 13:45 | PN ---
DATE: LOCATION: [facility], bed B. SUBJECTIVE: This is 52-year-old female, seen and examined on rounds out of the intensive care unit, appeared to be somewhat more awake and alert without reported significant clinical changes and less abdominal pain, both surgically. The patient still experienced periods of nausea, but no vomiting. The entire chart is reviewed including, but not limited to, the most recent lab and radiology study results, current and the previous medication list, current and previous medical events as well as the patient's latest radiology study reports, I will discuss with the staff on the floor as well as the consultants. The patient still has leukocytosis of 18.1 with low hemoglobin 8.7, low hematocrit 25.3, with thrombocytopenia of 602, with low potassium 3.0, increased blood glucose level 108, low calcium 8.2. The patient still has low albumin and total protein. PHYSICAL EXAMINATION GENERAL: A 52-year-old female appears to be more awake and alert. VITAL SIGNS: Afebrile with pulse of 102, respiratory rate of 20 to 22, with blood pressure 156/84. The patient is still complaining of postoperative abdominal pain, but less than before. HEENT: Shows pale, dry oral mucous membranes. Nonicteric sclerae. LUNGS: Few scattered crepitation with decreased air entry at bases. HEART: Positive S1 and S2. ABDOMEN: Soft with mild generalized tenderness. No mass or organomegaly. No rebound tenderness or guarding. Bowel sounds are negative and it has to be mentioned that the patient had no bowel movement here, still in a status of n.p.o. The site of previously done surgery appears to be intact without evidence of anterior abdominal wall cellulitis. EXTREMITIES: Without edema, clubbing, or cyanosis. NEUROLOGIC: No reported new neurological deficits, sensory or motor. IMPRESSION: 1. Diverticulosis, diverticulitis with recurrent diverticular abscess formation, treated surgically. 2. Status post colostomy reversal. 3. Status post partial colon resection with partial small-bowel resection and mesh insertion secondary to above. 4. Septicemia, secondary to above. 5. Re-exacerbation of peptic ulcer disease. 6. Known history of osteoarthritis, hypertension, and morbid obesity. SUGGESTIONS 1. Agree with your plan. 2. Central hyperalimentation in the meantime. 3. Correct any underlying electrolyte imbalance. 4. Continue current IV antibiotics. 5. Repeat blood culture. 6. Three cancer markers including CEA and CA-125. 7. Further recommendation to follow. Andrew Koroma MD
--- NOTE | 2017-07-16 19:02 | CP.PCM.PN ---
Subjective - Date & Time of Evaluation Date of Evaluation: 07/16/17 Time of Evaluation: 19:00 - Subjective Subjective: PT SEEN AND EXAMINED AT BEDSIDE, CLININCALL[facility] REMAINS UNCHANGED ON MEDICAL MANAGEMENT, WOUND CARE, ANTIBIOTICS, B.P AND BS MONITORING Objective - Vital Signs/Intake and Output Vital Signs (last 24 hours): Temp Pulse Resp BP Pulse Ox 98.7 F 107 H 20 158/94 H 94 L 07/16/17 07:05 07/16/17 07:05 07/16/17 07:05 07/16/17 07:05 07/16/17 07:05 - Medications Medications: Current Medications Acetaminophen (Tylenol 325mg Tab) 650 mg PO Q6 PRN PRN Reason: Fever >100.4 F Last Admin: 07/12/17 11:25 Dose: 650 mg Enoxaparin Sodium (Lovenox) 40 mg SC DAILY [facility] Last Admin: 07/16/17 10:00 Dose: 40 mg Hydralazine HCl (Apresoline) 10 mg IVP Q6H [facility] Last Admin: 07/16/17 13:00 Dose: 10 mg Metronidazole (Flagyl) 500 mg in 100 mls @ 100 mls/hr IVPB Q8 [facility] Last Admin: 07/16/17 13:44 Dose: 100 mls/hr Aztreonam 1 gm/ Sodium (Chloride) 100 mls @ 200 mls/hr IVPB Q8H [facility] Last Admin: 07/16/17 13:48 Dose: 200 mls/hr Linezolid (Zyvox 600mg/300ml D5w) 600 mg in 300 mls @ 200 mls/hr IVPB Q12 [facility] Last Admin: 07/16/17 10:00 Dose: 200 mls/hr Fluconazole (Diflucan Iv 200 Mg/100 Ml Ns) 100 mls @ 100 mls/hr IVPB DAILY [facility] Last Admin: 07/16/17 09:00 Dose: 100 mls/hr Potassium Chloride/Dextrose/Sod Cl (Potassium Chl 20 Meq In D5-1/2ns) 1,000 mls @ 125 mls/hr IV .Q8H [facility] Last Admin: 07/16/17 10:00 Dose: Not Given Morphine Sulfate (Morphine) 2 mg IVP Q3 PRN PRN Reason: Pain, moderate (4-7) Last Admin: 07/16/17 16:32 Dose: 2 mg Ondansetron HCl (Zofran Inj) 4 mg IVP Q6H PRN PRN Reason: Nausea/Vomiting Pantoprazole Sodium (Protonix Inj) 40 mg IVP DAILY [facility] Last Admin: 07/16/17 10:00 Dose: 40 mg - Labs Labs: 07/16/17 06:37 07/16/17 06:37 PT 18.9 SECONDS (9.7-12.2) H 07/11/17 23:33 INR 1.7 07/11/17 23:33 APTT 29 SECONDS (21-34) 07/11/17 23:33 Assessment and Plan (1) Wound dehiscence Status: Acute (2) Morbid obesity Status: Acute
[2017-07-17] MEDS: Aztreonam 1 GM in Sodium Chloride 0.9% 100 ML IVPB SCH ×3 (05:10→21:02)
[2017-07-17] MEDS: metroNIDAZOLE IV 500 mg/100 ml 500 MG/100 ML BAG IVPB SCH ×4 (06:21→22:13)
[2017-07-17 08:48] LABS: BASO % 0.2 % (0.0-2.0); EOS # 0.1 K/uL (0.0-0.7); EOS % 0.8 % (0.0-4.0); HEMOGLOBIN 8.8 g/dL (11.0-16.0); LYMPH # 1.2 K/uL (1.0-4.3); LYMPH % 7.4 % (20.0-40.0); MEAN CELL VOLUME 85.2 fL (81.0-99.0); MEAN CORPUSCULAR HEMOGLOBIN 29.1 pg (27.0-31.0); MEAN CORPUSCULAR HGB CONC 34.1 g/dL (33.0-37.0); MEAN PLATELET VOLUME 7.8 fL (7.2-11.7); MONO # 1.8 K/uL (0.0-0.8); NEUT # 13.4 K/uL (1.8-7.0); NEUT % 80.6 % (50.0-75.0); PLATELET COUNT 609 K/uL (130-400); RBC 3.03 Mil/uL (3.80-5.20); RED CELL DISTRIBUTION WIDTH 15.5 % (11.5-14.5); WHITE BLOOD COUNT 16.6 K/uL (4.8-10.8)
[2017-07-17] MEDS: Fluconazole IV 200mg/100 ml NS 100 ML IVPB SCH (09:00)
[2017-07-17 09:20] LABS: BLOOD UREA NITROGEN 3 mg/dL (7-17); CALCIUM 8.1 mg/dl (8.6-10.4); GFR AFRICAN-AMERICAN > 60; GFR NON-AFRICAN AMERICAN > 60
[2017-07-17] MEDS: Linezolid 600 mg in D5W 300 ml 600 MG/300 ML BAG IVPB SCH (10:09)
[2017-07-17] MEDS: Enoxaparin 40 mg Syringe SC SCH (10:11)
[2017-07-17 10:50] LABS: ANISOCYTOSIS SLIGHT; BANDS 2 % (0-2); EOSINOPHIL 3 % (0-4); LYMPHOCYTE 1 % (20-40); METAMYELOCYTE 2 % (0-0); MONOCYTE 10 % (0-10); MYELOCYTE 2 % (0-0); NEUTROPHIL 79 % (50-75); PLATELET ESTIMATE INCREASED (NORMAL); POIKILOCYTOSIS SLIGHT; REACTIVE LYMPHOCYTES 1 % (0-0); TOTAL CELLS COUNTED 100
[2017-07-17 10:51] LABS: HYPOCHROMIC SLIGHT; LARGE PLATELETS PRESENT; POLYCHROMIC SLIGHT; SCHISTOCYTES SLIGHT; TARGET CELLS SLIGHT
[2017-07-17 10:52] LABS: PLATELET CLUMPS PRESENT
--- NOTE | 2017-07-17 13:54 | PN ---
DATE: LOCATION: [facility], bed 8. SUBJECTIVE: This is a 52-year-old female, seen and examined on rounds, without reported nausea or vomiting. NG tube is out and the patient is still n.p.o. except for some ice chips. Tolerating it so far. No reported active bleeding. No chest pain or palpitation and no reported chills or fever. The entire chart is reviewed including but not limited to the most recent lab and radiology study results, current and the previous medication list, current and the previous medical events. Case discussed with the staff at length. Today's lab is still pending. However, the patient still has as per yesterday leukocytosis with low hemoglobin and hematocrit but with thrombocytopenia of 602 with low sodium, low BUN and creatinine, and low calcium as well as low albumin and low total protein. PHYSICAL EXAMINATION: GENERAL: A 52-year-old female. VITAL SIGNS: Afebrile with pulse of 94, respiratory rate 20 to 22 with blood pressure of 150/86. HEENT: Showed pale, dry oral mucous membranes. Nonicteric sclerae. LUNGS: A few scattered crepitation. Decreased air entry at the bases. HEART: Positive S1 and S2. ABDOMEN: Soft. Bowel sounds are excessively hypoactive with mild generalized tenderness covered with clean dressing. EXTREMITIES: With lower extremity edematous changes. No clubbing or cyanosis. NEUROLOGIC: No reported new neurological deficits, sensory or motor. No focal deficits. It should be mentioned that so far the patient had no bowel movement this morning. IMPRESSION: 1. Diverticulosis, diverticulitis with diverticular fibrosis treated surgically. 2. Status post colostomy reversal. 3. Anemia. 4. Status post partial colon resection, partial small-bowel resection. 5. Septicemia, still on antibiotics. 6. Peptic ulcer disease. 7. Known history of hypertension, osteoarthritis, and morbid obesity. 8. Malnutrition with hypoalbuminemia and hypoproteinemia. SUGGESTIONS: 1. Continue current management including current IV antibiotics. 2. Peripheral hyperalimentation. 3. No aggressive GI workup in the meantime. Andrew Koroma MD
[2017-07-17] MEDS: Potassium Ch 20mEq in D5-1/2NS 1,000 ML IV SCH ×2 (14:52→18:30)
--- NOTE | 2017-07-17 15:38 | CP.PCM.PN ---
Subjective - Date & Time of Evaluation Date of Evaluation: 07/17/17 Time of Evaluation: 09:00 - Subjective Subjective: NO FEVER AWAKE ALERT DEPRESSED WOUND HEALING - + COLOSTOMY, MIDLINE RETENTION SUTURES, + annabella DRAIN FOR OR AGAIN IN AM PER NURSING Objective - Vital Signs/Intake and Output Vital Signs (last 24 hours): Temp Pulse Resp BP Pulse Ox 98.2 F 96 H 20 167/96 H 98 07/17/17 07:30 07/17/17 07:30 07/17/17 07:30 07/17/17 07:30 07/17/17 07:30 Intake and Output: 07/17/17 07/17/17 06:59 18:59 Intake Total 1950 800 Output Total 5 50 Balance 1945 750 - Medications Medications: Current Medications Acetaminophen (Tylenol 325mg Tab) 650 mg PO Q6 PRN PRN Reason: Fever >100.4 F Last Admin: 07/12/17 11:25 Dose: 650 mg Enoxaparin Sodium (Lovenox) 40 mg SC DAILY [facility] Last Admin: 07/17/17 10:11 Dose: 40 mg Hydralazine HCl (Apresoline) 10 mg IVP Q6H [facility] Last Admin: 07/17/17 12:42 Dose: 10 mg Metronidazole (Flagyl) 500 mg in 100 mls @ 100 mls/hr IVPB Q8 [facility] Last Admin: 07/17/17 14:00 Dose: 100 mls/hr Aztreonam 1 gm/ Sodium (Chloride) 100 mls @ 200 mls/hr IVPB Q8H [facility] Last Admin: 07/17/17 14:00 Dose: 200 mls/hr Linezolid (Zyvox 600mg/300ml D5w) 600 mg in 300 mls @ 200 mls/hr IVPB Q12 [facility] Last Admin: 07/17/17 10:09 Dose: 200 mls/hr Fluconazole (Diflucan Iv 200 Mg/100 Ml Ns) 100 mls @ 100 mls/hr IVPB DAILY [facility] Last Admin: 07/17/17 09:00 Dose: 100 mls/hr Potassium Chloride/Dextrose/Sod Cl (Potassium Chl 20 Meq In D5-1/2ns) 1,000 mls @ 125 mls/hr IV .Q8H [facility] Last Admin: 07/17/17 14:52 Dose: 125 mls/hr Sodium Phosphate 15 mmole/Potassium Chloride 30 meq/Magnesium Sulfate 6 meq/ Calcium Gluconate 4.5 meq/Chromium/Copper/Manganese/Zinc 1 ml/ Amino Acids 1, 032.1552 mls @ 65 mls/hr IV .[id number] ONE Stop: 07/18/17 09:52 Sodium Phosphate 15 mmole/Potassium Chloride 30 meq/Magnesium Sulfate 6 meq/ Calcium Gluconate 4.5 meq/Chromium/Copper/Manganese/Zinc 1 ml/ Amino Acids 1, 032.1552 mls @ 65 mls/hr IV .[id number] ONE Stop: 07/19/17 01:16 Morphine Sulfate (Morphine) 2 mg IVP Q3 PRN PRN Reason: Pain, moderate (4-7) Last Admin: 07/17/17 10:05 Dose: 2 mg Morphine Sulfate (Morphine) 2 mg IM Q3 PRN PRN Reason: pain Ondansetron HCl (Zofran Inj) 4 mg IVP Q6H PRN PRN Reason: Nausea/Vomiting Pantoprazole Sodium (Protonix Inj) 40 mg IVP DAILY [facility] Last Admin: 07/17/17 10:12 Dose: 40 mg - Labs Labs: 07/17/17 08:29 07/17/17 08:29 PT 18.9 SECONDS (9.7-12.2) H 07/11/17 23:33 INR 1.7 07/11/17 23:33 APTT 29 SECONDS (21-34) 07/11/17 23:33 - Constitutional Appears: Non-toxic, Chronically Ill - Head Exam Head Exam: NORMOCEPHALIC - Eye Exam Eye Exam: PERRL - ENT Exam ENT Exam: Mucous Membranes Dry - Neck Exam Neck Exam: absent: Lymphadenopathy - Respiratory Exam Respiratory Exam: Decreased Breath Sounds - Cardiovascular Exam Cardiovascular Exam: REGULAR RHYTHM - GI/Abdominal Exam GI & Abdominal Exam: Distended, Soft - Rectal Exam Rectal Exam: Deferred Assessment and Plan (1) Abdominal pain Status: Acute (2) Abscess of multiple sites Status: Acute (3) Fever Status: Acute (4) Colonic diverticular abscess Status: Acute
[2017-07-17] MEDS ORDERED: PPN #1 IV ONE (18:00)
--- NOTE | 2017-07-17 21:08 | CP.PCM.PN ---
Subjective - Date & Time of Evaluation Date of Evaluation: 07/17/17 Time of Evaluation: 10:00 - Subjective Subjective: Pt seen and examined, she is post op, on peripheral parental nutrition, electrolytes adjusted, pt is afebrile, HR going down, wbc going down, pt is on IV antibiotics Objective - Vital Signs/Intake and Output Vital Signs (last 24 hours): Temp Pulse Resp BP Pulse Ox 98.4 F 99 H 21 156/100 H 98 07/17/17 15:15 07/17/17 15:15 07/17/17 15:15 07/17/17 15:15 07/17/17 15:15 Intake and Output: 07/17/17 07/18/17 18:59 06:59 Intake Total 800 Output Total 50 Balance 750 - Medications Medications: Current Medications Acetaminophen (Tylenol 325mg Tab) 650 mg PO Q6 PRN PRN Reason: Fever >100.4 F Last Admin: 07/12/17 11:25 Dose: 650 mg Enoxaparin Sodium (Lovenox) 40 mg SC DAILY [facility] Last Admin: 07/17/17 10:11 Dose: 40 mg Hydralazine HCl (Apresoline) 10 mg IVP Q6H [facility] Last Admin: 07/17/17 19:25 Dose: 10 mg Metronidazole (Flagyl) 500 mg in 100 mls @ 100 mls/hr IVPB Q8 [facility] Last Admin: 07/17/17 14:00 Dose: 100 mls/hr Aztreonam 1 gm/ Sodium (Chloride) 100 mls @ 200 mls/hr IVPB Q8H [facility] Last Admin: 07/17/17 21:02 Dose: 200 mls/hr Linezolid (Zyvox 600mg/300ml D5w) 600 mg in 300 mls @ 200 mls/hr IVPB Q12 [facility] Last Admin: 07/17/17 10:09 Dose: 200 mls/hr Fluconazole (Diflucan Iv 200 Mg/100 Ml Ns) 100 mls @ 100 mls/hr IVPB DAILY [facility] Last Admin: 07/17/17 09:00 Dose: 100 mls/hr Potassium Chloride/Dextrose/Sod Cl (Potassium Chl 20 Meq In D5-1/2ns) 1,000 mls @ 125 mls/hr IV .Q8H [facility] Last Admin: 02/11/18 18:30 Dose: Not Given Sodium Phosphate 15 mmole/Potassium Chloride 30 meq/Magnesium Sulfate 6 meq/ Calcium Gluconate 4.5 meq/Chromium/Copper/Manganese/Zinc 1 ml/ Amino Acids 1, 032.1552 mls @ 65 mls/hr IV .[id number] ONE Stop: 07/18/17 09:52 Last Admin: 07/17/17 17:38 Dose: 65 mls/hr Sodium Phosphate 15 mmole/Potassium Chloride 30 meq/Magnesium Sulfate 6 meq/ Calcium Gluconate 4.5 meq/Chromium/Copper/Manganese/Zinc 1 ml/ Amino Acids 1, 032.1552 mls @ 65 mls/hr IV .[id number] ONE Stop: 07/19/17 01:16 Morphine Sulfate (Morphine) 2 mg IVP Q3 PRN PRN Reason: Pain, moderate (4-7) Last Admin: 07/17/17 17:31 Dose: 2 mg Morphine Sulfate (Morphine) 2 mg IM Q3 PRN PRN Reason: pain Ondansetron HCl (Zofran Inj) 4 mg IVP Q6H PRN PRN Reason: Nausea/Vomiting Pantoprazole Sodium (Protonix Inj) 40 mg IVP DAILY [facility] Last Admin: 07/17/17 10:12 Dose: 40 mg - Labs Labs: 07/17/17 08:29 07/17/17 08:29 PT 18.9 SECONDS (9.7-12.2) H 07/11/17 23:33 INR 1.7 07/11/17 23:33 APTT 29 SECONDS (21-34) 07/11/17 23:33 - Constitutional Appears: No Acute Distress, Chronically Ill - Eye Exam Eye Exam: EOMI, Normal appearance, PERRL Pupil Exam: NORMAL ACCOMODATION, PERRL - Cardiovascular Exam Cardiovascular Exam: REGULAR RHYTHM, +S1, +S2 - GI/Abdominal Exam GI & Abdominal Exam: Soft, Normal Bowel Sounds. absent: Tenderness - Rectal Exam Rectal Exam: Deferred Assessment and Plan (1) Wound dehiscence Assessment & Plan: pain control electrolyte adjustment peripheral parental nutrition Iv antibiotics Status: Acute (2) Morbid obesity Status: Acute
[2017-07-18] MEDS: Linezolid 600 mg in D5W 300 ml 600 MG/300 ML BAG IVPB SCH ×3 (00:12→22:56)
[2017-07-18] MEDS: Aztreonam 1 GM in Sodium Chloride 0.9% 100 ML IVPB SCH ×3 (05:05→21:09)
[2017-07-18] MEDS: metroNIDAZOLE IV 500 mg/100 ml 500 MG/100 ML BAG IVPB SCH ×3 (06:12→22:06)
[2017-07-18 07:40] LABS: BASO % 0.3 % (0.0-2.0); EOS # 0.1 K/uL (0.0-0.7); HEMOGLOBIN 8.6 g/dL (11.0-16.0); LYMPH # 1.2 K/uL (1.0-4.3); LYMPH % 8.5 % (20.0-40.0); MEAN CELL VOLUME 84.7 fL (81.0-99.0); MEAN CORPUSCULAR HEMOGLOBIN 29.5 pg (27.0-31.0); MEAN CORPUSCULAR HGB CONC 34.8 g/dL (33.0-37.0); MEAN PLATELET VOLUME 7.6 fL (7.2-11.7); MONO # 1.3 K/uL (0.0-0.8); MONO % 8.9 % (0.0-10.0); NEUT # 11.7 K/uL (1.8-7.0); NEUT % 81.3 % (50.0-75.0); PLATELET COUNT 650 K/uL (130-400); RBC 2.93 Mil/uL (3.80-5.20); RED CELL DISTRIBUTION WIDTH 15.5 % (11.5-14.5); WHITE BLOOD COUNT 14.4 K/uL (4.8-10.8)
[2017-07-18 08:19] LABS: BLOOD UREA NITROGEN 6 mg/dL (7-17); CALCIUM 7.8 mg/dl (8.6-10.4); GFR AFRICAN-AMERICAN > 60; GFR NON-AFRICAN AMERICAN > 60
[2017-07-18 09:10] LABS: EOSINOPHIL 2 % (0-4); LYMPHOCYTE 7 % (20-40); MONOCYTE 8 % (0-10); MYELOCYTE 3 % (0-0); NEUTROPHIL 80 % (50-75); PLATELET ESTIMATE INCREASED (NORMAL); TOTAL CELLS COUNTED 100
[2017-07-18 09:11] LABS: ANISOCYTOSIS SLIGHT; HYPOCHROMIC SLIGHT; LARGE PLATELETS PRESENT; MICROCYTOSIS SLIGHT; POIKILOCYTOSIS SLIGHT; TARGET CELLS SLIGHT
[2017-07-18] MEDS ORDERED: PPN #2 IV ONE (09:24)
[2017-07-18] MEDS: Fluconazole IV 200mg/100 ml NS 100 ML IVPB SCH (09:30)
--- NOTE | 2017-07-18 10:09 | PN ---
ICU NOTE DATE: 07/15/2017 SUBJECTIVE: The patient is resting comfortably in the ICU. The NG tube remains in place. It is draining 20 mL of bilious material overnight. The patient was out of bed and continuous to improve somewhat. PHYSICAL EXAMINATION: VITAL SIGNS: Her temperature is 98.4, pulse rate is 105, respiratory rate is 26, and O2 saturation is 94% on room air. ABDOMEN: Bowel sounds are decreased. The abdomen is soft. The wound is clean. The colostomy is nonfunctioning, but viable. LABORATORY DATA: Her laboratories reveal her white blood cell count is decreased to 23.6, no differential was done. Her SMA-7 reveals decreased potassium at 3.1. Her creatinine is 0.6. IMPRESSION: My impression is she is slowly recovering from a laparotomy for an ischemic colostomy, which had dehisced causing stool spillage in the abdomen. She has not had any significant episodes of postoperatively. She will be transferred out of the ICU. I added 20 mEq of potassium to her IV and also gave her a round of 10 mEq of K. She will be followed on the floor medically by and I will continue to follow her surgically Andrey Sparrow MD
--- NOTE | 2017-07-18 11:06 | CP.PCM.PN ---
Subjective - Date & Time of Evaluation Date of Evaluation: 07/18/17 Time of Evaluation: 08:00 - Subjective Subjective: NPO except ice chips c/o pain has retention sutures, LACY and LLQ colostomy Objective - Vital Signs/Intake and Output Vital Signs (last 24 hours): Temp Pulse Resp BP Pulse Ox 98.0 F 90 18 162/96 H 97 07/18/17 08:10 07/18/17 08:10 07/18/17 08:10 07/18/17 08:10 07/18/17 08:10 Intake and Output: 07/18/17 07/18/17 06:59 18:59 Intake Total 1145 Output Total 5 Balance 1140 - Medications Medications: Current Medications Acetaminophen (Tylenol 325mg Tab) 650 mg PO Q6 PRN PRN Reason: Fever >100.4 F Last Admin: 07/12/17 11:25 Dose: 650 mg Enoxaparin Sodium (Lovenox) 40 mg SC DAILY [facility] Last Admin: 07/17/17 10:11 Dose: 40 mg Hydralazine HCl (Apresoline) 10 mg IVP Q6H [facility] Last Admin: 07/18/17 06:25 Dose: 10 mg Metronidazole (Flagyl) 500 mg in 100 mls @ 100 mls/hr IVPB Q8 [facility] Last Admin: 07/18/17 06:12 Dose: 100 mls/hr Aztreonam 1 gm/ Sodium (Chloride) 100 mls @ 200 mls/hr IVPB Q8H [facility] Last Admin: 07/18/17 05:05 Dose: 200 mls/hr Linezolid (Zyvox 600mg/300ml D5w) 600 mg in 300 mls @ 200 mls/hr IVPB Q12 [facility] Last Admin: 07/18/17 00:12 Dose: 200 mls/hr Fluconazole (Diflucan Iv 200 Mg/100 Ml Ns) 100 mls @ 100 mls/hr IVPB DAILY [facility] Last Admin: 07/17/17 09:00 Dose: 100 mls/hr Potassium Chloride/Dextrose/Sod Cl (Potassium Chl 20 Meq In D5-1/2ns) 1,000 mls @ 125 mls/hr IV .Q8H [facility] Last Admin: 07/17/17 18:30 Dose: Not Given Sodium Phosphate 15 mmole/Potassium Chloride 30 meq/Magnesium Sulfate 6 meq/ Calcium Gluconate 4.5 meq/Chromium/Copper/Manganese/Zinc 1 ml/ Amino Acids 1, 032.1552 mls @ 65 mls/hr IV .[id number] ONE Stop: 07/19/17 01:16 Sodium Phosphate 15 mmole/Potassium Chloride 30 meq/Magnesium Sulfate 6 meq/ Calcium Gluconate 4.5 meq/Chromium/Copper/Manganese/Zinc 1 ml/ Multivitamins/ Vitamin C 10 ml/ Amino Acids 1,042.1552 mls @ 65 mls/hr IV .[id number] ONE Stop: 07/19/17 10:01 Sodium Phosphate 15 mmole/Potassium Chloride 30 meq/Magnesium Sulfate 6 meq/ Calcium Gluconate 4.5 meq/Chromium/Copper/Manganese/Zinc 1 ml/ Amino Acids 1, 032.1552 mls @ 65 mls/hr IV .[id number] ONE Stop: 07/20/17 01:52 Morphine Sulfate (Morphine) 2 mg IVP Q3 PRN PRN Reason: Pain, moderate (4-7) Last Admin: 07/18/17 02:19 Dose: 2 mg Morphine Sulfate (Morphine) 2 mg IM Q3 PRN PRN Reason: pain Morphine Sulfate (Morphine) 2 mg IVP Q3 PRN PRN Reason: pain 3-7 Ondansetron HCl (Zofran Inj) 4 mg IVP Q6H PRN PRN Reason: Nausea/Vomiting Pantoprazole Sodium (Protonix Inj) 40 mg IVP DAILY [facility] Last Admin: 07/17/17 10:12 Dose: 40 mg - Labs Labs: 07/18/17 07:12 07/18/17 07:12 PT 18.9 SECONDS (9.7-12.2) H 07/11/17 23:33 INR 1.7 07/11/17 23:33 APTT 29 SECONDS (21-34) 07/11/17 23:33 - Constitutional Appears: Non-toxic, Chronically Ill - Head Exam Head Exam: NORMOCEPHALIC - Eye Exam Eye Exam: PERRL - ENT Exam ENT Exam: Mucous Membranes Dry - Neck Exam Neck Exam: absent: Lymphadenopathy - Respiratory Exam Respiratory Exam: Decreased Breath Sounds - Cardiovascular Exam Cardiovascular Exam: REGULAR RHYTHM - GI/Abdominal Exam GI & Abdominal Exam: Distended, Soft, Tenderness Additional comments: LLQ colostomy midline wound LACY drain - Rectal Exam Rectal Exam: Deferred - Exam Exam: NORMAL INSPECTION - Extremities Exam Extremities Exam: absent: Pedal Edema - Back Exam Back Exam: absent: CVA tenderness (L), CVA tenderness (R) - Neurological Exam Neurological Exam: Alert, Awake, Oriented x3 Neuro motor strength exam: Left Upper Extremity: 5, Right Upper Extremity: 5, Left Lower Extremity: 5, Right Lower Extremity: 5 - Psychiatric Exam Psychiatric exam: Depressed Assessment and Plan (1) Abdominal pain Status: Acute (2) Abscess of multiple sites Status: Acute (3) Fever Status: Acute (4) Colonic diverticular abscess Status: Acute - Assessment and Plan (Free Text) Assessment: WBC trending down cont iv rx
[2017-07-18] MEDS: Morphine 4 MG/ML VIAL IVP PRN ×3 (11:29→21:08)
[2017-07-18] MEDS: Enoxaparin 40 mg Syringe SC SCH (11:33)
[2017-07-18] MEDS: Potassium Ch 20mEq in D5-1/2NS 1,000 ML IV SCH ×2 (13:24→17:17)
--- NOTE | 2017-07-18 14:00 | PN ---
DATE: 07/18/2017 SUBJECTIVE: The patient is resting comfortably in bed, states she has less abdominal pain. She is noted to have stool in her colostomy today. PHYSICAL EXAMINATION: VITAL SIGNS: Her temperature is 98.0, pulse is 90, BP is 162/96, O2 sat is 97 on room air. ABDOMEN: Soft. The wound is open and granulating. A dressing change was accomplished at the bed, and a small abdominal collection was drained from the previous ostomy site. Bowel sounds were noted and active. LABORATORY DATA: Laboratories revealed the white blood cell count had decreased to 14.4 from a high of 27.3 four days ago. Her electrolytes revealed a continued low potassium of 3.1. IMPRESSION AND PLAN: My impression is that she has not exhibited any signs of sepsis post surgery. Her bowel function has returned as she has stool in the colostomy. The wound remains wide open with some areas of necrosis. We will continue her peripheral TPN. I have started her on a regular diet. Physical therapy will work with her to get her out of bed and ambulatory, and I will take her back to the operating room either tomorrow or 07/20/2017, for a debridement of the necrotic area to the abdominal wall and a drainage of any collections. Andrey Sparrow MD
--- NOTE | 2017-07-18 17:15 | PN ---
DATE: LOCATION: [facility], bed B. SUBJECTIVE: This is a 52-year-old female seen and examined in rounds. The entire chart is reviewed including, but not limited to the most recent lab and radiology study results, current and the previous medication list, current and the previous medical events. Case was discussed with the staff at length. The patient was found to have intermittent period of abdominal pain, complaining of generalized weakness and malaise. The entire chart was reviewed including but not limited to the most recent lab and radiology study results, current and the previous medication list, current and the previous medical events. Case was discussed with the staff as well as a senior talent management consultant. Today's lab shows leukocytosis of 14.4, with low hemoglobin 8.6, hematocrit 24.8, for thrombocytosis of 650, with low sodium 134, potassium 3.1, and low BUN and creatinine, blood glucose level of 110, with calcium 7.8. PHYSICAL EXAMINATION GENERAL: A 52-year-old female, awake, alert, and oriented. VITAL SIGNS: Afebrile with pulse of 86, respiratory rate of 20 to 22, and blood pressure of 166/88. HEENT: Showed mildly pale, dry oral mucous membranes, nonicteric sclerae. LUNGS: A few scattered crepitation with decreased air entry at bases. HEART: Positive S1 and S2 with increased rate. ABDOMEN: Soft with mild distention. No mass or organomegaly. No rebound tenderness or guarding, but generalized tenderness and clean abdominal dressing. The patient is still NPO and bowel sounds are absent. LACY is still in place. EXTREMITIES: With mild lower extremities edematous changes. No clubbing or cyanosis. NEUROLOGIC: No reported neurological deficits, sensory or motor. IMPRESSION: 1. Diverticulosis, diverticulitis, micro abscess with small viscous perforation treated surgically with partial colonization and subsequent colostomy reversal. 2. Intrapelvic intraabdominal abscess formation, treated surgically. 3. Status post partial bowel resection. 4. Septicemia by recent history. 5. Peptic ulcer disease. 6. Known history of hypertension, marked obesity, osteoarthritis. 7. Malnutrition, hypoalbuminemia. 8. Electrolyte imbalance, most likely secondary to above. SUGGESTION: 1. Agree with your plan. 2. Correct any underlying electrolyte imbalance. 3. Central hyperalimentation in the meantime. 4. Repeat blood cultures have to be discussed with the ID senior talent management consultant in the case, Dr. Bustillos. Andrew Koroma MD
[2017-07-18] MEDS ORDERED: PPN #3 IV ONE (18:00)
[2017-07-18] MEDS: Nitroglycerin 2% Ointment Foilpak UD TOP SCH (18:40)
--- NOTE | 2017-07-18 22:56 | CP.PCM.PN ---
Subjective - Date & Time of Evaluation Date of Evaluation: 07/18/17 Time of Evaluation: 17:40 - Subjective Subjective: PT IS SEEN AND EXAMINED, ON PARENTAL NUTRITION, REPLACING ELECTROLYTES, WOUND OF COLOSTOMY DEHISCENCE IS IMPROVING, ON ANTIBIOTICS Objective - Vital Signs/Intake and Output Vital Signs (last 24 hours): Temp Pulse Resp BP Pulse Ox 98.2 F 100 H 20 170/90 H 96 07/18/17 16:02 07/18/17 16:02 07/18/17 16:02 07/18/17 16:02 07/18/17 16:02 Intake and Output: 07/18/17 07/19/17 18:59 06:59 Intake Total 970 Output Total 204 Balance 766 - Medications Medications: Current Medications Acetaminophen (Tylenol 325mg Tab) 650 mg PO Q6 PRN PRN Reason: Fever >100.4 F Last Admin: 07/12/17 11:25 Dose: 650 mg Enoxaparin Sodium (Lovenox) 40 mg SC DAILY [facility] Last Admin: 07/18/17 11:33 Dose: 40 mg Hydralazine HCl (Apresoline) 10 mg IVP Q6H [facility] Last Admin: 07/18/17 17:38 Dose: 10 mg Metronidazole (Flagyl) 500 mg in 100 mls @ 100 mls/hr IVPB Q8 [facility] Last Admin: 07/18/17 22:06 Dose: 100 mls/hr Aztreonam 1 gm/ Sodium (Chloride) 100 mls @ 200 mls/hr IVPB Q8H [facility] Last Admin: 07/18/17 21:09 Dose: 200 mls/hr Linezolid (Zyvox 600mg/300ml D5w) 600 mg in 300 mls @ 200 mls/hr IVPB Q12 [facility] Last Admin: 07/18/17 10:00 Dose: 200 mls/hr Fluconazole (Diflucan Iv 200 Mg/100 Ml Ns) 100 mls @ 100 mls/hr IVPB DAILY [facility] Last Admin: 07/18/17 09:30 Dose: 100 mls/hr Sodium Phosphate 15 mmole/Potassium Chloride 30 meq/Magnesium Sulfate 6 meq/ Calcium Gluconate 4.5 meq/Chromium/Copper/Manganese/Zinc 1 ml/ Amino Acids 1, 032.1552 mls @ 65 mls/hr IV .[id number] ONE Stop: 07/19/17 01:16 Last Admin: 07/18/17 11:17 Dose: 65 mls/hr Sodium Phosphate 15 mmole/Potassium Chloride 30 meq/Magnesium Sulfate 6 meq/ Calcium Gluconate 4.5 meq/Chromium/Copper/Manganese/Zinc 1 ml/ Multivitamins/ Vitamin C 10 ml/ Amino Acids 1,042.1552 mls @ 65 mls/hr IV .[id number] ONE Stop: 07/19/17 10:01 Last Admin: 07/18/17 20:48 Dose: Not Given Sodium Phosphate 15 mmole/Potassium Chloride 30 meq/Magnesium Sulfate 6 meq/ Calcium Gluconate 4.5 meq/Chromium/Copper/Manganese/Zinc 1 ml/ Amino Acids 1, 032.1552 mls @ 65 mls/hr IV .[id number] ONE Stop: 07/20/17 01:52 Morphine Sulfate (Morphine) 2 mg IM Q3 PRN PRN Reason: pain Morphine Sulfate (Morphine) 2 mg IVP Q3 PRN PRN Reason: pain 3-7 Last Admin: 07/18/17 21:08 Dose: 2 mg Nitroglycerin (Nitro-Bid 2% Oint) 1 ea TOP Q6 [facility] Last Admin: 07/18/17 18:40 Dose: 1 ea Ondansetron HCl (Zofran Inj) 4 mg IVP Q6H PRN PRN Reason: Nausea/Vomiting Last Admin: 07/18/17 20:51 Dose: 4 mg Pantoprazole Sodium (Protonix Inj) 40 mg IVP DAILY [facility] Last Admin: 07/18/17 10:00 Dose: 40 mg - Labs Labs: 07/18/17 07:12 07/18/17 07:12 PT 18.9 SECONDS (9.7-12.2) H 07/11/17 23:33 INR 1.7 07/11/17 23:33 APTT 29 SECONDS (21-34) 07/11/17 23:33 - Constitutional Appears: No Acute Distress, Chronically Ill - Head Exam Head Exam: ATRAUMATIC, NORMAL INSPECTION, NORMOCEPHALIC - Respiratory Exam Respiratory Exam: Clear to Ausculation Bilateral, NORMAL BREATHING PATTERN - Cardiovascular Exam Cardiovascular Exam: REGULAR RHYTHM, +S1, +S2. absent: Murmur - GI/Abdominal Exam GI & Abdominal Exam: Soft, Normal Bowel Sounds. absent: Tenderness - Neurological Exam Neurological Exam: Alert, Oriented x3 - Psychiatric Exam Psychiatric exam: Normal Affect, Normal Mood Assessment and Plan (1) Wound dehiscence Status: Acute (2) Morbid obesity Status: Acute
[2017-07-19] MEDS: Morphine 4 MG/ML VIAL IVP PRN ×5 (00:47→21:14)
[2017-07-19] MEDS: Nitroglycerin 2% Ointment Foilpak UD TOP SCH ×5 (00:48→23:56)
[2017-07-19] MEDS: metroNIDAZOLE IV 500 mg/100 ml 500 MG/100 ML BAG IVPB SCH ×3 (05:16→21:23)
[2017-07-19] MEDS: Aztreonam 1 GM in Sodium Chloride 0.9% 100 ML IVPB SCH ×3 (06:36→21:16)
[2017-07-19 07:39] LABS: EOS # 0.1 K/uL (0.0-0.7)
[2017-07-19 07:51] LABS: BASO % 0.2 % (0.0-2.0); EOS % 1.2 % (0.0-4.0); HEMOGLOBIN 8.1 g/dL (11.0-16.0); LYMPH % 8.9 % (20.0-40.0); MEAN CELL VOLUME 84.6 fL (81.0-99.0); MEAN CORPUSCULAR HEMOGLOBIN 29.3 pg (27.0-31.0); MEAN CORPUSCULAR HGB CONC 34.6 g/dL (33.0-37.0); MEAN PLATELET VOLUME 7.5 fL (7.2-11.7); MONO % 8.8 % (0.0-10.0); NEUT # 9.2 K/uL (1.8-7.0); NEUT % 80.9 % (50.0-75.0); PLATELET COUNT 654 K/uL (130-400); RBC 2.77 Mil/uL (3.80-5.20); RED CELL DISTRIBUTION WIDTH 15.3 % (11.5-14.5); WHITE BLOOD COUNT 11.3 K/uL (4.8-10.8)
[2017-07-19 08:48] LABS: BLOOD UREA NITROGEN 7 mg/dL (7-17); CALCIUM 8.4 mg/dl (8.6-10.4); GFR AFRICAN-AMERICAN > 60; GFR NON-AFRICAN AMERICAN > 60
[2017-07-19] MEDS: Enoxaparin 40 mg Syringe SC SCH (09:14)
[2017-07-19 09:37] LABS: BANDS 2 % (0-2); LYMPHOCYTE 10 % (20-40); MONOCYTE 8 % (0-10); NEUTROPHIL 80 % (50-75); PLATELET ESTIMATE INCREASED (NORMAL); TOTAL CELLS COUNTED 100
[2017-07-19 09:38] LABS: ANISOCYTOSIS SLIGHT; HYPOCHROMIC SLIGHT; LARGE PLATELETS PRESENT; POIKILOCYTOSIS SLIGHT; TARGET CELLS SLIGHT
[2017-07-19 09:40] LABS: MICROCYTOSIS SLIGHT; OVALOCYTES SLIGHT
[2017-07-19] MEDS ORDERED: PPN #4 IV ONE (10:00)
[2017-07-19] MEDS: Linezolid 600 mg in D5W 300 ml 600 MG/300 ML BAG IVPB SCH ×2 (10:00→21:24)
[2017-07-19] MEDS: Fluconazole IV 200mg/100 ml NS 100 ML IVPB SCH (11:00)
--- NOTE | 2017-07-19 15:10 | PN ---
DATE: 07/19/2017. LOCATION: [facility], bed B. SUBJECTIVE: This is a 52-year-old female seen and examined in rounds with intermittent period again of abdominal pain without reported active bleeding, chest pain, palpitation or significant shortness of breath, but complained of generalized weakness. The entire chart is reviewed including, but not limited to the most recent lab and radiology study results, current and the previous medication list, current and previous medical events. Case discussed with staff at length. Today's lab showed white blood cells of 11.3 with low hemoglobin 8.1, low hematocrit 23.4 with thrombocytosis of 654 with low sodium 129, low potassium 3.0, and increased blood glucose level to 110, calcium is still low 8.4. PHYSICAL EXAMINATION: GENERAL: A 52 years old female, awake, alert, oriented. VITAL SIGNS: Afebrile with pulse of 88, respiratory rate 20 to 22 with blood pressure of 140/72. HEENT: Showed pale dry oral mucoid membrane, nonicteric sclerae. LUNGS: Showed scattered crepitation, decreased air entry at bases. HEART: Positive S1 and S2. ABDOMEN: Soft with mild distention. No mass or organomegaly. No rebound tenderness or guarding. EXTREMITIES: With lower extremities edematous changes. No clubbing or cyanosis. NEUROLOGIC: No new reported neurological deficits, sensory or motor. IMPRESSION: 1. Diverticulosis, acute diverticulitis, surgically with reformation of intraabdominal intrapelvic abscess formation, treated again surgically with partial colon resection and reversal colostomy. 2. Anemia secondary to above. 3. Peptic ulcer disease. 4. Septicemia by recent history, improving gradually. 5. Known history of morbid obesity, hypertension, osteoarthritis. 6. Electrolyte imbalance. 7. Malnutrition with hypoalbuminemia. SUGGESTIONS: 1. Continue current management. 2. Again, the patient may prefer hyperalimentation. 3. Antireflux measures. Andrew Koroma MD
[2017-07-19] MEDS ORDERED: PPN #5 IV ONE (18:00)
--- NOTE | 2017-07-19 23:50 | CP.PCM.PN ---
Subjective - Date & Time of Evaluation Date of Evaluation: 07/19/17 Time of Evaluation: 18:00 - Subjective Subjective: Pt seen and examined, is NPO again , she cannot tolerate diet is on Peripheral parental nutrition, B.P is better, K was supplemented , no fever, she might need another debribement of sacral wound Objective - Vital Signs/Intake and Output Vital Signs (last 24 hours): Temp Pulse Resp BP Pulse Ox 98.4 F 90 20 172/96 H 96 07/19/17 15:00 07/19/17 15:00 07/19/17 15:00 07/19/17 15:00 07/19/17 15:00 Intake and Output: 07/19/17 07/20/17 18:59 06:59 Intake Total 1525 Output Total 210 Balance 1315 - Medications Medications: Current Medications Acetaminophen (Tylenol 325mg Tab) 650 mg PO Q6 PRN PRN Reason: Fever >100.4 F Last Admin: 07/12/17 11:25 Dose: 650 mg Enoxaparin Sodium (Lovenox) 40 mg SC DAILY [facility] Last Admin: 07/19/17 09:14 Dose: 40 mg Hydralazine HCl (Apresoline) 10 mg IVP Q6H [facility] Last Admin: 07/19/17 18:08 Dose: 10 mg Metronidazole (Flagyl) 500 mg in 100 mls @ 100 mls/hr IVPB Q8 [facility] Last Admin: 07/19/17 21:23 Dose: 100 mls/hr Aztreonam 1 gm/ Sodium (Chloride) 100 mls @ 200 mls/hr IVPB Q8H [facility] Last Admin: 07/19/17 21:16 Dose: 200 mls/hr Linezolid (Zyvox 600mg/300ml D5w) 600 mg in 300 mls @ 200 mls/hr IVPB Q12 [facility] Last Admin: 07/19/17 21:24 Dose: 200 mls/hr Fluconazole (Diflucan Iv 200 Mg/100 Ml Ns) 100 mls @ 100 mls/hr IVPB DAILY [facility] Last Admin: 07/19/17 11:00 Dose: 100 mls/hr Sodium Phosphate 15 mmole/Potassium Chloride 30 meq/Magnesium Sulfate 6 meq/ Calcium Gluconate 4.5 meq/Chromium/Copper/Manganese/Zinc 1 ml/ Amino Acids 1, 032.1552 mls @ 65 mls/hr IV .[id number] ONE Stop: 07/20/17 01:52 Sodium Phosphate 15 mmole/Potassium Chloride 30 meq/Magnesium Sulfate 6 meq/ Calcium Gluconate 4.5 meq/Chromium/Copper/Manganese/Zinc 1 ml/ Multivitamins/ Vitamin C 10 ml/ Amino Acids 1,042.1552 mls @ 65 mls/hr IV .[id number] ONE Stop: 07/20/17 10:01 Last Admin: 07/19/17 16:13 Dose: 65 mls/hr Sodium Phosphate 15 mmole/Potassium Chloride 30 meq/Magnesium Sulfate 6 meq/ Calcium Gluconate 4.5 meq/Chromium/Copper/Manganese/Zinc 1 ml/ Amino Acids 1, 032.1552 mls @ 65 mls/hr IV .[id number] ONE Stop: 07/21/17 01:52 Morphine Sulfate (Morphine) 2 mg IVP Q3 PRN PRN Reason: pain 3-7 Last Admin: 07/19/17 21:14 Dose: 2 mg Morphine Sulfate (Morphine) 2 mg IM Q3 PRN PRN Reason: pain Nitroglycerin (Nitro-Bid 2% Oint) 1 ea TOP Q6 [facility] Last Admin: 07/19/17 18:08 Dose: 1 ea Ondansetron HCl (Zofran Inj) 4 mg IVP Q6H PRN PRN Reason: Nausea/Vomiting Last Admin: 07/18/17 20:51 Dose: 4 mg Pantoprazole Sodium (Protonix Inj) 40 mg IVP DAILY [facility] Last Admin: 07/19/17 09:14 Dose: 40 mg - Labs Labs: 07/19/17 07:32 07/19/17 07:32 PT 18.9 SECONDS (9.7-12.2) H 07/11/17 23:33 INR 1.7 07/11/17 23:33 APTT 29 SECONDS (21-34) 07/11/17 23:33 - Constitutional Appears: No Acute Distress - Head Exam Head Exam: ATRAUMATIC, NORMAL INSPECTION, NORMOCEPHALIC - Eye Exam Eye Exam: EOMI, Normal appearance, PERRL Pupil Exam: NORMAL ACCOMODATION, PERRL - Respiratory Exam Respiratory Exam: Decreased Breath Sounds, Rales, Rhonchi - Cardiovascular Exam Cardiovascular Exam: REGULAR RHYTHM, +S1, +S2. absent: Murmur - GI/Abdominal Exam GI & Abdominal Exam: Soft, Normal Bowel Sounds. absent: Tenderness Assessment and Plan (1) Wound dehiscence Status: Acute (2) Morbid obesity Status: Acute
[2017-07-20] MEDS: Nitroglycerin 2% Ointment Foilpak UD TOP SCH ×3 (05:23→18:37)
[2017-07-20] MEDS: metroNIDAZOLE IV 500 mg/100 ml 500 MG/100 ML BAG IVPB SCH ×3 (05:23→22:15)
[2017-07-20] MEDS: Aztreonam 1 GM in Sodium Chloride 0.9% 100 ML IVPB SCH ×3 (05:23→22:16)
[2017-07-20] MEDS: Morphine 4 MG/ML VIAL IVP PRN ×2 (05:48→19:01)
[2017-07-20 07:01] LABS: BLOOD UREA NITROGEN 7 mg/dL (7-17); CALCIUM 8.3 mg/dl (8.6-10.4); GFR AFRICAN-AMERICAN > 60; GFR NON-AFRICAN AMERICAN > 60; MAGNESIUM 1.7 mg/dL (1.6-2.3)
[2017-07-20] MEDS: Fluconazole IV 200mg/100 ml NS 100 ML IVPB SCH (09:12)
[2017-07-20] MEDS: Linezolid 600 mg in D5W 300 ml 600 MG/300 ML BAG IVPB SCH ×2 (09:13→22:50)
[2017-07-20] MEDS ORDERED: PPN #6 IV ONE (10:00)
[2017-07-20] MEDS: Enoxaparin 40 mg Syringe SC SCH (10:59)
[2017-07-20] MEDS ORDERED: Propofol 10 mg/ml Inj (20 ML) ONE (13:59)
[2017-07-20] MEDS ORDERED: Succinylcholine Chloride 20 mg/ml Syr (5 ml) IV ONE (14:03)
--- NOTE | 2017-07-20 14:47 | PN ---
DATE: 07/20/2017. LOCATION: [facility], bed B. SUBJECTIVE: This is a 52 years old female seen and examined in rounds without significant clinical changes or reported active bleeding before her way to the OR with complain of abdominal pain, postprandial abdominal distention before. The entire chart is reviewed including, but not limited to the most recent lab and radiology study results, current and the previous medication list, current and the previous medical events. Case was discussed with the staff at length. Today's lab is still pending, but the patient still have low H and H with increased leukocytic count with low sodium today of 131, low potassium 3.5 with blood glucose level 116, but low calcium 8.3. PHYSICAL EXAMINATION: GENERAL: A 52-year-old female. VITAL SIGNS: Afebrile with pulse of 100, respiratory rate 20 to 22, and blood pressure 160/82. HEENT: Shows pale, dry oral mucous membrane. Nonicteric sclerae. LUNGS: Few Scattered crepitation, decreased air entry at bases. HEART: Positive S1 and S2 with increased rate. ABDOMEN: Soft with [id number] distention with generalized tenderness, still n.p.o. with complain of pain at the sacral area for which she may need debridement of the sacral wound. The patient lost her appetite and unable to eat again. Covered with clean dressing. EXTREMITIES: edematous changes. No clubbing or cyanosis. NEUROLOGIC: No reported new neurological deficits, sensory or motor. IMPRESSION: 1. Diverticulosis with diverticulitis, partial colon resection, reversal colostomy. 2. Sacral wound treated surgically. 3. Anemia secondary to above. 4. Electrolyte imbalance. 5. Malnutrition with hyponatremia. 6. Known history of morbid obesity, osteoarthritis and hypertension. 7. Septicemia gradually improving. SUGGESTION: 1. Continue current management. 2. Add Reglan IV. 3. Further recommendation to follow. Again if the patient symptoms persist, then upper endoscopy to be kept in mind. Andrew Koroma MD
[2017-07-20] MEDS ORDERED: Labetalol 25mg/5ml Syringe ONE (14:56)
[2017-07-20] MEDS: HYDROmorphone 0.5 mg/0.5 ml ISec IVP PRN ×2 (15:25→15:45)
[2017-07-20] MEDS ORDERED: Lactated Ringer's 1,000 ML IV ONE (16:45)
[2017-07-20] MEDS ORDERED: PPN #7 IV ONE (18:00)
--- NOTE | 2017-07-20 22:51 | CP.PCM.PN ---
Subjective - Date & Time of Evaluation Date of Evaluation: 07/20/17 Time of Evaluation: 16:50 - Subjective Subjective: she is feeling better, s/p colostomy dehischence OR on post op care antibiotics Objective - Vital Signs/Intake and Output Vital Signs (last 24 hours): Temp Pulse Resp BP Pulse Ox 98.2 F 96 H 20 156/96 H 96 07/20/17 17:30 07/20/17 17:30 07/20/17 17:30 07/20/17 17:30 07/20/17 17:30 Intake and Output: 07/20/17 07/21/17 18:59 06:59 Intake Total 1150 Output Total 20 Balance 1130 - Medications Medications: Current Medications Acetaminophen (Tylenol 325mg Tab) 650 mg PO Q6 PRN PRN Reason: Fever >100.4 F Last Admin: 07/12/17 11:25 Dose: 650 mg Enoxaparin Sodium (Lovenox) 40 mg SC DAILY [facility] Last Admin: 07/20/17 10:59 Dose: Not Given Hydralazine HCl (Apresoline) 10 mg IVP Q6H [facility] Last Admin: 07/20/17 18:37 Dose: 10 mg Metronidazole (Flagyl) 500 mg in 100 mls @ 100 mls/hr IVPB Q8 [facility] Last Admin: 07/20/17 22:15 Dose: 100 mls/hr Aztreonam 1 gm/ Sodium (Chloride) 100 mls @ 200 mls/hr IVPB Q8H [facility] Last Admin: 07/20/17 22:16 Dose: 200 mls/hr Linezolid (Zyvox 600mg/300ml D5w) 600 mg in 300 mls @ 200 mls/hr IVPB Q12 [facility] Last Admin: 07/20/17 22:50 Dose: Not Given Fluconazole (Diflucan Iv 200 Mg/100 Ml Ns) 100 mls @ 100 mls/hr IVPB DAILY [facility] Last Admin: 07/20/17 09:12 Dose: 100 mls/hr Sodium Phosphate 15 mmole/Potassium Chloride 30 meq/Magnesium Sulfate 6 meq/ Calcium Gluconate 4.5 meq/Chromium/Copper/Manganese/Zinc 1 ml/ Amino Acids 1, 032.1552 mls @ 65 mls/hr IV .[id number] ONE Stop: 07/21/17 01:52 Last Admin: 07/20/17 11:01 Dose: 65 mls/hr Sodium Phosphate 15 mmole/Potassium Chloride 30 meq/Magnesium Sulfate 6 meq/ Calcium Gluconate 4.5 meq/Chromium/Copper/Manganese/Zinc 1 ml/ Multivitamins/ Vitamin C 10 ml/ Amino Acids 1,042.1552 mls @ 65 mls/hr IV .Q16H2M ONE Stop: 07/21/17 10:01 Last Admin: 07/20/17 18:38 Dose: 65 mls/hr Sodium Phosphate 15 mmole/Potassium Chloride 30 meq/Magnesium Sulfate 6 meq/ Calcium Gluconate 4.5 meq/Chromium/Copper/Manganese/Zinc 1 ml/ Amino Acids 1, 032.1552 mls @ 65 mls/hr IV .[id number] ONE Stop: 07/22/17 01:52 Morphine Sulfate (Morphine) 2 mg IVP Q3 PRN PRN Reason: pain 3-7 Last Admin: 07/20/17 19:01 Dose: 2 mg Morphine Sulfate (Morphine) 2 mg IM Q3 PRN PRN Reason: pain Nitroglycerin (Nitro-Bid 2% Oint) 1 ea TOP Q6 [facility] Last Admin: 07/20/17 18:37 Dose: 1 ea Ondansetron HCl (Zofran Inj) 4 mg IVP Q6H PRN PRN Reason: Nausea/Vomiting Last Admin: 07/18/17 20:51 Dose: 4 mg Pantoprazole Sodium (Protonix Inj) 40 mg IVP DAILY [facility] Last Admin: 07/20/17 10:53 Dose: 40 mg - Labs Labs: 07/19/17 07:32 07/20/17 06:30 PT 18.9 SECONDS (9.7-12.2) H 07/11/17 23:33 INR 1.7 07/11/17 23:33 APTT 29 SECONDS (21-34) 07/11/17 23:33 - Constitutional Appears: No Acute Distress - Head Exam Head Exam: ATRAUMATIC, NORMAL INSPECTION, NORMOCEPHALIC - Respiratory Exam Respiratory Exam: Clear to Ausculation Bilateral, NORMAL BREATHING PATTERN - Cardiovascular Exam Cardiovascular Exam: REGULAR RHYTHM, +S1, +S2. absent: Murmur - GI/Abdominal Exam GI & Abdominal Exam: Soft, Normal Bowel Sounds. absent: Tenderness Assessment and Plan (1) Wound dehiscence Status: Acute (2) Morbid obesity Status: Acute
[2017-07-21] MEDS: Nitroglycerin 2% Ointment Foilpak UD TOP SCH ×4 (00:26→19:15)
[2017-07-21] MEDS: Morphine 4 MG/ML VIAL IVP PRN ×5 (00:41→19:18)
--- NOTE | 2017-07-21 02:03 | OP ---
DATE OF PROCEDURE: 07/20/2017 PREOPERATIVE DIAGNOSIS: Open abdominal wound with necrosis and abscess. POSTOPERATIVE DIAGNOSIS: Open abdominal wound with necrosis and abscess. PROCEDURE PERFORMED: Re-drainage of abdominal wall abscess, debridement of abdominal wound, partial advancement flap closure of the lower portion of the wound, and repair of abdominal wall blood vessel. SURGEON: Andrey Sparrow M.D. ANESTHESIA: General. BLOOD LOSS: 30 mL. POSTOPERATIVE CONDITION: Stable. INDICATIONS FOR SURGERY: A 52-year-old female, morbidly obese, status post laparotomy for a necrotic colostomy, which she had to undergo revision of colostomy and colon resection. She underwent an extensive procedure with fair amount of fecal spillage in the abdomen. Postoperatively, she did not develop sepsis and has been stable. Her wound, however, is very complex with retention sutures of wide open areas. She also has a large pannus and a very angulated pannus near her groin, which is causing wound issues. She is taken back to the OR today for debridement, possible wound VAC, possible partial closure. PROCEDURE: The patient was taken to the operative room, general anesthesia was administered. The abdominal wound was uncovered, packing removed and it was prepped and draped. The abdominal wound was aggressively irrigated with pulse irrigation and debrided. Bleeding was controlled using the Bovie, and abdominal blood vessel was repaired. wound VAC was tried at the lower open abdominal portion of the angulated pannus, however, good seal could not be obtained. Closure of the wound was fairly granulated. I made a decision to do a flap closure with retention sutures, which were done with four interrupted retention sutures. The rest of the wound was packed open with saline gauze. The patient tolerated the procedure well and returned to recovery room in stable condition. Andrey Sparrow MD
[2017-07-21] MEDS: Aztreonam 1 GM in Sodium Chloride 0.9% 100 ML IVPB SCH ×3 (05:52→21:00)
[2017-07-21] MEDS: metroNIDAZOLE IV 500 mg/100 ml 500 MG/100 ML BAG IVPB SCH ×3 (06:45→21:30)
[2017-07-21] MEDS: Enoxaparin 40 mg Syringe SC SCH (09:34)
[2017-07-21] MEDS: Fluconazole IV 200mg/100 ml NS 100 ML IVPB SCH (09:38)
[2017-07-21] MEDS: Linezolid 600 mg in D5W 300 ml 600 MG/300 ML BAG IVPB SCH ×2 (10:00→22:28)
[2017-07-21] MEDS ORDERED: PPN #8 IV ONE (10:00)
[2017-07-21 11:19] LABS: BASO # 0.1 K/uL (0.0-0.2); BASO % 0.5 % (0.0-2.0); EOS # 0.1 K/uL (0.0-0.7); EOS % 1.2 % (0.0-4.0); HEMOGLOBIN 8.7 g/dL (11.0-16.0); LYMPH # 1.5 K/uL (1.0-4.3); MEAN CELL VOLUME 84.8 fL (81.0-99.0); MEAN CORPUSCULAR HEMOGLOBIN 29.5 pg (27.0-31.0); MEAN CORPUSCULAR HGB CONC 34.7 g/dL (33.0-37.0); MEAN PLATELET VOLUME 7.3 fL (7.2-11.7); MONO % 9.8 % (0.0-10.0); NEUT # 7.9 K/uL (1.8-7.0); NEUT % 74.5 % (50.0-75.0); RBC 2.97 Mil/uL (3.80-5.20); WHITE BLOOD COUNT 10.6 K/uL (4.8-10.8)
[2017-07-21 11:35] LABS: BLOOD UREA NITROGEN 10 mg/dL (7-17); CALCIUM 8.1 mg/dl (8.6-10.4); GFR AFRICAN-AMERICAN > 60; GFR NON-AFRICAN AMERICAN > 60
--- NOTE | 2017-07-21 16:35 | PN ---
DATE: LOCATION: [address] [place] [address] B. SUBJECTIVE: This is a 52-year-old female seen and examined without significant clinical changes with less complaint of abdominal pain, but nausea with intermittent periods of dyspepsia. The entire chart is reviewed including, but not limited to the most recent lab and radiology study results, current and the previous medication list, current and the previous medical events. Case was discussed with the staff at length. LABORATORY DATA: Today's lab showed hemoglobin of 8.7, hematocrit 25.1, with thrombocytosis of 674. Low sodium 130, low creatinine of 0.5, increased blood glucose level 129, calcium 8.1. PHYSICAL EXAMINATION GENERAL: A 52-year-old female. VITAL SIGNS: Afebrile with pulse of 88, respiratory rate 20 to 22, blood pressure of 144/82. HEENT: Showed pale, dry, oral mucoid membrane. Nonicteric sclerae bilaterally. LUNGS: Scattered crepitation with decreased air entry at bases. HEART: Positive S1 and S2. ABDOMEN: Soft. Bowel sounds are present. No mass or organomegaly. No rebound tenderness or guarding. Abdomen is still covered with clean dressing as well as the sacral area. EXTREMITIES: No significant clubbing, cyanosis, or edema. IMPRESSION: 1. Diverticulosis with acute diverticulitis, perforated viscus with diverticular abscess x2 treated surgically. 2. Sacral wall, again treated surgically. 3. Re-exacerbation of peptic ulcer disease. 4. Anemia. 5. Electrolyte imbalance. 6. Known history of hypertension, morbid obesity, with osteoarthritis. 7. Recently diagnosed septicemia, on antibiotics. SUGGESTION: 1. Continue current management. 2. Due to the patient's subsequent drop of hemoglobin and hematocrit, guaiac of all stool should take place. 3. Endoscopic evaluation of the upper GI tract only as needed if there is subsequent drop of hemoglobin and hematocrit. Andrew Koroma MD
[2017-07-21] MEDS ORDERED: PPN #9 IV ONE (18:00)
--- NOTE | 2017-07-21 22:57 | CP.PCM.PN ---
Subjective - Date & Time of Evaluation Date of Evaluation: 07/21/17 Time of Evaluation: 20:00 - Subjective Subjective: pt is doing well, afebrile, colostomy wound is clean, no sob, chest pain Objective - Vital Signs/Intake and Output Vital Signs (last 24 hours): Temp Pulse Resp BP Pulse Ox 99.1 F 107 H 20 157/96 H 96 07/21/17 16:00 07/21/17 16:00 07/21/17 16:00 07/21/17 16:00 07/21/17 16:00 Intake and Output: 07/21/17 07/22/17 18:59 06:59 Intake Total 820 Output Total 50 Balance 770 - Medications Medications: Current Medications Acetaminophen (Tylenol 325mg Tab) 650 mg PO Q6 PRN PRN Reason: Fever >100.4 F Last Admin: 07/12/17 11:25 Dose: 650 mg Enoxaparin Sodium (Lovenox) 40 mg SC DAILY [facility] Last Admin: 07/21/17 09:34 Dose: 40 mg Hydralazine HCl (Apresoline) 10 mg IVP Q6H [facility] Last Admin: 07/21/17 19:16 Dose: 10 mg Metronidazole (Flagyl) 500 mg in 100 mls @ 100 mls/hr IVPB Q8 [facility] Last Admin: 07/21/17 21:30 Dose: 100 mls/hr Aztreonam 1 gm/ Sodium (Chloride) 100 mls @ 200 mls/hr IVPB Q8H [facility] Last Admin: 07/21/17 21:00 Dose: 200 mls/hr Linezolid (Zyvox 600mg/300ml D5w) 600 mg in 300 mls @ 200 mls/hr IVPB Q12 [facility] Last Admin: 07/21/17 22:28 Dose: 200 mls/hr Fluconazole (Diflucan Iv 200 Mg/100 Ml Ns) 100 mls @ 100 mls/hr IVPB DAILY [facility] Last Admin: 07/21/17 09:38 Dose: 100 mls/hr Sodium Phosphate 15 mmole/Potassium Chloride 30 meq/Magnesium Sulfate 6 meq/ Calcium Gluconate 4.5 meq/Chromium/Copper/Manganese/Zinc 1 ml/ Amino Acids 1, 032.1552 mls @ 65 mls/hr IV .[id number] ONE Stop: 07/22/17 01:52 Last Admin: 07/21/17 10:00 Dose: 65 mls/hr Sodium Phosphate 15 mmole/Potassium Chloride 30 meq/Magnesium Sulfate 6 meq/ Calcium Gluconate 4.5 meq/Chromium/Copper/Manganese/Zinc 1 ml/ Multivitamins/ Vitamin C 10 ml/ Amino Acids 1,042.1552 mls @ 65 mls/hr IV .Q16H2M ONE Stop: 07/22/17 10:01 Last Admin: 07/21/17 19:16 Dose: 65 mls/hr Sodium Phosphate 15 mmole/Potassium Chloride 30 meq/Magnesium Sulfate 6 meq/ Calcium Gluconate 4.5 meq/Chromium/Copper/Manganese/Zinc 1 ml/ Amino Acids 1, 032.1552 mls @ 65 mls/hr IV .[id number] [facility] Stop: 07/22/17 17:59 Morphine Sulfate (Morphine) 2 mg IVP Q3 PRN PRN Reason: pain 3-7 Last Admin: 07/21/17 19:18 Dose: 2 mg Morphine Sulfate (Morphine) 2 mg IM Q3 PRN PRN Reason: pain Nitroglycerin (Nitro-Bid 2% Oint) 1 ea TOP Q6 [facility] Last Admin: 07/21/17 19:15 Dose: 1 ea Ondansetron HCl (Zofran Inj) 4 mg IVP Q6H PRN PRN Reason: Nausea/Vomiting Last Admin: 07/18/17 20:51 Dose: 4 mg Pantoprazole Sodium (Protonix Inj) 40 mg IVP DAILY [facility] Last Admin: 07/21/17 09:33 Dose: 40 mg Zolpidem Tartrate (Ambien) 5 mg PO HS PRN PRN Reason: Insomnia Last Admin: 07/21/17 21:42 Dose: 5 mg - Labs Labs: 07/21/17 11:10 07/21/17 11:10 PT 18.9 SECONDS (9.7-12.2) H 07/11/17 23:33 INR 1.7 07/11/17 23:33 APTT 29 SECONDS (21-34) 07/11/17 23:33 - Constitutional Appears: No Acute Distress - Head Exam Head Exam: ATRAUMATIC, NORMAL INSPECTION, NORMOCEPHALIC - Eye Exam Eye Exam: EOMI, Normal appearance, PERRL Pupil Exam: NORMAL ACCOMODATION, PERRL - Respiratory Exam Respiratory Exam: Clear to Ausculation Bilateral, NORMAL BREATHING PATTERN - Cardiovascular Exam Cardiovascular Exam: REGULAR RHYTHM, +S1, +S2. absent: Murmur - GI/Abdominal Exam GI & Abdominal Exam: Soft, Normal Bowel Sounds. absent: Tenderness Assessment and Plan (1) Wound dehiscence Status: Acute (2) Morbid obesity Status: Acute
[2017-07-22] MEDS: Nitroglycerin 2% Ointment Foilpak UD TOP SCH ×5 (00:10→23:52)
[2017-07-22] MEDS: Morphine 4 MG/ML VIAL IVP PRN ×2 (00:23→09:35)
[2017-07-22] MEDS: Aztreonam 1 GM in Sodium Chloride 0.9% 100 ML IVPB SCH ×2 (06:18→22:12)
[2017-07-22] MEDS: metroNIDAZOLE IV 500 mg/100 ml 500 MG/100 ML BAG IVPB SCH (06:18)
[2017-07-22 08:09] LABS: BASO # 0.1 K/uL (0.0-0.2); BASO % 0.9 % (0.0-2.0); EOS # 0.1 K/uL (0.0-0.7); EOS % 0.7 % (0.0-4.0); HEMOGLOBIN 8.4 g/dL (11.0-16.0); LYMPH # 1.7 K/uL (1.0-4.3); LYMPH % 15.4 % (20.0-40.0); MEAN CORPUSCULAR HEMOGLOBIN 29.4 pg (27.0-31.0); MEAN CORPUSCULAR HGB CONC 34.6 g/dL (33.0-37.0); MEAN PLATELET VOLUME 7.4 fL (7.2-11.7); MONO % 8.6 % (0.0-10.0); NEUT # 8.3 K/uL (1.8-7.0); NEUT % 74.4 % (50.0-75.0); RBC 2.85 Mil/uL (3.80-5.20); RED CELL DISTRIBUTION WIDTH 16.1 % (11.5-14.5); WHITE BLOOD COUNT 11.1 K/uL (4.8-10.8)
[2017-07-22 08:17] LABS: BLOOD UREA NITROGEN 11 mg/dL (7-17); CALCIUM 8.5 mg/dl (8.6-10.4); GFR AFRICAN-AMERICAN > 60; GFR NON-AFRICAN AMERICAN > 60
--- NOTE | 2017-07-22 08:40 | CP.PCM.PN ---
Subjective - Date & Time of Evaluation Date of Evaluation: 07/22/17 Time of Evaluation: 18:00 - Subjective Subjective: Pt seen and evaluated, pt is improving, s/p wound dehiscnece debribemnet sacral wound , colostomy bag has brown stool. pt is on wound care, antibiotics, Objective - Vital Signs/Intake and Output Vital Signs (last 24 hours): Temp Pulse Resp BP Pulse Ox 98.6 F 101 H 20 155/79 H 96 07/22/17 08:23 07/22/17 08:23 07/22/17 08:23 07/22/17 08:23 07/22/17 08:23 Intake and Output: 07/22/17 07/22/17 06:59 18:59 Intake Total 250 Balance 250 - Medications Medications: Current Medications Acetaminophen (Tylenol 325mg Tab) 650 mg PO Q6 PRN PRN Reason: Fever >100.4 F Last Admin: 07/12/17 11:25 Dose: 650 mg Enoxaparin Sodium (Lovenox) 40 mg SC DAILY [facility] Last Admin: 07/21/17 09:34 Dose: 40 mg Hydralazine HCl (Apresoline) 10 mg IVP Q6H [facility] Last Admin: 07/22/17 06:27 Dose: 10 mg Metronidazole (Flagyl) 500 mg in 100 mls @ 100 mls/hr IVPB Q8 [facility] Last Admin: 07/22/17 06:18 Dose: 100 mls/hr Aztreonam 1 gm/ Sodium (Chloride) 100 mls @ 200 mls/hr IVPB Q8H [facility] Last Admin: 07/22/17 06:18 Dose: 200 mls/hr Linezolid (Zyvox 600mg/300ml D5w) 600 mg in 300 mls @ 200 mls/hr IVPB Q12 [facility] Last Admin: 07/21/17 22:28 Dose: 200 mls/hr Fluconazole (Diflucan Iv 200 Mg/100 Ml Ns) 100 mls @ 100 mls/hr IVPB DAILY [facility] Last Admin: 07/21/17 09:38 Dose: 100 mls/hr Sodium Phosphate 15 mmole/Potassium Chloride 30 meq/Magnesium Sulfate 6 meq/ Calcium Gluconate 4.5 meq/Chromium/Copper/Manganese/Zinc 1 ml/ Multivitamins/ Vitamin C 10 ml/ Amino Acids 1,042.1552 mls @ 65 mls/hr IV .Q16H2M ONE Stop: 07/22/17 10:01 Last Admin: 07/21/17 19:16 Dose: 65 mls/hr Sodium Phosphate 15 mmole/Potassium Chloride 30 meq/Magnesium Sulfate 6 meq/ Calcium Gluconate 4.5 meq/Chromium/Copper/Manganese/Zinc 1 ml/ Amino Acids 1, 032.1552 mls @ 65 mls/hr IV .[id number] [facility] Stop: 07/22/17 17:59 Morphine Sulfate (Morphine) 2 mg IVP Q3 PRN PRN Reason: pain 3-7 Last Admin: 07/22/17 00:23 Dose: 2 mg Morphine Sulfate (Morphine) 2 mg IM Q3 PRN PRN Reason: pain Nitroglycerin (Nitro-Bid 2% Oint) 1 ea TOP Q6 [facility] Last Admin: 07/22/17 06:19 Dose: 1 ea Ondansetron HCl (Zofran Inj) 4 mg IVP Q6H PRN PRN Reason: Nausea/Vomiting Last Admin: 07/18/17 20:51 Dose: 4 mg Pantoprazole Sodium (Protonix Inj) 40 mg IVP DAILY [facility] Last Admin: 07/21/17 09:33 Dose: 40 mg Zolpidem Tartrate (Ambien) 5 mg PO HS PRN PRN Reason: Insomnia Last Admin: 07/21/17 21:42 Dose: 5 mg - Labs Labs: 07/22/17 07:50 07/22/17 07:50 PT 18.9 SECONDS (9.7-12.2) H 07/11/17 23:33 INR 1.7 07/11/17 23:33 APTT 29 SECONDS (21-34) 07/11/17 23:33 - Constitutional Appears: No Acute Distress - Head Exam Head Exam: ATRAUMATIC, NORMAL INSPECTION, NORMOCEPHALIC - Eye Exam Eye Exam: EOMI, Normal appearance, PERRL Pupil Exam: NORMAL ACCOMODATION, PERRL - Respiratory Exam Respiratory Exam: Decreased Breath Sounds, Rales - Cardiovascular Exam Cardiovascular Exam: REGULAR RHYTHM, +S1, +S2 - GI/Abdominal Exam GI & Abdominal Exam: Soft, Normal Bowel Sounds. absent: Tenderness - Neurological Exam Neurological Exam: Alert, Awake, CN II-XII Intact, Normal Gait, Oriented x3 Assessment and Plan (1) Wound dehiscence Status: Acute (2) Morbid obesity Status: Acute (3) Diabetes Status: Acute (4) HTN (hypertension) Status: Acute (5) Sacral wound Status: Acute
[2017-07-22] MEDS: Fluconazole IV 200mg/100 ml NS 100 ML IVPB SCH (10:00)
[2017-07-22] MEDS ORDERED: PPN #10 IV SCH (10:02)
[2017-07-22] MEDS: Enoxaparin 40 mg Syringe SC SCH ×2 (11:00)
[2017-07-22] MEDS: Linezolid 600 mg in D5W 300 ml 600 MG/300 ML BAG IVPB SCH ×2 (11:00→22:13)
[2017-07-22] MEDS ORDERED: Propofol 10 mg/ml Inj (20 ML) ONE (14:05)
[2017-07-22] MEDS ORDERED: Midazolam 2 MG/2 ML VIAL ONE (14:07)
[2017-07-22] MEDS ORDERED: Succinylcholine Chloride 20 mg/ml Syr (5 ml) IV ONE (14:09)
[2017-07-22] MEDS ORDERED: Labetalol 25mg/5ml Syringe ONE (14:46)
[2017-07-22] MEDS ORDERED: HYDROmorphone 0.5 mg/0.5 ml ISec IVP PRN (15:07)
[2017-07-22] MEDS ORDERED: HYDROmorphone 0.5 mg/0.5 ml ISec ONE (15:09)
--- NOTE | 2017-07-22 17:22 | PN ---
DATE: LOCATION: [facility], Bed B. SUBJECTIVE: This 52-year-old female seen and examined in rounds with intermittent periods of complaint of abdominal pain, with less abdominal distention. No reported active bleeding. The entire chart is reviewed including but not limited to the most recent lab and radiology results, current and the previous medication list, current and the previous medical events. Case discussed at length with staff and the patient is status post debridement of abdominal wall wound. The patient denied any chest pain, significant shortness of breath, palpitation, headache, or blurred vision. Case discussed at length with the staff and today's lab shows leukocytosis of 11.1, low hemoglobin 8.4, hematocrit 24.2 with thrombocytosis of 674, low sodium 130, blood glucose level 111, calcium 8.5. PHYSICAL EXAMINATION GENERAL: A 52-year-old female, awake, alert, oriented. VITAL SIGNS: Afebrile with pulse of 98, respiratory rate 20 to 22, blood pressure 150/76. HEENT: Showed pale, dry, oral mucous membrane. Nonicteric sclerae. LUNGS: A few scattered crepitation, decreased air entry at bases. HEART: Positive S1 and S2 with increased rate. ABDOMEN: Soft, bowel sounds are present with mild generalized tenderness. No mass or organomegaly. No rebound tenderness or guarding. Bowel sounds are consistently hypoactive. Abdominal workup reveals clean dressing. No discharge. EXTREMITIES: Lower extremities edematous changes. No clubbing or cyanosis. NEUROLOGIC: No reported new neurological deficits, sensory or motor. IMPRESSION: 1. Diverticulosis with acute diverticulitis, with diverticular abscess formation, recurrent, treated surgically. 2. Status post colostomy reversal. 3. Status post debridement of anterior wall wound. 4. Peptic ulcer disease. 5. Sacral wound, treated surgically. 6. Anemia secondary to above. 7. Electrolyte imbalance. 8. Known history of morbid obesity, hypertension, osteoarthritis. 9. Recent history of septicemia, on antibiotics. SUGGESTION: 1. Continue current management. 2. Physical therapy. 3. Peripheral hyperalimentation. 4. Follow up cancer markers. 5. Further recommendations to follow. Andrew Koroma MD [facility] # [id number]
[2017-07-22] MEDS ORDERED: PPN #11 IV ONE (18:00)
[2017-07-22] MEDS: Morphine 4 MG/ML VIAL IM PRN (22:10)
[2017-07-23] MEDS: Aztreonam 1 GM in Sodium Chloride 0.9% 100 ML IVPB SCH ×3 (06:08→21:33)
[2017-07-23] MEDS: Nitroglycerin 2% Ointment Foilpak UD TOP SCH ×3 (06:08→19:09)
[2017-07-23] MEDS: Morphine 4 MG/ML VIAL IM PRN ×2 (06:22→10:22)
--- NOTE | 2017-07-23 09:20 | PN ---
DATE: LOCATION: [facility], Bed B. SUBJECTIVE: This is a 52-year-old female seen and examined in rounds with intermittent period of abdominal pain with abdominal discomfort on and off, with clean abdominal dressing, post D and I. The patient denies any actual chest pain, palpitation, or significant shortness of breath. Denies any chills or feeling of fever. The entire chart is reviewed including but not limited to the most recent lab and the radiology study results, current and previous medication list, current and the previous medical events. Case was discussed with the staff at length. LABORATORY DATA: Today's lab is still pending and the patient had leukocytosis yesterday with low hemoglobin and hematocrit but with thrombocytosis of 674 with low sodium and low creatinine as well as low calcium. PHYSICAL EXAMINATION: GENERAL: A 52-year-old female, status post debridement and partial closure of abdominal wall wound yesterday. Appears to be awake, alert, oriented. VITAL SIGNS: Temperature 99.2, pulse of 94, respiratory rate 20 to 22, blood pressure 140/86. HEENT: Showed pale dry oral mucous membranes. Nonicteric sclerae. LUNGS: Few scattered crepitation with decreased air entry at bases. HEART: Positive S1 and S2 with increased rate mildly. ABDOMEN: Covered with clean dressing with slight distention. No mass or organomegaly. No rebound tenderness or guarding. EXTREMITIES: Lower extremities, mild edematous changes. No clubbing or cyanosis. NEUROLOGIC: No reported new neurological focal deficits, sensory or motor. IMPRESSION: 1. Diverticulosis with acute diverticulitis and recurrent diverticular abscess formation, treated surgically with partial bowel resection. 2. Status post colostomy reversal. 3. Status post debridement and partial closure of abdominal wound. 4. Anemia secondary to above. 5. Septicemia, on antibiotics. 6. Re-exacerbation of peptic ulcer disease. 7. Malnutrition with hypoalbuminemia. 8. Known history of morbid obesity, hypertension, and osteoarthritis. SUGGESTION: 1. Continue current management. 2. The patient also may benefit from more peripheral hyperalimentation. 3. Further recommendations to follow. Andrew Koroma MD [facility] # [id number]
[2017-07-23] MEDS: Enoxaparin 40 mg Syringe SC SCH (10:14)
[2017-07-23] MEDS: Fluconazole IV 200mg/100 ml NS 100 ML IVPB SCH (10:14)
[2017-07-23] MEDS: PPN #12 IV SCH ×2 (10:44→10:58)
[2017-07-23] MEDS ORDERED: PPN #12 IV SCH (10:45)
[2017-07-23] MEDS: Linezolid 600 mg in D5W 300 ml 600 MG/300 ML BAG IVPB SCH ×2 (11:43→22:55)
[2017-07-23] MEDS ORDERED: PPN #13 IV ONE (18:00)
--- NOTE | 2017-07-23 21:43 | CP.PCM.PN ---
Subjective - Date & Time of Evaluation Date of Evaluation: 07/23/17 Time of Evaluation: 19:20 - Subjective Subjective: Pt seen and examined at bedside , is improving, on liquid diet, colostomy dehiscence on wound care, s/p OR, antibiotics Objective - Vital Signs/Intake and Output Vital Signs (last 24 hours): Temp Pulse Resp BP Pulse Ox 99.0 F 104 H 20 165/103 H 96 07/23/17 15:45 07/23/17 15:45 07/23/17 15:45 07/23/17 15:45 07/23/17 15:45 - Medications Medications: Current Medications Acetaminophen (Tylenol 325mg Tab) 650 mg PO Q6 PRN PRN Reason: Fever >100.4 F Last Admin: 07/12/17 11:25 Dose: 650 mg Enoxaparin Sodium (Lovenox) 40 mg SC DAILY [facility] Last Admin: 07/23/17 10:14 Dose: 40 mg Hydralazine HCl (Apresoline) 10 mg IVP Q6H [facility] Last Admin: 07/23/17 19:09 Dose: 10 mg Aztreonam 1 gm/ Sodium (Chloride) 100 mls @ 200 mls/hr IVPB Q8H [facility] Last Admin: 07/23/17 21:33 Dose: 200 mls/hr Linezolid (Zyvox 600mg/300ml D5w) 600 mg in 300 mls @ 200 mls/hr IVPB Q12 [facility] Last Admin: 07/23/17 11:43 Dose: 200 mls/hr Fluconazole (Diflucan Iv 200 Mg/100 Ml Ns) 100 mls @ 100 mls/hr IVPB DAILY [facility] Last Admin: 07/23/17 10:14 Dose: 100 mls/hr Sodium Phosphate 15 mmole/Potassium Chloride 30 meq/Magnesium Sulfate 6 meq/ Calcium Gluconate 4.5 meq/Chromium/Copper/Manganese/Zinc 1 ml/ Multivitamins/ Vitamin C 10 ml/ Amino Acids 1,042.1552 mls @ 65 mls/hr IV .Q16H2M ONE Stop: 07/24/17 10:01 Last Admin: 07/23/17 18:08 Dose: 65 mls/hr Sodium Phosphate 15 mmole/Potassium Chloride 30 meq/Magnesium Sulfate 6 meq/ Calcium Gluconate 4.5 meq/Chromium/Copper/Manganese/Zinc 1 ml/ Amino Acids 1, 032.1552 mls @ 65 mls/hr IV .[id number] ONE Stop: 07/25/17 01:52 Morphine Sulfate (Morphine) 2 mg IM Q3 PRN PRN Reason: pain Last Admin: 07/23/17 10:22 Dose: 2 mg Morphine Sulfate (Morphine) 2 mg IVP Q3 PRN PRN Reason: Pain, moderate (4-7) Last Admin: 07/23/17 17:36 Dose: 2 mg Nitroglycerin (Nitro-Bid 2% Oint) 1 ea TOP Q6 [facility] Last Admin: 07/23/17 19:09 Dose: 1 ea Ondansetron HCl (Zofran Inj) 4 mg IVP Q6H PRN PRN Reason: Nausea/Vomiting Last Admin: 07/18/17 20:51 Dose: 4 mg Pantoprazole Sodium (Protonix Inj) 40 mg IVP DAILY [facility] Last Admin: 07/23/17 10:14 Dose: 40 mg Zolpidem Tartrate (Ambien) 5 mg PO HS PRN PRN Reason: Insomnia Last Admin: 07/23/17 21:33 Dose: 5 mg - Labs Labs: 07/22/17 07:50 07/22/17 07:50 PT 18.9 SECONDS (9.7-12.2) H 07/11/17 23:33 INR 1.7 07/11/17 23:33 APTT 29 SECONDS (21-34) 07/11/17 23:33 - Constitutional Appears: No Acute Distress - Head Exam Head Exam: ATRAUMATIC, NORMAL INSPECTION, NORMOCEPHALIC - Eye Exam Eye Exam: EOMI, Normal appearance, PERRL Pupil Exam: NORMAL ACCOMODATION, PERRL - Respiratory Exam Respiratory Exam: Clear to Ausculation Bilateral, NORMAL BREATHING PATTERN - Cardiovascular Exam Cardiovascular Exam: REGULAR RHYTHM, +S1, +S2. absent: Murmur - GI/Abdominal Exam GI & Abdominal Exam: Soft, Normal Bowel Sounds. absent: Tenderness - Rectal Exam Rectal Exam: Deferred Assessment and Plan (1) Wound dehiscence Status: Acute (2) Morbid obesity Status: Acute (3) Diabetes Status: Acute (4) HTN (hypertension) Status: Acute (5) Sacral wound Status: Acute (6) Hypertension Status: Acute (7) Sacral decubitus ulcer Status: Acute
[2017-07-24] MEDS: Nitroglycerin 2% Ointment Foilpak UD TOP SCH ×4 (00:30→17:56)
[2017-07-24] MEDS: Aztreonam 1 GM in Sodium Chloride 0.9% 100 ML IVPB SCH ×3 (05:23→22:31)
[2017-07-24] MEDS: Linezolid 600 mg in D5W 300 ml 600 MG/300 ML BAG IVPB SCH ×2 (09:30→23:44)
[2017-07-24] MEDS ORDERED: PPN #14 IV ONE (10:00)
[2017-07-24] MEDS: Enoxaparin 40 mg Syringe SC SCH (10:30)
[2017-07-24] MEDS: Fluconazole IV 200mg/100 ml NS 100 ML IVPB SCH (10:31)
[2017-07-24] MEDS: Morphine 4 MG/ML VIAL IM PRN (10:50)
--- NOTE | 2017-07-24 15:30 | CP.PCM.PN ---
Subjective - Date & Time of Evaluation Date of Evaluation: 07/24/17 Time of Evaluation: 10:00 - Subjective Subjective: awake alert taking PO now retention sutures in place colostomy with stool no fever less tender Objective - Vital Signs/Intake and Output Vital Signs (last 24 hours): Temp Pulse Resp BP Pulse Ox 98.6 F 109 H 20 160/102 H 95 07/24/17 08:00 07/24/17 08:00 07/24/17 08:00 07/24/17 08:00 07/24/17 08:00 - Medications Medications: Current Medications Acetaminophen (Tylenol 325mg Tab) 650 mg PO Q6 PRN PRN Reason: Fever >100.4 F Last Admin: 07/12/17 11:25 Dose: 650 mg Enoxaparin Sodium (Lovenox) 40 mg SC DAILY [facility] Last Admin: 07/24/17 10:30 Dose: 40 mg Hydralazine HCl (Apresoline) 10 mg IVP Q6H [facility] Last Admin: 07/24/17 12:30 Dose: 10 mg Aztreonam 1 gm/ Sodium (Chloride) 100 mls @ 200 mls/hr IVPB Q8H [facility] Last Admin: 07/24/17 13:07 Dose: 200 mls/hr Linezolid (Zyvox 600mg/300ml D5w) 600 mg in 300 mls @ 200 mls/hr IVPB Q12 [facility] Last Admin: 07/24/17 09:30 Dose: 200 mls/hr Fluconazole (Diflucan Iv 200 Mg/100 Ml Ns) 100 mls @ 100 mls/hr IVPB DAILY [facility] Last Admin: 07/24/17 10:31 Dose: 100 mls/hr Sodium Phosphate 15 mmole/Potassium Chloride 30 meq/Magnesium Sulfate 6 meq/ Calcium Gluconate 4.5 meq/Chromium/Copper/Manganese/Zinc 1 ml/ Amino Acids 1, 032.1552 mls @ 65 mls/hr IV .[id number] ONE Stop: 07/25/17 01:52 Last Admin: 07/24/17 10:34 Dose: 65 mls/hr Morphine Sulfate (Morphine) 2 mg IM Q3 PRN PRN Reason: pain Last Admin: 07/24/17 10:50 Dose: 2 mg Morphine Sulfate (Morphine) 2 mg IVP Q3 PRN PRN Reason: Pain, moderate (4-7) Last Admin: 07/23/17 17:36 Dose: 2 mg Nitroglycerin (Nitro-Bid 2% Oint) 1 ea TOP Q6 [facility] Last Admin: 07/24/17 12:20 Dose: 1 ea Ondansetron HCl (Zofran Inj) 4 mg IVP Q6H PRN PRN Reason: Nausea/Vomiting Last Admin: 07/18/17 20:51 Dose: 4 mg Pantoprazole Sodium (Protonix Inj) 40 mg IVP DAILY [facility] Last Admin: 07/24/17 10:30 Dose: 40 mg Zolpidem Tartrate (Ambien) 5 mg PO HS PRN PRN Reason: Insomnia Last Admin: 07/23/17 21:33 Dose: 5 mg - Labs Labs: 07/22/17 07:50 07/22/17 07:50 PT 18.9 SECONDS (9.7-12.2) H 07/11/17 23:33 INR 1.7 07/11/17 23:33 APTT 29 SECONDS (21-34) 07/11/17 23:33 - Constitutional Appears: Non-toxic - Head Exam Head Exam: NORMOCEPHALIC - Eye Exam Eye Exam: PERRL - ENT Exam ENT Exam: Mucous Membranes Dry - Neck Exam Neck Exam: absent: Lymphadenopathy - Respiratory Exam Respiratory Exam: Decreased Breath Sounds - Cardiovascular Exam Cardiovascular Exam: REGULAR RHYTHM - GI/Abdominal Exam GI & Abdominal Exam: Distended, Soft. absent: Tenderness - Rectal Exam Rectal Exam: Deferred - Exam Exam: NORMAL INSPECTION Assessment and Plan (1) Abdominal pain Status: Acute (2) Abscess of multiple sites Status: Acute (3) Fever Status: Acute (4) Colonic diverticular abscess Status: Acute
--- NOTE | 2017-07-24 16:06 | PN ---
LOCATION: [facility], Bed B. SUBJECTIVE: This is a 52-year-old female, seen and examined early in rounds, appears to be awake, alert, and oriented with less complaint of abdominal pain. No reported active bleeding, actual chest pain, or palpitation. The entire chart is reviewed including but not limited to the most recent lab and the radiology study results, current and previous medication list, current and the previous medical events. Today's lab showed blood glucose level 127. Rest of the lab was pending and the patient had recent history of low sodium 130 and low calcium 8.5. Case discussed with the staff at length. PHYSICAL EXAMINATION: GENERAL: A 52-year-old female. VITAL SIGNS: Afebrile with pulse of 102, respiratory rate 20 to 22, blood pressure 164/98. HEENT: Showed pale dry oral mucous membranes. Nonicteric sclerae. LUNGS: Few scattered crepitation, decreased air entry at bases. HEART: Positive S1 and S2. ABDOMEN: Soft, bowel sounds are present with mild generalized tenderness. No mass or organomegaly. No rebound tenderness or guarding, covered with clean dressing. Sacral area covered with clean dressing. EXTREMITIES: Show mild lower extremities edematous changes. No clubbing or cyanosis. NEUROLOGIC: No reported new neurological focal deficits, sensory or motor, no new reported focal deficits. Peripheral pulses are present bilaterally. IMPRESSION: 1. Diverticulosis, acute diverticulitis, diverticular abscess formation, recurrent with post partial bowel resection. 2. Status post abdominal wall wound debridement. 3. Sacral abscess formation, treated surgically. 4. Anemia secondary to above. 5. Re-exacerbation of peptic ulcer disease. 6. Septicemia, on antibiotics. 7. Known history of hypertension, morbid obesity, with osteoarthritis. SUGGESTION: 1. Continue current management. 2. Adjust oral intake. 3. Repeat stool for occult blood. Andrew Koroma MD
--- NOTE | 2017-07-24 21:14 | CP.PCM.PN ---
Subjective - Date & Time of Evaluation Date of Evaluation: 07/24/17 Time of Evaluation: 15:00 - Subjective Subjective: Pt seen & examined, she is doing well.Her B.P was high i started her on oral hydrazine, Pt is afebrile, no shortness of breath Objective - Vital Signs/Intake and Output Vital Signs (last 24 hours): Temp Pulse Resp BP Pulse Ox 98 F 108 H 20 159/103 H 96 07/24/17 15:00 07/24/17 15:00 07/24/17 15:00 07/24/17 16:00 07/24/17 15:00 - Medications Medications: Current Medications Acetaminophen (Tylenol 325mg Tab) 650 mg PO Q6 PRN PRN Reason: Fever >100.4 F Last Admin: 07/12/17 11:25 Dose: 650 mg Enoxaparin Sodium (Lovenox) 40 mg SC DAILY [facility] Hydralazine HCl (Apresoline) 25 mg PO Q6 [facility] Last Admin: 07/24/17 17:56 Dose: 25 mg Aztreonam 1 gm/ Sodium (Chloride) 100 mls @ 200 mls/hr IVPB Q8H [facility] Last Admin: 07/24/17 13:07 Dose: 200 mls/hr Linezolid (Zyvox 600mg/300ml D5w) 600 mg in 300 mls @ 200 mls/hr IVPB Q12 [facility] Last Admin: 07/24/17 09:30 Dose: 200 mls/hr Fluconazole (Diflucan Iv 200 Mg/100 Ml Ns) 100 mls @ 100 mls/hr IVPB DAILY [facility] Last Admin: 07/24/17 10:31 Dose: 100 mls/hr Sodium Phosphate 15 mmole/Potassium Chloride 30 meq/Magnesium Sulfate 6 meq/ Calcium Gluconate 4.5 meq/Chromium/Copper/Manganese/Zinc 1 ml/ Amino Acids 1, 032.1552 mls @ 65 mls/hr IV .[id number] ONE Stop: 07/25/17 01:52 Last Admin: 07/24/17 10:34 Dose: 65 mls/hr Morphine Sulfate (Morphine) 2 mg IM Q3 PRN PRN Reason: pain Last Admin: 07/24/17 10:50 Dose: 2 mg Morphine Sulfate (Morphine) 2 mg IVP Q3 PRN PRN Reason: Pain, moderate (4-7) Last Admin: 07/24/17 18:08 Dose: 2 mg Nitroglycerin (Nitro-Bid 2% Oint) 1 ea TOP Q6 [facility] Last Admin: 07/24/17 17:56 Dose: 1 ea Ondansetron HCl (Zofran Inj) 4 mg IVP Q6H PRN PRN Reason: Nausea/Vomiting Last Admin: 07/18/17 20:51 Dose: 4 mg Pantoprazole Sodium (Protonix Inj) 40 mg IVP DAILY [facility] Last Admin: 07/24/17 10:30 Dose: 40 mg Zolpidem Tartrate (Ambien) 5 mg PO HS PRN PRN Reason: Insomnia Last Admin: 07/23/17 21:33 Dose: 5 mg - Labs Labs: 07/22/17 07:50 07/22/17 07:50 PT 18.9 SECONDS (9.7-12.2) H 07/11/17 23:33 INR 1.7 07/11/17 23:33 APTT 29 SECONDS (21-34) 07/11/17 23:33 - Constitutional Appears: No Acute Distress - Head Exam Head Exam: ATRAUMATIC, NORMAL INSPECTION, NORMOCEPHALIC - Eye Exam Eye Exam: EOMI, Normal appearance, PERRL Pupil Exam: NORMAL ACCOMODATION, PERRL - Respiratory Exam Respiratory Exam: Clear to Ausculation Bilateral, NORMAL BREATHING PATTERN - Cardiovascular Exam Cardiovascular Exam: REGULAR RHYTHM, +S1, +S2. absent: Murmur - GI/Abdominal Exam GI & Abdominal Exam: Soft, Normal Bowel Sounds. absent: Tenderness Additional comments: colostomy dehiscnce wound Assessment and Plan (1) Wound dehiscence Status: Acute (2) Morbid obesity Status: Acute (3) Sacral wound Assessment & Plan: on wound care Status: Acute (4) HTN (hypertension) Status: Acute (5) Diabetes Assessment & Plan: ACCu check, sliding scale insulin Status: Acute
[2017-07-25] MEDS: Nitroglycerin 2% Ointment Foilpak UD TOP SCH ×4 (01:05→17:27)
[2017-07-25] MEDS: Aztreonam 1 GM in Sodium Chloride 0.9% 100 ML IVPB SCH ×2 (06:30→13:11)
--- NOTE | 2017-07-25 07:44 | OP ---
PROCEDURE DATE: 07/22/2017 PREOPERATIVE DIAGNOSIS: Open abdominal wound with abscess. POSTOPERATIVE DIAGNOSIS: Open abdominal wound with abscess. PROCEDURE PERFORMED: Re-drainage of abdominal wall collection with debridement, pulse irrigation, and skin closure of 90% of the open abdominal wound with retention sutures. SURGEON: Andrey Sparrow MD ANESTHESIA: General. BLOOD LOSS: 40 mL. POSTOPERATIVE CONDITION: Stable. INDICATIONS FOR SURGERY: This 52-year-old female who after a Woody's procedure 6 weeks ago underwent a delayed colostomy dehiscence while in a rehab facility. She presented with a severe abscess and necrotizing fasciitis and underwent an extensive procedure 10 days ago. Besides revision of a colostomy, she underwent a small-bowel resection, drainage of abdominal wall abscesses. Postoperatively, she did remarkably well, did not develop any sepsis despite having stool spilled in her abdomen. She was taken to the OR recently for debridement of the abdominal wound and a partial closure of the abdominal wound have been left open except for retention sutures due to the risk of infection. Today, she presents for redebridement, pulse irrigation, and closure of the remaining areas of the wound which have granulated. DESCRIPTION OF PROCEDURE: The patient was taken to the operating room, general anesthesia meds administered. The abdomen was prepped and draped. The abdominal wound was pulse irrigated and aggressively debrided of all necrotic tissue. Deep collection was drained and cultured, and this area was also pulse irrigated. There was no abdominal wound dehiscence noted, and the fascial closure was intact. The remaining portion of the wound was poor together, revealed flap closure with interrupted retention sutures, full-thickness in the subcutaneous tissue. The wounds were dressed sterilely. The patient tolerated the procedure well. Returned to recovery room in stable condition. Andrey Sparrow MD
[2017-07-25] MEDS: Fluconazole IV 200mg/100 ml NS 100 ML IVPB SCH (09:25)
[2017-07-25] MEDS ORDERED: Enoxaparin 60 mg Syringe SC SCH (10:00)
[2017-07-25] MEDS: Linezolid 600 mg in D5W 300 ml 600 MG/300 ML BAG IVPB SCH (11:01)
[2017-07-25] MEDS: Vancomycin 1 gm/NS 200 ml 1 GM/200 ML BAG IVPB SCH (17:28)
[2017-07-25] MEDS: Morphine 4 MG/ML VIAL IVP PRN ×2 (17:40→21:25)
--- NOTE | 2017-07-25 18:34 | PN ---
DATE: LOCATION: Room 650, Bed B. SUBJECTIVE: This is a 52-year-old female seen and examined in rounds early today without significant clinical changes with intermittent period of abdominal pain with reported elevated blood pressure. The entire chart is reviewed including, but not limited to, the most recent lab and radiology study results, current and previous medication list, current and the previous medical events. LABORATORY DATA: Today's lab is still pending. However, the latest lab result showed low hemoglobin and hematocrit with leukocytosis and increased blood glucose level with low sodium and low calcium. PHYSICAL EXAMINATION: GENERAL: A 52-year-old female. VITAL SIGNS: Afebrile with pulse of 86, respiratory rate 20 to 22, blood pressure 150/92. HEENT: Showed pale and dry oral mucous membranes. Nonicteric sclerae. LUNGS: Few scattered crepitations, decreased air entry at bases. HEART: Positive S1 and S2. ABDOMEN: Soft, bowel sounds are present but significantly hypoactive. No mass or organomegaly and no rebound tenderness or guarding. Clean dressing is seen. EXTREMITIES: Mild lower extremity edematous changes. No clubbing or cyanosis. NEUROLOGIC: The patient has clean dressing on the sacral wound. No reported new neurological deficits, sensory or motor. The patient is more awake and alert, somewhat tolerating some oral feed. IMPRESSION: 1. Diverticulosis with episodes of diverticulitis, diverticular abscess formation with perforation, treated surgically 2. Sacral abscess formation treated surgically. 3. Partial bowel resection recent history. 4. Peptic ulcer disease. 5. Anemia secondary to above. 6. Septicemia with leukocytosis secondary to above. 7. Poorly controlled hypertension. 8. Known history of osteoarthritis with morbid obesity. SUGGESTIONS: 1. Agree with your plan. 2. Again, the patient on hyperalimentation. 3. Correct underlying electrolyte imbalance especially with the patient ambulatory. Andrew Koroma MD
--- NOTE | 2017-07-25 20:35 | PN ---
DATE: 07/25/2017 SUBJECTIVE: The patient today is resting comfortably in bed. She states that the pain in her abdomen is much less. PHYSICAL EXAMINATION: VITAL SIGNS: Her temperature is 98.6, pulse is 90, BP 142/92, respiratory rate is 20 and regular. ABDOMEN: Soft, positive bowel sounds. Colostomy is functioning. Colostomy site itself is healthy. The wound is 80% closed with the exposed areas opening, granulating nicely. The previous colostomy site is also healing. LABORATORY DATA: Reveals a white count of 11,000, which is stable over the past 7 days. Electrolytes are all almost within normal limits. IMPRESSION: My impression is that she is recovering nicely from her surgery. The colostomy is functioning well. The abdominal wound is healing, and there appears to be no residual signs of infection. She is nearly ready for transfer to rehab. I had a very hostile discussion with the family the other day. They were very hostile to rehab and felt her problems took place while at the previous rehab. We will discuss with them before we transfer the patient anywhere. Andrey Sparrow MD
--- NOTE | 2017-07-25 22:27 | CP.PCM.PN ---
Subjective - Date & Time of Evaluation Date of Evaluation: 07/25/17 Time of Evaluation: 19:45 - Subjective Subjective: Pt seen & examined aT bedside, pt is on contact isolation. Objective - Vital Signs/Intake and Output Vital Signs (last 24 hours): Temp Pulse Resp BP Pulse Ox 98.6 F 90 20 142/92 H 96 07/25/17 15:00 07/25/17 15:00 07/25/17 15:00 07/25/17 15:00 07/25/17 15:00 - Medications Medications: Current Medications Acetaminophen (Tylenol 325mg Tab) 650 mg PO Q6 PRN PRN Reason: Fever >100.4 F Last Admin: 07/12/17 11:25 Dose: 650 mg Enoxaparin Sodium (Lovenox) 40 mg SC DAILY [facility] Hydralazine HCl (Apresoline) 25 mg PO Q6 [facility] Last Admin: 07/25/17 17:27 Dose: 25 mg Vancomycin/Sodium Chloride (Vancomycin 1 Gm/Ns 200 Ml) 1 gm in 200 mls @ 133.333 mls/hr IVPB Q12H [facility] Last Admin: 07/25/17 17:28 Dose: 133.333 mls/hr Morphine Sulfate (Morphine) 2 mg IM Q3 PRN PRN Reason: pain Last Admin: 07/24/17 10:50 Dose: 2 mg Morphine Sulfate (Morphine) 2 mg IVP Q3 PRN PRN Reason: Pain, moderate (4-7) Last Admin: 07/25/17 21:25 Dose: 2 mg Nitroglycerin (Nitro-Bid 2% Oint) 1 ea TOP Q6 [facility] Last Admin: 07/25/17 17:27 Dose: 1 ea Ondansetron HCl (Zofran Inj) 4 mg IVP Q6H PRN PRN Reason: Nausea/Vomiting Last Admin: 07/18/17 20:51 Dose: 4 mg Pantoprazole Sodium (Protonix Inj) 40 mg IVP DAILY [facility] Last Admin: 07/25/17 09:25 Dose: 40 mg Zolpidem Tartrate (Ambien) 5 mg PO HS PRN PRN Reason: Insomnia Last Admin: 07/25/17 21:27 Dose: 5 mg - Labs Labs: 07/22/17 07:50 07/22/17 07:50 PT 18.9 SECONDS (9.7-12.2) H 07/11/17 23:33 INR 1.7 07/11/17 23:33 APTT 29 SECONDS (21-34) 07/11/17 23:33 Assessment and Plan (1) Wound dehiscence Status: Acute (2) Morbid obesity Status: Acute
[2017-07-26] MEDS: Nitroglycerin 2% Ointment Foilpak UD TOP SCH ×4 (05:17→17:44)
[2017-07-26] MEDS: Vancomycin 1 gm/NS 200 ml 1 GM/200 ML BAG IVPB SCH (05:17)
[2017-07-26] MEDS: Enoxaparin 40 mg Syringe SC SCH (09:42)
[2017-07-26] MEDS: Morphine 4 MG/ML VIAL IVP PRN ×2 (13:44→20:18)
[2017-07-26] MEDS: Linezolid 600 mg in D5W 300 ml 600 MG/300 ML BAG IVPB SCH (21:47)
[2017-07-27] MEDS: Nitroglycerin 2% Ointment Foilpak UD TOP SCH ×4 (00:25→18:04)
[2017-07-27] MEDS: Morphine 4 MG/ML VIAL IVP PRN ×4 (02:58→21:17)
[2017-07-27 07:11] LABS: HEMOGLOBIN 8.6 g/dL (11.0-16.0); MEAN CELL VOLUME 84.4 fL (81.0-99.0); MEAN CORPUSCULAR HEMOGLOBIN 29.4 pg (27.0-31.0); MEAN CORPUSCULAR HGB CONC 34.8 g/dL (33.0-37.0); MEAN PLATELET VOLUME 7.4 fL (7.2-11.7); RBC 2.94 Mil/uL (3.80-5.20); RED CELL DISTRIBUTION WIDTH 16.7 % (11.5-14.5); WHITE BLOOD COUNT 6.6 K/uL (4.8-10.8)
[2017-07-27 07:31] LABS: ALB/GLOB RATIO 0.8 (1.0-2.1); ALBUMIN 2.9 g/dL (3.5-5.0); ALT/SGPT 26 U/L (9-52); AST/SGOT 43 U/L (14-36); BLOOD UREA NITROGEN 7 mg/dL (7-17); CALCIUM 8.6 mg/dl (8.6-10.4); GFR AFRICAN-AMERICAN > 60; GFR NON-AFRICAN AMERICAN > 60
[2017-07-27] MEDS: Enoxaparin 40 mg Syringe SC SCH (09:39)
[2017-07-27] MEDS: Linezolid 600 mg in D5W 300 ml 600 MG/300 ML BAG IVPB SCH ×2 (09:39→22:34)
--- NOTE | 2017-07-27 19:11 | PN ---
LOCATION: [facility]. SUBJECTIVE: This is a 52-year-old female, seen and examined in rounds with intermittent period of abdominal pain postsurgically but no reported active bleeding, chest pain, palpitation, and no reported chills or fever. The entire chart is reviewed including, but not limited to, the most recent lab and radiology study results, current and the previous medication list, current and previous medical events. Today's lab showed normal white blood cells, hemoglobin 8.6, hematocrit 24.8 with thrombocytosis of 713 with low sodium 130, AST 43, albumin 2.9, but normal blood glucose level. The patient somewhat tolerated some oral intake but no full bowel movement reported yet but passing gas. PHYSICAL EXAMINATION: GENERAL: A 52-year-old female, afebrile, awake, alert, and oriented. VITAL SIGNS: Pulse of 92, respiratory rate 18 to 20, blood pressure 146/82. HEENT: Showed pale and dry oral mucous membrane, nonicteric sclerae. LUNGS: Few scattered crepitation, decreased air entry at bases. HEART: Positive S1 and S2. ABDOMEN: Covered with clean dressing with slight generalized tenderness with hypoactive bowel sounds. No mass or organomegaly. No rebound tenderness or guarding. Colostomy tube is in place with fecal material. EXTREMITIES: With mild lower extremity edematous changes. No clubbing or cyanosis. NEUROLOGIC: No reported new neurological deficits, sensory or motor. IMPRESSION: 1. Diverticulosis, acute diverticulitis. 2. Recurrent diverticular abscess with perforated viscus, treated surgically. 3. Status post colostomy is in place. 4. Sacral wound treated surgically, covered with clean dressing. 5. Peptic ulcer disease. 6. Anemia secondary to above. 7. Septicemia with leukocytosis secondary to above, improving clinically. 8. Known history of hypertension, morbid obesity, osteoarthritis. SUGGESTIONS: 1. Continue current management. 2. Repeat stool for occult blood. 3. The patient will need colonoscopy before colostomy reversal. Andrew Koroma MD
--- NOTE | 2017-07-27 23:06 | CP.PCM.PN ---
Subjective - Date & Time of Evaluation Date of Evaluation: 07/27/17 Time of Evaluation: 19:00 - Subjective Subjective: Pt has high blood pressure despite of nitropaste and apresoline, pt has wound in ant abdominal wall and colostomy is functioning, scaral decubitus on antibiotics Objective - Vital Signs/Intake and Output Vital Signs (last 24 hours): Temp Pulse Resp BP Pulse Ox 99.4 F 99 H 20 160/94 H 96 07/27/17 15:20 07/27/17 22:20 07/27/17 15:20 07/27/17 22:20 07/27/17 15:20 Intake and Output: 07/27/17 07/28/17 18:59 06:59 Intake Total 700 Balance 700 - Medications Medications: Current Medications Enoxaparin Sodium (Lovenox) 40 mg SC DAILY [facility] Last Admin: 07/27/17 09:39 Dose: 40 mg Hydralazine HCl (Apresoline) 50 mg PO Q8 [facility] Last Admin: 07/27/17 21:17 Dose: 50 mg Linezolid (Zyvox 600mg/300ml D5w) 600 mg in 300 mls @ 200 mls/hr IVPB Q12 [facility] Last Admin: 07/27/17 22:34 Dose: 200 mls/hr Morphine Sulfate (Morphine) 2 mg IVP Q3 PRN PRN Reason: Pain, moderate (4-7) Last Admin: 07/27/17 21:17 Dose: 2 mg Nitroglycerin (Nitro-Bid 2% Oint) 1 ea TOP Q6 [facility] Last Admin: 07/27/17 18:04 Dose: 1 ea Pantoprazole Sodium (Protonix Inj) 40 mg IVP DAILY [facility] Last Admin: 07/27/17 09:38 Dose: 40 mg Zolpidem Tartrate (Ambien) 5 mg PO HS PRN PRN Reason: Insomnia Last Admin: 07/27/17 22:34 Dose: 5 mg - Labs Labs: 07/27/17 06:54 07/27/17 06:54 PT 18.9 SECONDS (9.7-12.2) H 07/11/17 23:33 INR 1.7 07/11/17 23:33 APTT 29 SECONDS (21-34) 07/11/17 23:33 - Constitutional Appears: No Acute Distress - Head Exam Head Exam: ATRAUMATIC, NORMAL INSPECTION, NORMOCEPHALIC - Respiratory Exam Respiratory Exam: Decreased Breath Sounds, Rales, Rhonchi - Cardiovascular Exam Cardiovascular Exam: REGULAR RHYTHM, +S1, +S2. absent: Murmur - GI/Abdominal Exam GI & Abdominal Exam: Soft, Normal Bowel Sounds. absent: Tenderness - Rectal Exam Rectal Exam: Deferred Assessment and Plan (1) Wound dehiscence Status: Acute (2) Morbid obesity Status: Acute (3) HTN (hypertension) Status: Acute (4) Sacral wound Status: Acute
--- NOTE | 2017-07-27 23:06 | CP.PCM.PN ---
Subjective - Date & Time of Evaluation Date of Evaluation: 07/26/17 Time of Evaluation: 18:00 - Subjective Subjective: Pt is seen and examined, afebrile, toleratinf diet, some post op pain in abdomen and sacral area Objective - Vital Signs/Intake and Output Vital Signs (last 24 hours): Temp Pulse Resp BP Pulse Ox 99.4 F 99 H 20 160/94 H 96 07/27/17 15:20 07/27/17 22:20 07/27/17 15:20 07/27/17 22:20 07/27/17 15:20 Intake and Output: 07/27/17 07/28/17 18:59 06:59 Intake Total 700 Balance 700 - Medications Medications: Current Medications Enoxaparin Sodium (Lovenox) 40 mg SC DAILY [facility] Last Admin: 07/27/17 09:39 Dose: 40 mg Hydralazine HCl (Apresoline) 50 mg PO Q8 [facility] Last Admin: 07/27/17 21:17 Dose: 50 mg Linezolid (Zyvox 600mg/300ml D5w) 600 mg in 300 mls @ 200 mls/hr IVPB Q12 [facility] Last Admin: 07/27/17 22:34 Dose: 200 mls/hr Morphine Sulfate (Morphine) 2 mg IVP Q3 PRN PRN Reason: Pain, moderate (4-7) Last Admin: 07/27/17 21:17 Dose: 2 mg Nitroglycerin (Nitro-Bid 2% Oint) 1 ea TOP Q6 [facility] Last Admin: 07/27/17 18:04 Dose: 1 ea Pantoprazole Sodium (Protonix Inj) 40 mg IVP DAILY [facility] Last Admin: 07/27/17 09:38 Dose: 40 mg Zolpidem Tartrate (Ambien) 5 mg PO HS PRN PRN Reason: Insomnia Last Admin: 07/27/17 22:34 Dose: 5 mg - Labs Labs: 07/27/17 06:54 07/27/17 06:54 PT 18.9 SECONDS (9.7-12.2) H 07/11/17 23:33 INR 1.7 07/11/17 23:33 APTT 29 SECONDS (21-34) 07/11/17 23:33 Assessment and Plan (1) Wound dehiscence Status: Acute (2) Morbid obesity Status: Acute
[2017-07-28] MEDS: Nitroglycerin 2% Ointment Foilpak UD TOP SCH ×5 (00:17→23:55)
[2017-07-28] MEDS: Enoxaparin 40 mg Syringe SC SCH (09:41)
[2017-07-28] MEDS: Linezolid 600 mg in D5W 300 ml 600 MG/300 ML BAG IVPB SCH ×2 (09:41→21:54)
[2017-07-28] MEDS: Morphine 4 MG/ML VIAL IVP PRN ×2 (15:44→21:54)
--- NOTE | 2017-07-28 18:10 | CP.PCM.PN ---
Subjective - Date & Time of Evaluation Date of Evaluation: 07/28/17 Time of Evaluation: 07:00 - Subjective Subjective: no fever wounds are healing slowly passing stool per colostomy min serosanguinous drainage VRE from wound - on zyvox Objective - Vital Signs/Intake and Output Vital Signs (last 24 hours): Temp Pulse Resp BP Pulse Ox 98.6 F 99 H 21 142/90 96 07/28/17 15:00 07/28/17 15:00 07/28/17 15:00 07/28/17 15:00 07/28/17 15:00 Intake and Output: 07/28/17 07/28/17 06:59 18:59 Intake Total 740 Balance 740 - Medications Medications: Current Medications Enoxaparin Sodium (Lovenox) 40 mg SC DAILY [facility] Last Admin: 07/28/17 09:41 Dose: 40 mg Hydralazine HCl (Apresoline) 50 mg PO Q8 [facility] Last Admin: 07/28/17 13:30 Dose: 50 mg Linezolid (Zyvox 600mg/300ml D5w) 600 mg in 300 mls @ 200 mls/hr IVPB Q12 [facility] Last Admin: 07/28/17 09:41 Dose: 200 mls/hr Morphine Sulfate (Morphine) 2 mg IVP Q3 PRN PRN Reason: Pain, moderate (4-7) Last Admin: 07/28/17 15:44 Dose: 2 mg Nitroglycerin (Nitro-Bid 2% Oint) 1 ea TOP Q6 [facility] Last Admin: 07/28/17 17:44 Dose: 1 ea Zolpidem Tartrate (Ambien) 5 mg PO HS PRN PRN Reason: Insomnia Last Admin: 07/27/17 22:34 Dose: 5 mg - Labs Labs: 07/27/17 06:54 07/27/17 06:54 PT 18.9 SECONDS (9.7-12.2) H 07/11/17 23:33 INR 1.7 07/11/17 23:33 APTT 29 SECONDS (21-34) 07/11/17 23:33 - Constitutional Appears: Non-toxic, Chronically Ill - Head Exam Head Exam: NORMOCEPHALIC - Eye Exam Eye Exam: PERRL - ENT Exam ENT Exam: Mucous Membranes Dry - Neck Exam Neck Exam: absent: Lymphadenopathy - Respiratory Exam Respiratory Exam: Decreased Breath Sounds - Cardiovascular Exam Cardiovascular Exam: REGULAR RHYTHM - GI/Abdominal Exam GI & Abdominal Exam: Distended, Soft. absent: Tenderness Additional comments: LLQ colostomy, midline incision healing - Rectal Exam Rectal Exam: Deferred - Exam Exam: NORMAL INSPECTION - Extremities Exam Extremities Exam: absent: Pedal Edema - Back Exam Back Exam: absent: CVA tenderness (L), CVA tenderness (R) - Neurological Exam Neurological Exam: Alert, Awake, Oriented x3 - Psychiatric Exam Psychiatric exam: Normal Mood - Skin Skin Exam: Dry Assessment and Plan (1) Abdominal pain Status: Acute (2) Abscess of multiple sites Status: Acute (3) Fever Status: Acute (4) Colonic diverticular abscess Status: Acute
--- NOTE | 2017-07-28 20:01 | CP.PCM.PN ---
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, medical management Objective - Vital Signs/Intake and Output Vital Signs (last 24 hours): Temp Pulse Resp BP Pulse Ox 98.6 F 99 H 21 142/90 96 07/28/17 15:00 07/28/17 15:00 07/28/17 15:00 07/28/17 15:00 07/28/17 15:00 - Medications Medications: Current Medications Enoxaparin Sodium (Lovenox) 40 mg SC DAILY [facility] Last Admin: 07/28/17 09:41 Dose: 40 mg Hydralazine HCl (Apresoline) 50 mg PO Q8 [facility] Last Admin: 07/28/17 13:30 Dose: 50 mg Linezolid (Zyvox 600mg/300ml D5w) 600 mg in 300 mls @ 200 mls/hr IVPB Q12 [facility] Last Admin: 07/28/17 09:41 Dose: 200 mls/hr Morphine Sulfate (Morphine) 2 mg IVP Q3 PRN PRN Reason: Pain, moderate (4-7) Last Admin: 07/28/17 15:44 Dose: 2 mg Nitroglycerin (Nitro-Bid 2% Oint) 1 ea TOP Q6 [facility] Last Admin: 07/28/17 17:44 Dose: 1 ea Zolpidem Tartrate (Ambien) 5 mg PO HS PRN PRN Reason: Insomnia Last Admin: 07/27/17 22:34 Dose: 5 mg - Labs Labs: 07/27/17 06:54 07/27/17 06:54 PT 18.9 SECONDS (9.7-12.2) H 07/11/17 23:33 INR 1.7 07/11/17 23:33 APTT 29 SECONDS (21-34) 07/11/17 23:33 - Constitutional Appears: No Acute Distress - Head Exam Head Exam: ATRAUMATIC, NORMAL INSPECTION, NORMOCEPHALIC - Eye Exam Eye Exam: EOMI, Normal appearance, PERRL Pupil Exam: NORMAL ACCOMODATION, PERRL - Respiratory Exam Respiratory Exam: Clear to Ausculation Bilateral, NORMAL BREATHING PATTERN - Cardiovascular Exam Cardiovascular Exam: REGULAR RHYTHM, +S1, +S2. absent: Murmur - GI/Abdominal Exam GI & Abdominal Exam: Soft, Normal Bowel Sounds. absent: Tenderness Assessment and Plan (1) Wound dehiscence Status: Acute (2) Morbid obesity Status: Acute
--- NOTE | 2017-07-28 21:55 | PN ---
DATE: LOCATION: [facility] SUBJECTIVE: This is a 52-year-old female seen and examined in rounds with a complaint still of postsurgical mild abdominal pian as well as pain in the sacral area, which is covered with clean dressing without reported nausea or vomiting, but less oral intake. No chest pain, palpitation, significant shortness of breath, chills or fever. LABORATORY DATA: Today's lab is still pending but the patient has persistent low hemoglobin and hematocrit with thrombocytosis, but normal white blood cells with low sodium, low calcium, and low albumin. PHYSICAL EXAMINATION GENERAL: A 52-year-old female, more awake, alert, and oriented. VITAL SIGNS: Afebrile, with pulse of 94, respiratory rate 20-22, blood pressure 136/82 HEENT: Showed pale, dry oral mucous membrane, nonicteric sclerae. LUNGS: Few scattered crepitation with decreased air entry at bases. HEART: Positive S1 and S2. ABDOMEN: Soft. Bowel sounds are present with mild generalized tenderness. No mass or organomegaly. No rebound tenderness or guarding, covered with clean dressing. Colostomy tube is in place with soft fecal material. EXTREMITIES: With lower extremity mild edematous changes. No clubbing or cyanosis. NEUROLOGIC: No reported focal neurological deficits, sensory or motor. Peripheral pulses are present bilaterally. IMPRESSION: 1. Diverticulosis, with recurrent acute diverticulitis. 2. Recurrent diverticular abscess formation, with status post partial bowel resection, colostomy is in place. 3. Sacral abscess formation, healing gradually and adequately. 4. Anemia secondary to above. 5. Septicemia, improving clinically. 6. Peptic ulcer disease per recent history. 7. Known history of morbid obesity, osteoarthritis and hypertension. SUGGESTIONS: 1. Continue current management. 2. Repeat stool for occult blood. 3. The patient again will need colonoscopy before reversing her colostomy. 4. Further recommendations to follow. Andrew Koroma MD
[2017-07-29] MEDS: Nitroglycerin 2% Ointment Foilpak UD TOP SCH (06:24)
[2017-07-29 07:18] LABS: BASO # 0.1 K/uL (0.0-0.2); BASO % 1.5 % (0.0-2.0); EOS # 0.1 K/uL (0.0-0.7); EOS % 1.4 % (0.0-4.0); HEMOGLOBIN 9.2 g/dL (11.0-16.0); LYMPH # 1.9 K/uL (1.0-4.3); LYMPH % 28.9 % (20.0-40.0); MEAN CELL VOLUME 84.3 fL (81.0-99.0); MEAN CORPUSCULAR HEMOGLOBIN 30.1 pg (27.0-31.0); MEAN CORPUSCULAR HGB CONC 35.7 g/dL (33.0-37.0); MEAN PLATELET VOLUME 7.6 fL (7.2-11.7); MONO # 0.7 K/uL (0.0-0.8); MONO % 11.1 % (0.0-10.0); NEUT # 3.7 K/uL (1.8-7.0); NEUT % 57.1 % (50.0-75.0); RBC 3.05 Mil/uL (3.80-5.20); RED CELL DISTRIBUTION WIDTH 16.7 % (11.5-14.5); WHITE BLOOD COUNT 6.5 K/uL (4.8-10.8)
[2017-07-29 07:30] LABS: BLOOD UREA NITROGEN 6 mg/dL (7-17); CALCIUM 9.1 mg/dl (8.6-10.4); GFR AFRICAN-AMERICAN > 60; GFR NON-AFRICAN AMERICAN > 60
[2017-07-29] MEDS ORDERED: Nitroglycerin 2% Ointment Foilpak UD TOP PRN (08:13)
[2017-07-29] MEDS: Enoxaparin 40 mg Syringe SC SCH (09:12)
[2017-07-29] MEDS: Linezolid 600 mg in D5W 300 ml 600 MG/300 ML BAG IVPB SCH ×2 (09:15→21:09)
[2017-07-29] MEDS ORDERED: Potassium Chloride 20 mEq ER Tab PO ONE (10:00)
[2017-07-29] MEDS: Morphine 4 MG/ML VIAL IVP PRN ×2 (13:11→22:27)
[2017-07-29 17:03] VITALS: RESP 20
--- NOTE | 2017-07-29 23:26 | PN ---
DATE: LOCATION: [facility]. SUBJECTIVE: This is a 62-year-old female seen earlier in rounds today without significant clinical changes with intermittent periods of abdominal pain, less than before. The entire chart is reviewed including, but not limited to the most recent lab and radiologic study results, current and the previous medication list, current and the previous medical events. Case discussed with the staff at length. Today's lab showed hemoglobin of 9.2, hematocrit 25.7, with normal white blood cells, but with thrombocytosis of 720. Low potassium of 3.2, low BUN and creatinine, blood glucose level 111. The patient was somewhat tolerated oral intake well without reported active bleeding. PHYSICAL EXAMINATION GENERAL: A 52-year-old female, awake, alert, and oriented. VITAL SIGNS: Afebrile with pulse of 94, respiratory 20 to 22, blood pressure of 144/90. HEENT: Mildly pale dry oral mucous membrane. Nonicteric sclerae. LUNGS: With scattered crepitation, decreased air entry at bases. HEART: Positive S1 and S2. ABDOMEN; Soft. Bowel sounds are present, but hypoactive with generalized abdominal mild tenderness, covered with clean dressing. No masses or organomegaly. Colostomy tube is in place and functioning. EXTREMITIES: Without clubbing or cyanosis, but slight lower extremity edematous changes. NEUROLOGIC: No reported new focal neurological deficits, sensory or motor. Peripheral pulses are present. IMPRESSION: 1. Diverticulosis with acute diverticulitis and reformation of diverticular abscess formation. 2. Status post partial bowel resection. 3. Sacral abscess formation, treated surgically, secondary to above. 4. Anemia secondary to above. 5. Known history of hypertension and morbid obesity with osteoarthritis. SUGGESTIONS: 1. Continue current management. 2. Caloric counting. 3. Repeat stool for occult blood. 4. Further recommendations to follow. Andrew Koroma MD
--- NOTE | 2017-07-29 23:31 | CP.PCM.PN ---
Subjective - Date & Time of Evaluation Date of Evaluation: 07/29/17 Time of Evaluation: 19:00 - Subjective Subjective: Pt seen and examined , she is afebrile, no changes, she has VRE Objective - Vital Signs/Intake and Output Vital Signs (last 24 hours): Temp Pulse Resp BP Pulse Ox 98.6 F 100 H 20 151/95 H 96 07/29/17 15:15 07/29/17 21:22 07/29/17 15:15 07/29/17 21:22 07/29/17 15:15 Intake and Output: 07/29/17 07/30/17 18:59 06:59 Intake Total 780 Balance 780 - Medications Medications: Current Medications Enoxaparin Sodium (Lovenox) 40 mg SC DAILY [facility] Last Admin: 07/29/17 09:12 Dose: 40 mg Hydralazine HCl (Apresoline) 75 mg PO Q8 [facility] Last Admin: 07/29/17 21:16 Dose: 75 mg Linezolid (Zyvox 600mg/300ml D5w) 600 mg in 300 mls @ 200 mls/hr IVPB Q12 [facility] Last Admin: 07/29/17 21:09 Dose: 200 mls/hr Losartan Potassium (Cozaar) 50 mg PO DAILY [facility] Last Admin: 07/29/17 09:56 Dose: 50 mg Morphine Sulfate (Morphine) 2 mg IVP Q3 PRN PRN Reason: Pain, moderate (4-7) Last Admin: 07/29/17 22:27 Dose: 2 mg Nitroglycerin (Nitro-Bid 2% Oint) 1 ea TOP Q6 PRN PRN Reason: Systolic Blood Pressure Zolpidem Tartrate (Ambien) 5 mg PO HS PRN PRN Reason: Insomnia Last Admin: 07/29/17 22:27 Dose: 5 mg - Labs Labs: 07/29/17 06:55 07/29/17 06:55 PT 18.9 SECONDS (9.7-12.2) H 07/11/17 23:33 INR 1.7 07/11/17 23:33 APTT 29 SECONDS (21-34) 07/11/17 23:33 - Constitutional Appears: No Acute Distress - Head Exam Head Exam: ATRAUMATIC, NORMAL INSPECTION, NORMOCEPHALIC - Eye Exam Eye Exam: EOMI, Normal appearance, PERRL Pupil Exam: NORMAL ACCOMODATION, PERRL - Respiratory Exam Respiratory Exam: Clear to Ausculation Bilateral, NORMAL BREATHING PATTERN - Cardiovascular Exam Cardiovascular Exam: REGULAR RHYTHM, +S1, +S2. absent: Murmur - GI/Abdominal Exam GI & Abdominal Exam: Soft, Normal Bowel Sounds. absent: Tenderness Assessment and Plan (1) Wound dehiscence Status: Acute (2) Morbid obesity Status: Acute
[2017-07-30 07:06] LABS: BLOOD UREA NITROGEN 6 mg/dL (7-17); GFR AFRICAN-AMERICAN > 60; GFR NON-AFRICAN AMERICAN > 60
[2017-07-30] MEDS: Enoxaparin 40 mg Syringe SC SCH (09:39)
[2017-07-30] MEDS: Linezolid 600 mg in D5W 300 ml 600 MG/300 ML BAG IVPB SCH ×2 (09:39→21:21)
--- NOTE | 2017-07-30 12:27 | PN ---
DATE: LOCATION: [facility], bed B. SUBJECTIVE: This is a 52-year-old female, seen and examined in rounds early today with staff in the floor, without significant clinical changes or reported active bleeding or intermittent periods of mild abdominal pain. Awake, alert, oriented, was recently reported to have VRE. No chest pain, palpitation or significant shortness of breath, and no reported chills or fever. The entire chart is reviewed including, but not limited to the most recent lab and radiologic study results, current and the previous medication list, current and the previous medical events. Today's lab showed potassium of 3.5, low BUN of 6, creatinine 0.6, with normal blood glucose level. The patient recently had low hemoglobin and hematocrit with low albumin. PHYSICAL EXAMINATION: GENERAL: A 52-year-old female. VITAL SIGNS: Afebrile with pulse of 94, respiratory rate 20 to 22, blood pressure 144/86. HEENT: Showed pale, dry oral mucous membrane. Nonicteric sclerae. LUNGS: A few scattered crepitations, decreased air entry at bases. HEART: Positive S1 and S2. ABDOMEN: Soft, covered with clean dressing. Bowel sounds are hypoactive. Colostomy tube is in place. No mass or organomegaly. EXTREMITIES: With lower extremity mild edematous changes. No clubbing or cyanosis. NEUROLOGIC: No reported new neurological deficits, sensory or motor. IMPRESSION: 1. Diverticulosis with recurrent acute diverticulitis. 2. Recurrent diverticular abscess formation, treated surgically, with status post colostomy. 3. Sacral ulceration with mass lesion, treated surgically, is stable so far. 4. Septicemia secondary to above. 5. Anemia secondary to above. 6. Status post partial bowel resection. 7. Known history of morbid obesity, hypertension, osteoarthritis. SUGGESTIONS: 1. Continue current management. 2. The patient will need colonoscopy for any reversal colostomy to be scheduled. 3. Further recommendation to follow. Andrew Koroma MD
[2017-07-30] MEDS: Morphine 4 MG/ML VIAL IVP PRN ×2 (16:50→22:33)
--- NOTE | 2017-07-30 23:23 | CP.PCM.PN ---
Subjective - Date & Time of Evaluation Date of Evaluation: 07/30/17 Time of Evaluation: 18:00 - Subjective Subjective: Pt is improving, on PT , rehab, nutrition, K will be supplemented Objective - Vital Signs/Intake and Output Vital Signs (last 24 hours): Temp Pulse Resp BP Pulse Ox 99.3 F 94 H 20 159/99 H 97 07/30/17 15:15 07/30/17 21:22 07/30/17 15:15 07/30/17 21:22 07/30/17 15:15 Intake and Output: 07/30/17 07/31/17 18:59 06:59 Intake Total 720 Balance 720 - Medications Medications: Current Medications Enoxaparin Sodium (Lovenox) 40 mg SC DAILY [facility] Last Admin: 07/30/17 09:39 Dose: 40 mg Hydralazine HCl (Apresoline) 75 mg PO Q8 [facility] Last Admin: 07/30/17 21:22 Dose: 75 mg Linezolid (Zyvox 600mg/300ml D5w) 600 mg in 300 mls @ 200 mls/hr IVPB Q12 [facility] Last Admin: 07/30/17 21:21 Dose: 200 mls/hr Losartan Potassium (Cozaar) 50 mg PO DAILY [facility] Last Admin: 07/30/17 09:40 Dose: 50 mg Morphine Sulfate (Morphine) 2 mg IVP Q3 PRN PRN Reason: Pain, moderate (4-7) Last Admin: 07/30/17 22:33 Dose: 2 mg Zolpidem Tartrate (Ambien) 5 mg PO HS PRN PRN Reason: Insomnia Last Admin: 07/30/17 22:33 Dose: 5 mg - Labs Labs: 07/29/17 06:55 07/30/17 06:34 PT 18.9 SECONDS (9.7-12.2) H 07/11/17 23:33 INR 1.7 07/11/17 23:33 APTT 29 SECONDS (21-34) 07/11/17 23:33 - Constitutional Appears: No Acute Distress - Head Exam Head Exam: ATRAUMATIC, NORMAL INSPECTION, NORMOCEPHALIC - Eye Exam Eye Exam: EOMI, Normal appearance, PERRL Pupil Exam: NORMAL ACCOMODATION, PERRL - Respiratory Exam Respiratory Exam: Clear to Ausculation Bilateral, NORMAL BREATHING PATTERN - Cardiovascular Exam Cardiovascular Exam: REGULAR RHYTHM, +S1, +S2. absent: Murmur - GI/Abdominal Exam GI & Abdominal Exam: Soft, Normal Bowel Sounds. absent: Tenderness Assessment and Plan (1) Wound dehiscence Status: Acute (2) Morbid obesity Status: Acute
[2017-07-31] MEDS: Morphine 4 MG/ML VIAL IVP PRN ×3 (07:52→22:39)
[2017-07-31] MEDS: Linezolid 600 mg in D5W 300 ml 600 MG/300 ML BAG IVPB SCH ×2 (09:27→21:34)
[2017-07-31] MEDS: Enoxaparin 40 mg Syringe SC SCH (10:02)
--- NOTE | 2017-07-31 14:33 | CP.PCM.PN ---
Subjective - Date & Time of Evaluation Date of Evaluation: 07/31/17 Time of Evaluation: 07:00 - Subjective Subjective: afeb nad iv rx reordered Objective - Vital Signs/Intake and Output Vital Signs (last 24 hours): Temp Pulse Resp BP Pulse Ox 98.2 F 91 H 20 138/86 98 07/31/17 07:30 07/31/17 07:30 07/31/17 07:30 07/31/17 07:30 07/31/17 07:30 Intake and Output: 07/31/17 07/31/17 06:59 18:59 Intake Total 720 Balance 720 - Medications Medications: Current Medications Enoxaparin Sodium (Lovenox) 40 mg SC DAILY [facility] Last Admin: 07/31/17 10:02 Dose: 40 mg Hydralazine HCl (Apresoline) 75 mg PO Q8 [facility] Last Admin: 07/31/17 14:02 Dose: 75 mg Linezolid (Zyvox 600mg/300ml D5w) 600 mg in 300 mls @ 200 mls/hr IVPB Q12 [facility] Last Admin: 07/31/17 09:27 Dose: 200 mls/hr Losartan Potassium (Cozaar) 50 mg PO DAILY [facility] Last Admin: 07/31/17 09:27 Dose: 50 mg Morphine Sulfate (Morphine) 2 mg IVP Q3 PRN PRN Reason: Pain, moderate (4-7) Last Admin: 07/31/17 07:52 Dose: 2 mg Zolpidem Tartrate (Ambien) 5 mg PO HS PRN PRN Reason: Insomnia Last Admin: 07/30/17 22:33 Dose: 5 mg - Labs Labs: 07/29/17 06:55 07/30/17 06:34 PT 18.9 SECONDS (9.7-12.2) H 07/11/17 23:33 INR 1.7 07/11/17 23:33 APTT 29 SECONDS (21-34) 07/11/17 23:33 - Constitutional Appears: Non-toxic, Chronically Ill - Head Exam Head Exam: NORMOCEPHALIC - Eye Exam Eye Exam: PERRL - ENT Exam ENT Exam: Mucous Membranes Dry - Neck Exam Neck Exam: absent: Lymphadenopathy - Respiratory Exam Respiratory Exam: Decreased Breath Sounds - Cardiovascular Exam Cardiovascular Exam: REGULAR RHYTHM - GI/Abdominal Exam GI & Abdominal Exam: Distended, Soft - Rectal Exam Rectal Exam: Deferred - Exam Exam: NORMAL INSPECTION - Extremities Exam Extremities Exam: absent: Pedal Edema - Back Exam Back Exam: absent: CVA tenderness (L), CVA tenderness (R) Assessment and Plan (1) Abdominal pain Status: Acute (2) Abscess of multiple sites Status: Acute (3) Fever Status: Acute (4) Colonic diverticular abscess Status: Acute
--- NOTE | 2017-07-31 23:23 | CP.PCM.PN ---
Subjective - Date & Time of Evaluation Date of Evaluation: 07/31/17 Time of Evaluation: 19:30 - Subjective Subjective: Pt seen and evaluated at bedside, pt is doing well, no changes, afberile, B.P is better,no chest pain Objective - Vital Signs/Intake and Output Vital Signs (last 24 hours): Temp Pulse Resp BP Pulse Ox 98.3 F 95 H 20 142/83 96 07/31/17 15:00 07/31/17 15:00 07/31/17 15:00 07/31/17 15:00 07/31/17 15:00 - Medications Medications: Current Medications Enoxaparin Sodium (Lovenox) 40 mg SC DAILY [facility] Last Admin: 07/31/17 10:02 Dose: 40 mg Hydralazine HCl (Apresoline) 75 mg PO Q8 [facility] Last Admin: 07/31/17 21:33 Dose: 75 mg Linezolid (Zyvox 600mg/300ml D5w) 600 mg in 300 mls @ 200 mls/hr IVPB Q12 [facility] Last Admin: 07/31/17 21:34 Dose: 200 mls/hr Losartan Potassium (Cozaar) 50 mg PO DAILY [facility] Last Admin: 07/31/17 09:27 Dose: 50 mg Morphine Sulfate (Morphine) 2 mg IVP Q3 PRN PRN Reason: Pain, moderate (4-7) Last Admin: 07/31/17 22:39 Dose: 2 mg Zolpidem Tartrate (Ambien) 5 mg PO HS PRN PRN Reason: Insomnia Last Admin: 07/30/17 22:33 Dose: 5 mg - Labs Labs: 07/29/17 06:55 07/30/17 06:34 PT 18.9 SECONDS (9.7-12.2) H 07/11/17 23:33 INR 1.7 07/11/17 23:33 APTT 29 SECONDS (21-34) 07/11/17 23:33 - Constitutional Appears: No Acute Distress - Head Exam Head Exam: ATRAUMATIC, NORMAL INSPECTION, NORMOCEPHALIC - Eye Exam Eye Exam: EOMI, Normal appearance, PERRL Pupil Exam: NORMAL ACCOMODATION, PERRL - Respiratory Exam Respiratory Exam: Clear to Ausculation Bilateral, NORMAL BREATHING PATTERN - Cardiovascular Exam Cardiovascular Exam: REGULAR RHYTHM, +S1, +S2. absent: Murmur - GI/Abdominal Exam GI & Abdominal Exam: Soft, Normal Bowel Sounds. absent: Tenderness - Extremities Exam Extremities Exam: Full ROM Assessment and Plan (1) Wound dehiscence Status: Acute (2) Morbid obesity Status: Acute
--- NOTE | 2017-08-01 08:06 | PN ---
DATE: 07/31/2017. LOCATION: [facility]. SUBJECTIVE: This is a 52 years old female seen and examined in rounds, without significant clinical changes or reported active bleeding, but still complaining of abdominal pain with mild abdominal distention. No reported actual chest pain, palpitation or active bleeding. No reported shortness of breath. Today's lab still pending, but the patient reported to have low potassium with low BUN and creatinine, with low albumin recently. PHYSICAL EXAMINATION: GENERAL: A 52 years old female. VITAL SIGNS: Afebrile with pulse of 98, respiratory rate of 20 to 22, blood pressure 136/90. HEENT: Showed pale, dry oral mucous membrane, nonicteric sclerae. LUNGS: Few scattered crepitation, decreased air entry at bases. HEART: Positive S1 and S2. ABDOMEN: With mild distention and generalized tenderness. No masses or organomegaly. No rebound tenderness or guarding. EXTREMITIES: Without significant clubbing, cyanosis or edema. NEUROLOGIC: No reported new neurological deficits, sensory or motor. IMPRESSION: 1. Diverticulosis with recurrent acute diverticulitis and diverticular abscess formation, treated surgically. 2. Colostomy tube, functioning well. 3. Sacral ulceration with mass lesion, treated surgically. 4. Status post partial bowel resection, due to above. 5. Anemia secondary to above. 6. Septicemia secondary to above. 7. Known history of hypertension, morbid obesity with osteoarthritis. 8. Malnutrition with hypoalbuminemia and electrolyte imbalance. SUGGESTIONS: 1. Continue current management. 2. Potassium replacement. 3. The patient may need peripheral hyperalimentation in the meantime. 4. Stool for occult blood. 5. Further recommendation to follow. Andrew Koroma MD
[2017-08-01] MEDS: Enoxaparin 40 mg Syringe SC SCH (09:55)
[2017-08-01] MEDS: Linezolid 600 mg in D5W 300 ml 600 MG/300 ML BAG IVPB SCH ×2 (09:55→21:26)
[2017-08-01 11:39] LABS: BASO # 0.1 K/uL (0.0-0.2); BASO % 1.9 % (0.0-2.0); EOS # 0.1 K/uL (0.0-0.7); EOS % 1.4 % (0.0-4.0); HEMOGLOBIN 9.7 g/dL (11.0-16.0); LYMPH # 2.1 K/uL (1.0-4.3); LYMPH % 37.4 % (20.0-40.0); MEAN CELL VOLUME 84.6 fL (81.0-99.0); MEAN CORPUSCULAR HEMOGLOBIN 29.6 pg (27.0-31.0); MEAN PLATELET VOLUME 7.6 fL (7.2-11.7); MONO # 0.5 K/uL (0.0-0.8); MONO % 9.2 % (0.0-10.0); NEUT # 2.8 K/uL (1.8-7.0); NEUT % 50.1 % (50.0-75.0); NRBC % 0.1 % (0.0-2.0); RBC 3.27 Mil/uL (3.80-5.20); RED CELL DISTRIBUTION WIDTH 17.5 % (11.5-14.5); WHITE BLOOD COUNT 5.7 K/uL (4.8-10.8)
[2017-08-01 11:45] LABS: BLOOD UREA NITROGEN 11 mg/dL (7-17); CALCIUM 9.5 mg/dl (8.6-10.4); GFR AFRICAN-AMERICAN > 60; GFR NON-AFRICAN AMERICAN > 60
[2017-08-01] MEDS: Bacitracin 500 Units/gm Oint Foilpak UD TOP SCH ×2 (12:40→20:30)
[2017-08-01] MEDS: Morphine 4 MG/ML VIAL IVP PRN (12:40)
--- NOTE | 2017-08-01 15:16 | CP.PCM.PN ---
Subjective - Date & Time of Evaluation Date of Evaluation: 08/01/17 Time of Evaluation: 18:00 - Subjective Subjective: pt seen and examined Objective - Vital Signs/Intake and Output Vital Signs (last 24 hours): Temp Pulse Resp BP Pulse Ox 98.3 F 95 H 20 142/83 96 07/31/17 15:00 07/31/17 15:00 07/31/17 15:00 07/31/17 15:00 07/31/17 15:00 - Medications Medications: Current Medications Bacitracin (Bacitracin) 1 ea TOP BID [facility] Last Admin: 08/01/17 12:40 Dose: 1 ea Enoxaparin Sodium (Lovenox) 40 mg SC DAILY [facility] Last Admin: 08/01/17 09:55 Dose: 40 mg Hydralazine HCl (Apresoline) 75 mg PO Q8 [facility] Last Admin: 08/01/17 14:21 Dose: 75 mg Linezolid (Zyvox 600mg/300ml D5w) 600 mg in 300 mls @ 200 mls/hr IVPB Q12 [facility] Last Admin: 08/01/17 09:55 Dose: 200 mls/hr Losartan Potassium (Cozaar) 50 mg PO DAILY [facility] Last Admin: 08/01/17 09:55 Dose: 50 mg Morphine Sulfate (Morphine) 2 mg IVP Q3 PRN PRN Reason: Pain, moderate (4-7) Last Admin: 08/01/17 12:40 Dose: 2 mg Zolpidem Tartrate (Ambien) 5 mg PO HS PRN PRN Reason: Insomnia Last Admin: 08/01/17 00:06 Dose: 5 mg - Labs Labs: 08/01/17 11:18 08/01/17 11:18 PT 18.9 SECONDS (9.7-12.2) H 07/11/17 23:33 INR 1.7 07/11/17 23:33 APTT 29 SECONDS (21-34) 07/11/17 23:33 Assessment and Plan (1) Wound dehiscence Status: Acute (2) Morbid obesity Status: Acute
--- NOTE | 2017-08-01 16:09 | PN ---
DATE: LOCATION: [facility]. SUBJECTIVE: This is a 52-year-old female, seen and examined in rounds, appeared to be awake, alert and oriented, without any significant abdominal pain this morning. No chest pain or palpitation, tolerating oral intake well. No reported significant complaint of shortness of breath, chills or fever. The entire chart is reviewed including, but not limited to the most recent lab and radiology study results, current and previous medication list, current and the previous medical events. Today's lab is still pending. PHYSICAL EXAMINATION: GENERAL: A 52-year-old female. VITAL SIGNS: Afebrile with pulse of 92, respiratory rate of 20 to 22, blood pressure 136/82. HEENT: Showed pale dry oral mucous membrane. Nonicteric sclerae. LUNGS: Few scattered crepitation, decreased air entry at bases. HEART: Positive S1 and S2. ABDOMEN: Soft, bowel sounds are present. No mass or organomegaly. No rebound tenderness or guarding. Clean abdominal dressing is seen. EXTREMITIES: Without significant clubbing, cyanosis or edema. IMPRESSION: 1. Diverticulosis, acute diverticulitis, recurrent diverticular abscess formation, treated surgically. 2. Status post partial bowel resection. 3. Colostomy, intact and functioning. 4. Sacral ulceration with mass lesion, treated surgically. 5. Anemia secondary to the above. 6. Known history of hypertension, osteoarthritis, mild obesity. 7. Malnutrition with hypoalbuminemia, hypoproteinemia, and electrolyte imbalance, improving. SUGGESTIONS: 1. Continue current management. 2. Again, the patient will need to repeat stool for occult blood. 3. Peripheral hyperalimentation. 4. Further recommendations to follow. Andrew Koroma MD
[2017-08-01] MEDS ORDERED: Bacitracin Ointment 30 GM TUBE TOP SCH (18:00)
[2017-08-02] MEDS: Morphine 4 MG/ML VIAL IVP PRN ×2 (06:35→12:10)
[2017-08-02] MEDS: Enoxaparin 40 mg Syringe SC SCH (10:08)
[2017-08-02] MEDS: Linezolid 600 mg in D5W 300 ml 600 MG/300 ML BAG IVPB SCH (10:08)
[2017-08-02] MEDS: Bacitracin 500 Units/gm Oint Foilpak UD TOP SCH ×2 (10:09→17:46)
[2017-08-02] MEDS ORDERED: Oxycodone/Acetaminophen 5/325 mg Tab PO PRN (12:32)
[2017-08-02 16:07] VITALS: BP 144/92; PULSE 96; TEMP 98.1; O2SAT 96
--- NOTE | 2017-08-02 16:19 | CP.PCM.PN ---
Subjective - Date & Time of Evaluation Date of Evaluation: 08/02/17 Time of Evaluation: 16:19 - Subjective Subjective: PT SEEN, EXAMINED, AND CLEARED FOR D/C TO [facility] PER DR. FERNÁNDEZ THIS AFTERNOON. PT IS TO CONTINUE ZYVOX PO FOR 7 MORE DAYS PER ID. PT TO F/U WITH DR. OLVERA UPON DISCHARGE FROM [facility]. WOUND CARE TEAM AT FACILITY TO EVALUATE THE PT UPON ARRIVAL. CM AND SW AWARE OF D/C. SW TO ARRANGE TRANSPORTATION TO [facility] THIS AFTERNOON. SEE BELOW FOR D/C PLAN SENT TO THE FACILITY. NO FURTHER ORDERS. -FOR QUESTIONS REGARDING RECENT HOSPITALIZATION, CONTACT DR. FERNÁNDEZ OR DR. OLVERA. -CONTINUE MEDICATIONS PER THE MED REC FORM. CHANGES CAN BE MADE BY ATTENDING PHYSICIAN. -CONTINUE ANTIBIOTIC, ZYVOX 600 MG PO BID X7 MORE DAYS (START ON 08/03/17 AND LAST DOSE TO BE GIVEN ON 08/10/17). -PLEASE HAVE WOUND CARE EVALUATION UPON ARRIVAL TO [facility]. -PHYSICAL THERAPY TOLERATED. -PLEASE FOLLOW UP WITH DR. OLVERA IN THE OFFICE WITHIN 5 DAYS AFTER DISCHARGE FROM REHAB. Objective - Vital Signs/Intake and Output Vital Signs (last 24 hours): Temp Pulse Resp BP Pulse Ox 98.1 F 96 H 20 144/92 H 96 08/02/17 15:00 08/02/17 15:00 08/02/17 15:00 08/02/17 15:00 08/02/17 15:00 - Medications Medications: Current Medications Acetaminophen (Tylenol 325mg Tab) 650 mg PO Q6 PRN PRN Reason: Pain, Mild (1-3) Last Admin: 08/01/17 20:29 Dose: 650 mg Bacitracin (Bacitracin) 1 ea TOP BID [facility] Last Admin: 08/02/17 10:09 Dose: 1 ea Enoxaparin Sodium (Lovenox) 40 mg SC DAILY [facility] Last Admin: 08/02/17 10:08 Dose: 40 mg Famotidine (Pepcid) 20 mg PO BID [facility] Hydralazine HCl (Apresoline) 75 mg PO Q8 [facility] Last Admin: 08/02/17 15:43 Dose: 75 mg Linezolid (Zyvox 600mg/300ml D5w) 600 mg in 300 mls @ 200 mls/hr IVPB Q12 [facility] Last Admin: 08/02/17 10:08 Dose: 200 mls/hr Losartan Potassium (Cozaar) 50 mg PO DAILY [facility] Last Admin: 08/02/17 10:08 Dose: 50 mg Oxycodone/Acetaminophen (Percocet 5/325 Mg Tab) 1 tab PO Q4H PRN PRN Reason: Pain, moderate (4-7) Stop: 08/05/17 12:33 Zolpidem Tartrate (Ambien) 5 mg PO HS PRN PRN Reason: Insomnia Last Admin: 08/01/17 21:28 Dose: 5 mg - Labs Labs: 08/01/17 11:18 08/01/17 11:18 PT 18.9 SECONDS (9.7-12.2) H 07/11/17 23:33 INR 1.7 07/11/17 23:33 APTT 29 SECONDS (21-34) 07/11/17 23:33
--- NOTE | 2017-08-02 22:59 | CP.PCM.DIS ---
Provider - Provider Date of Admission: 07/12/17 04:15 Attending physician: Keven Batista MD Time Spent in preparation of Discharge (in minutes): 34 Diagnosis - Discharge Diagnosis (1) Wound dehiscence Status: Acute (2) Morbid obesity Status: Acute Hospital Course - Lab Results Lab Results: Micro Results 07/22/17 16:12 Abdomen Gram Stain - Final 07/22/17 16:12 Abdomen Wound Culture - Final Vancomycin Resistant E.faecium 07/11/17 23:10 Blood Blood Culture - Final NO GROWTH AFTER 5 DAYS 07/11/17 23:10 Blood Gram Stain - Final TEST NOT PERFORMED 07/11/17 21:40 Blood Blood Culture - Final NO GROWTH AFTER 5 DAYS 07/11/17 21:40 Blood Gram Stain - Final TEST NOT PERFORMED 07/15/17 21:35 Naris MRSA Culture - Final MRSA NOT DETECTED 07/12/17 22:56 Nose MRSA Culture (Admit) - Final MRSA NOT DETECTED 07/11/17 21:10 Stool Stool Culture - Final NO SALMONELLA, SHIGELLA OR CAMPYLOBACTER ISOLATED. 07/11/17 21:10 Urine Urine Culture - Final No Growth (<1,000 CFU/ML) Most Recent Lab Values WBC 5.7 K/uL (4.8-10.8) 08/01/17 11:18 RBC 3.27 Mil/uL (3.80-5.20) L 08/01/17 11:18 Hgb 9.7 g/dL (11.0-16.0) L 08/01/17 11:18 Hct 27.6 % (34.0-47.0) L 08/01/17 11:18 MCV 84.6 fL (81.0-99.0) 08/01/17 11:18 MCH 29.6 pg (27.0-31.0) 08/01/17 11:18 MCHC 35.0 g/dL (33.0-37.0) 08/01/17 11:18 RDW 17.5 % (11.5-14.5) H 08/01/17 11:18 Plt Count 663 K/uL (130-400) H 08/01/17 11:18 MPV 7.6 fL (7.2-11.7) 08/01/17 11:18 Neut % (Auto) 50.1 % (50.0-75.0) 08/01/17 11:18 Lymph % (Auto) 37.4 % (20.0-40.0) 08/01/17 11:18 [place] % (Auto) 9.2 % (0.0-10.0) 08/01/17 11:18 Eos % (Auto) 1.4 % (0.0-4.0) 08/01/17 11:18 Baso % (Auto) 1.9 % (0.0-2.0) 08/01/17 11:18 Neut # (Auto) 2.8 K/uL (1.8-7.0) 08/01/17 11:18 Lymph # (Auto) 2.1 K/uL (1.0-4.3) 08/01/17 11:18 [place] # (Auto) 0.5 K/uL (0.0-0.8) 08/01/17 11:18 Eos # (Auto) 0.1 K/uL (0.0-0.7) 08/01/17 11:18 Baso # (Auto) 0.1 K/uL (0.0-0.2) 08/01/17 11:18 Neutrophils % (Manual) 80 % (50-75) H 07/19/17 07:32 Band Neutrophils % 2 % (0-2) 07/19/17 07:32 Lymphocytes % (Manual) 10 % (20-40) L 07/19/17 07:32 Reactive Lymphs % 1 % (0-0) H 07/17/17 08:29 Monocytes % (Manual) 8 % (0-10) 07/19/17 07:32 Eosinophils % (Manual) 2 % (0-4) 07/18/17 07:12 Basophils % (Manual) 1 % (0-2) 07/14/17 06:30 Metamyelocytes % 2 % (0-0) H 07/17/17 08:29 Myelocytes % 3 % (0-0) H 07/18/17 07:12 Toxic Granulation Present 07/14/17 06:30 Platelet Estimate Increased (NORMAL) H 07/19/17 07:32 Plt Clumps, EDTA Present 07/17/17 08:29 Large Platelets Present 07/19/17 07:32 Giant Platelets Present 07/14/17 06:30 Polychromasia Slight 07/17/17 08:29 Hypochromasia (manual) Slight 07/19/17 07:32 Poikilocytosis (manual Slight 07/19/17 07:32 Anisocytosis (manual) Slight 07/19/17 07:32 Microcytosis (manual) Slight 07/19/17 07:32 Macrocytosis (manual) Slight 07/18/17 07:12 Target Cells Slight 07/19/17 07:32 Ovalocytes Slight 07/19/17 07:32 Elsie Cells Slight 07/14/17 06:30 Schistocytes Slight 07/17/17 08:29 PT 18.9 SECONDS (9.7-12.2) H 07/11/17 23:33 INR 1.7 07/11/17 23:33 APTT 29 SECONDS (21-34) 07/11/17 23:33 Puncture Site Rra 07/12/17 18:35 pCO2 42 mm/Hg (35-45) 07/12/17 18:35 pO2 336 mm/Hg (80-100) H 07/12/17 18:35 HCO3 23.6 mmol/L (21-28) 07/12/17 18:35 ABG pH 7.36 (7.35-7.45) 07/12/17 18:35 ABG Total CO2 25.0 mmol/L (22-28) 07/12/17 18:35 ABG O2 Saturation 99.8 % (95-98) H 07/12/17 18:35 ABG Base Excess -1.8 mmol/L (-2.0-3.0) 07/12/17 18:35 Jayson Test Pos 07/12/17 18:35 ABG Potassium 3.8 mmol/L (3.6-5.2) 07/12/17 18:35 A-a O2 Difference 325.0 mm/Hg 07/12/17 18:35 Respiratory Index 1.0 07/12/17 18:35 Sodium 132.0 mmol/l (132-148) 07/12/17 18:35 Chloride 105.0 mmol/L (98-107) 07/12/17 18:35 Glucose 155 mg/dl (65-105) H 07/12/17 18:35 Lactate 2.5 mmol/L (0.7-2.1) H 07/12/17 18:35 FiO2 100.0 % 07/12/17 18:35 Sodium 135 mmol/L (132-148) 08/01/17 11:18 Potassium 3.6 mmol/L (3.6-5.2) 08/01/17 11:18 Chloride 96 mmol/L (98-107) L 08/01/17 11:18 Carbon Dioxide 28 mmol/L (22-30) 08/01/17 11:18 Anion Gap 14 (10-20) 08/01/17 11:18 BUN 11 mg/dL (7-17) 08/01/17 11:18 Creatinine 0.6 mg/dL (0.7-1.2) L 08/01/17 11:18 Est GFR ( Amer) > 60 08/01/17 11:18 Est GFR (Non-Af Amer) > 60 08/01/17 11:18 POC Glucose (mg/dL) 127 mg/dL (65-110) H 07/24/17 06:10 Random Glucose 111 mg/dL (65-105) H 08/01/17 11:18 Lactic Acid 1.3 mmol/L (0.7-2.1) 07/11/17 23:33 Calcium 9.5 mg/dl (8.6-10.4) 08/01/17 11:18 Phosphorus 2.9 mg/dL (2.5-4.5) 07/14/17 06:30 Magnesium 1.7 mg/dL (1.6-2.3) 07/20/17 06:30 Total Bilirubin 0.4 mg/dL (0.2-1.3) 07/27/17 06:54 AST 43 U/L (14-36) H D 07/27/17 06:54 ALT 26 U/L (9-52) 07/27/17 06:54 Alkaline Phosphatase 116 U/L (38-126) 07/27/17 06:54 Total Protein 6.7 g/dL (6.3-8.3) 07/27/17 06:54 Albumin 2.9 g/dL (3.5-5.0) L D 07/27/17 06:54 Globulin 3.8 gm/dL (2.2-3.9) 07/27/17 06:54 Albumin/Globulin Ratio 0.8 (1.0-2.1) L 07/27/17 06:54 Lipase 79 U/L (23-300) 07/11/17 21:48 Arterial Blood Potassium 3.8 mmol/L (3.6-5.2) 07/12/17 18:35 Urine Color [place] (YELLOW) 07/11/17 22:53 Urine Clarity Hazy (Clear) 07/11/17 22:53 Urine pH 5.0 (5.0-8.0) 07/11/17 22:53 Ur Specific [place] 1.028 (1.003-1.030) 07/11/17 22:53 Urine Protein 2+ mg/dL (NEGATIVE) H 07/11/17 22:53 Urine Glucose (UA) Normal mg/dL (Normal) 07/11/17 22:53 Urine Ketones 1+ mg/dL (NEGATIVE) H 07/11/17 22:53 Urine Blood 1+ (NEGATIVE) H 07/11/17 22:53 Urine Nitrate Negative (NEGATIVE) 07/11/17 22:53 Urine Bilirubin Negative (NEGATIVE) 07/11/17 22:53 Urine Urobilinogen 2.0 mg/dL (0.2-1.0) H 07/11/17 22:53 Ur Leukocyte Esterase Trace Annie/uL (Negative) 07/11/17 22:53 Urine WBC (Auto) 7 /hpf (0-5) H 07/11/17 22:53 Urine RBC (Auto) 8 /hpf (0-3) H 07/11/17 22:53 Ur Squamous Epith Cells 7 /hpf (0-5) H 07/11/17 22:53 Ur Transition Epith Cell < 1 /hpf (0-3) 07/11/17 22:53 Urine Bacteria Occ (<OCC) H 07/11/17 22:53 Hyaline Casts 0-2 /lpf (0-2) 07/11/17 22:53 C. difficile Ag & Toxin Negative (NEGATIVE) 07/13/17 12:07 Blood Type A POSITIVE 07/12/17 15:19 Antibody Screen Negative 07/12/17 15:19 - Hospital Course Hospital Course: -PT SEEN & EXAMINED, IS FOR DISCHARGE -CONTINUE MEDICATIONS PER THE MED REC FORM. CHANGES CAN BE MADE BY ATTENDING PHYSICIAN. -CONTINUE ANTIBIOTIC, ZYVOX 600 MG PO BID X7 MORE DAYS (START ON 08/03/17 AND LAST DOSE TO BE GIVEN ON 08/10/17). -PLEASE HAVE WOUND CARE EVALUATION UPON ARRIVAL TO FACILITY. -PHYSICAL THERAPY TOLERATED. -PLEASE FOLLOW UP WITH DR. OLVERA IN THE OFFICE WITHIN 5 DAYS AFTER DISCHARGE FROM REHAB. Discharge Exam - Head Exam Head Exam: ATRAUMATIC, NORMAL INSPECTION, NORMOCEPHALIC - Eye Exam Eye Exam: Normal appearance - Respiratory Exam Respiratory Exam: NORMAL BREATHING PATTERN - Cardiovascular Exam Cardiovascular Exam: +S1, +S2 - GI/Abdominal Exam GI & Abdominal Exam: Normal Bowel Sounds - Neurological Exam Neurological exam: Alert, CN II-XII Intact, Normal Gait, Oriented x3, Reflexes Normal - Psychiatric Exam Psychiatric exam: Normal Affect, Normal Mood Discharge Plan - Discharge Medications Prescriptions: Linezolid [Zyvox] 600 mg PO BID 7 Days tab - Follow Up Plan Condition: STABLE Disposition: REHAB FACILITY/REHAB UNIT Instructions: Heart Healthy Diet, How to Care for Your Ostomy, Adult, Wound Incision and Drainage (DC), Colostomy Care Additional Instructions: -FOR QUESTIONS REGARDING RECENT HOSPITALIZATION, CONTACT DR. BATISTA OR DR. OLVERA. -CONTINUE MEDICATIONS PER THE MED REC FORM. CHANGES CAN BE MADE BY ATTENDING PHYSICIAN. -CONTINUE ANTIBIOTIC, ZYVOX 600 MG PO BID X7 MORE DAYS (START ON 08/03/17 AND LAST DOSE TO BE GIVEN ON 08/10/17). -PLEASE HAVE WOUND CARE EVALUATION UPON ARRIVAL TO FACILITY. -PHYSICAL THERAPY TOLERATED. -PLEASE FOLLOW UP WITH DR. OLVERA IN THE OFFICE WITHIN 5 DAYS AFTER DISCHARGE FROM REHAB. Referrals: Andrew Bansal [Staff Provider] - Keven Batista MD [Staff Provider] - Bao Bustillos MD [Staff Provider] - Andrey Olvera MD [Staff Provider] -
== END 2017-08-02 21:04 | DRG 329 ==
LOC: C.ER 20:52 → C.9E 07-12 04:15 → C.9I 07-12 21:52 → C.6T 07-15 18:33
PROVIDERS: ADMIT Internal Medicine; ATTEND Internal Medicine
PROC: 0W9F0ZZ Drainage of Abdominal Wall, Open Approach (ICD-10-PCS; 2017-07-12)
PROC: 0DNG0ZZ Release Left Large Intestine, Open Approach (ICD-10-PCS; 2017-07-12)
PROC: 0DN80ZZ Release Small Intestine, Open Approach (ICD-10-PCS; 2017-07-12)
PROC: 0WQF0ZZ Repair Abdominal Wall, Open Approach (ICD-10-PCS; 2017-07-12)
PROC: 30233N1 Transfusion of Nonautologous Red Blood Cells into Peripheral Vein, Percutaneous Approach (ICD-10-PCS; 2017-07-12)
PROC: 0D1L0Z4 Bypass Transverse Colon to Cutaneous, Open Approach (ICD-10-PCS; principal; 2017-07-12 12:15)
PROC: 0DB80ZZ Excision of Small Intestine, Open Approach (ICD-10-PCS; 2017-07-12 12:15)
PROC: 0W9F0ZZ Drainage of Abdominal Wall, Open Approach (ICD-10-PCS; 2017-07-20)
PROC: 06QY0ZZ Repair Lower Vein, Open Approach (ICD-10-PCS; 2017-07-20)
PROC: 0WQFXZZ Repair Abdominal Wall, External Approach (ICD-10-PCS; 2017-07-20)
PROC: 0HD7XZZ Extraction of Abdomen Skin, External Approach (ICD-10-PCS; 2017-07-20)
PROC: 0W9F0ZZ Drainage of Abdominal Wall, Open Approach (ICD-10-PCS; 2017-07-22)
PROC: 0HD7XZZ Extraction of Abdomen Skin, External Approach (ICD-10-PCS; 2017-07-22)
DX: K94.02 Colostomy infection (principal); K63.1 Perforation of intestine (nontraumatic); K65.1 Peritoneal abscess; J18.9 Pneumonia, unspecified organism; L89.154 Pressure ulcer of sacral region, stage 4; T81.30XA Disruption of wound, unspecified, initial encounter; L02.211 Cutaneous abscess of abdominal wall; N39.0 Urinary tract infection, site not specified; Z68.41 Body mass index [BMI] 40.0-44.9, adult; E66.01 Morbid (severe) obesity due to excess calories; M19.90 Unspecified osteoarthritis, unspecified site; I10 Essential (primary) hypertension; Y83.3 Surgical operation with formation of external stoma as the cause of abnormal reaction of the patient, or of later complication, without mention of misadventure at the time of the procedure; K66.0 Peritoneal adhesions (postprocedural) (postinfection); Z98.84 Bariatric surgery status; N73.9 Female pelvic inflammatory disease, unspecified; Z87.11 Personal history of peptic ulcer disease; D50.0 Iron deficiency anemia secondary to blood loss (chronic)

== ENCOUNTER 2017-08-30 14:18 | Inpatient (IN) | payer OTHER ==
[2017-08-30 14:19] VITALS: BMI 42.2
[2017-08-30] MEDS ORDERED: Sodium Chloride 0.9% 1,000 ML IV ONE (16:06)
[2017-08-30 16:30] LABS: BASO # 0.1 K/uL (0.0-0.2); BASO % 0.5 % (0.0-2.0); EOS # 0.2 K/uL (0.0-0.7); EOS % 1.7 % (0.0-4.0); HEMOGLOBIN 10.1 g/dL (11.0-16.0); LYMPH # 2.9 K/uL (1.0-4.3); LYMPH % 25.3 % (20.0-40.0); MEAN CORPUSCULAR HEMOGLOBIN 30.4 pg (27.0-31.0); MEAN CORPUSCULAR HGB CONC 34.7 g/dL (33.0-37.0); MEAN PLATELET VOLUME 8.2 fL (7.2-11.7); MONO # 0.6 K/uL (0.0-0.8); MONO % 5.5 % (0.0-10.0); NEUT # 7.7 K/uL (1.8-7.0); RBC 3.33 Mil/uL (3.80-5.20); RED CELL DISTRIBUTION WIDTH 20.3 % (11.5-14.5)
[2017-08-30 16:32] LABS: MEAN CELL VOLUME 87.6 fL (81.0-99.0); WHITE BLOOD COUNT 11.5 K/uL (4.8-10.8)
[2017-08-30] MEDS ORDERED: Sodium Chloride 0.9% 1,000 ML ONE (16:35)
[2017-08-30 16:44] LABS: SQUAMOUS EPITHIAL 5 /hpf (0-5); URINE BACTERIA RARE (<OCC); URINE BILIRUBIN NEGATIVE (NEGATIVE); URINE BLOOD NEGATIVE (NEGATIVE); URINE CLARITY Hazy (Clear); URINE COLOR Yellow (YELLOW); URINE GLUCOSE (UA) NORMAL (Normal); URINE HYALINE CAST 0-2 /lpf (0-2); URINE LEUKOCYTE ESTERASE NEG Leu/uL (Negative); URINE PROTEIN 1+ mg/dL (NEGATIVE); URINE UROBILINOGEN NORMAL mg/dL (0.2-1.0)
--- NOTE | 2017-08-30 16:50 | C.PDOC ---
History Of Present Illness 52 yo female w/PMHx of DM, hx of sacral wound, diverticulitis w/abscess with wound dehiscence was sent to ED by surgeon for re-admission due to open wound over left lower abd. wall with purulent discharges. Pt sts, "had open wound for since surgery but discharges noted 2 weeks ago". Otherwise, pt denies fever, chills, abd. pain, N/V/D, back pain, UTI sx. Ambulate to Ed for evaluation, not in any apparent distress. As per request, pt to be re-admitted to Dr.Saleem Batista service with ID consult Dr. Bao Bustillos. Time Seen by Provider: 08/30/17 16:04 Chief Complaint (Nursing): Medical Clearance History Per: Patient Past Medical History Reviewed: Historical Data, Nursing Documentation, Vital Signs Vital Signs: Last Vital Signs Temp 98.1 F 08/31/17 07:34 Pulse 80 08/31/17 07:34 Resp 20 08/31/17 07:34 BP 164/98 H 08/31/17 07:34 Pulse Ox 97 08/31/17 07:34 - Medical History PMH: Arthritis, Diverticulitis, HTN Denies: Chronic Kidney Disease - [facility] Procedures BYPASS DESCENDING COLON TO CUTANEOUS, OPEN APPROACH (06/08/17) BYPASS TRANSVERSE COLON TO CUTANEOUS, OPEN APPROACH (07/12/17) DRAINAGE OF ABDOMINAL WALL, OPEN APPROACH (07/12/17) DRAINAGE OF BACK SUBCU/FASCIA, OPEN APPROACH (06/08/17) DRAINAGE OF BACK SUBCU/FASCIA, OPEN APPROACH, DIAGN (06/08/17) EXCISION OF BACK SUBCU/FASCIA, OPEN APPROACH (06/08/17) EXCISION OF BUTTOCK SKIN, EXTERNAL APPROACH (09/27/16) EXCISION OF SMALL INTESTINE, OPEN APPROACH (07/12/17) EXTRACTION OF ABDOMEN SKIN, EXTERNAL APPROACH (07/12/17) EXTRACTION OF BACK SUBCU/FASCIA, PERC APPROACH (06/08/17) RELEASE LEFT LARGE INTESTINE, OPEN APPROACH (07/12/17) RELEASE SMALL INTESTINE, OPEN APPROACH (07/12/17) REPAIR ABDOMINAL WALL, EXTERNAL APPROACH (07/12/17) REPAIR ABDOMINAL WALL, OPEN APPROACH (07/12/17) REPAIR BACK SUBCUTANEOUS TISSUE AND FASCIA, OPEN APPROACH (06/08/17) REPAIR LOWER VEIN, OPEN APPROACH (07/12/17) RESECTION OF SIGMOID COLON, OPEN APPROACH (06/08/17) TRANSFER BACK SKIN, EXTERNAL APPROACH (09/27/16) TRANSFUSE NONAUT RED BLOOD CELLS IN PERIPH VEIN, PERC (07/12/17) Family History: States: Unknown Family Hx - Social History Hx Tobacco Use: No Hx Alcohol Use: No Hx Substance Use: No - Immunization History Hx Tetanus Toxoid Vaccination: No Hx Influenza Vaccination: Yes Hx Pneumococcal Vaccination: No Review Of Systems Except As Marked, All Systems Reviewed And Found Negative. Constitutional: Negative for: Fever, Chills ENT: Negative for: Throat Pain Cardiovascular: Negative for: Chest Pain, Palpitations, Edema, Light Headedness Respiratory: Negative for: Cough, Shortness of Breath, Wheezing Gastrointestinal: Negative for: Nausea, Vomiting, Abdominal Pain Genitourinary: Negative for: Dysuria, Frequency Skin: Positive for: Lesions Neurological: Negative for: Weakness, Numbness, Altered Mental Status, Headache , Dizziness Physical Exam - Physical Exam Appears: Well, Non-toxic, No Acute Distress Skin: Normal Color, Warm, Dry Head: Normacephalic Eye(s): bilateral: PERRL Nose: No Discharge Oral Mucosa: Moist Neck: Trachea Midline, Supple Cardiovascular: Rhythm Regular, No Murmur Respiratory: No Decreased Breath Sounds, No Accessory Muscle Use, No Stridor, No Wheezing Gastrointestinal/Abdominal: Bowel Sounds (normal), Soft, No Tenderness, No Distention, Other (Left side colostomy, clean bag. (+) open wound left lower abdominal wall 2#3 cm with continous purulent discharges. no erythema, no flactulance.) Extremity: Normal ROM, No Pedal Edema, No Deformity Neurological/Psych: Oriented x3, Normal Speech ED Course And Treatment - Laboratory Results Result Diagrams: 08/30/17 16:24 08/30/17 16:24 O2 Sat by Pulse Oximetry: 99 Pulse Ox Interpretation: Normal - CT Scan/US CT abd/pelvis Other Rad Studies (CT/US): Radiology Report Reviewed CT/US Interpretation: ndum created by Mayra Diaz MD on 08/30/2017 8:56:08 PM EDT. . THIS REPORT CONTAINS FINDINGS THAT MAY BE CRITICAL TO PATIENT CARE. The. findings were verbally communicated via telephone conference with Dr. Batista. at 8:55 PM EDT on 08/30/2017. The findings were acknowledged and understood. . Initial report created on 08/30/2017 8:04:27 PM EDT. . EXAM: CT Abdomen and Pelvis With Intravenous Contrast. . EXAM DATE/TIME: Exam ordered 08/30/2017 4:06 PM. . CLINICAL HISTORY: 52 years old, female; Pain; Abdominal pain; Generalized; Additional info: Abd. pain. . TECHNIQUE: Axial computed tomography images of the abdomen and pelvis with intravenous. contrast. All CT scans at this facility use one or more dose reduction. techniques, viz.: automated exposure control; ma/kV adjustment per patient size. (including targeted exams where dose is matched to indication; i.e. head) ; or. iterative reconstruction technique. . CONTRAST: 100 mL of visipaque 320 administered intravenously. . COMPARISON: No relevant prior studies available. . FINDINGS: Lower thorax: There is moderate cardiomegaly. There is a small hiatal. hernia. . ABDOMEN: Liver: Unremarkable. No mass. Gallbladder and bile ducts: Surgical clips are seen in the gallbladder. fossa. The gallbladder is absent. No ductal dilation. Pancreas: Unremarkable. No mass. No ductal dilation. Spleen: Unremarkable. No splenomegaly. Adrenals: Unremarkable. No mass. Kidneys and ureters: Unremarkable. No solid mass. No hydronephrosis. Stomach and bowel: Suture line is noted along the stomach. There is an. ostomy exiting the left mid abdomen. There's been resection of the hepatic. flexure and descending colon. There is free air noted within the abdomen along. the anterior peritoneal surface below the level of the umbilicus. The air. dissects inferiorly into the pelvis adjacent to a loop of sigmoid colon. positioned anteriorly within the pelvis where there are multiple sutures. There. is stranding of the adjacent pericolonic fat. No obstruction. There is a large. amount of stool seen in the ascending and transverse colon. Appendix: Not seen as a separate structure. PELVIS: Bladder: Unremarkable. No mass. Reproductive: There has been a hysterectomy. . ABDOMEN and PELVIS: Intraperitoneal space: Unremarkable. No free air. No significant fluid. collection. Bones/joints: Facet arthropathy is noted in the lumbar spine. There is a. sclerosis noted of the sacroiliac joints. The joints are unfused. No acute. fracture. No dislocation. Soft tissues: There is a healed midline abdominal incision. There is soft. tissue stranding noted along the margins of the incision particularly at and. below the umbilicus. Air dissects into the left abdominal wall and subcutaneous. fat anteriorly below the level of the ostomy where there appears to be a suture. Vasculature: Unremarkable. No abdominal aortic aneurysm. Lymph nodes: Unremarkable. No enlarged lymph nodes. . IMPRESSION : 1. Free air and stranding of the pericolonic fat noted deep to the midline. abdominal incision. . 2. Postoperative changes related to partial colectomy and colostomy. . 3. Small hiatal hernia. . 4. Cardiomegaly. Images were attached to this report and are available at [email or web address] . Addendum Dictated By: Mayra Diaz MD. Addendum Dictated Date Time: Progress Note: Pt remained stable during the ED evaluation. Afebrile, hemodynamicaly tsable. Abd: benign, (-) guarding, (-) rebound. Case discussed with and admission arranged. Dr. Sparrow surgical consult and ID consult ordered nad phys notified. Disposition - Disposition Disposition: HOSPITALIZED Disposition Time: 17:30 Condition: FAIR - Clinical Impression Clinical Impression: Wound dehiscence, Diverticular disease of intestine with perforation and abscess, Fistula, Pneumoperitoneum
[2017-08-30 16:51] LABS: ALB/GLOB RATIO 0.9 (1.0-2.1); ALBUMIN 3.7 g/dL (3.5-5.0); ALT/SGPT 15 U/L (9-52); AST/SGOT 19 U/L (14-36); BLOOD UREA NITROGEN 20 mg/dL (7-17); CALCIUM 9.5 mg/dl (8.6-10.4); GFR AFRICAN-AMERICAN > 60; GFR NON-AFRICAN AMERICAN > 60; LIPASE 470 U/L (23-300)
[2017-08-30] MEDS ORDERED: Iohexol 350mg/ml 100 ML ONE (17:08)
--- NOTE | 2017-08-30 20:04 | CT ---
EXAM: CT Abdomen and Pelvis With Intravenous Contrast EXAM DATE/TIME: Exam ordered 08/30/2017 4:06 PM CLINICAL HISTORY: 52 years old, female; Pain; Abdominal pain; Generalized; Additional info: Abd pain TECHNIQUE: Axial computed tomography images of the abdomen and pelvis with intravenous contrast. All CT scans at this facility use one or more dose reduction techniques, viz.: automated exposure control; ma/kV adjustment per patient size (including targeted exams where dose is matched to indication; i.e. head); or iterative reconstruction technique. CONTRAST: 100 mL of visipaque 320 administered intravenously. COMPARISON: No relevant prior studies available. FINDINGS: Lower thorax: There is moderate cardiomegaly. There is a small hiatal hernia. ABDOMEN: Liver: Unremarkable. No mass. Gallbladder and bile ducts: Surgical clips are seen in the gallbladder fossa. The gallbladder is absent. No ductal dilation. Pancreas: Unremarkable. No mass. No ductal dilation. Spleen: Unremarkable. No splenomegaly. Adrenals: Unremarkable. No mass. Kidneys and ureters: Unremarkable. No solid mass. No hydronephrosis. Stomach and bowel: Suture line is noted along the stomach. There is an ostomy exiting the left mid abdomen. There's been resection of the hepatic flexure and descending colon. There is free air noted within the abdomen along the anterior peritoneal surface below the level of the umbilicus. The air dissects inferiorly into the pelvis adjacent to a loop of sigmoid colon positioned anteriorly within the pelvis where there are multiple sutures. There is stranding of the adjacent pericolonic fat. No obstruction. There is a large amount of stool seen in the ascending and transverse colon. Appendix: Not seen as a separate structure. PELVIS: Bladder: Unremarkable. No mass. Reproductive: There has been a hysterectomy. ABDOMEN and PELVIS: Intraperitoneal space: Unremarkable. No free air. No significant fluid collection. Bones/joints: Facet arthropathy is noted in the lumbar spine. There is a sclerosis noted of the sacroiliac joints. The joints are unfused. No acute fracture. No dislocation. Soft tissues: There is a healed midline abdominal incision. There is soft tissue stranding noted along the margins of the incision particularly at and below the umbilicus. Air dissects into the left abdominal wall and subcutaneous fat anteriorly below the level of the ostomy where there appears to be a suture. Vasculature: Unremarkable. No abdominal aortic aneurysm. Lymph nodes: Unremarkable. No enlarged lymph nodes. IMPRESSION: 1. Free air and stranding of the pericolonic fat noted deep to the midline abdominal incision. 2. Postoperative changes related to partial colectomy and colostomy 3. Small hiatal hernia. 4. Cardiomegaly. Images were attached to this report and are available at [email or web address]
[2017-08-30] MEDS ORDERED: Ciprofloxacin 400mg/200ml D5W 400 MG/200 ML BAG IVPB SCH (22:15)
[2017-08-30] MEDS: metroNIDAZOLE IV 500 mg/100 ml 500 MG/100 ML BAG IVPB SCH (22:30)
[2017-08-30] MEDS: Dextrose 5%/0.45% NS 1,000 ML IV SCH (22:35)
[2017-08-30 23:23] VITALS: RESP 20
[2017-08-31 07:37] VITALS: BP 164/98; PULSE 80; TEMP 98.1
[2017-08-31] MEDS: metroNIDAZOLE IV 500 mg/100 ml 500 MG/100 ML BAG IVPB SCH ×2 (07:57→14:14)
[2017-08-31] MEDS: (Novolin R) Insulin Human Regular 100 units/ml vial SC SCH ×2 (07:58→11:38)
[2017-08-31] MEDS: Enoxaparin 40 mg Syringe SC SCH ×2 (09:55→14:38)
[2017-08-31] MEDS: Dextrose 5%/0.45% NS 1,000 ML IV SCH (10:03)
[2017-08-31] MEDS: Ciprofloxacin 400mg/200ml D5W 400 MG/200 ML BAG IVPB SCH ×2 (11:38)
--- NOTE | 2017-08-31 17:06 | CP.PCM.PN ---
Subjective - Date & Time of Evaluation Date of Evaluation: 08/31/17 Time of Evaluation: 11:00 - Subjective Subjective: Alert, awake, no fever, no acute distress. Objective - Vital Signs/Intake and Output Vital Signs (last 24 hours): Temp Pulse Resp BP Pulse Ox 98.1 F 80 20 164/98 H 97 08/31/17 07:34 08/31/17 07:34 08/31/17 07:34 08/31/17 07:34 08/31/17 07:34 Intake and Output: 08/31/17 08/31/17 06:59 18:59 Intake Total 200 600 Output Total 250 Balance -50 600 - Labs Labs: 08/30/17 16:24 08/30/17 16:24 Assessment and Plan - Assessment and Plan (Free Text) Assessment: 68 year old female admitted with abdominal wound dehiscence and wound infection. Seen and examined. Alert and orientedx3, no fever, sob or acute distress. Has a working colostomy in place. Has open wound with mild oozing at the lower abdomen covered with guaze. Patient's son arrived and was awaiting for DR Sparrow to talk to him. The son told DR Sparrow that he wanted to take his mother to another hospital. Dr Sparrow explained his plan of treatment to the patient and family, but she eventually signed AMA.
--- NOTE | 2017-08-31 22:50 | CP.PCM.DIS ---
Provider - Provider Date of Admission: 08/30/17 17:31 Attending physician: Keven Batista MD Time Spent in preparation of Discharge (in minutes): 25 Hospital Course - Lab Results Lab Results: Micro Results 08/30/17 04:45 Blood Blood Culture - Preliminary NO GROWTH AFTER 24 HOURS 08/30/17 04:59 Blood Blood Culture - Preliminary NO GROWTH AFTER 24 HOURS 08/30/17 16:59 Abdomen Gram Stain - Final 08/30/17 16:59 Abdomen Wound Culture - Preliminary Gram Negative Isaac Most Recent Lab Values WBC 11.5 K/uL (4.8-10.8) H D 08/30/17 16:24 RBC 3.33 Mil/uL (3.80-5.20) L 08/30/17 16:24 Hgb 10.1 g/dL (11.0-16.0) L 08/30/17 16:24 Hct 29.2 % (34.0-47.0) L 08/30/17 16:24 MCV 87.6 fL (81.0-99.0) D 08/30/17 16:24 MCH 30.4 pg (27.0-31.0) 08/30/17 16:24 MCHC 34.7 g/dL (33.0-37.0) 08/30/17 16:24 RDW 20.3 % (11.5-14.5) H 08/30/17 16:24 Plt Count 420 K/uL (130-400) H D 08/30/17 16:24 MPV 8.2 fL (7.2-11.7) 08/30/17 16:24 Neut % (Auto) 67.0 % (50.0-75.0) 08/30/17 16:24 Lymph % (Auto) 25.3 % (20.0-40.0) 08/30/17 16:24 [place] % (Auto) 5.5 % (0.0-10.0) 08/30/17 16:24 Eos % (Auto) 1.7 % (0.0-4.0) 08/30/17 16:24 Baso % (Auto) 0.5 % (0.0-2.0) 08/30/17 16:24 Neut # (Auto) 7.7 K/uL (1.8-7.0) H 08/30/17 16:24 Lymph # (Auto) 2.9 K/uL (1.0-4.3) 08/30/17 16:24 [place] # (Auto) 0.6 K/uL (0.0-0.8) 08/30/17 16:24 Eos # (Auto) 0.2 K/uL (0.0-0.7) 08/30/17 16:24 Baso # (Auto) 0.1 K/uL (0.0-0.2) 08/30/17 16:24 Sodium 144 mmol/L (132-148) 08/30/17 16:24 Potassium 3.3 mmol/L (3.6-5.2) L 08/30/17 16:24 Chloride 101 mmol/L (98-107) 08/30/17 16:24 Carbon Dioxide 27 mmol/L (22-30) 08/30/17 16:24 Anion Gap 20 (10-20) 08/30/17 16:24 BUN 20 mg/dL (7-17) H 08/30/17 16:24 Creatinine 0.7 mg/dL (0.7-1.2) 08/30/17 16:24 Est GFR ( Amer) > 60 08/30/17 16:24 Est GFR (Non-Af Amer) > 60 08/30/17 16:24 POC Glucose (mg/dL) 102 mg/dL (65-110) 08/31/17 11:10 Random Glucose 120 mg/dL (65-105) H 08/30/17 16:24 Calcium 9.5 mg/dl (8.6-10.4) 08/30/17 16:24 Total Bilirubin 0.4 mg/dL (0.2-1.3) 08/30/17 16:24 AST 19 U/L (14-36) 08/30/17 16:24 ALT 15 U/L (9-52) 08/30/17 16:24 Alkaline Phosphatase 85 U/L (38-126) 08/30/17 16:24 Total Protein 8.0 g/dL (6.3-8.3) 08/30/17 16:24 Albumin 3.7 g/dL (3.5-5.0) 08/30/17 16:24 Globulin 4.3 gm/dL (2.2-3.9) H 08/30/17 16:24 Albumin/Globulin Ratio 0.9 (1.0-2.1) L 08/30/17 16:24 Lipase 470 U/L (23-300) H 08/30/17 16:24 Urine Color Yellow (YELLOW) 08/30/17 16:32 Urine Clarity Hazy (Clear) 08/30/17 16:32 Urine pH 5.0 (5.0-8.0) 08/30/17 16:32 Ur Specific [place] 1.019 (1.003-1.030) 08/30/17 16:32 Urine Protein 1+ mg/dL (NEGATIVE) H 08/30/17 16:32 Urine Glucose (UA) Normal mg/dL (Normal) 08/30/17 16:32 Urine Ketones Negative mg/dL (NEGATIVE) 08/30/17 16:32 Urine Blood Negative (NEGATIVE) 08/30/17 16:32 Urine Nitrate Negative (NEGATIVE) 08/30/17 16:32 Urine Bilirubin Negative (NEGATIVE) 08/30/17 16:32 Urine Urobilinogen Normal mg/dL (0.2-1.0) 08/30/17 16:32 Ur Leukocyte Esterase Neg Annie/uL (Negative) 08/30/17 16:32 Urine WBC (Auto) 3 /hpf (0-5) 08/30/17 16:32 Urine RBC (Auto) 1 /hpf (0-3) 08/30/17 16:32 Ur Squamous Epith Cells 5 /hpf (0-5) 08/30/17 16:32 Urine Bacteria Rare (<OCC) 08/30/17 16:32 Hyaline Casts 0-2 /lpf (0-2) 08/30/17 16:32 Discharge Plan - Follow Up Plan Condition: STABLE Disposition: AGAINST MEDICAL ADVICE Instructions: Wound Dehiscence Additional Instructions: FOLLOW UP WITH OWN PRIMARY PHYSICIAN TOMORROW.09/01/2017. CALL YOUR PRIMARY PHYSICIAN ALEJANDRA.
--- NOTE | 2017-08-31 22:50 | CP.PCM.HP ---
History of Present Illness - History of Present Illness History of Present Illness: 52 yo female w/PMHx of DM, hx of sacral wound, diverticulitis w/abscess with wound dehiscence was sent to ED by surgeon for re-admission due to open wound over left lower abd. wall with purulent discharges. Pt sts, "had open wound for since surgery but discharges noted 2 weeks ago". Otherwise, pt denies fever, chills, abd. pain, N/V/D, back pain, UTI sx. Ambulate to Ed for evaluation, not in any apparent distress. As per request, pt to be re-admitted to Dr.Saleem Batista service with ID consult Dr. Bao Bustillos. Time Seen by Provider: 08/30/17 16:04 Chief Complaint (Nursing): Medical Clearance Past Patient History - Past Medical History & Family History Past Medical History?: Yes - Past Social History Smoking Status: Never Smoked - CARDIAC Hx Hypertension: Yes - PULMONARY Hx Respiratory Disorders: No - NEUROLOGICAL Hx Neurological Disorder: No - HEENT Hx HEENT Problems: No - RENAL Hx Chronic Kidney Disease: No - ENDOCRINE/METABOLIC Hx Endocrine Disorders: No - HEMATOLOGICAL/ONCOLOGICAL Hx Blood Disorders: No - INTEGUMENTARY Hx Dermatological Problems: No - MUSCULOSKELETAL/RHEUMATOLOGICAL Hx Arthritis: Yes Hx Falls: No - GASTROINTESTINAL Hx Diverticulitis: Yes - GENITOURINARY/GYNECOLOGICAL Hx Genitourinary Disorders: No - PSYCHIATRIC Hx Substance Use: No - SURGICAL HISTORY Hx Surgeries: Yes Hx Gastric Bypass Surgery: Yes (2011) Hx Hysterectomy: Yes (1998) Other/Comment: gallbladder Sx 4 -5 yrs ago - ANESTHESIA Hx Anesthesia: Yes Hx Anesthesia Reactions: No Hx Malignant Hyperthermia: No Meds Allergies/Adverse Reactions: Allergies Allergy/AdvReac Type Severity Reaction Status Date / Time piperacillin [From Zosyn] AdvReac RASH, Verified 08/30/17 14:44 ITCHINESS tazobactam [From Zosyn] AdvReac RASH, Verified 08/30/17 14:44 ITCHINESS Results - Vital Signs Recent Vital Signs: Last Vital Signs Temp 98.1 F 08/31/17 07:34 Pulse 80 08/31/17 07:34 Resp 20 08/31/17 07:34 BP 164/98 H 08/31/17 07:34 Pulse Ox 97 08/31/17 07:34 - Labs Result Diagrams: 08/30/17 16:24 08/30/17 16:24 Labs: Laboratory Results - last 24 hr 08/31/17 08/31/17 08/31/17 02:15 07:13 11:10 POC Glucose (mg/dL) 114 H 107 102
--- NOTE | 2017-09-01 08:15 | CON ---
DATE: 08/31/2017. REASON FOR CONSULTATION: Wound dehiscence, intra abdominal infection. HISTORY OF PRESENT ILLNESS: This is an 52-year-old female with very complicated past surgical and medical history, history of morbid obesity along with other medical problems and she presented to the hospital 2 months ago with two separate issues an infected sacral mass and left lower quadrant pain and fever, which CAT scan showed to be diverticulitis. She underwent IV antibiotic therapy for the diverticulitis and wound care and operative management of the infected sacral abscess. During that admission, she developed 2 abdominal abscess, which were not amendable to drainage and for that reason, underwent Woody's procedure. The Woody's procedure was basically uncomplicated. She had a prolonged postoperative course with some wound issues but was basically discharged to a rehab facility in good condition. 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 She represented to the hospital unfortunately with an intraabdominal abscesses as some of the feces had leaked into the abdomen. She underwent re-laparotomy with lysis of adhesions, extensive adhesions were found and underwent a small bowel resection lysis of adhesions and also excision of the previous colostomy and distal colon and revision of the colostomy to basically the splenic flexure. Her postoperative course was complicated by several wound issues and wound infections, was taken back to the OR for wound issues, eventually had the wound closed and was sent to rehab for prolonged antibiotic therapy. This was discontinued and she was then sent home recently. She came to my office yesterday, was found to have a either a dehiscence or fistula at the lower pole of the wound, grossly open and draining a greenish drainage, even though she was not exhibiting signs of infection, she was sent to the emergency room for workup of possible fistula. She underwent a CT scan which was read by two separate radiologist and showed no evidence of collection or abdominal leakage, but had what appeared to be a dehiscence at the lower portion of the wound, complicated by an infection. The plan was to take the patient to the operating room today for a wash out of the wound, IV antibiotics therapy, and eventually placing a biologic patch over the dehisced area once the abdominal space has been cleaned out adequately. Today, I went to see the patient and I was informed by the son that they will bring in the patient, they were going to sign out against the medical advise and bring the patient to another hospital. I explained very clearly what I just dictated and the reason for my thinking, that she was in need of abdominal washout with eventual placement of biologic patch. The family; however, wanted to go to a different facility, so they will apparently sign out against medical advise. My office will make available today any charts or medical records which they may need. Andrey Sparrow MD
[2017-09-01] MEDS ORDERED: Pneumococcal 23-Valent Vaccine IM ONE (10:00)
[2017-09-01 12:19] VITALS: O2SAT 99
== END 2017-08-31 15:00 | disposition left against medical advice (07) | DRG 919 ==
LOC: C.ER 14:18 → C.9E 17:31 → C.3T 19:04
PROVIDERS: ADMIT Internal Medicine; ATTEND Internal Medicine
DX: T81.31XA Disruption of external operation (surgical) wound, not elsewhere classified, initial encounter (principal); K65.1 Peritoneal abscess; K94.02 Colostomy infection; E66.01 Morbid (severe) obesity due to excess calories; I10 Essential (primary) hypertension; E11.9 Type 2 diabetes mellitus without complications; Z79.2 Long term (current) use of antibiotics; Z98.84 Bariatric surgery status; Z68.34 Body mass index [BMI] 34.0-34.9, adult; Y83.3 Surgical operation with formation of external stoma as the cause of abnormal reaction of the patient, or of later complication, without mention of misadventure at the time of the procedure

== ENCOUNTER 2018-09-15 09:17 | Outpatient (CLI) | payer OTHER | END 2018-09-15 09:18 | disposition home or self-care (01) | LOC: C.CTH 09:17 ==

== ENCOUNTER 2018-10-13 08:41 | Outpatient (CLI) | payer OTHER | END 2018-10-13 08:42 | disposition home or self-care (01) | LOC: C.RADH 08:41 | DX: Z93.3 Colostomy status (principal) ==